=== PATIENT | male | born 1980 | race Two or more races ===

== ENCOUNTER 2020-12-06 00:29 | Inpatient (IN) | payer MEDICAID ==
[2020-12-06] VITALS (13 sets, daily range): BP systolic 69–113; BP diastolic 33–73
[~2020-12-06] VITALS: Ht 172.7 cm; Wt 72.6 kg
--- NOTE | 2020-12-06 00:31 | NUR ---
ED Nurse Note: PT came via ambulance after pt called 911. Pt is A/O x3 and verbally responsive. Pt states he was waling back from the bathroom and fell over a chair which landed on him. He laid on the floor for 5-10 minutes and then hopped to his cell phone and called 911. Pain noted at 04/18. MD at bedside speaking to pt. Pain medication ordered. No SOB or acute distress noted. Vitals stable. Pt is juandice after informing the nurse that he has cirrhosis of the liver and edema on both bilateral extremities +2.
--- NOTE | 2020-12-06 00:44 | Emergency Room Report ---
History of Present Illness General Chief Complaint: Lower Extremity Injury Source: Patient Present Illness [facility] This is a 40-year-old male with a history of alcoholic cirrhosis. He presents with chief complaint of right ankle pain. Onset was acute. Occurred about an hour and a half prior to arrival. He said he tripped over a chair ago was dark and he did not turn on the light. He fell and twisted his his right ankle. Pain is 9 out of 10. Unable to bear weight. He has deformity and swelling. He has bilateral pedal edema at baseline because of his cirrhosis. But is worse after the fall. No head injury. No fever chills but no other complaint. No radiation of his pain. Allergies: Coded Allergies: No Known Allergies (Unverified , 12/06/20) COVID-19 Screening Contact w/high risk pt: No Experienced COVID-19 symptoms?: No COVID-19 Testing performed SOFTWARE DESIGN MANAGER: No COVID-19 Screening: Negative COVID-19 Patient History Past Medical History: see triage record, old chart reviewed Past Surgical History: none Pertinent Family History: none Social History: Denies: smoking Immunizations: other Reviewed Nursing Documentation: PMH: Agreed; PSxH: Agreed Review of Systems Eye: Denies: eye pain, blurred vision ENT: Denies: ear pain, nose congestion, throat swelling Respiratory: Denies: cough, shortness of breath Cardiovascular: Denies: chest pain, palpitations Gastrointestinal: Denies: abdominal pain, diarrhea, nausea, vomiting Musculoskeletal: Reports: joint pain, joint swelling; Denies: back pain Skin: Denies: rash Neurological: Denies: headache, numbness Endocrine: Denies: increased thirst, increased urine Hematologic/Lymphatic: Denies: easy bruising All Other Systems: negative except mentioned in HPI Physical Exam Vital Signs Date Time Temp Pulse Resp B/P (MAP) Pulse Ox O2 Delivery O2 Flow Rate FiO2 12/06/20 00:30 98.1 90 20 148/85 (106) 99 Room Air Vitals unremarkable Sp02 EP Interpretation: reviewed, normal General Appearance: well appearing, no apparent distress, alert Head: normocephalic, atraumatic Eyes: bilateral eye PERRL, bilateral eye EOMI, bilateral eye scleral icterus ENT: hearing grossly normal, normal pharynx Neck: full range of motion, supple, no meningismus Respiratory: chest non-tender, lungs clear, normal breath sounds Cardiovascular #1: regular rate, rhythm, no murmur Gastrointestinal: normal bowel sounds, non tender, no mass, no organomegaly, no bruit, non-distended, other - ascites Musculoskeletal: back normal, other - Right ankle: He has 4+ pitting edema. He has deformity and tenderness to the ankle and foot. Sensation normal. Pulse decreased. Psychiatric: mood/affect normal Procedures Splinting Splinting : Consent: Verbal Location: Right lower extremity Hand-Made Type: plaster Splint: poserior short Pre-Proc Neuro Vasc Exam: normal Post-Proc Neuro Vasc Exam: normal Patient Tolerated: Well Complications: None Progress Patient had a short leg posterior splint along with a sugar tong placed. Patient tolerated procedure without any problem. Medical Decision Making Diagnostic Impression: Primary Impression: Tibia/fibula fracture, shaft Qualified Codes: S82.201A - Unspecified fracture of shaft of right tibia, initial encounter for closed fracture; S82.401A - Unspecified fracture of shaft of right fibula, initial encounter for closed fracture Additional Impressions: Hypokalemia Alcohol abuse Alcoholic cirrhosis of liver with ascites Anemia Qualified Codes: D64.9 - Anemia, unspecified Hepatorenal syndrome ER Course Patient presents with a fall and sustained an unstable tib-fib shaft fracture. He denies using alcohol but his alcohol level is still 55. He has ascites and severe jaundice already. Kidney function is poor. He is however alert and not and hepatic encephalopathy. Patient will be admitted for orthopedic consult. I contacted Dr. Braga for admission. Other X-Ray Diagnostic Results Other X-Ray Diagnostic Results #1: X-Ray ordered: Right knee x-rays # of Views/Limited Vs Complete: Complete Indication: Pain EP Interpretation: Yes Interpretation: no dislocation, no soft tissue swelling, no fractures Impression: No acute disease Electronically Signed by: Rik Lamar MD Other X-Ray Diagnostic Results #2: X-Ray ordered: Right ankle x-rays # of Views/Limited Vs Complete: Complete Indication: Pain EP Interpretation: Yes Interpretation: no dislocation, other - Patient with displaced comminuted fracture of the distal tibia and fibula Impression: Other - Tib-fib fracture Electronically Signed by: Rik Lamar MD Other X-Ray Diagnostic Results #3: X-Ray ordered: Right ankle x-rays # of Views/Limited Vs Complete: 4 View Indication: Pain EP Interpretation: Yes Interpretation: no dislocation, other - Distal tib-fib fracture Impression: Other - tib-fib fracture Electronically Signed by: Rik Lamar MD Last Vital Signs Date Time Temp Pulse Resp B/P (MAP) Pulse Ox O2 Delivery O2 Flow Rate FiO2 12/06/20 00:30 98.1 90 20 148/85 (106) 99 Room Air Status: improved Disposition: ADMITTED INPATIENT Condition: Serious Rik Lamar MD Dec 06, 2020 00:44
[2020-12-06] MEDS ORDERED: HYDROcodone/Acetamin 5/325 tab ORAL ONE (00:45)
[2020-12-06 01:56] LABS: HEMOGLOBIN 10.5 G/DL (14.2-18.0); MEAN CORPUSCULAR VOLUME 88 FL (80-99); PLATELET COUNT 68 K/UL (150-450); RED BLOOD COUNT 3.52 M/UL (4.70-6.10); RED CELL DISTRIBUTION WIDTH 16.5 % (11.6-14.8); WHITE BLOOD COUNT 14.5 K/UL (4.8-10.8)
[2020-12-06 02:23] LABS: ALANINE AMINOTRANSFERASE 43 U/L (12-78); ALBUMIN 1.4 G/DL (3.4-5.0); ALBUMIN/GLOBULIN RATIO 0.4 (1.0-2.7); ALKALINE PHOSPHATASE 338 U/L (46-116); ASPARTATE AMINO TRANSFERASE 139 U/L (15-37); BILIRUBIN,TOTAL 26.9 MG/DL (0.2-1.0); BLOOD UREA NITROGEN 30 mg/dL (7-18); CALCIUM 7.4 MG/DL (8.5-10.1); CARBON DIOXIDE 16 MMOL/L (21-32); CHLORIDE 91 MMOL/L (98-107); CREATININE 4.7 MG/DL (0.55-1.30); SODIUM 126 MMOL/L (136-145)
[2020-12-06 02:35] LABS: BILIRUBIN,DIRECT 22.8 MG/DL (0.0-0.3); POTASSIUM 2.3 MMOL/L (3.5-5.1)
[2020-12-06 02:36] LABS: INR 2.9 (0.9-1.1)
[2020-12-06] MEDS ORDERED: Morphine Sulfate 4mg/ml Inj (IV USE ONLY) IVP ONE (03:15)
[2020-12-06] MEDS ORDERED: Morphine Sulfate 4mg/ml Inj (IV USE ONLY) IVP PRN (03:15)
--- NOTE | 2020-12-06 03:21 | NUR ---
ED Nurse Note: Report given to Gosia Charge Nurse
--- NOTE | 2020-12-06 03:40 | NUR ---
NURSE NOTES: Received patient from [facility] via [facility]. Patient is AOx4, denies any pain at this time. NAD noted. IV potassium infusing on the R AC patent and intact. Will admit pt to floor. Bed in lowest position and locked. Side rails up x 2. Call light within reach. Will continue to monitor.
--- NOTE | 2020-12-06 06:56 | NUR ---
NURSE NOTES: Called and texted Dr. Nevarez for admission orders. Awaiting for reply. Will endorse to next nurse to follow up.
--- NOTE | 2020-12-06 07:01 | NUR ---
ED Nurse Note: Pt transferred to 401-2 in stable condition.
--- NOTE | 2020-12-06 07:26 | NUR ---
NURSE HAND-OFF: Important Events on Shift: None Patient Status: Stable Diet: NPO Pending Orders: CBC, CMP Pending Results/Labs: YES Pending MD notification: Jenny Upton and Dr. Montez Latest Vital Signs: Temperature 98.8 , Pulse 71 , B/P 92 /58 , Respiratory Rate 18 , O2 SAT 99 , Room Air, O2 Flow Rate . Vital Sign Comment: Stable Latest Green Fall Score: 40 Fall Risk: Medium Risk Safety Measures: Call light Within Reach, Bed Alarm Zone 2, Side Rails Side Rails x2, Bed position Low and Locked. Fall Precautions: Yellow Socks Report given to ALEENA Rosenbaum
--- NOTE | 2020-12-06 07:30 | NUR ---
NURSE NOTES: Patient lying in bed sleep. No signs and symptoms of pain or distress at this time. IV dressing intact and dry. Right leg splint due to fracture. Bed lowest position and side rails up. Call light within reach. Will continue to monitor.
--- NOTE | 2020-12-06 09:22 | NUR ---
NURSE NOTES: Spoke to regarding patient and new consent order received. Order read back and carried out.
--- NOTE | 2020-12-06 09:24 | NUR ---
CASE MANAGEMENT:REVIEW 40 YR OLD MALE BIBA FROM HOME CC: RT ANKLE PAIN SI: TIB/FIB FRACTURE. HYPOKALEMIA CIRRHOSIS. HEPATORENAL SYNDROME 98.0 90 20 148/85 99% ON RA WBC+14.5 INR+2.9 K-2.3 BUN+30 CR+4.7 ALCOHOL+55 IS: IVF@100/HR IV MORPHINE X1 K-DUR PO X1 NORCO PO XRAY ANKLE AND FOOT : ADMITTED TO MED/SURG
[2020-12-06] MEDS ORDERED: Phytonadione 10 mg/mL 1ml amp SUBQ SCH (10:00)
--- NOTE | 2020-12-06 10:00 | NUR ---
NURSE NOTES: Spoke to regarding patient and new Vit K, 8 units FFP, Tylenol and Benadryl order received. Order read back and carried out.
--- NOTE | 2020-12-06 10:20 | NUR ---
NURSE NOTES: Spoke to regarding patient and new order received. Order read back and carried out.
--- NOTE | 2020-12-06 10:21 | Diagnostic Imaging Report ---
EXAM: X-RAY XRAY Knee Compl 4v+ R CLINICAL HISTORY: Trauma with knee pain. COMPARISON: None FINDINGS: Total of 4 views of the right knee were obtained. Alignment is anatomic. There is no fracture, bony lesions or erosions. Joint spaces are unremarkable. Surrounding soft tissue is normal. IMPRESSION: NO FRACTURE.
--- NOTE | 2020-12-06 10:22 | Anethesia Preoperative Eval ---
Anesthesia Pre-op PMH/ROS General Date of Evaluation: Dec 06, 2020 Anesthesiologist: Jaswant ASA Score: ASA 3 - Emergency Mallampati Score Class I : Soft palate, uvula, fauces, pillars visible Class II: Soft palate, uvula, fauces visible Class III: Soft palate, base of uvula visible Class IV: Only hard plate visible Mallampati Classification: Class II Surgeon: Tc Diagnosis: R Tibial Fx Surgical Procedure: ORIF R Tibia Anesthesia History: none Family History: no anesthesia problems Allergies: Coded Allergies: No Known Allergies (Unverified , 12/06/20) Medications: see eMAR Patient NPO?: Yes Past Medical History Gastrointestinal/Genitourinary: Reports: other - Cirrohsis Musculoskeletal/Integumentary: Reports: other - Covid + Anesthesia Pre-op Phys. Exam Physician Exam Last Vital Signs Date Time Temp Pulse Resp B/P (MAP) Pulse Ox O2 Delivery O2 Flow Rate FiO2 12/06/20 04:00 Room Air 12/06/20 04:00 98.8 71 18 92/58 (69) 99 Constitutional: NAD Neurologic: CN 2-12 intact Cardiovascular: RRR Respiratory: CTA Gastrointestinal: S/NT/ND Airway Exam Mallampati Score: Class II MO: full ROM: full Teeth: missing, intact Anesthesia Pre-op A/P Labs Hematology Test 12/06/20 01:40 White Blood Count 14.5 K/UL (4.8-10.8) H Red Blood Count 3.52 M/UL (4.70-6.10) L Hemoglobin 10.5 G/DL (14.2-18.0) L Hematocrit 31.0 % (42.0-52.0) L Mean Corpuscular Volume 88 FL (80-99) Mean Corpuscular Hemoglobin 29.9 PG (27.0-31.0) Mean Corpuscular Hemoglobin Concent 34.0 G/DL (32.0-36.0) Red Cell Distribution Width 16.5 % (11.6-14.8) H Platelet Count 68 K/UL (150-450) L Mean Platelet Volume 9.4 FL (6.5-10.1) Neutrophils (%) (Auto) % (45.0-75.0) Lymphocytes (%) (Auto) % (20.0-45.0) Monocytes (%) (Auto) % (1.0-10.0) Eosinophils (%) (Auto) % (0.0-3.0) Basophils (%) (Auto) % (0.0-2.0) Differential Total Cells Counted 100 Neutrophils % (Manual) 87 % (45-75) H Lymphocytes % (Manual) 8 % (20-45) L Monocytes % (Manual) 5 % (1-10) Eosinophils % (Manual) 0 % (0-3) Basophils % (Manual) 0 % (0-2) Band Neutrophils 0 % (0-8) Platelet Estimate Decreased L Platelet Morphology Normal Anisocytosis 1+ Coagulation Test 12/06/20 01:40 Prothrombin Time 29.8 SEC (9.30-11.50) H Prothromb Time International Ratio 2.9 (0.9-1.1) H Activated Partial Thromboplast Time 85 SEC (23-33) H Chemistry Test 12/06/20 01:40 Sodium Level 126 MMOL/L (136-145) L Potassium Level 2.3 MMOL/L (3.5-5.1) *L Chloride Level 91 MMOL/L (98-107) L Carbon Dioxide Level 16 MMOL/L (21-32) L Blood Urea Nitrogen 30 mg/dL (7-18) H Creatinine 4.7 MG/DL (0.55-1.30) H Estimat Glomerular Filtration Rate 13.8 mL/min (>60) Glucose Level 50 MG/DL (74-106) L Calcium Level 7.4 MG/DL (8.5-10.1) L Total Bilirubin 26.9 MG/DL (0.2-1.0) H Direct Bilirubin 22.8 MG/DL (0.0-0.3) H Aspartate Amino Transf (AST/SGOT) 139 U/L (15-37) H Alanine Aminotransferase (ALT/SGPT) 43 U/L (12-78) Alkaline Phosphatase 338 U/L (46-116) H Total Protein 4.9 G/DL (6.4-8.2) L Albumin 1.4 G/DL (3.4-5.0) L Globulin 3.5 g/dL Albumin/Globulin Ratio 0.4 (1.0-2.7) L Risk Assessment & Plan Assessment: ASA 3E Plan: GA, Spinal Status Change Before Surgery: No Pre-Antibiotics Dru Gram Ancef IV Given Within 1 Hr of Incision: Yes Demario Michaud MD Dec 06, 2020 10:22
--- NOTE | 2020-12-06 10:22 | Immediate Post-Op Evaluation ---
Immediate Post-Op Evalulation Immediate Post-Op Evalulation Procedure: ORIF R Tibia Date of Evaluation: Dec 06, 2020 Blood Products: 0 Pain Score (1-10): 2 Nausea: No Vomiting: No Complications 0 Patient Status: awake, reacts, patent, none Hydration Status: adequate Dru Gram Ancef IV Given Within 1 Hr of Incision: Yes Demario Michaud MD Dec 06, 2020 10:22
--- NOTE | 2020-12-06 10:25 | Diagnostic Imaging Report ---
EXAM: X-RAY XRAY Foot Complete R CLINICAL HISTORY: Trauma with foot pain. COMPARISON: None FINDINGS: Total of 4 views of the right foot were obtained. Comminuted fracture of the distal tibia and fibula noted. Bony structures of the foot itself appear anatomic and intact. Joint spaces are unremarkable. There is soft tissue swelling. IMPRESSION: FRACTURES IN THE DISTAL TIBIA AND FIBULA. NO DISCRETE FRACTURE IN THE FOOT.
--- NOTE | 2020-12-06 10:26 | Diagnostic Imaging Report ---
EXAM: X-RAY XRAY Ankle Compl Min 3v R CLINICAL HISTORY: Trauma with ankle pain. COMPARISON: None FINDINGS: Total of 4 views of the right ankle were obtained. There is severely comminuted fracture of the distal tibial and fibular shafts with large butterfly fragments. Ankle mortise and subtalar joints appear anatomic. There is soft tissue swelling. IMPRESSION: COMMINUTED FRACTURES OF THE DISTAL TIBIA AND FIBULAR SHAFTS.
[2020-12-06] MEDS ORDERED: LR 1000ml 1,000 ML IVLG SCH (10:30)
[2020-12-06] MEDS ORDERED: Metoclopramide 10mg/2ml Inj IVP PRN (10:30)
[2020-12-06] MEDS ORDERED: Atropine Sulfate 0.4mg/ml inj IVP PRN (10:30)
[2020-12-06] MEDS ORDERED: HYDROcodone/Acetamin 5/325 tab ORAL PRN (10:30)
[2020-12-06] MEDS ORDERED: Midazolam 2mg/2ml Inj IVP PRN (10:30)
[2020-12-06] MEDS ORDERED: LORazepam Inj 2mg/ml 1ml IV PRN (10:30)
[2020-12-06] MEDS ORDERED: HYDROcodone/Acetamin 7.5/325 tab ORAL PRN (10:30)
[2020-12-06] MEDS ORDERED: oxyCODONE HCL/Acetaminophen 5/325mg ORAL PRN (10:30)
[2020-12-06] MEDS ORDERED: Meperidine 25mg/1ml Inj (FOR RIGORS ONLY) IV PRN (10:30)
[2020-12-06] MEDS ORDERED: Labetalol 5mg/ml 20ml vial IV PRN (10:30)
[2020-12-06] MEDS ORDERED: DiphenhydrAMINE 50mg/ml Inj IVP PRN (10:30)
[2020-12-06] MEDS ORDERED: fentaNYL 100 mcg/2 mL IV PRN (10:30)
[2020-12-06] MEDS ORDERED: Ketorolac 30mg Inj IV PRN ×2 (10:30)
[2020-12-06] MEDS ORDERED: Hydromorphone 0.5mg/0.5ml inj IVP PRN (10:30)
--- NOTE | 2020-12-06 10:36 | NUR ---
NURSE NOTES: Spoke to regarding Potassium level and new order received. Order read back and carried out.
--- NOTE | 2020-12-06 10:45 | Cardiac Electrophysiology PN ---
Subjective Subjective [id number] Objective Last 24 Hour Vital Signs Date Time Temp Pulse Resp B/P (MAP) Pulse Ox O2 Delivery O2 Flow Rate FiO2 12/06/20 04:00 Room Air 12/06/20 04:00 98.8 71 18 92/58 (69) 99 12/06/20 00:30 98.1 90 20 148/85 (106) 99 Room Air Intake and Output 12/05/20 12/06/20 19:00 07:00 Intake Total 0 ml Output Total 0 ml Balance 0 ml Intake Oral 0 ml Output Urine Total 0 ml Laboratory Tests Test 12/06/20 01:40 White Blood Count 14.5 K/UL (4.8-10.8) H Red Blood Count 3.52 M/UL (4.70-6.10) L Hemoglobin 10.5 G/DL (14.2-18.0) L Hematocrit 31.0 % (42.0-52.0) L Mean Corpuscular Volume 88 FL (80-99) Mean Corpuscular Hemoglobin 29.9 PG (27.0-31.0) Mean Corpuscular Hemoglobin Concent 34.0 G/DL (32.0-36.0) Red Cell Distribution Width 16.5 % (11.6-14.8) H Platelet Count 68 K/UL (150-450) L Mean Platelet Volume 9.4 FL (6.5-10.1) Neutrophils (%) (Auto) % (45.0-75.0) Lymphocytes (%) (Auto) % (20.0-45.0) Monocytes (%) (Auto) % (1.0-10.0) Eosinophils (%) (Auto) % (0.0-3.0) Basophils (%) (Auto) % (0.0-2.0) Differential Total Cells Counted 100 Neutrophils % (Manual) 87 % (45-75) H Lymphocytes % (Manual) 8 % (20-45) L Monocytes % (Manual) 5 % (1-10) Eosinophils % (Manual) 0 % (0-3) Basophils % (Manual) 0 % (0-2) Band Neutrophils 0 % (0-8) Platelet Estimate Decreased L Platelet Morphology Normal Anisocytosis 1+ Prothrombin Time 29.8 SEC (9.30-11.50) H Prothromb Time International Ratio 2.9 (0.9-1.1) H Activated Partial Thromboplast Time 85 SEC (23-33) H Sodium Level 126 MMOL/L (136-145) L Potassium Level 2.3 MMOL/L (3.5-5.1) *L Chloride Level 91 MMOL/L (98-107) L Carbon Dioxide Level 16 MMOL/L (21-32) L Blood Urea Nitrogen 30 mg/dL (7-18) H Creatinine 4.7 MG/DL (0.55-1.30) H Estimat Glomerular Filtration Rate 13.8 mL/min (>60) Glucose Level 50 MG/DL (74-106) L Calcium Level 7.4 MG/DL (8.5-10.1) L Total Bilirubin 26.9 MG/DL (0.2-1.0) H Direct Bilirubin 22.8 MG/DL (0.0-0.3) H Aspartate Amino Transf (AST/SGOT) 139 U/L (15-37) H Alanine Aminotransferase (ALT/SGPT) 43 U/L (12-78) Alkaline Phosphatase 338 U/L (46-116) H Total Protein 4.9 G/DL (6.4-8.2) L Albumin 1.4 G/DL (3.4-5.0) L Globulin 3.5 g/dL Albumin/Globulin Ratio 0.4 (1.0-2.7) L Serum Alcohol 55 mg/dL Slevin Fonseca MD Dec 06, 2020 10:45
--- NOTE | 2020-12-06 10:49 | NUR ---
RD ASSESSMENT & RECOMMENDATIONS SEE CARE ACTIVITY FOR COMPLETE ASSESSMENT DAILY ESTIMATED NEEDS: Needs based on Liver Dz 68.7kg 25-35 kcals/kg [id number] total kcals 1-1.5 g protein/kg 69-103 g total protein Fluid per MD NUTRITION DIAGNOSIS: Altered nutrition related lab values r/t clinical status, alcoholic liver cirrhosis as evidenced by T bili 26.9, elevated LFT's, elevated creat 4.7, low K 2.3, low Na 126. CURRENT DIET: NPO PO DIET RECOMMENDATIONS: Cardiac diet ADDITIONAL RECOMMENDATIONS: 1) Ensure Enlive w/ meals (currently NPO) 2) replete lytes (Low K 2.3, Low Na 126). 3) Obtain a calibrated bed scale wt 4) Hypoglycemic episode this morning (BG 50), consider Clear Liquid diet Or D5 if part of POC 5) CHEMICAL MILLING PROCESSOR eval if appropriate
--- NOTE | 2020-12-06 11:33 | Consultation ---
Consult Note Consult Note Neurology Consultation Date Of Consultation: 12/06/2020 Harpal Neil; Reason For Referral; Encephalopathy Pre op clearance HPI: This is a 40-year-old Hipanic male with a history of alcoholic cirrhosis. He presents with chief complaint of right ankle pain, he was evaluated in ED and He said he tripped over a chair ago was dark and he did not turn on the light. He fell and twisted his his right ankle. No head injury reported. No fever chills but no other complaint. No radiation of his pain. He lives with his mother, his alcohol level serum was 55. We do not know when is last drink was. He is currently laying in bed, he is alert and oriented to x4 but is repeating a phrase " [facility]" in every sentence. We do no know his baseline. also noted that his glucose was 50. We were consulted for encephalopathy and pre operative clearance prior to ankle surgery. he denies headache, dizziness, seizures. Past Medical History: Ascites, cirrhosis, alcohol abuse Past Surgical history: Denies Family History: Non contributory Social History: drinks alcohol, unknown smoker, and drug use ALLERGIES: NKDA ROS 14 point done. PE Vitals Reviewed General: Patient is lying down getting Echo at bedside no distress Neuro: Alert to self oriented to time and situation has insight to situation. Comprehension intact. Language parameters intact. Crainial nervies II-XI were tested. PEERLA No nystagmus. Tongue is midline. Facial is symmetric. hearing intact Motor: No invountary movements, bilateral Upper extremities 3/5 Lower extremities 2-3/5. Sensation: intact Gait not tested due to ankle fracture. Lab Data: Reviewed Alcohol serum 55, Glucose 50, LFT's elevated Meds: Reviewed Assessment and Rec's 1. Hepatic Encephalopathy --> we do not know pateint's baseline will call his mother for further information --> at this time alcohol level serum 55 on admission unknown when his last drink was, will check Ammonia level --> he is Alert and oriented x4 however is repeating a phrase within every sentence. --> will order MRI Brain for intracranial pathology 2. Liver Cirrhosis --> Ammonia level --> para as needed 3. Alcohol Abuse --> rec cessation 4. Hypoglycemia --> monitor glucose --> D50 prn Thank you for allowing us to particpate in pateints care, plan of care was reviewed with supervising physician Dr. Dalton Rae who agrees. Marisol Lynn NP Dec 06, 2020 11:33
--- NOTE | 2020-12-06 12:15 | NUR ---
NURSE NOTES: Checked BS - 35 and patient lethargic and unable to take PO. Call and regarding BS and wait for call back.
--- NOTE | 2020-12-06 12:23 | Consultation ---
Consult Note Consult Note I am asked to evaluate the patient at the request of Dr. Braga for renal failure and electrolyte imbalances Patient seen in room 410 Discussed with ALEENA Espinoza reviewed This is a 40-year-old male with a history of alcoholic cirrhosis. He presents with chief complaint of right ankle pain. Onset was acute. Occurred about an hour and a half prior to arrival. He said he tripped over a chair ago was dark and he did not turn on the light. He fell and twisted his his right ankle. Pain is 9 out of 10. Unable to bear weight. He has deformity and swelling. He has bilateral pedal edema at baseline because of his cirrhosis. But is worse after the fall. No head injury. No fever chills but no other complaint. No radiation of his pain. Allergies: No Known Allergies (Unverified , 12/06/20) COVID-19 Screening Contact w/high risk pt: No Experienced COVID-19 symptoms?: No COVID-19 Testing performed ADVERTISING VICE PRESIDENT: No COVID-19 Screening: Negative COVID-19 PHYSICAL EXAMINATION: VITAL SIGNS: Temperature is 98. No fever in the hospital. Pulse 100, blood pressure is 61/34. GENERAL APPEARANCE: Seems to have normal weight. HEAD AND NECK: Has icteric sclerae. Has right IJ central line. HEART: Tachycardic. LUNGS: Few rhonchi bilaterally. ABDOMEN: Distended with ascites. EXTREMITIES: Has bilateral pedal edema. NEUROLOGIC: Unresponsive. LABORATORY AND DIAGNOSTIC DATA: WBC 15,000, hemoglobin 9.1, hematocrit 45.5, platelets 54. Sodium 130, potassium 3, chloride 96, bicarb 17, BUN 31, creatinine 5, glucose 63. Earlier, glucose yesterday was 33. Total bilirubin is 29.4, direct bilirubin is 22.1, AST is 74, ALT is 48, alkaline phosphatase is 278. Ammonia is 199. Albumin is 2.1. Chest x-ray showed possible multifocal pneumonia versus artifact. renal US bilateral echogenic kidneys. Ankle x-ray showed comminuted fracture of distal tibia and fibular shaft. . Assessment/Plan Renal failure, likely acute on chronic. Most likely hepatorenal syndrome End-stage liver disease Severe abnormal electrolytes: Hyponatremia, hypokalemia Anemia Tibia/fibula fracture shaft Alcoholic cirrhosis of the liver with ascites Jaundice Suggestions: Not clear for surgery until electrolyte abnormality corrects Kidney ultrasound today 2D echocardiogram Stat lab work Ramachandran catheter Urine for tox screen Per orders Driss Sneed MD Dec 06, 2020 12:23
[2020-12-06] MEDS ORDERED: D5 1/2NS 1,000 ML IV SCH (12:30)
--- NOTE | 2020-12-06 12:30 | NUR ---
NURSE NOTES: Spoke to regarding BS and Dextrose and IV fluid order received. Given Dextrose as ordered. Will continue to monitor.
[2020-12-06] MEDS: D5NS 1,000 ML IV SCH (12:34)
--- NOTE | 2020-12-06 12:45 | NUR ---
NURSE NOTES: Rechecked BS - 93 and patient more awake. Will continue to monitor.
[2020-12-06] MEDS: Midodrine 10mg tab ORAL SCH ×2 (13:00→18:00)
--- NOTE | 2020-12-06 13:25 | NUR ---
NURSE NOTES: Patient BP drop to 69/42, HR-68, BS-79, RR-14, O2 100% RA, Temp - unable to obtain. CRAYON SAWYER called. Given IV bolus as CRAYON SAWYER protocol.
--- NOTE | 2020-12-06 13:45 | NUR ---
NURSE NOTES: HR-77/42, HR-71, RR-14, O2 100% RA, Temp - unable to obtain. Called Dr. Nevarez and regarding BLENDING TANK TENDER HELPER and BP. Spoke to regarding patient and transfer to Tele. Order noted and carried out. Notified alum plant supervisor regarding transfer.
[2020-12-06 13:47] LABS: ALBUMIN 1.3 G/DL (3.4-5.0); ALBUMIN/GLOBULIN RATIO 0.4 (1.0-2.7); BILIRUBIN,TOTAL 24.6 MG/DL (0.2-1.0); CALCIUM 7.1 MG/DL (8.5-10.1); CREATININE 4.9 MG/DL (0.55-1.30); POTASSIUM 2.9 MMOL/L (3.5-5.1)
[2020-12-06 13:49] LABS: HEMATOCRIT 28.9 % (42.0-52.0); HEMOGLOBIN 9.9 G/DL (14.2-18.0); MEAN CORPUSCULAR VOLUME 89 FL (80-99); PLATELET COUNT 50 K/UL (150-450); RED BLOOD COUNT 3.24 M/UL (4.70-6.10); RED CELL DISTRIBUTION WIDTH 17.1 % (11.6-14.8)
[2020-12-06 13:50] LABS: BILIRUBIN,DIRECT 21.1 MG/DL (0.0-0.3)
--- NOTE | 2020-12-06 13:50 | NUR ---
NURSE NOTES: Spoke to regarding patient and new consult received. Called and notified new consult.
[2020-12-06 13:52] LABS: BASOPHILS % (AUTO) 0.1 % (0.0-2.0); MONOCYTES % (AUTO) 3.6 % (1.0-10.0); NEUTROPHILS % (AUTO) 91.2 % (45.0-75.0)
[2020-12-06 14:22] LABS: FERRITIN 1530 NG/ML (8-388); GAMMA GLUTAMYL TRANSPEPTIDASE 163 U/L (5-85); HDL CHOLESTEROL 10 MG/DL (40-60); PHOSPHORUS 3.7 MG/DL (2.5-4.9); TRIGLYCERIDES 104 MG/DL (30-150)
[2020-12-06 14:23] LABS: CHOLESTEROL < 50 MG/DL (< 200)
--- NOTE | 2020-12-06 14:45 | NUR ---
NURSE NOTES: Transferred patient to Tele. BP remain low and spoke to Dr. Nevarez and transfer patient to ICU. Order noted and carried out. Buyer Broker notified.
[2020-12-06 14:59] LABS: IRON 67 ug/dL (50-175)
[2020-12-06 15:00] LABS: % IRON SATURATION 100 % (15-50); TOTAL IRON BINDING CAPACITY 67 ug/dL (250-450)
--- NOTE | 2020-12-06 16:00 | NUR ---
NURSE NOTES: Transferred patient to ICU and given report to Iesha FLOOD. Belonging checked.
--- NOTE | 2020-12-06 16:28 | NUR ---
NURSE NOTES: Patient's blood pressure=80/49, need consent signed for Fresh Frozen Plasma, eight units, was able to contact patient's mother for consent. Received orders from Dr. Divya Nevarez to transfer patient to ICU.
--- NOTE | 2020-12-06 16:30 | NUR ---
NURSE NOTESL: Received patient from [facility] for hypotension. Awake, wih minimal verbal response. Belongings reviewed. Will continue to monitor.
--- NOTE | 2020-12-06 16:38 | Diagnostic Imaging Report ---
EXAM: ULTRASOUND US Renal Comp CLINICAL HISTORY: Abdominal pain and distention. COMPARISON: None TECHNIQUE: Ultrasound examination of the kidneys includes grayscale images, and color and spectral doppler analysis. FINDINGS: The right kidney measures 13.9 x 5.5 x 6.7 cm and the left kidney measures 13.1 x 6.1 x 6.5 cm. Both kidneys appear echogenic reflecting medical renal disease. There is no hydronephrosis or stone seen bilaterally. Small amount of ascites noted. Incidental finding of some collaterals in the left upper quadrant adjacent to the spleen. Bladder is only partially visualized and mostly empty. IMPRESSION: ECHOGENIC KIDNEYS REFLECTING MEDICAL RENAL DISEASE. NO OBSTRUCTIVE UROPATHY.
--- NOTE | 2020-12-06 16:40 | Diagnostic Imaging Report ---
Procedure: XRAY Chest 1v Reason for study: Reason For Exam: COUGH Comparison films: None. FINDINGS: A single one view chest is obtained. Vascularity is normal. Mild densities in the right lung base, atelectasis versus early infiltrate. Cardiac and mediastinal silhouette are within normal limits. CP angles are sharp. The bony thorax appear unremarkable. IMPRESSION: Right basilar hazy atelectasis versus early infiltrate.
--- NOTE | 2020-12-06 18:13 | General Progress Note ---
Subjective Allergies: Coded Allergies: No Known Allergies (Unverified , 12/06/20) Objective Last 24 Hour Vital Signs Date Time Temp Pulse Resp B/P (MAP) Pulse Ox O2 Delivery O2 Flow Rate FiO2 12/06/20 12:00 66 16 78/39 (52) 100 12/06/20 09:30 67 100/73 (82) 12/06/20 09:00 Room Air 12/06/20 08:00 67 20 74/33 (47) 96 12/06/20 04:00 Room Air 12/06/20 04:00 98.8 71 18 92/58 (69) 99 12/06/20 00:30 98.1 90 20 148/85 (106) 99 Room Air Intake and Output 12/05/20 12/06/20 19:00 07:00 Intake Total 0 ml Output Total 0 ml Balance 0 ml Intake Oral 0 ml Output Urine Total 0 ml Laboratory Tests 12/06/20 01:40: White Blood Count 14.5H, Red Blood Count 3.52L, Hemoglobin 10.5L, Hematocrit 31.0L, Mean Corpuscular Volume 88, Mean Corpuscular Hemoglobin 29.9, Mean Corpuscular Hemoglobin Concent 34.0, Red Cell Distribution Width 16.5H, Platelet Count 68L, Mean Platelet Volume 9.4, Neutrophils (%) (Auto) , Lymphocytes (%) (Auto) , Monocytes (%) (Auto) , Eosinophils (%) (Auto) , Basophils (%) (Auto) , Differential Total Cells Counted 100, Neutrophils % (Manual) 87H, Lymphocytes % (Manual) 8L, Monocytes % (Manual) 5, Eosinophils % (Manual) 0, Basophils % (Manual) 0, Band Neutrophils 0, Platelet Estimate DecreasedL, Platelet Morphology Normal, Anisocytosis 1+, Prothrombin Time 29.8H, Prothromb Time International Ratio 2.9H, Activated Partial Thromboplast Time 85H, Sodium Level 126L, Potassium Level 2.3*L, Chloride Level 91L, Carbon Dioxide Level 16L, Blood Urea Nitrogen 30H, Creatinine 4.7H, Estimat Glomerular Filtration Rate 13.8, Glucose Level 50L, Calcium Level 7.4L, Total Bilirubin 26.9H, Direct Bilirubin 22.8H, Aspartate Amino Transf (AST/SGOT) 139H, Alanine Aminotransferase (ALT/SGPT) 43, Alkaline Phosphatase 338H, Total Protein 4.9L, Albumin 1.4L, Globulin 3.5, Albumin/Globulin Ratio 0.4L, Serum Alcohol 55 12/06/20 12:05: Sodium Level 128L, Potassium Level 2.9L, Chloride Level 94L, Carbon Dioxide Level 16L, Blood Urea Nitrogen 30H, Creatinine 4.9H, Estimat Glomerular Filtration Rate 13.2, Glucose Level 33*L, Calcium Level 7.1L, Total Bilirubin 24.6H, Direct Bilirubin 21.1H, Aspartate Amino Transf (AST/SGOT) 148H, Alanine Aminotransferase (ALT/SGPT) 44, Alkaline Phosphatase 316H, Total Protein 4.4L, Albumin 1.3L, Globulin 3.1, Albumin/Globulin Ratio 0.4L, Anion Gap 18H, Ammonia 277H 12/06/20 13:45: White Blood Count 16.0H, Red Blood Count 3.24L, Hemoglobin 9.9L, Hematocrit 28.9L, Mean Corpuscular Volume 89, Mean Corpuscular Hemoglobin 30.6, Mean Corpuscular Hemoglobin Concent 34.3, Red Cell Distribution Width 17.1H, Platelet Count 50L, Mean Platelet Volume 9.0, Neutrophils (%) (Auto) 91.2H, Lymphocytes (%) (Auto) 5.0L, Monocytes (%) (Auto) 3.6, Eosinophils (%) (Auto) 0.0, Basophils (%) (Auto) 0.1, Uric Acid 10.4H, Phosphorus Level 3.7, Magnesium Level 2.2, Iron Level 67, Total Iron Binding Capacity 67L, Percent Iron Saturation 100H, Unsaturated Iron Binding 0L, Ferritin 1530H, Gamma Glutamyl Transpeptidase 163H, Troponin I 0.000, C-Reactive Protein, Quantitative 11.6H, Pro-B-Type Natriuretic Peptide 1054H, Triglycerides Level 104, Cholesterol Level < 50, LDL Cholesterol 18, HDL Cholesterol 10L, Cholesterol/HDL Ratio 5.0H, Vitamin B12 Level > 2000H, Folate 3.1L, Thyroid Stimulating Hormone (TSH) 0.534 12/06/20 13:56: POC Whole Blood Glucose 79 Height (Feet): 5 Height (Inches): 8.00 Weight (Pounds): 160 Assessment/Plan Assessment/Plan: GI CONSULT Assessment - Alcoholic hepatitis - Decompensated liver disease - Alcoholic hepatitis? - Hepatorenal? - Sepsis? SBP? - Renal failure - poor prognostic indicator - Elevated ammonia - (+) EtOH level - at risk for EtOH withdrawal syndrome - Fractured Tib/Fib - prognosis poor, high mortality rate given presentation Recommendations - Midodrine/Octreotide trial for HRS - albumin challenge for HRS vs ATN - PPI - Lactulose - MVI/Thiamine - D/C all tylenol containing meds - Trental trial (cannot give steroids given possible sepsis) - broad spectrum abx - paracentesis - r/o SBP - abdominal u/s - r/o biliary obstruction Thank you MD Alexsandra Gomez Payman MD Dec 06, 2020 18:13
--- NOTE | 2020-12-06 19:05 | NUR ---
NURSE HAND-OFF REPORT: Latest Vital Signs: Temperature 98.0 , Pulse 77 , B/P 92 /47 , Respiratory Rate 18 , O2 SAT 100 , Room Air, O2 Flow Rate . Vital Sign Comment: EKG Rhythm: Sinus Rhythm Rhythm change?: Latest Green Fall Score: 60 Fall Risk: High Risk Safety Measures: Call light Within Reach, Bed Alarm Zone 1, Side Rails Side Rails x2, Bed position Low and Locked. Fall Precautions: Yellow Socks Door Sign Patient Fall Education Report given to Owen Jean RN.
[2020-12-06] MEDS: Lactulose 20gm/30ml UDC ORAL SCH (20:00)
[2020-12-06] MEDS: Thiamine 100mg tab ORAL SCH (20:00)
[2020-12-06] MEDS: SandoSTATIN 100mcg Inj SUBQ SCH (20:00)
[2020-12-06] MEDS: Piperacillin/Tazobactam 3.375 GM in NS 110 ML IVPB SCH (20:08)
--- NOTE | 2020-12-06 20:49 | NUR ---
2 calls to MD berkowitz. Waiting for phone call to be returned. BP in the 70s. Albumin currently infusing.
[2020-12-06] MEDS: Pantoprazole Inj IVP SCH (21:00)
[2020-12-06] MEDS: Norepinephrine 4mg/NS Premix 250 ML IV SCH (22:39)
--- NOTE | 2020-12-06 23:41 | Emergency Room Report ---
History of Present Illness General Chief Complaint: Lower Extremity Injury Source: Patient Present Illness Allergies: Coded Allergies: No Known Allergies (Unverified , 12/06/20) COVID-19 Screening Contact w/high risk pt: Yes Experienced COVID-19 symptoms?: No COVID-19 Testing performed RN TELEPHONIC: No COVID-19 Screening: Negative COVID-19 Nursing Documentation-PMH Past Medical History: No History, Except For Hx Cardiac Problems: No Hx Cancer: No Hx Gastrointestinal Problems: Yes Hx Neurological Problems: No Physical Exam Vital Signs Date Time Temp Pulse Resp B/P (MAP) Pulse Ox O2 Delivery O2 Flow Rate FiO2 12/06/20 00:30 98.1 90 20 148/85 (106) 99 Room Air Procedures Central Line Central Line : Consent: Emergent Central Line Lumen: triple Maximal Sterile Barrier Tech: yes cap, yes mask, yes sterile gown, yes sterile gloves, yes large sterile sheet, yes hand hygiene, yes chlorhexidine prep No Max Barrier Tech Because: emergency insertion Central Line Postion: internal jugular (R) US Guided Line?: Yes Vessel visualized with U/S: Right Internal Jugular Ultrasound Findings: Collapsible Vessel, Vessel Patent, Color flow present, Visualize vessel puncture Complications: none Central Line Post Position: sutured, good blood return, position confirmed w/ CXR Attempts: One Patient Tolerated: Well Complications: None Medical Decision Making Diagnostic Impression: Primary Impression: Tibia/fibula fracture, shaft Qualified Codes: S82.201A - Unspecified fracture of shaft of right tibia, initial encounter for closed fracture; S82.401A - Unspecified fracture of shaft of right fibula, initial encounter for closed fracture Additional Impressions: Alcoholic cirrhosis of liver with ascites Alcohol abuse Anemia Qualified Codes: D64.9 - Anemia, unspecified Hepatorenal syndrome Hypokalemia ER Course I was called to the bedside as the patient had low blood pressure requiring vasopressors. Central line was emergently inserted in patient's right internal jugular vein. No complications. Chest x-ray currently pending. Last Vital Signs Date Time Temp Pulse Resp B/P (MAP) Pulse Ox O2 Delivery O2 Flow Rate FiO2 12/06/20 22:39 86/31 12/06/20 21:51 98.0 18 100 12/06/20 21:00 88 12/06/20 19:50 Room Air Disposition: ADMITTED INPATIENT Condition: Serious Referrals: NOT CHOSEN IPA/MD,REFERRING (PCP) Miky Ewing M.D. Dec 06, 2020 23:41
[2020-12-07] VITALS (24 sets, daily range): BP systolic 67–115; BP diastolic 28–94
--- NOTE | 2020-12-07 00:54 | Diagnostic Imaging Report ---
EXAM: XR Chest, 1 View CLINICAL HISTORY: LINE TECHNIQUE: Frontal view of the chest. COMPARISON: None. FINDINGS: Lungs: Several vague opacity within the bilateral lung bases and left midlung field does not exclude subtle multifocal pneumonitis. Remainder of the lung becker otherwise clear. Pleural space: Unremarkable. No pneumothorax. Heart: Unremarkable. No cardiomegaly. Mediastinum: Unremarkable. Bones/joints: Unremarkable. IMPRESSION: Possible subtle multifocal pneumonitis versus superimposition artifact. Clinical correlation recommended.
[2020-12-07 04:53] LABS: PHOSPHORUS 2.9 MG/DL (2.5-4.9)
[2020-12-07 05:03] LABS: HEMATOCRIT 25.5 % (42.0-52.0); HEMOGLOBIN 9.1 G/DL (14.2-18.0); INR 4.1 (0.9-1.1); MEAN CORPUSCULAR VOLUME 90 FL (80-99); PLATELET COUNT 54 K/UL (150-450); RED BLOOD COUNT 2.83 M/UL (4.70-6.10); RED CELL DISTRIBUTION WIDTH 17.7 % (11.6-14.8)
[2020-12-07 05:15] LABS: ALBUMIN 2.1 G/DL (3.4-5.0); ALBUMIN/GLOBULIN RATIO 0.8 (1.0-2.7); BILIRUBIN,TOTAL 29.4 MG/DL (0.2-1.0)
[2020-12-07 05:19] LABS: BILIRUBIN,DIRECT 22.1 MG/DL (0.0-0.3)
[2020-12-07] MEDS: SandoSTATIN 100mcg Inj SUBQ SCH ×3 (06:04→23:31)
[2020-12-07] MEDS: Norepinephrine 4mg/NS Premix 250 ML IV SCH ×3 (06:07→14:20)
--- NOTE | 2020-12-07 07:30 | Consultation ---
History of Present Illness General Chief Complaint: Lower Extremity Injury Present Illness Allergies: Coded Allergies: No Known Allergies (Unverified , 12/06/20) Patient History Healthcare decision maker Resuscitation status Advanced Directive on File Physical Exam Last 24 Hour Vital Signs Date Time Temp Pulse Resp B/P (MAP) Pulse Ox O2 Delivery O2 Flow Rate FiO2 12/07/20 06:07 83/36 12/07/20 06:00 95 20 92/45 (61) 99 12/07/20 05:00 90 20 90/38 (55) 99 12/07/20 04:00 86 18 98/54 (69) 99 12/07/20 04:00 Room Air 12/07/20 03:00 92 20 96/45 (62) 23 12/07/20 02:00 89 20 108/46 (66) 100 12/07/20 01:00 94 20 96/60 (72) 100 12/07/20 00:00 Room Air 12/07/20 00:00 82 16 97/49 (65) 99 12/06/20 23:00 91 16 85/35 (52) 99 12/06/20 22:39 86/31 12/06/20 21:51 98.0 18 92/47 (62) 100 12/06/20 21:00 88 16 74/42 (53) 100 12/06/20 21:00 79/32 12/06/20 19:50 Room Air 12/06/20 19:47 98.0 77 18 92/47 (62) 100 12/06/20 19:00 77 18 92/47 (62) 100 12/06/20 19:00 97.6 77 18 113/55 (74) 100 12/06/20 18:00 83 18 94/43 (60) 100 12/06/20 17:00 82 17 90/38 (55) 100 12/06/20 16:30 98.0 73 17 83/33 (50) 99 12/06/20 13:25 68 14 100 12/06/20 12:00 66 16 78/39 (52) 100 12/06/20 09:30 67 100/73 (82) 12/06/20 09:00 Room Air 12/06/20 08:00 67 20 74/33 (47) 96 Intake and Output 12/06/20 12/07/20 19:00 07:00 Intake Total 300 ml 715.00 ml Output Total 30 ml Balance 300 ml 685.00 ml Intake Oral 0 ml IV Total 300 ml 715.00 ml Output Urine Total 30 ml Laboratory Tests Test 12/06/20 12:05 12/06/20 13:45 12/06/20 13:56 12/07/20 03:37 Sodium Level 128 MMOL/L (136-145) L 130 MMOL/L (136-145) L Potassium Level 2.9 MMOL/L (3.5-5.1) L 3.0 MMOL/L (3.5-5.1) L Chloride Level 94 MMOL/L (98-107) L 96 MMOL/L (98-107) L Carbon Dioxide Level 16 MMOL/L (21-32) L 17 MMOL/L (21-32) L Anion Gap 18 mmol/L (5-15) H 17 mmol/L (5-15) H Blood Urea Nitrogen 30 mg/dL (7-18) H 31 mg/dL (7-18) H Creatinine 4.9 MG/DL (0.55-1.30) H 5.0 MG/DL (0.55-1.30) H Estimat Glomerular Filtration Rate 13.2 mL/min (>60) 12.9 mL/min (>60) Glucose Level 33 MG/DL (74-106) *L 63 MG/DL (74-106) L Calcium Level 7.1 MG/DL (8.5-10.1) L 7.0 MG/DL (8.5-10.1) L Total Bilirubin 24.6 MG/DL (0.2-1.0) H 29.4 MG/DL (0.2-1.0) H Direct Bilirubin 21.1 MG/DL (0.0-0.3) H 22.1 MG/DL (0.0-0.3) H Aspartate Amino Transf (AST/SGOT) 148 U/L (15-37) H 174 U/L (15-37) H Alanine Aminotransferase (ALT/SGPT) 44 U/L (12-78) 48 U/L (12-78) Alkaline Phosphatase 316 U/L (46-116) H 278 U/L (46-116) H Ammonia 277 umol/L (11-32) H 199 umol/L (11-32) H Total Protein 4.4 G/DL (6.4-8.2) L 4.8 G/DL (6.4-8.2) L Albumin 1.3 G/DL (3.4-5.0) L 2.1 G/DL (3.4-5.0) L Globulin 3.1 g/dL 2.7 g/dL Albumin/Globulin Ratio 0.4 (1.0-2.7) L 0.8 (1.0-2.7) L White Blood Count 16.0 K/UL (4.8-10.8) H 15.0 K/UL (4.8-10.8) H Red Blood Count 3.24 M/UL (4.70-6.10) L 2.83 M/UL (4.70-6.10) L Hemoglobin 9.9 G/DL (14.2-18.0) L 9.1 G/DL (14.2-18.0) L Hematocrit 28.9 % (42.0-52.0) L 25.5 % (42.0-52.0) L Mean Corpuscular Volume 89 FL (80-99) 90 FL (80-99) Mean Corpuscular Hemoglobin 30.6 PG (27.0-31.0) 32.3 PG (27.0-31.0) H Mean Corpuscular Hemoglobin Concent 34.3 G/DL (32.0-36.0) 35.8 G/DL (32.0-36.0) Red Cell Distribution Width 17.1 % (11.6-14.8) H 17.7 % (11.6-14.8) H Platelet Count 50 K/UL (150-450) L 54 K/UL (150-450) L Mean Platelet Volume 9.0 FL (6.5-10.1) 10.8 FL (6.5-10.1) H Neutrophils (%) (Auto) 91.2 % (45.0-75.0) H % (45.0-75.0) Lymphocytes (%) (Auto) 5.0 % (20.0-45.0) L % (20.0-45.0) Monocytes (%) (Auto) 3.6 % (1.0-10.0) % (1.0-10.0) Eosinophils (%) (Auto) 0.0 % (0.0-3.0) % (0.0-3.0) Basophils (%) (Auto) 0.1 % (0.0-2.0) % (0.0-2.0) Uric Acid 10.4 MG/DL (2.6-7.2) H 10.2 MG/DL (2.6-7.2) H Phosphorus Level 3.7 MG/DL (2.5-4.9) 2.9 MG/DL (2.5-4.9) Magnesium Level 2.2 MG/DL (1.8-2.4) 2.0 MG/DL (1.8-2.4) Iron Level 67 ug/dL (50-175) Total Iron Binding Capacity 67 ug/dL (250-450) L Percent Iron Saturation 100 % (15-50) H Unsaturated Iron Binding 0 ug/dL (112-346) L Ferritin 1530 NG/ML (8-388) H Gamma Glutamyl Transpeptidase 163 U/L (5-85) H Troponin I 0.000 ng/mL (0.000-0.056) C-Reactive Protein, Quantitative 11.6 mg/dL (0.00-0.90) H Pro-B-Type Natriuretic Peptide 1054 pg/mL (0-125) H Triglycerides Level 104 MG/DL (30-150) Cholesterol Level < 50 MG/DL (< 200) LDL Cholesterol 18 mg/dL (<100) HDL Cholesterol 10 MG/DL (40-60) L Cholesterol/HDL Ratio 5.0 (3.3-4.4) H Vitamin B12 Level > 2000 PG/ML (193-986) H Folate 3.1 NG/ML (8.6-58.9) L Thyroid Stimulating Hormone (TSH) 0.534 uiU/mL (0.358-3.740) POC Whole Blood Glucose 79 MG/DL (74-106) Neutrophils % (Manual) Pending Lymphocytes % (Manual) Pending Platelet Estimate Pending Platelet Morphology Pending Prothrombin Time 40.4 SEC (9.30-11.50) H Prothromb Time International Ratio 4.1 (0.9-1.1) H Hepatitis A IgM Antibody Pending Hepatitis B Surface Antigen Pending Hepatitis B Core IgM Antibody Pending Hepatitis C Antibody Pending Height (Feet): 5 Height (Inches): 8.00 Weight (Pounds): 160 Medications Current Medications Medications (Trade) Dose Ordered Sig/Armin Route PRN Reason Start Time Stop Time Status Last Admin Dose Admin Albumin Human 100 ml @ 100 mls/hr Q6H IV 12/06/20 20:00 03/06/21 19:59 12/07/20 01:43 Dextrose/Sodium Chloride 1,000 ml @ 50 mls/hr Q20H IV 12/06/20 12:30 01/05/21 12:29 12/06/20 12:34 Folic Acid (Folate) 1 mg DAILY ORAL 12/06/20 20:00 01/05/21 19:59 Lactulose (Cephulac) 30 gm THREE TIMES A DAY ORAL 12/06/20 20:00 01/05/21 19:59 Midodrine (Pro-Amatine) 10 mg THREE TIMES A DAY ORAL 12/06/20 13:00 03/06/21 12:59 Multivitamins (Multivitamins) 1 tab DAILY ORAL 12/06/20 20:00 01/05/21 19:59 12/06/20 20:09 Norepinephrine Bitartrate 250 ml @ 0 mls/hr Q24H IV 12/06/20 22:30 12/09/20 22:22 12/07/20 06:07 Octreotide Acetate (SandoSTATIN) 100 mcg Q8HR SUBQ 12/06/20 20:00 01/05/21 19:59 12/07/20 06:04 Pantoprazole (Protonix) 40 mg EVERY 12 HOURS IVP 12/06/20 21:00 01/05/21 20:59 12/06/20 21:00 Pentoxifylline (TRENtal) 400 mg Q12HR ORAL 12/06/20 21:00 03/06/21 20:59 Piperacillin Sod/ Tazobactam Sod 3.375 gm/Sodium Chloride 110 ml @ 27.5 mls/hr Q12HR IVPB 12/06/20 20:00 12/13/20 19:59 12/06/20 20:08 Thiamine HCl (Vitamin B1) 100 mg DAILY ORAL 12/06/20 20:00 01/05/21 19:59 Assessment/Plan Assessment/Plan: Hematology Consultation REQ : Divya Hurtado RFC: Thrombocytopenia, Coagulopathy DOS: 12/07/20 ID This is a 40-year-old male with a history of alcoholic cirrhosis. He presents with chief complaint of right ankle pain. Onset was acute. Occurred about an hour and a half prior to arrival. He said he tripped over a chair ago was dark and he did not turn on the light. He fell and twisted his his right ankle. Pain is 9 out of 10. Unable to bear weight. He has deformity and swelling. He has bilateral pedal edema at baseline because of his cirrhosis. But is worse after the fall. No head injury. No fever chills but no other complaint. No radiation of his pain. Labs have been reviewed, does have a dropping plt count, heme consulted. Seen by renal, neuro, pulm. Allergies: No Known Allergies (Unverified , 12/06/20) COVID-19 Screening Contact w/high risk pt: No Experienced COVID-19 symptoms?: No COVID-19 Testing performed PITCH WORKER: No COVID-19 Screening: Negative COVID-19 Patient History Past Medical History: see triage record, old chart reviewed Past Surgical History: none Pertinent Family History: none Social History: Denies: smoking Immunizations: other Reviewed Nursing Documentation: PMH: Agreed; PSxH: Agreed Review of Systems Eye: Denies: eye pain, blurred vision ENT: Denies: ear pain, nose congestion, throat swelling Respiratory: Denies: cough, shortness of breath Cardiovascular: Denies: chest pain, palpitations Gastrointestinal: Denies: abdominal pain, diarrhea, nausea, vomiting Musculoskeletal: Denies: back pain Skin: Denies: rash Neurological: Denies: headache, numbness Endocrine: Denies: increased thirst, increased urine Hematologic/Lymphatic: Denies: easy bruising All Other Systems: negative except mentioned in HPI PE Sp02 EP Interpretation: reviewed, normal General Appearance: well appearing, no apparent distress, alert Head: normocephalic, atraumatic Eyes: bilateral eye PERRL, bilateral eye EOMI, bilateral eye scleral icterus++ ENT: hearing grossly normal, normal pharynx Neck: full range of motion, supple, no meningismus Respiratory: chest non-tender, lungs clear, normal breath sounds Cardiovascular: regular rate, rhythm, no murmur Gastrointestinal: normal bowel sounds, non tender, no mass, no organomegaly, no bruit, non-distended, other - ascites Musculoskeletal: back normal, other - Right ankle: He has 4+ pitting edema. He has deformity and tenderness to the ankle and foot. Sensation normal. Labs: noted Imaging: reviewed Assessment and Recs # Anemia of kidney disease, appears to be chronic, first time has been here --> have started on epogen --> anemia panel reviewed and cw Acd --> hgb 10-->9.1 --> no hemolysis --> transfuse as needed # Thrombocytopenia due to liver disease --> smear has been noted --> meds reviewed --> plt 68-->54 --> transfuse as needed pre-procedure --> hep and hiv panel # Coagulopathy persistently elevated, due to liver disease --> vit k and ffp as needed --> inr 2.9-->4.2 # Fracture right tibial shaft --> s/p Splinting --> as per ortho # Hypokalemia --> replete with k per renal # Alcohol abuse # Alcoholic cirrhosis of liver with ascites # Hepatorenal syndrome # Severe abnormal electrolytes: Hyponatremia, hypokalemia # Jaundice Appreciate consultation and dw Jose Álvarez MD Dec 07, 2020 07:30
--- NOTE | 2020-12-07 07:30 | NUR ---
NURSE NOTES: Patient received from off-going nurse, BP, RN. Patient's VS unstable, he is observed to be shaking and with an AMS. Patient unable to answer orientation questions or focus his attention on this RN. Care team aware of the patient's status, he was made NPO overnight due to AMS. Ramachandran catheter remains in place and patent, urine output continues to be low (0-5 ml/hr). Sclera of the eyes remain yellow, his skin is yellow, intact but appears fragile. RAYMOND pulses palpable and strong (radial and tibial), the dorsalis pedis is palpable to the left foot. Right leg cast/dressing is CDI, painful with movement. Breath sounds clear and diminished RAYMOND. Patient has denies pain when asked/attentive to questioning. Labs abnormal, no new orders at this time. Will con't to monitor.
--- NOTE | 2020-12-07 08:30 | NUR ---
NURSE NOTES: Levophed titrated twice since start of shift, BP unstable. Patient able to tolerate rate increase from 18 mcg/kg/min to 21 mcg/kg/min. Denies pain, orientation remains varied/altered. Will con't to monitor.
--- NOTE | 2020-12-07 09:25 | NUR ---
NURSE NOTES: Digna from US contacted this RN and paracentesis on hold for today d/t the patient's instability and elevated PT/INR values. Care team is aware, will con't to monitor.
[2020-12-07] MEDS: D5NS 1,000 ML IV SCH (09:30)
[2020-12-07] MEDS: Pantoprazole Inj IVP SCH ×2 (09:30→22:39)
[2020-12-07] MEDS: Piperacillin/Tazobactam 3.375 GM in NS 110 ML IVPB SCH ×2 (09:58→22:39)
[2020-12-07] MEDS: Lactulose 20gm/30ml UDC ORAL SCH ×4 (10:00→21:45)
--- NOTE | 2020-12-07 10:30 | NUR ---
NURSE NOTES: MRI of the brain without contrast held again today d/t patient's instability and AMS. Care team is aware. Will con't with plan of care.
--- NOTE | 2020-12-07 10:51 | Diagnostic Imaging Report ---
Indication: Abnormal liver function tests. Abnormal renal function tests Technique: Partida-scale and duplex images of the upper abdomen were obtained Comparison: Renal sonogram of earlier the same day. Findings: Unremarkable inferior vena cava. Gallbladder is distended, without stones, wall thickening, nor pericholecystic fluid. Sonographic Lozano's sign is negative. Common bile duct measures for mm in diameter. No intrahepatic biliary ductal dilatation. Liver demonstrates increased echogenicity. It demonstrates surface nodularity. No definite focal abnormality There is some free intraperitoneal fluid. Portal vein and hepatic veins are patent. Pancreas is obscured by bowel gas. Spleen is enlarged, measuring 15.6 cm long axis dimension. There are splenic hilar varices. Left kidney measures 13.4 cm in length. Right kidney measures 14.1 cm length. Both kidneys demonstrate mildly increased echogenicity. There is no hydronephrosis. No focal abnormality . Abdominal aorta is partially obscured by bowel gas, visualized portions are non-aneurysmal . Impression: Evidence of hepatic cirrhosis, with increased parenchymal echogenicity and surface nodularity Distended gallbladder but no stones. Normal common bile duct Evidence of portal hypertension, with ascites, splenomegaly, splenic hilar varices Note nonvisualization of the pancreas and portions of the abdominal aorta
--- NOTE | 2020-12-07 11:50 | NUR ---
FIREARMS INSPECTOR NOTE SW attempted to meet w/ pt for psychosocial assessment. Pt was able to make eye contact w/ this SW. However, pt was not able to communicate with this SW d/t his current medical condition. Pt appears to be very weak. Pt's cellphone was at his bedside, ringing. SW offered if pt wanted to answer his phone. Pt was unable to express, does not appear that he could speak over the phone. There is no emergency contact listed on the facesheet. SW will attempt to meet w/ pt when his condition improves.
--- NOTE | 2020-12-07 12:00 | Nephrology Progress Note ---
Assessment/Plan Problem List: (1) Renal failure (ARF), acute on chronic (2) Hepatorenal syndrome Assessment: Jaundice (3) Anemia (4) Fracture of right tibia and fibula (5) Alcoholic cirrhosis of liver with ascites (6) Electrolyte imbalance Assessment: Hyponatremia, hypokalemia Assessment Renal failure, likely acute on chronic. Most likely hepatorenal syndrome End-stage liver disease Severe abnormal electrolytes: Hyponatremia, hypokalemia Anemia Tibia/fibula fracture shaft Alcoholic cirrhosis of the liver with ascites Jaundice Plan December 07: Patient seen in ICU. Discussed with RN. Labs reviewed. Serum sodium improved. Low potassium addressed. Patient hypotensive. Urine studies still pending. On pressors. Continue to monitor electrolytes and renal parameters. Previously: Not clear for surgery until electrolyte abnormality corrects Kidney ultrasound today 2D echocardiogram Stat lab work Ramachandran catheter Urine for tox screen Per orders Ultrasound: Left kidney measures 13.4 cm in length. Right kidney measures 14.1 cm length. Both kidneys demonstrate mildly increased echogenicity. There is no hydronephrosis. Evidence of hepatic cirrhosis, with increased parenchymal echogenicity and surface nodularity Distended gallbladder but no stones. Normal common bile duct Evidence of portal hypertension, with ascites, splenomegaly, splenic hilar varices Chest x-ray: Possible subtle multifocal pneumonitis versus superimposition artifact. Subjective ROS Limited/Unobtainable: Yes Objective Objective Last 24 Hour Vital Signs Date Time Temp Pulse Resp B/P (MAP) Pulse Ox O2 Delivery O2 Flow Rate FiO2 12/07/20 09:45 61/34 12/07/20 07:00 100 20 93/40 (57) 99 12/07/20 06:07 83/36 12/07/20 06:00 95 20 92/45 (61) 99 12/07/20 05:00 90 20 90/38 (55) 99 12/07/20 04:00 86 18 98/54 (69) 99 12/07/20 04:00 Room Air 12/07/20 03:00 92 20 96/45 (62) 23 12/07/20 02:00 89 20 108/46 (66) 100 12/07/20 01:00 94 20 96/60 (72) 100 12/07/20 00:00 Room Air 12/07/20 00:00 82 16 97/49 (65) 99 12/06/20 23:00 91 16 85/35 (52) 99 12/06/20 22:39 86/31 12/06/20 21:51 98.0 18 92/47 (62) 100 12/06/20 21:00 88 16 74/42 (53) 100 12/06/20 21:00 79/32 12/06/20 19:50 Room Air 12/06/20 19:47 98.0 77 18 92/47 (62) 100 12/06/20 19:00 77 18 92/47 (62) 100 12/06/20 19:00 97.6 77 18 113/55 (74) 100 12/06/20 18:00 83 18 94/43 (60) 100 12/06/20 17:00 82 17 90/38 (55) 100 12/06/20 16:30 98.0 73 17 83/33 (50) 99 12/06/20 13:25 68 14 100 12/06/20 12:00 66 16 78/39 (52) 100 l Intake and Output 12/06/20 12/07/20 19:00 07:00 Intake Total 300 ml 715.00 ml Output Total 90 ml Balance 300 ml 625.00 ml Intake Oral 0 ml IV Total 300 ml 715.00 ml Output Urine Total 90 ml Current Medications Medications (Trade) Dose Ordered Sig/Armin Route PRN Reason Start Time Stop Time Status Last Admin Dose Admin Albumin Human 100 ml @ 100 mls/hr Q6H IV 12/06/20 20:00 03/06/21 19:59 12/07/20 09:55 Chlorhexidine Gluconate (Mariama-Hex 2%) 1 applic DAILY@2000 TOPIC 12/07/20 20:00 03/07/21 19:59 Dextrose/Sodium Chloride 1,000 ml @ 50 mls/hr Q20H IV 12/06/20 12:30 01/05/21 12:29 12/06/20 12:34 Epoetin Sd (Epoetin Sd-EPBX(NON ESRD)) 4,000 unit THU-THU-THU SUBQ 12/07/20 21:00 03/07/21 20:59 Folic Acid (Folate) 1 mg DAILY ORAL 12/06/20 20:00 01/05/21 19:59 Lactulose (Cephulac) 30 gm THREE TIMES A DAY ORAL 12/06/20 20:00 01/05/21 19:59 Midodrine (Pro-Amatine) 10 mg THREE TIMES A DAY ORAL 12/06/20 13:00 03/06/21 12:59 Multivitamins (Multivitamins) 1 tab DAILY ORAL 12/06/20 20:00 01/05/21 19:59 12/06/20 20:09 Norepinephrine Bitartrate 250 ml @ 0 mls/hr Q24H IV 12/06/20 22:30 12/09/20 22:22 12/07/20 09:45 Octreotide Acetate (SandoSTATIN) 100 mcg Q8HR SUBQ 12/06/20 20:00 01/05/21 19:59 12/07/20 06:04 Pantoprazole (Protonix) 40 mg EVERY 12 HOURS IVP 12/06/20 21:00 01/05/21 20:59 12/06/20 21:00 Pentoxifylline (TRENtal) 400 mg Q12HR ORAL 12/06/20 21:00 03/06/21 20:59 Piperacillin Sod/ Tazobactam Sod 3.375 gm/Sodium Chloride 110 ml @ 27.5 mls/hr Q12HR IVPB 12/06/20 20:00 12/13/20 19:59 12/07/20 09:58 Thiamine HCl (Vitamin B1) 100 mg DAILY ORAL 12/06/20 20:00 01/05/21 19:59 Laboratory Tests 12/06/20 12:05: Sodium Level 128L, Potassium Level 2.9L, Chloride Level 94L, Carbon Dioxide Leve l 16L, Anion Gap 18H, Blood Urea Nitrogen 30H, Creatinine 4.9H, Estimat Glomerular Filtration Rate 13.2, Glucose Level 33*L, Calcium Level 7.1L, Total Bilirubin 24.6H, Direct Bilirubin 21.1H, Aspartate Amino Transf (AST/SGOT) 148H, Alanine Aminotransferase (ALT/SGPT) 44, Alkaline Phosphatase 316H, Ammonia 277H, Total Protein 4.4L, Albumin 1.3L, Globulin 3.1, Albumin/Globulin Ratio 0.4L 12/06/20 13:45: White Blood Count 16.0H, Red Blood Count 3.24L, Hemoglobin 9.9L, Hematocrit 28.9L, Mean Corpuscular Volume 89, Mean Corpuscular Hemoglobin 30.6, Mean Corpuscular Hemoglobin Concent 34.3, Red Cell Distribution Width 17.1H, Platelet Count 50L, Mean Platelet Volume 9.0, Neutrophils (%) (Auto) 91.2H, Lymphocytes (%) (Auto) 5.0L, Monocytes (%) (Auto) 3.6, Eosinophils (%) (Auto) 0.0, Basophils (%) (Auto) 0.1, Uric Acid 10.4H, Phosphorus Level 3.7, Magnesium Level 2.2, Iron Level 67, Total Iron Binding Capacity 67L, Percent Iron Saturation 100H, Unsaturated Iron Binding 0L, Ferritin 1530H, Gamma Glutamyl Transpeptidase 163H, Troponin I 0.000, C-Reactive Protein, Quantitative 11.6H, Pro-B-Type Natriuretic Peptide 1054H, Triglycerides Level 104, Cholesterol Level < 50, LDL Cholesterol 18, HDL Cholesterol 10L, Cholesterol/HDL Ratio 5.0H, Vitamin B12 Level > 2000H, Folate 3.1L, Thyroid Stimulating Hormone (TSH) 0.534 12/06/20 13:56: POC Whole Blood Glucose 79 12/07/20 03:37: Sodium Level 130L, Potassium Level 3.0L, Chloride Level 96L, Carbon Dioxide Level 17L, Anion Gap 17H, Blood Urea Nitrogen 31H, Creatinine 5.0H, Estimat Glomerular Filtration Rate 12.9, Glucose Level 63L, Calcium Level 7.0L, Total Bilirubin 29.4H, Direct Bilirubin 22.1H, Aspartate Amino Transf (AST/SGOT) 174H, Alanine Aminotransferase (ALT/SGPT) 48, Alkaline Phosphatase 278H, Ammonia 199H, Total Protein 4.8L, Albumin 2.1L, Globulin 2.7, Albumin/Globulin Ratio 0.8L, White Blood Count 15.0H, Red Blood Count 2.83L, Hemoglobin 9.1L, Hematocrit 25.5L, Mean Corpuscular Volume 90, Mean Corpuscular Hemoglobin 32.3H, Mean Corpuscular Hemoglobin Concent 35.8, Red Cell Distribution Width 17.7H, Platelet Count 54L, Mean Platelet Volume 10.8H, Neutrophils (%) (Auto) , Lymphocytes (%) (Auto) , Monocytes (%) (Auto) , Eosinophils (%) (Auto) , Basophils (%) (Auto) , Uric Acid 10.2H, Phosphorus Level 2.9, Magnesium Level 2.0, Differential Total Cells Counted 100, Neutrophils % (Manual) 93H, Lymphocytes % (Manual) 4L, Monocytes % (Manual) 1, Eosinophils % (Manual) 1, Basophils % (Manual) 0, Band Neutrophils 1, Platelet Estimate DecreasedL, Platelet Morphology Normal, Hypochromasia 1+, Anisocytosis 1+, Prothrombin Time 40.4H, Prothromb Time I nternational Ratio 4.1H, Cortisol AM Sample [Pending], Hepatitis A IgM Antibody [Pending], Hepatitis B Surface Antigen [Pending], Hepatitis B Core IgM Antibody [Pending], Hepatitis C Antibody [Pending], HIV (1&2) Antibody Rapid [Pending] Height (Feet): 5 Height (Inches): 8.00 Weight (Pounds): 160 General Appearance: no apparent distress, lethargic, other - In ICU Cardiovascular: tachycardia Respiratory/Chest: decreased breath sounds Abdomen: distended, other - Cellulitis Driss Sneed MD Dec 07, 2020 12:00
[2020-12-07] MEDS: Thiamine 100mg tab ORAL SCH (12:09)
[2020-12-07] MEDS: Midodrine 10mg tab ORAL SCH ×3 (12:09→17:11)
--- NOTE | 2020-12-07 12:30 | NUR ---
NURSE NOTES: Patient's mentation showing slight improvement with administration of lactulose. This RN was able to provide the patient with some nourishment to take PO meds. No evidence of aspiration observed, will con't to monitor.
--- NOTE | 2020-12-07 12:31 | Cardiac Electrophysiology PN ---
Assessment/Plan Assessment/Plan 1. Septic shock on Levophed 25 mcg and Abx. Echo Nl EF 65%. No pericardial effusion reported. 2. Cirrhosis with encephalopathy and Bilirubin of 29 3. Acute renal failure Cr 4.9 4. Hyponatremia Na 126 5. Leg Fx. Awaiting stabilization before surgery DW RN and Dr Sneed Subjective Subjective Transferred to ICU on Levophed 25 mcg on NS 50 cc hr got albumin and FFP. On RA sat 100%! Objective Last 24 Hour Vital Signs Date Time Temp Pulse Resp B/P (MAP) Pulse Ox O2 Delivery O2 Flow Rate FiO2 12/07/20 09:45 61/34 12/07/20 09:30 92/41 12/07/20 07:00 100 20 93/40 (57) 99 12/07/20 06:07 83/36 12/07/20 06:00 95 20 92/45 (61) 99 12/07/20 05:00 90 20 90/38 (55) 99 12/07/20 04:00 86 18 98/54 (69) 99 12/07/20 04:00 Room Air 12/07/20 03:00 92 20 96/45 (62) 23 12/07/20 02:00 89 20 108/46 (66) 100 12/07/20 01:00 94 20 96/60 (72) 100 12/07/20 00:00 Room Air 12/07/20 00:00 82 16 97/49 (65) 99 12/06/20 23:00 91 16 85/35 (52) 99 12/06/20 22:39 86/31 12/06/20 21:51 98.0 18 92/47 (62) 100 12/06/20 21:00 88 16 74/42 (53) 100 12/06/20 21:00 79/32 12/06/20 19:50 Room Air 12/06/20 19:47 98.0 77 18 92/47 (62) 100 12/06/20 19:00 77 18 92/47 (62) 100 12/06/20 19:00 97.6 77 18 113/55 (74) 100 12/06/20 18:00 83 18 94/43 (60) 100 12/06/20 17:00 82 17 90/38 (55) 100 12/06/20 16:30 98.0 73 17 83/33 (50) 99 12/06/20 13:25 68 14 100 Intake and Output 12/06/20 12/07/20 19:00 07:00 Intake Total 300 ml 715.00 ml Output Total 90 ml Balance 300 ml 625.00 ml Intake Oral 0 ml IV Total 300 ml 715.00 ml Output Urine Total 90 ml Laboratory Tests Test 12/06/20 13:45 12/06/20 13:56 12/07/20 03:37 White Blood Count 16.0 K/UL (4.8-10.8) H 15.0 K/UL (4.8-10.8) H Red Blood Count 3.24 M/UL (4.70-6.10) L 2.83 M/UL (4.70-6.10) L Hemoglobin 9.9 G/DL (14.2-18.0) L 9.1 G/DL (14.2-18.0) L Hematocrit 28.9 % (42.0-52.0) L 25.5 % (42.0-52.0) L Mean Corpuscular Volume 89 FL (80-99) 90 FL (80-99) Mean Corpuscular Hemoglobin 30.6 PG (27.0-31.0) 32.3 PG (27.0-31.0) H Mean Corpuscular Hemoglobin Concent 34.3 G/DL (32.0-36.0) 35.8 G/DL (32.0-36.0) Red Cell Distribution Width 17.1 % (11.6-14.8) H 17.7 % (11.6-14.8) H Platelet Count 50 K/UL (150-450) L 54 K/UL (150-450) L Mean Platelet Volume 9.0 FL (6.5-10.1) 10.8 FL (6.5-10.1) H Neutrophils (%) (Auto) 91.2 % (45.0-75.0) H % (45.0-75.0) Lymphocytes (%) (Auto) 5.0 % (20.0-45.0) L % (20.0-45.0) Monocytes (%) (Auto) 3.6 % (1.0-10.0) % (1.0-10.0) Eosinophils (%) (Auto) 0.0 % (0.0-3.0) % (0.0-3.0) Basophils (%) (Auto) 0.1 % (0.0-2.0) % (0.0-2.0) Uric Acid 10.4 MG/DL (2.6-7.2) H 10.2 MG/DL (2.6-7.2) H Phosphorus Level 3.7 MG/DL (2.5-4.9) 2.9 MG/DL (2.5-4.9) Magnesium Level 2.2 MG/DL (1.8-2.4) 2.0 MG/DL (1.8-2.4) Iron Level 67 ug/dL (50-175) Total Iron Binding Capacity 67 ug/dL (250-450) L Percent Iron Saturation 100 % (15-50) H Unsaturated Iron Binding 0 ug/dL (112-346) L Ferritin 1530 NG/ML (8-388) H Gamma Glutamyl Transpeptidase 163 U/L (5-85) H Troponin I 0.000 ng/mL (0.000-0.056) C-Reactive Protein, Quantitative 11.6 mg/dL (0.00-0.90) H Pro-B-Type Natriuretic Peptide 1054 pg/mL (0-125) H Triglycerides Level 104 MG/DL (30-150) Cholesterol Level < 50 MG/DL (< 200) LDL Cholesterol 18 mg/dL (<100) HDL Cholesterol 10 MG/DL (40-60) L Cholesterol/HDL Ratio 5.0 (3.3-4.4) H Vitamin B12 Level > 2000 PG/ML (193-986) H Folate 3.1 NG/ML (8.6-58.9) L Thyroid Stimulating Hormone (TSH) 0.534 uiU/mL (0.358-3.740) POC Whole Blood Glucose 79 MG/DL (74-106) Differential Total Cells Counted 100 Neutrophils % (Manual) 93 % (45-75) H Lymphocytes % (Manual) 4 % (20-45) L Monocytes % (Manual) 1 % (1-10) Eosinophils % (Manual) 1 % (0-3) Basophils % (Manual) 0 % (0-2) Band Neutrophils 1 % (0-8) Platelet Estimate Decreased L Platelet Morphology Normal Hypochromasia 1+ Anisocytosis 1+ Prothrombin Time 40.4 SEC (9.30-11.50) H Prothromb Time International Ratio 4.1 (0.9-1.1) H Sodium Level 130 MMOL/L (136-145) L Potassium Level 3.0 MMOL/L (3.5-5.1) L Chloride Level 96 MMOL/L (98-107) L Carbon Dioxide Level 17 MMOL/L (21-32) L Anion Gap 17 mmol/L (5-15) H Blood Urea Nitrogen 31 mg/dL (7-18) H Creatinine 5.0 MG/DL (0.55-1.30) H Estimat Glomerular Filtration Rate 12.9 mL/min (>60) Glucose Level 63 MG/DL (74-106) L Calcium Level 7.0 MG/DL (8.5-10.1) L Total Bilirubin 29.4 MG/DL (0.2-1.0) H Direct Bilirubin 22.1 MG/DL (0.0-0.3) H Aspartate Amino Transf (AST/SGOT) 174 U/L (15-37) H Alanine Aminotransferase (ALT/SGPT) 48 U/L (12-78) Alkaline Phosphatase 278 U/L (46-116) H Ammonia 199 umol/L (11-32) H Total Protein 4.8 G/DL (6.4-8.2) L Albumin 2.1 G/DL (3.4-5.0) L Globulin 2.7 g/dL Albumin/Globulin Ratio 0.8 (1.0-2.7) L Cortisol AM Sample Pending Hepatitis A IgM Antibody Pending Hepatitis B Surface Antigen Pending Hepatitis B Core IgM Antibody Pending Hepatitis C Antibody Pending HIV (1&2) Antibody Rapid Pending Objective General Appearance: Weak HEENT: Jaundiced sclera. No JVD Respiratory: chest non-tender, lungs clear, normal breath sounds Cardiovascular: regular rate, rhythm, no murmur Gastrointestinal: Soft ascites Musculoskeletal: He has 4+ pitting edema. He has deformity and tenderness to the ankle and foot. . Selvin Fonseca MD Dec 07, 2020 12:31
--- NOTE | 2020-12-07 14:30 | NUR ---
NURSE NOTES: BP continues to require pressor support, will titrate per order and follow plan of care.
--- NOTE | 2020-12-07 14:50 | Neurology Progress Note ---
Interim History Interim History ROS Limited/Unobtainable: Yes Interim History transferred to icu for hypotension, mri pending Objective Physical Exam Last Vital Signs Date Time Temp Pulse Resp B/P (MAP) Pulse Ox O2 Delivery O2 Flow Rate FiO2 12/07/20 14:20 88/38 12/07/20 13:00 115 24 100 12/07/20 08:00 Room Air 12/06/20 21:51 98.0 Laboratory Tests Test 12/07/20 03:37 White Blood Count 15.0 K/UL (4.8-10.8) H Red Blood Count 2.83 M/UL (4.70-6.10) L Hemoglobin 9.1 G/DL (14.2-18.0) L Hematocrit 25.5 % (42.0-52.0) L Mean Corpuscular Volume 90 FL (80-99) Mean Corpuscular Hemoglobin 32.3 PG (27.0-31.0) H Mean Corpuscular Hemoglobin Concent 35.8 G/DL (32.0-36.0) Red Cell Distribution Width 17.7 % (11.6-14.8) H Platelet Count 54 K/UL (150-450) L Mean Platelet Volume 10.8 FL (6.5-10.1) H Neutrophils (%) (Auto) % (45.0-75.0) Lymphocytes (%) (Auto) % (20.0-45.0) Monocytes (%) (Auto) % (1.0-10.0) Eosinophils (%) (Auto) % (0.0-3.0) Basophils (%) (Auto) % (0.0-2.0) Differential Total Cells Counted 100 Neutrophils % (Manual) 93 % (45-75) H Lymphocytes % (Manual) 4 % (20-45) L Monocytes % (Manual) 1 % (1-10) Eosinophils % (Manual) 1 % (0-3) Basophils % (Manual) 0 % (0-2) Band Neutrophils 1 % (0-8) Platelet Estimate Decreased L Platelet Morphology Normal Hypochromasia 1+ Anisocytosis 1+ Prothrombin Time 40.4 SEC (9.30-11.50) H Prothromb Time International Ratio 4.1 (0.9-1.1) H Sodium Level 130 MMOL/L (136-145) L Potassium Level 3.0 MMOL/L (3.5-5.1) L Chloride Level 96 MMOL/L (98-107) L Carbon Dioxide Level 17 MMOL/L (21-32) L Anion Gap 17 mmol/L (5-15) H Blood Urea Nitrogen 31 mg/dL (7-18) H Creatinine 5.0 MG/DL (0.55-1.30) H Estimat Glomerular Filtration Rate 12.9 mL/min (>60) Glucose Level 63 MG/DL (74-106) L Uric Acid 10.2 MG/DL (2.6-7.2) H Calcium Level 7.0 MG/DL (8.5-10.1) L Phosphorus Level 2.9 MG/DL (2.5-4.9) Magnesium Level 2.0 MG/DL (1.8-2.4) Total Bilirubin 29.4 MG/DL (0.2-1.0) H Direct Bilirubin 22.1 MG/DL (0.0-0.3) H Aspartate Amino Transf (AST/SGOT) 174 U/L (15-37) H Alanine Aminotransferase (ALT/SGPT) 48 U/L (12-78) Alkaline Phosphatase 278 U/L (46-116) H Ammonia 199 umol/L (11-32) H Total Protein 4.8 G/DL (6.4-8.2) L Albumin 2.1 G/DL (3.4-5.0) L Globulin 2.7 g/dL Albumin/Globulin Ratio 0.8 (1.0-2.7) L Cortisol AM Sample Pending Hepatitis A IgM Antibody Pending Hepatitis B Surface Antigen Pending Hepatitis B Core IgM Antibody Pending Hepatitis C Antibody Pending HIV (1&2) Antibody Rapid Pending Neurologic Exam Objective PE Vitals Reviewed General: Patient is lying down getting Echo at bedside no distress Neuro: Alert to self oriented to time and situation has insight to situation. Comprehension intact. Language parameters intact. Crainial nervies II-XI were tested. PEERLA No nystagmus. Tongue is midline. Facial is symmetric. hearing intact Motor: No invountary movements, bilateral Upper extremities 3/5 Lower extremities 2-3/5. Sensation: intact Gait not tested due to ankle fracture. Impression/Recommendations Diagnostic Impression Lab Data: Reviewed Alcohol serum 55, Glucose 50, LFT's elevated Meds: Reviewed Assessment and Rec's 1. Hepatic Encephalopathy --> we do not know pateint's baseline will call his mother for further information-left voicemail --> at this time alcohol level serum 55 on admission unknown when his last drink was, Ammonia level 155 elevated --> he is Alert and oriented x4 however is repeating a phrase within every sentence. --> will order MRI Brain for intracranial pathology-pending 2. Liver Cirrhosis --> Ammonia level --> para as needed 3. Alcohol Abuse --> rec cessation 4. Hypoglycemia --> monitor glucose --> D50 prn 5. S/p Ankle surgery Thank you for allowing us to particpate in pateints care, plan of care was reviewed with supervising physician Dr. Dalton Rae who agrees. Marisol Lynn [employer] O[employer]ATOR Dec 07, 2020 14:49
--- NOTE | 2020-12-07 15:44 | NUR ---
CASE MANAGEMENT:REVIEW 12/07/20 SI: HEPATIC ENCEPHALOPATHY. LIVER CIRRHOSIS POD #1...S/P ORIF RT TIBIA 98.0 115 24 67/28 100% ON RA WBC+15.0 H/H-9.1/25.5 PLT-54 NA-130 CR+3.0 BUN+31 CR+5.0 TBILI+29.4 DBILI+22.1 AMMONIA+199 IS;LEVOPHED GTT IV PROTONIX Q12 IV ALBUMIN Q6HRS LACTULOSE PO TID OCTREOTIDE SQ Q8HRS IV ZOSYN Q12 IVF@50/HR : ICU STATUS DCP: FROM HOME
--- NOTE | 2020-12-07 16:30 | NUR ---
NURSE NOTES: No albumin available to administer per order, call placed to pharmacy. Awaiting pyxis restock. Patient stablized, tolerating Levophed rate of 15 mcg/kg/min. Will con't to monitor.
[2020-12-07] MEDS ORDERED: Protamine Sulfate Inj IV ONE (17:30)
[2020-12-07] MEDS ORDERED: Phytonadione 10 mg/mL 1ml amp SUBQ SCH (17:45)
--- NOTE | 2020-12-07 18:30 | NUR ---
NURSE NOTES: Albumin administered and tolerated. Patient to receive Vit K infusion per Dr. Upton this evening and tomorrow (see order in [facility]); awaiting pharmacy delivery. Patient received bed bath and partial linen change. No BM produced. Will con't to monitor.
[2020-12-07] MEDS: Norepinephrine Bitartrate 8 MG in Sodium Chloride 492 ML IV SCH (19:48)
[2020-12-07] MEDS: Dyna-Hex 2% Top Sol 2oz TOPIC SCH (19:49)
--- NOTE | 2020-12-07 21:30 | General Progress Note ---
Subjective ROS Limited/Unobtainable: Yes Allergies: Coded Allergies: No Known Allergies (Unverified , 12/06/20) Objective Last 24 Hour Vital Signs Date Time Temp Pulse Resp B/P (MAP) Pulse Ox O2 Delivery O2 Flow Rate FiO2 12/07/20 20:00 112 30 96/42 (60) 99 12/07/20 20:00 Room Air 12/07/20 20:00 96/42 12/07/20 19:48 96/46 12/07/20 19:00 110 25 90/44 (59) 99 12/07/20 18:00 117 27 97/54 (68) 98 12/07/20 17:00 103 22 85/37 (53) 100 12/07/20 16:00 Room Air 12/07/20 16:00 123 30 106/81 (89) 99 12/07/20 15:00 118 31 98/72 (81) 100 12/07/20 14:20 88/38 12/07/20 14:00 122 24 91/40 (57) 98 12/07/20 13:00 115 24 93/46 (62) 100 12/07/20 12:00 Room Air 12/07/20 12:00 101 26 102/80 (87) 100 12/07/20 11:00 100 22 115/94 (101) 100 12/07/20 10:00 102 16 67/28 (41) 98 12/07/20 09:45 61/34 12/07/20 09:30 92/41 12/07/20 09:00 105 18 92/41 (58) 100 12/07/20 08:00 Room Air 12/07/20 08:00 97 24 81/58 (66) 100 12/07/20 07:00 100 20 93/40 (57) 99 12/07/20 06:07 83/36 12/07/20 06:00 95 20 92/45 (61) 99 12/07/20 05:00 90 20 90/38 (55) 99 12/07/20 04:00 86 18 98/54 (69) 99 12/07/20 04:00 Room Air 12/07/20 03:00 92 20 96/45 (62) 23 12/07/20 02:00 89 20 108/46 (66) 100 12/07/20 01:00 94 20 96/60 (72) 100 12/07/20 00:00 Room Air 12/07/20 00:00 82 16 97/49 (65) 99 12/06/20 23:00 91 16 85/35 (52) 99 12/06/20 22:39 86/31 12/06/20 21:51 98.0 18 92/47 (62) 100 Intake and Output 12/06/20 12/07/20 19:00 07:00 Intake Total 300 ml 765.00 ml Output Total 90 ml Balance 300 ml 675.00 ml Intake Oral 0 ml IV Total 300 ml 765.00 ml Output Urine Total 90 ml Laboratory Tests 12/07/20 03:37: White Blood Count 15.0H, Red Blood Count 2.83L, Hemoglobin 9.1L, Hematocrit 25.5L, Mean Corpuscular Volume 90, Mean Corpuscular Hemoglobin 32.3H, Mean Corpuscular Hemoglobin Concent 35.8, Red Cell Distribution Width 17.7H, Platelet Count 54L, Mean Platelet Volume 10.8H, Neutrophils (%) (Auto) , Lymphocytes (%) (Auto) , Monocytes (%) (Auto) , Eosinophils (%) (Auto) , Basophils (%) (Auto) , Differential Total Cells Counted 100, Neutrophils % (Manual) 93H, Lymphocytes % (Manual) 4L, Monocytes % (Manual) 1, Eosinophils % (Manual) 1, Basophils % (Manual) 0, Band Neutrophils 1, Platelet Estimate DecreasedL, Platelet Morph ology Normal, Hypochromasia 1+, Anisocytosis 1+, Prothrombin Time 40.4H, Prothromb Time International Ratio 4.1H, Sodium Level 130L, Potassium Level 3.0L , Chloride Level 96L, Carbon Dioxide Level 17L, Anion Gap 17H, Blood Urea Nitrogen 31H, Creatinine 5.0H, Estimat Glomerular Filtration Rate 12.9, Glucose Level 63L, Uric Acid 10.2H, Calcium Level 7.0L, Phosphorus Level 2.9, Magnesium Level 2.0, Total Bilirubin 29.4H, Direct Bilirubin 22.1H, Aspartate Amino Transf (AST/SGOT) 174H, Alanine Aminotransferase (ALT/SGPT) 48, Alkaline Phosphatase 278H, Ammonia 199H, Total Protein 4.8L, Albumin 2.1L, Globulin 2.7, Albumin/Globulin Ratio 0.8L, Cortisol AM Sample [Pending], Hepatitis A IgM Antibody [Pending], Hepatitis B Surface Antigen [Pending], Hepatitis B Core IgM Antibody [Pending], Hepatitis C Antibody [Pending], HIV (1&2) Antibody Rapid [Pending] Height (Feet): 5 Height (Inches): 8.00 Weight (Pounds): 160 General Appearance: lethargic Assessment/Plan Problem List: (1) Urine retention ICD Codes: R33.9 - Retention of urine, unspecified SNOMED: 247572981 (2) Hypokalemia ICD Codes: E87.6 - Hypokalemia; S82.409A - Unspecified fracture of shaft of unspecified fibula, initial encounter for closed fracture SNOMED: 12948391, 874780308 (3) Alcohol abuse ICD Codes: F10.10 - Alcohol abuse, uncomplicated SNOMED: 29396765, 298811077 (4) Anemia ICD Codes: D64.9 - Anemia, unspecified SNOMED: 314889968, 679673413 Qualifiers: Qualified Codes: D64.9 - Anemia, unspecified (5) Tibia/fibula fracture, shaft ICD Codes: S82.209A - Unspecified fracture of shaft of unspecified tibia, initial encounter for closed fracture; S82.409A - Unspecified fracture of shaft of unspecified fibula, initial encounter for closed fracture SNOMED: 921452192, 581501196 Qualifiers: Qualified Codes: S82.201A - Unspecified fracture of shaft of right tibia, initial encounter for closed fracture; S82.401A - Unspecified fracture of shaft of right fibula, initial encounter for closed fracture (6) Alcoholic cirrhosis of liver with ascites ICD Codes: K70.31 - Alcoholic cirrhosis of liver with ascites SNOMED: 457986871, 396743943 (7) Fracture of right tibia and fibula ICD Codes: S82.201A - Unspecified fracture of shaft of right tibia, initial encounter for closed fracture; S82.401A - Unspecified fracture of shaft of right fibula, initial encounter for closed fracture SNOMED: 139899609, [id number] (8) Electrolyte imbalance ICD Codes: E87.8 - Other disorders of electrolyte and fluid balance, not elsewhere classified SNOMED: 222703360 (9) Renal failure (ARF), acute on chronic ICD Codes: N17.9 - Acute kidney failure, unspecified; N18.9 - Chronic kidney disease, unspecified SNOMED: 656512296 Status: deteriorating Assessment/Plan: etoh cirrhosis coagulapathy hypotensive on pressor r/o hepatorenal synrome lyte abnormality confused tib /fib fracture and not stable for repair afebrile confused Divya Nevarez MD Dec 07, 2020 21:30
--- NOTE | 2020-12-07 21:50 | General Progress Note ---
Subjective Allergies: Coded Allergies: No Known Allergies (Unverified , 12/06/20) Subjective Seen in ICU d/w RN slightly more awake able to take po meds and liquid w/o cough Paracentesis not done today Objective Last 24 Hour Vital Signs Date Time Temp Pulse Resp B/P (MAP) Pulse Ox O2 Delivery O2 Flow Rate FiO2 12/07/20 20:00 112 30 96/42 (60) 99 12/07/20 20:00 Room Air 12/07/20 20:00 96/42 12/07/20 19:48 96/46 12/07/20 19:00 110 25 90/44 (59) 99 12/07/20 18:00 117 27 97/54 (68) 98 12/07/20 17:00 103 22 85/37 (53) 100 12/07/20 16:00 Room Air 12/07/20 16:00 123 30 106/81 (89) 99 12/07/20 15:00 118 31 98/72 (81) 100 12/07/20 14:20 88/38 12/07/20 14:00 122 24 91/40 (57) 98 12/07/20 13:00 115 24 93/46 (62) 100 12/07/20 12:00 Room Air 12/07/20 12:00 101 26 102/80 (87) 100 12/07/20 11:00 100 22 115/94 (101) 100 12/07/20 10:00 102 16 67/28 (41) 98 12/07/20 09:45 61/34 12/07/20 09:30 92/41 12/07/20 09:00 105 18 92/41 (58) 100 12/07/20 08:00 Room Air 12/07/20 08:00 97 24 81/58 (66) 100 12/07/20 07:00 100 20 93/40 (57) 99 12/07/20 06:07 83/36 12/07/20 06:00 95 20 92/45 (61) 99 12/07/20 05:00 90 20 90/38 (55) 99 12/07/20 04:00 86 18 98/54 (69) 99 12/07/20 04:00 Room Air 12/07/20 03:00 92 20 96/45 (62) 23 12/07/20 02:00 89 20 108/46 (66) 100 12/07/20 01:00 94 20 96/60 (72) 100 12/07/20 00:00 Room Air 12/07/20 00:00 82 16 97/49 (65) 99 12/06/20 23:00 91 16 85/35 (52) 99 12/06/20 22:39 86/31 12/06/20 21:51 98.0 18 92/47 (62) 100 Intake and Output 12/06/20 12/07/20 19:00 07:00 Intake Total 300 ml 765.00 ml Output Total 90 ml Balance 300 ml 675.00 ml Intake Oral 0 ml IV Total 300 ml 765.00 ml Output Urine Total 90 ml Laboratory Tests 12/07/20 03:37: White Blood Count 15.0H, Red Blood Count 2.83L, Hemoglobin 9.1L, Hematocrit 25.5L, Mean Corpuscular Volume 90, Mean Corpuscular Hemoglobin 32.3H, Mean Corpuscular Hemoglobin Concent 35.8, Red Cell Distribution Width 17.7H, Platelet Count 54L, Mean Platelet Volume 10.8H, Neutrophils (%) (Auto) , Lymphocytes (%) (Auto) , Monocytes (%) (Auto) , Eosinophils (%) (Auto) , Basophils (%) (Auto) , Differential Total Cells Counted 100, Neutrophils % (Manual) 93H, Lymphocytes % (Manual) 4L, Monocytes % (Manual) 1, Eosinophils % (Manual) 1, Basophils % (Manual) 0, Band Neutrophils 1, Platelet Estimate DecreasedL, Platelet Morphology Normal, Hypochromasia 1+, Anisocytosis 1+, Prothrombin Time 40.4H, Prothromb Time International Ratio 4.1H, Sodium Level 130L, Potassium Level 3.0L , Chloride Level 96L, Carbon Dioxide Level 17L, Anion Gap 17H, Blood Urea Nitrogen 31H, Creatinine 5.0H, Estimat Glomerular Filtration Rate 12.9, Glucose Level 63L, Uric Acid 10.2H, Calcium Level 7.0L, Phosphorus Level 2.9, Magnesium Level 2.0, Total Bilirubin 29.4H, Direct Bilirubin 22.1H, Aspartate Amino Transf (AST/SGOT) 174H, Alanine Aminotransferase (ALT/SGPT) 48, Alkaline Phosphatase 278H, Ammonia 199H, Total Protein 4.8L, Albumin 2.1L, Globulin 2.7, Albumin/Globulin Ratio 0.8L, Cortisol AM Sample [Pending], Hepatitis A IgM Antibody [Pending], Hepatitis B Surface Antigen [Pending], Hepatitis B Core IgM Antibody [Pending], Hepatitis C Antibody [Pending], HIV (1&2) Antibody Rapid [Pending] Height (Feet): 5 Height (Inches): 8.00 Weight (Pounds): 160 Objective WDWN man NCAT (+) icteric supple CTA RRR Abd soft, slightly distended, ext (+) RLE fracture Assessment/Plan Status: deteriorating Assessment/Plan: Assessment - Alcoholic hepatitis - Decompensated liver disease - Alcoholic hepatitis? - Hepatorenal? - Sepsis? SBP? - Renal failure - poor prognostic indicator - Elevated ammonia - needs more lactulose - (+) EtOH level - at risk for EtOH withdrawal syndrome - Fractured Tib/Fib - prognosis poor, high mortality rate given presentation Recommendations - Midodrine/Octreotide trial for HRS - albumin challenge for HRS vs ATN - PPI - Lactulose - MVI/Thiamine - Trental trial (cannot give steroids given possible sepsis) - broad spectrum abx - paracentesis - r/o SBP - abdominal u/s - r/o biliary obstruction - Vitamin K Murray Upton MD Dec 07, 2020 21:50
[2020-12-07] MEDS: Epoetin Alfa-EPBX (NON ESRD)4000 units/ml vial SUBQ SCH (22:40)
[2020-12-08] VITALS (24 sets, daily range): BP systolic 77–119; BP diastolic 34–57
--- NOTE | 2020-12-08 04:11 | NUR ---
Md berkowitz called twice. Left voicemail. Pt is hypotensive and maxed on levophed. BM loose/watery and black. Lab [facility] labs, awaiting for updated H/H. WIll continue to monitor.
[2020-12-08 04:49] LABS: HEMOGLOBIN 7.8 G/DL (14.2-18.0); MEAN CORPUSCULAR VOLUME 90 FL (80-99); PLATELET COUNT 35 K/UL (150-450); RED BLOOD COUNT 2.45 M/UL (4.70-6.10); RED CELL DISTRIBUTION WIDTH 16.2 % (11.6-14.8); WHITE BLOOD COUNT 10.1 K/UL (4.8-10.8)
[2020-12-08 05:29] LABS: PHOSPHORUS 2.9 MG/DL (2.5-4.9)
[2020-12-08 05:31] LABS: ALBUMIN 2.4 G/DL (3.4-5.0); ALBUMIN/GLOBULIN RATIO 1.1 (1.0-2.7); BILIRUBIN,TOTAL 29.3 MG/DL (0.2-1.0); CALCIUM 7.1 MG/DL (8.5-10.1); CREATININE 5.8 MG/DL (0.55-1.30); POTASSIUM 3.4 MMOL/L (3.5-5.1)
[2020-12-08 05:40] LABS: BILIRUBIN,DIRECT 19.7 MG/DL (0.0-0.3)
[2020-12-08] MEDS: SandoSTATIN 100mcg Inj SUBQ SCH ×3 (05:48→22:19)
[2020-12-08] MEDS: D5NS 1,000 ML IV SCH (05:48)
[2020-12-08 05:56] LABS: APPEARANCE,URINE TURBID; BILIRUBIN, URINE 3+ (NEGATIVE); COLOR,URINE BROWN; GLUCOSE, URINE (UA) NEGATIVE (NEGATIVE); KETONES,URINE 1+ (NEGATIVE); LEUKOCYTE ESTERASE ,URINE 2+ (NEGATIVE); NITRITE,URINE POSITIVE (NEGATIVE); PH,URINE 6.5 (4.5-8.0); PROTEIN,URINE 3+ (NEGATIVE); UROBILINOGEN,URINE 4 MG/DL (0.0-1.0)
[2020-12-08] MEDS: Vasopressin 100 UNITS in NS 95 ML IV SCH (06:22)
--- NOTE | 2020-12-08 07:15 | NUR ---
NURSE NOTES: Patient received this morning from Jovanni Jean RN; he is awake and disoriented, patient continues to grunt periodically. Bleeding observed in various areas of the body (lips, mouth, tip of the penis, and with stools). Received in report that patient's discharge from [facility] insertion increasing bloody, overnight RN attempted to contact provider unsuccessfully regarding this. Bleeding stabilized/slowed. Skin remains intact otherwise. Patient remains SR-ST in the low 100s on tele, he was started on vasopressin overnight for further BP support. Bed is in the lowest position, he is unable to use the call light. Will monitor condition for changes.
[2020-12-08] MEDS: Norepinephrine Bitartrate 8 MG in Sodium Chloride 492 ML IV SCH ×2 (08:36→18:30)
[2020-12-08] MEDS: Lactulose 20gm/30ml UDC ORAL SCH ×3 (08:50→17:29)
[2020-12-08] MEDS: Midodrine 10mg tab ORAL SCH ×3 (08:50→17:28)
[2020-12-08] MEDS: Thiamine 100mg tab ORAL SCH (08:50)
[2020-12-08] MEDS: Piperacillin/Tazobactam 3.375 GM in NS 110 ML IVPB SCH ×2 (08:51→20:35)
[2020-12-08] MEDS: Pantoprazole Inj IVP SCH ×2 (08:52→20:35)
--- NOTE | 2020-12-08 09:25 | Infectious Diseases Prog Note ---
Assessment/Plan Assessment/Plan A; Sepsis/ Septic shock Acute renal failure Cirrhosis of Liver R Tibia/ fibula fracture Hepatic encephalopathy Alcohol withdrawal P: Continue Zosyn Will f/u cultures Subjective ROS Limited/Unobtainable: Yes Constitutional: Denies: fever Cardiovascular: Reports: other - on low dose Levophed Allergies: Coded Allergies: No Known Allergies (Unverified , 12/06/20) Objective Last 24 Hour Vital Signs Date Time Temp Pulse Resp B/P (MAP) Pulse Ox O2 Delivery O2 Flow Rate FiO2 12/08/20 08:51 128/64 12/08/20 08:36 82/33 12/08/20 06:00 110 20 97/42 (60) 98 12/08/20 05:00 91 26 77/34 (48) 96 12/08/20 04:00 Room Air 12/08/20 04:00 95 24 85/57 (66) 98 12/08/20 03:00 95 24 83/41 (55) 98 12/08/20 02:00 99 24 92/47 (62) 97 12/08/20 01:00 99.4 111 26 97/49 (65) 99 12/08/20 00:00 93/51 12/08/20 00:00 Room Air 12/08/20 00:00 99.4 107 26 92/51 (65) 99 12/07/20 23:00 110 24 105/39 (61) 99 12/07/20 22:00 110 22 92/51 (65) 99 12/07/20 22:00 91/51 12/07/20 21:00 88/55 12/07/20 21:00 94/41 12/07/20 21:00 114 22 88/55 (66) 99 12/07/20 20:00 112 30 96/42 (60) 99 12/07/20 20:00 Room Air 12/07/20 20:00 96/42 12/07/20 19:48 96/46 12/07/20 19:00 110 25 90/44 (59) 99 12/07/20 19:00 99.2 12/07/20 18:00 117 27 97/54 (68) 98 12/07/20 17:00 103 22 85/37 (53) 100 12/07/20 16:00 Room Air 12/07/20 16:00 123 30 106/81 (89) 99 12/07/20 15:00 118 31 98/72 (81) 100 12/07/20 14:20 88/38 12/07/20 14:00 122 24 91/40 (57) 98 12/07/20 13:00 115 24 93/46 (62) 100 12/07/20 12:00 Room Air 12/07/20 12:00 101 26 102/80 (87) 100 12/07/20 11:00 100 22 115/94 (101) 100 12/07/20 10:00 102 16 67/28 (41) 98 12/07/20 09:45 61/34 12/07/20 09:30 92/41 Height (Feet): 5 Height (Inches): 8.00 Weight (Pounds): 160 General Appearance: no acute distress HEENT: mucous membranes moist Respiratory/Chest: no respiratory distress, other - on room air oxygen Cardiovascular: tachycardia, other - RIJ central line Abdomen: soft, non tender Extremities: other - legs edema Neurologic/Psychiatric: other - drowsy Laboratory Tests Test 12/08/20 03:50 12/08/20 04:00 White Blood Count 10.1 K/UL (4.8-10.8) Red Blood Count 2.45 M/UL (4.70-6.10) L Hemoglobin 7.8 G/DL (14.2-18.0) L Hematocrit 22.0 % (42.0-52.0) L Mean Corpuscular Volume 90 FL (80-99) Mean Corpuscular Hemoglobin 31.7 PG (27.0-31.0) H Mean Corpuscular Hemoglobin Concent 35.4 G/DL (32.0-36.0) Red Cell Distribution Width 16.2 % (11.6-14.8) H Platelet Count 35 K/UL (150-450) L Mean Platelet Volume 8.4 FL (6.5-10.1) Neutrophils (%) (Auto) % (45.0-75.0) Lymphocytes (%) (Auto) % (20.0-45.0) Monocytes (%) (Auto) % (1.0-10.0) Eosinophils (%) (Auto) % (0.0-3.0) Basophils (%) (Auto) % (0.0-2.0) Differential Total Cells Counted 100 Neutrophils % (Manual) 80 % (45-75) H Lymphocytes % (Manual) 13 % (20-45) L Monocytes % (Manual) 6 % (1-10) Eosinophils % (Manual) 1 % (0-3) Basophils % (Manual) 0 % (0-2) Band Neutrophils 0 % (0-8) Platelet Estimate Decreased L Platelet Morphology Normal Hypochromasia 1+ Anisocytosis 1+ Sodium Level 135 MMOL/L (136-145) L Potassium Level 3.4 MMOL/L (3.5-5.1) L Chloride Level 102 MMOL/L (98-107) Carbon Dioxide Level 15 MMOL/L (21-32) L Anion Gap 18 mmol/L (5-15) H Blood Urea Nitrogen 38 mg/dL (7-18) H Creatinine 5.8 MG/DL (0.55-1.30) H Estimat Glomerular Filtration Rate 10.8 mL/min (>60) Glucose Level 66 MG/DL (74-106) L Uric Acid 11.0 MG/DL (2.6-7.2) H Calcium Level 7.1 MG/DL (8.5-10.1) L Phosphorus Level 2.9 MG/DL (2.5-4.9) Magnesium Level 1.7 MG/DL (1.8-2.4) L Total Bilirubin 29.3 MG/DL (0.2-1.0) H Direct Bilirubin 19.7 MG/DL (0.0-0.3) H Gamma Glutamyl Transpeptidase 123 U/L (5-85) H Aspartate Amino Transf (AST/SGOT) 204 U/L (15-37) H Alanine Aminotransferase (ALT/SGPT) 52 U/L (12-78) Alkaline Phosphatase 221 U/L (46-116) H Ammonia 142 umol/L (11-32) H C-Reactive Protein, Quantitative 12.6 mg/dL (0.00-0.90) H Pro-B-Type Natriuretic Peptide 9402 pg/mL (0-125) H Total Protein 4.6 G/DL (6.4-8.2) L Albumin 2.4 G/DL (3.4-5.0) L Globulin 2.2 g/dL Albumin/Globulin Ratio 1.1 (1.0-2.7) Urine Color Brown Urine Appearance Turbid Urine pH 6.5 (4.5-8.0) Urine Specific [place] 1.015 (1.005-1.035) Urine Protein 3+ (NEGATIVE) H Urine Glucose (UA) Negative (NEGATIVE) Urine Ketones 1+ (NEGATIVE) H Urine Blood 5+ (NEGATIVE) H Urine Nitrite Positive (NEGATIVE) H Urine Bilirubin 3+ (NEGATIVE) H Urine Ictotest Positive (NEGATIVE) Urine Urobilinogen 4 MG/DL (0.0-1.0) H Urine Leukocyte Esterase 2+ (NEGATIVE) H Urine RBC 0-2 /HPF (0 - 0) H Urine WBC 0-2 /HPF (0 - 0) Urine Squamous Epithelial Cells Occasional /LPF Urine Bacteria Many /HPF (NONE) H Urine Yeast Moderate /HPF (NONE) H Urine Random Sodium 20 mmol/L (20-110) Stool Occult Blood Positive (NEGATIVE) Current Medications Medications (Trade) Dose Ordered Sig/Armin Route PRN Reason Start Time Stop Time Status Last Admin Dose Admin Albumin Human 100 ml @ 100 mls/hr Q6H IV 12/06/20 20:00 03/06/21 19:59 12/08/20 08:49 Chlorhexidine Gluconate (Mariama-Hex 2%) 1 applic DAILY@2000 TOPIC 12/07/20 20:00 03/07/21 19:59 12/07/20 19:49 Dextrose/Sodium Chloride 1,000 ml @ 50 mls/hr Q20H IV 12/06/20 12:30 01/05/21 12:29 12/08/20 05:48 Epoetin Sd (Epoetin Sd-EPBX(NON ESRD)) 4,000 unit THU-THU-THU SUBQ 12/07/20 21:00 03/07/21 20:59 12/07/20 22:40 Folic Acid (Folate) 1 mg DAILY ORAL 12/06/20 20:00 01/05/21 19:59 12/08/20 08:50 Lactulose (Cephulac) 45 gm THREE TIMES A DAY ORAL 12/07/20 21:45 01/05/21 19:59 12/08/20 08:50 Midodrine (Pro-Amatine) 10 mg THREE TIMES A DAY ORAL 12/06/20 13:00 03/06/21 12:59 12/08/20 08:50 Multivitamins (Multivitamins) 1 tab DAILY ORAL 12/06/20 20:00 01/05/21 19:59 12/08/20 08:50 Norepinephrine Bitartrate 8 mg/ Sodium Chloride 500 ml @ 0 mls/hr Q24H IV 12/07/20 18:30 12/10/20 18:29 12/08/20 08:36 Octreotide Acetate (SandoSTATIN) 100 mcg Q8HR SUBQ 12/06/20 20:00 01/05/21 19:59 12/08/20 05:48 Pantoprazole (Protonix) 40 mg EVERY 12 HOURS IVP 12/06/20 21:00 01/05/21 20:59 12/08/20 08:52 Pentoxifylline (TRENtal) 400 mg Q12HR ORAL 12/06/20 21:00 03/06/21 20:59 12/08/20 08:51 Phytonadione (Vitamin K) 10 mg ONCE SUBQ 12/08/20 18:00 12/08/20 19:00 Piperacillin Sod/ Tazobactam Sod 3.375 gm/Sodium Chloride 110 ml @ 27.5 mls/hr Q12HR IVPB 12/06/20 20:00 12/13/20 19:59 12/08/20 08:51 Thiamine HCl (Vitamin B1) 100 mg DAILY ORAL 12/06/20 20:00 01/05/21 19:59 12/08/20 08:50 Vasopressin 100 units/Sodium Chloride 100 ml @ 0 mls/hr Q24H IV 12/08/20 05:45 12/11/20 05:31 12/08/20 06:22 Deepak Villarreal MD Dec 08, 2020 09:25
--- NOTE | 2020-12-08 10:00 | NUR ---
NURSE NOTES: Patient barely able to take in PO meds, he continues to have light bleeding from lips. Patient turned Q2H and repositioned with care. Bleeding at tip of penis clotting, but has not worsened. Will con't to monitor.
--- NOTE | 2020-12-08 11:41 | Hematology/Onc Progress Note ---
Assessment/Plan Assessment/Plan Assessment and Recs # Anemia of kidney disease, appears to be chronic, first time has been here --> have started on epogen --> anemia panel reviewed and cw Acd --> hgb 10-->9.1 --> no hemolysis --> transfuse as needed # Thrombocytopenia due to liver disease --> smear has been noted --> meds reviewed --> plt 68-->54 --> transfuse as needed pre-procedure --> hep and hiv panel # Coagulopathy persistently elevated, due to liver disease --> vit k and ffp as needed --> inr 2.9-->4.2 # Fracture right tibial shaft --> s/p Splinting --> as per ortho # Hypokalemia --> replete with k per renal # Alcohol abuse # Alcoholic cirrhosis of liver with ascites # Hepatorenal syndrome # Severe abnormal electrolytes: Hyponatremia, hypokalemia # Jaundice Appreciate consultation and dw RN Subjective Allergies: Coded Allergies: No Known Allergies (Unverified , 12/06/20) Subjective 12/08: pt remains in ICU, hgb 7.8 Objective Objective Current Medications Medications (Trade) Dose Ordered Sig/Armin Route PRN Reason Start Time Stop Time Status Last Admin Dose Admin Albumin Human 100 ml @ 100 mls/hr Q6H IV 12/06/20 20:00 03/06/21 19:59 12/08/20 08:49 Chlorhexidine Gluconate (Mariama-Hex 2%) 1 applic DAILY@2000 TOPIC 12/07/20 20:00 03/07/21 19:59 12/07/20 19:49 Dextrose/Sodium Chloride 1,000 ml @ 50 mls/hr Q20H IV 12/06/20 12:30 01/05/21 12:29 12/08/20 05:48 Epoetin Sd (Epoetin Sd-EPBX(NON ESRD)) 4,000 unit MON-WED-THU SUBQ 12/07/20 21:00 03/07/21 20:59 12/07/20 22:40 Folic Acid (Folate) 1 mg DAILY ORAL 12/06/20 20:00 01/05/21 19:59 12/08/20 08:50 Lactulose (Cephulac) 45 gm THREE TIMES A DAY ORAL 12/07/20 21:45 01/05/21 19:59 12/08/20 08:50 Midodrine (Pro-Amatine) 10 mg THREE TIMES A DAY ORAL 12/06/20 13:00 03/06/21 12:59 12/08/20 08:50 Multivitamins (Multivitamins) 1 tab DAILY ORAL 12/06/20 20:00 01/05/21 19:59 12/08/20 08:50 Norepinephrine Bitartrate 8 mg/ Sodium Chloride 500 ml @ 0 mls/hr Q24H IV 12/07/20 18:30 12/10/20 18:29 12/08/20 08:36 Octreotide Acetate (SandoSTATIN) 100 mcg Q8HR SUBQ 12/06/20 20:00 01/05/21 19:59 12/08/20 05:48 Pantoprazole (Protonix) 40 mg EVERY 12 HOURS IVP 12/06/20 21:00 01/05/21 20:59 12/08/20 08:52 Pentoxifylline (TRENtal) 400 mg Q12HR ORAL 12/06/20 21:00 03/06/21 20:59 12/08/20 08:51 Phytonadione (Vitamin K) 10 mg ONCE SUBQ 12/08/20 18:00 12/08/20 19:00 Piperacillin Sod/ Tazobactam Sod 3.375 gm/Sodium Chloride 110 ml @ 27.5 mls/hr Q12HR IVPB 12/06/20 20:00 12/13/20 19:59 12/08/20 08:51 Thiamine HCl (Vitamin B1) 100 mg DAILY ORAL 12/06/20 20:00 01/05/21 19:59 12/08/20 08:50 Vasopressin 100 units/Sodium Chloride 100 ml @ 0 mls/hr Q24H IV 12/08/20 05:45 12/11/20 05:31 12/08/20 06:22 Last 24 Hour Vital Signs Date Time Temp Pulse Resp B/P (MAP) Pulse Ox O2 Delivery O2 Flow Rate FiO2 12/08/20 08:51 128/64 12/08/20 08:36 82/33 12/08/20 06:00 110 20 97/42 (60) 98 12/08/20 05:00 91 26 77/34 (48) 96 12/08/20 04:00 Room Air 12/08/20 04:00 95 24 85/57 (66) 98 12/08/20 03:00 95 24 83/41 (55) 98 12/08/20 02:00 99 24 92/47 (62) 97 12/08/20 01:00 99.4 111 26 97/49 (65) 99 12/08/20 00:00 93/51 12/08/20 00:00 Room Air 12/08/20 00:00 99.4 107 26 92/51 (65) 99 12/07/20 23:00 110 24 105/39 (61) 99 12/07/20 22:00 110 22 92/51 (65) 99 12/07/20 22:00 91/51 12/07/20 21:00 88/55 12/07/20 21:00 94/41 12/07/20 21:00 114 22 88/55 (66) 99 12/07/20 20:00 112 30 96/42 (60) 99 12/07/20 20:00 Room Air 12/07/20 20:00 96/42 12/07/20 19:48 96/46 12/07/20 19:00 110 25 90/44 (59) 99 12/07/20 19:00 99.2 12/07/20 18:00 117 27 97/54 (68) 98 12/07/20 17:00 103 22 85/37 (53) 100 12/07/20 16:00 Room Air 12/07/20 16:00 123 30 106/81 (89) 99 12/07/20 15:00 118 31 98/72 (81) 100 12/07/20 14:20 88/38 12/07/20 14:00 122 24 91/40 (57) 98 12/07/20 13:00 115 24 93/46 (62) 100 12/07/20 12:00 Room Air 12/07/20 12:00 101 26 102/80 (87) 100 12/07/20 11:00 100 22 115/94 (101) 100 12/07/20 10:00 102 16 67/28 (41) 98 12/07/20 09:45 61/34 12/07/20 09:30 92/41 12/07/20 09:00 105 18 92/41 (58) 100 12/07/20 08:00 Room Air 12/07/20 08:00 97 24 81/58 (66) 100 12/07/20 07:00 100 20 93/40 (57) 99 12/07/20 06:07 83/36 12/07/20 06:00 95 20 92/45 (61) 99 12/07/20 05:00 90 20 90/38 (55) 99 12/07/20 04:00 86 18 98/54 (69) 99 12/07/20 04:00 Room Air 12/07/20 03:00 92 20 96/45 (62) 23 12/07/20 02:00 89 20 108/46 (66) 100 12/07/20 01:00 94 20 96/60 (72) 100 12/07/20 00:00 Room Air 12/07/20 00:00 82 16 97/49 (65) 99 12/06/20 23:00 91 16 85/35 (52) 99 12/06/20 22:39 86/31 12/06/20 21:51 98.0 18 92/47 (62) 100 12/06/20 21:00 88 16 74/42 (53) 100 12/06/20 21:00 79/32 12/06/20 19:50 Room Air 12/06/20 19:47 98.0 77 18 92/47 (62) 100 12/06/20 19:00 77 18 92/47 (62) 100 12/06/20 19:00 97.6 77 18 113/55 (74) 100 12/06/20 18:00 83 18 94/43 (60) 100 12/06/20 17:00 82 17 90/38 (55) 100 12/06/20 16:30 98.0 73 17 83/33 (50) 99 12/06/20 13:25 68 14 100 12/06/20 12:00 66 16 78/39 (52) 100 Intake and Output 12/07/20 12/08/20 19:00 07:00 Intake Total 1782.247 ml 1190.00 ml Output Total 75 ml 70 ml Balance 1707.247 ml 1120.00 ml Intake Oral 716 ml IV Total 1066.247 ml 1190.00 ml Output Urine Total 75 ml 70 ml # Bowel Movements 3 Labs Test 12/06/20 01:40 1/28/21 12:05 12/06/20 13:45 12/06/20 13:56 White Blood Count 14.5 K/UL (4.8-10.8) 16.0 K/UL (4.8-10.8) Red Blood Count 3.52 M/UL (4.70-6.10) 3.24 M/UL (4.70-6.10) Hemoglobin 10.5 G/DL (14.2-18.0) 9.9 G/DL (14.2-18.0) Hematocrit 31.0 % (42.0-52.0) 28.9 % (42.0-52.0) Mean Corpuscular Volume 88 FL (80-99) 89 FL (80-99) Mean Corpuscular Hemoglobin 29.9 PG (27.0-31.0) 30.6 PG (27.0-31.0) Mean Corpuscular Hemoglobin Concent 34.0 G/DL (32.0-36.0) 34.3 G/DL (32.0-36.0) Red Cell Distribution Width 16.5 % (11.6-14.8) 17.1 % (11.6-14.8) Platelet Count 68 K/UL (150-450) 50 K/UL (150-450) Mean Platelet Volume 9.4 FL (6.5-10.1) 9.0 FL (6.5-10.1) Neutrophils (%) (Auto) % (45.0-75.0) 91.2 % (45.0-75.0) Lymphocytes (%) (Auto) % (20.0-45.0) 5.0 % (20.0-45.0) Monocytes (%) (Auto) % (1.0-10.0) 3.6 % (1.0-10.0) Eosinophils (%) (Auto) % (0.0-3.0) 0.0 % (0.0-3.0) Basophils (%) (Auto) % (0.0-2.0) 0.1 % (0.0-2.0) Differential Total Cells Counted 100 Neutrophils % (Manual) 87 % (45-75) Lymphocytes % (Manual) 8 % (20-45) Monocytes % (Manual) 5 % (1-10) Eosinophils % (Manual) 0 % (0-3) Basophils % (Manual) 0 % (0-2) Band Neutrophils 0 % (0-8) Platelet Estimate Decreased Platelet Morphology Normal Anisocytosis 1+ Prothrombin Time 29.8 SEC (9.30-11.50) Prothromb Time International Ratio 2.9 (0.9-1.1) Activated Partial Thromboplast Time 85 SEC (23-33) Sodium Level 126 MMOL/L (136-145) 128 MMOL/L (136-145) Potassium Level 2.3 MMOL/L (3.5-5.1) 2.9 MMOL/L (3.5-5.1) Chloride Level 91 MMOL/L (98-107) 94 MMOL/L (98-107) Carbon Dioxide Level 16 MMOL/L (21-32) 16 MMOL/L (21-32) Blood Urea Nitrogen 30 mg/dL (7-18) 30 mg/dL (7-18) Creatinine 4.7 MG/DL (0.55-1.30) 4.9 MG/DL (0.55-1.30) Estimat Glomerular Filtration Rate 13.8 mL/min (>60) 13.2 mL/min (>60) Glucose Level 50 MG/DL (74-106) 33 MG/DL (74-106) Calcium Level 7.4 MG/DL (8.5-10.1) 7.1 MG/DL (8.5-10.1) Total Bilirubin 26.9 MG/DL (0.2-1.0) 24.6 MG/DL (0.2-1.0) Direct Bilirubin 22.8 MG/DL (0.0-0.3) 21.1 MG/DL (0.0-0.3) Aspartate Amino Transf (AST/SGOT) 139 U/L (15-37) 148 U/L (15-37) Alanine Aminotransferase (ALT/SGPT) 43 U/L (12-78) 44 U/L (12-78) Alkaline Phosphatase 338 U/L (46-116) 316 U/L (46-116) Total Protein 4.9 G/DL (6.4-8.2) 4.4 G/DL (6.4-8.2) Albumin 1.4 G/DL (3.4-5.0) 1.3 G/DL (3.4-5.0) Globulin 3.5 g/dL 3.1 g/dL Albumin/Globulin Ratio 0.4 (1.0-2.7) 0.4 (1.0-2.7) Serum Alcohol 55 mg/dL Anion Gap 18 mmol/L (5-15) Ammonia 277 umol/L (11-32) Uric Acid 10.4 MG/DL (2.6-7.2) Phosphorus Level 3.7 MG/DL (2.5-4.9) Magnesium Level 2.2 MG/DL (1.8-2.4) Iron Level 67 ug/dL (50-175) Total Iron Binding Capacity 67 ug/dL (250-450) Percent Iron Saturation 100 % (15-50) Unsaturated Iron Binding 0 ug/dL (112-346) Ferritin 1530 NG/ML (8-388) Gamma Glutamyl Transpeptidase 163 U/L (5-85) Troponin I 0.000 ng/mL (0.000-0.056) C-Reactive Protein, Quantitative 11.6 mg/dL (0.00-0.90) Pro-B-Type Natriuretic Peptide 1054 pg/mL (0-125) Triglycerides Level 104 MG/DL (30-150) Cholesterol Level < 50 MG/DL (< 200) LDL Cholesterol 18 mg/dL (<100) HDL Cholesterol 10 MG/DL (40-60) Cholesterol/HDL Ratio 5.0 (3.3-4.4) Vitamin B12 Level > 2000 PG/ML (193-986) Folate 3.1 NG/ML (8.6-58.9) Thyroid Stimulating Hormone (TSH) 0.534 uiU/mL (0.358-3.740) POC Whole Blood Glucose 79 MG/DL (74-106) Test 12/07/20 03:37 12/08/20 03:50 12/08/20 04:00 White Blood Count 15.0 K/UL (4.8-10.8) 10.1 K/UL (4.8-10.8) Red Blood Count 2.83 M/UL (4.70-6.10) 2.45 M/UL (4.70-6.10) Hemoglobin 9.1 G/DL (14.2-18.0) 7.8 G/DL (14.2-18.0) Hematocrit 25.5 % (42.0-52.0) 22.0 % (42.0-52.0) Mean Corpuscular Volume 90 FL (80-99) 90 FL (80-99) Mean Corpuscular Hemoglobin 32.3 PG (27.0-31.0) 31.7 PG (27.0-31.0) Mean Corpuscular Hemoglobin Concent 35.8 G/DL (32.0-36.0) 35.4 G/DL (32.0-36.0) Red Cell Distribution Width 17.7 % (11.6-14.8) 16.2 % (11.6-14.8) Platelet Count 54 K/UL (150-450) 35 K/UL (150-450) Mean Platelet Volume 10.8 FL (6.5-10.1) 8.4 FL (6.5-10.1) Neutrophils (%) (Auto) % (45.0-75.0) % (45.0-75.0) Lymphocytes (%) (Auto) % (20.0-45.0) % (20.0-45.0) Monocytes (%) (Auto) % (1.0-10.0) % (1.0-10.0) Eosinophils (%) (Auto) % (0.0-3.0) % (0.0-3.0) Basophils (%) (Auto) % (0.0-2.0) % (0.0-2.0) Differential Total Cells Counted 100 100 Neutrophils % (Manual) 93 % (45-75) 80 % (45-75) Lymphocytes % (Manual) 4 % (20-45) 13 % (20-45) Monocytes % (Manual) 1 % (1-10) 6 % (1-10) Eosinophils % (Manual) 1 % (0-3) 1 % (0-3) Basophils % (Manual) 0 % (0-2) 0 % (0-2) Band Neutrophils 1 % (0-8) 0 % (0-8) Platelet Estimate Decreased Decreased Platelet Morphology Normal Normal Hypochromasia 1+ 1+ Anisocytosis 1+ 1+ Prothrombin Time 40.4 SEC (9.30-11.50) Prothromb Time International Ratio 4.1 (0.9-1.1) Sodium Level 130 MMOL/L (136-145) 135 MMOL/L (136-145) Potassium Level 3.0 MMOL/L (3.5-5.1) 3.4 MMOL/L (3.5-5.1) Chloride Level 96 MMOL/L (98-107) 102 MMOL/L (98-107) Carbon Dioxide Level 17 MMOL/L (21-32) 15 MMOL/L (21-32) Anion Gap 17 mmol/L (5-15) 18 mmol/L (5-15) Blood Urea Nitrogen 31 mg/dL (7-18) 38 mg/dL (7-18) Creatinine 5.0 MG/DL (0.55-1.30) 5.8 MG/DL (0.55-1.30) Estimat Glomerular Filtration Rate 12.9 mL/min (>60) 10.8 mL/min (>60) Glucose Level 63 MG/DL (74-106) 66 MG/DL (74-106) Uric Acid 10.2 MG/DL (2.6-7.2) 11.0 MG/DL (2.6-7.2) Calcium Level 7.0 MG/DL (8.5-10.1) 7.1 MG/DL (8.5-10.1) Phosphorus Level 2.9 MG/DL (2.5-4.9) 2.9 MG/DL (2.5-4.9) Magnesium Level 2.0 MG/DL (1.8-2.4) 1.7 MG/DL (1.8-2.4) Total Bilirubin 29.4 MG/DL (0.2-1.0) 29.3 MG/DL (0.2-1.0) Direct Bilirubin 22.1 MG/DL (0.0-0.3) 19.7 MG/DL (0.0-0.3) Aspartate Amino Transf (AST/SGOT) 174 U/L (15-37) 204 U/L (15-37) Alanine Aminotransferase (ALT/SGPT) 48 U/L (12-78) 52 U/L (12-78) Alkaline Phosphatase 278 U/L (46-116) 221 U/L (46-116) Ammonia 199 umol/L (11-32) 142 umol/L (11-32) Total Protein 4.8 G/DL (6.4-8.2) 4.6 G/DL (6.4-8.2) Albumin 2.1 G/DL (3.4-5.0) 2.4 G/DL (3.4-5.0) Globulin 2.7 g/dL 2.2 g/dL Albumin/Globulin Ratio 0.8 (1.0-2.7) 1.1 (1.0-2.7) Gamma Glutamyl Transpeptidase 123 U/L (5-85) C-Reactive Protein, Quantitative 12.6 mg/dL (0.00-0.90) Pro-B-Type Natriuretic Peptide 9402 pg/mL (0-125) Urine Color Brown Urine Appearance Turbid Urine pH 6.5 (4.5-8.0) Urine Specific [place] 1.015 (1.005-1.035) Urine Protein 3+ (NEGATIVE) Urine Glucose (UA) Negative (NEGATIVE) Urine Ketones 1+ (NEGATIVE) Urine Blood 5+ (NEGATIVE) Urine Nitrite Positive (NEGATIVE) Urine Bilirubin 3+ (NEGATIVE) Urine Ictotest Positive (NEGATIVE) Urine Urobilinogen 4 MG/DL (0.0-1.0) Urine Leukocyte Esterase 2+ (NEGATIVE) Urine RBC 0-2 /HPF (0 - 0) Urine WBC 0-2 /HPF (0 - 0) Urine Squamous Epithelial Cells Occasional /LPF Urine Bacteria Many /HPF (NONE) Urine Yeast Moderate /HPF (NONE) Urine Random Sodium 20 mmol/L (20-110) Stool Occult Blood Positive (NEGATIVE) Height (Feet): 5 Height (Inches): 8.00 Weight (Pounds): 160 Objective Sp02 EP Interpretation: reviewed General Appearance: well appearing, no apparent distress, alert Head: normocephalic, atraumatic Eyes: bilateral eye PERRL, bilateral eye EOMI, bilateral eye scleral icterus++ ENT: hearing grossly normal, normal pharynx Neck: full range of motion, supple, no meningismus Respiratory: chest non-tender, lungs clear, normal breath sounds Cardiovascular: regular rate, rhythm, no murmur Gastrointestinal: normal bowel sounds, non tender, no mass, no organomegaly, no bruit, non-distended, other - ascites Musculoskeletal: back normal, other - Right ankle: He has 4+ pitting edema. He has deformity and tenderness to the ankle and foot. Sensation normal. Marisol Lynn NP Dec 08, 2020 11:41
--- NOTE | 2020-12-08 12:00 | NUR ---
NURSE NOTES: Patient suctioned at 1142, thick hamilton, blood-tinged secretions aspirated; mouth swabbed. Informed Dr. Garcia at 1155, instructed to inform GI when they round and recommended the patient have an NGT placed, if GI is OK with it (see blood work in Results in [facility]).
--- NOTE | 2020-12-08 12:27 | Pulmonology Progress Note ---
Subjective ROS Limited/Unobtainable: Yes Interval Events: More awake Constitutional: Reports: no symptoms HEENT: Repors: no symptoms Respiratory: Reports: no symptoms Cardiovascular: Reports: no symptoms Gastrointestinal/Abdominal: Reports: no symptoms Allergies: Coded Allergies: No Known Allergies (Unverified , 12/06/20) Objective Last 24 Hour Vital Signs Date Time Temp Pulse Resp B/P (MAP) Pulse Ox O2 Delivery O2 Flow Rate FiO2 12/08/20 12:00 98.9 110 21 101/50 (67) 98 12/08/20 11:00 110 25 103/48 (66) 99 12/08/20 10:00 112 25 98/49 (65) 99 12/08/20 09:00 109 24 119/49 (72) 100 12/08/20 08:51 128/64 12/08/20 08:36 82/33 12/08/20 08:00 97.9 99 20 110/47 (68) 100 12/08/20 07:00 97 20 99/46 (63) 98 12/08/20 06:00 110 20 97/42 (60) 98 12/08/20 05:00 91 26 77/34 (48) 96 12/08/20 04:00 Room Air 12/08/20 04:00 95 24 85/57 (66) 98 12/08/20 03:00 95 24 83/41 (55) 98 12/08/20 02:00 99 24 92/47 (62) 97 12/08/20 01:00 99.4 111 26 97/49 (65) 99 12/08/20 00:00 93/51 12/08/20 00:00 Room Air 12/08/20 00:00 99.4 107 26 92/51 (65) 99 12/07/20 23:00 110 24 105/39 (61) 99 12/07/20 22:00 110 22 92/51 (65) 99 12/07/20 22:00 91/51 12/07/20 21:00 88/55 12/07/20 21:00 94/41 12/07/20 21:00 114 22 88/55 (66) 99 12/07/20 20:00 112 30 96/42 (60) 99 12/07/20 20:00 Room Air 12/07/20 20:00 96/42 12/07/20 19:48 96/46 12/07/20 19:00 110 25 90/44 (59) 99 12/07/20 19:00 99.2 12/07/20 18:00 117 27 97/54 (68) 98 12/07/20 17:00 103 22 85/37 (53) 100 12/07/20 16:00 Room Air 12/07/20 16:00 123 30 106/81 (89) 99 12/07/20 15:00 118 31 98/72 (81) 100 12/07/20 14:20 88/38 12/07/20 14:00 122 24 91/40 (57) 98 12/07/20 13:00 115 24 93/46 (62) 100 Intake and Output 12/07/20 12/08/20 19:00 07:00 Intake Total 1782.247 ml 1190.00 ml Output Total 75 ml 70 ml Balance 1707.247 ml 1120.00 ml Intake Oral 716 ml IV Total 1066.247 ml 1190.00 ml Output Urine Total 75 ml 70 ml # Bowel Movements 4 General Appearance: no acute distress HEENT: normocephalic Respiratory: chest wall non-tender, lungs clear Cardiovascular: normal peripheral pulses, normal rate Abdomen: normal bowel sounds Laboratory Tests 12/08/20 03:50: White Blood Count 10.1, Red Blood Count 2.45L, Hemoglobin 7.8L, Hematocrit 22.0L , Mean Corpuscular Volume 90, Mean Corpuscular Hemoglobin 31.7H, Mean Corpuscular Hemoglobin Concent 35.4, Red Cell Distribution Width 16.2H, Platelet Count 35L, Mean Platelet Volume 8.4, Neutrophils (%) (Auto) , Lymphocytes (%) (Auto) , Monocytes (%) (Auto) , Eosinophils (%) (Auto) , Basophils (%) (Auto) , Differential Total Cells Counted 100, Neutrophils % (Manual) 80H, Lymphocytes % (Manual) 13L, Monocytes % (Manual) 6, Eosinophils % (Manual) 1, Basophils % (Manual) 0, Band Neutrophils 0, Platelet Estimate DecreasedL, Platelet Morphology Normal, Hypochromasia 1+, Anisocytosis 1+, Sodium Level 135L, Potassium Level 3.4L, Chloride Level 102, Carbon Dioxide Level 15L, Anion Gap 18H, Blood Urea Nitrogen 38H, Creatinine 5.8H, Estimat Glomerular Filtration Rate 10.8, Glucose Level 66L, Uric Acid 11.0H, Calcium Level 7.1L, Phosphorus Level 2.9, Magnesium Level 1.7L, Total Bilirubin 29.3H, Direct Bilirubin 19.7H, Gamma Glutamyl Transpeptidase 123H, Aspartate Amino Transf (AST/SGOT) 204H, Alanine Aminotransferase (ALT/SGPT) 52, Alkaline Phosphatase 221H, Ammonia 142H, C-Reactive Protein, Quantitative 12.6H, Pro-B-Type Natriuretic Peptide 9402H, Total Protein 4.6L, Albumin 2.4L, Globulin 2.2, Albumin/Globulin Ratio 1.1 12/08/20 04:00: Urine Color Brown, Urine Appearance Turbid, Urine pH 6.5, Urine Specific [place] 1.015, Urine Protein 3+H, Urine Glucose (UA) Negative, Urine Ketones 1+H, Urine Blood 5+H, Urine Nitrite PositiveH, Urine Bilirubin 3+H, Urine Ictotest Positive, Urine Urobilinogen 4H, Urine Leukocyte Esterase 2+H, Urine RBC 0-2H, Urine WBC 0-2, Urine Squamous Epithelial Cells Occasional, Urine Bacteria ManyH, Urine Yeast ModerateH, Urine Random Sodium 20, Stool Occult Blood Positive Current Medications Medications (Trade) Dose Ordered Sig/Armin Route PRN Reason Start Time Stop Time Status Last Admin Dose Admin Albumin Human 100 ml @ 100 mls/hr Q6H IV 12/06/20 20:00 03/06/21 19:59 12/08/20 08:49 Chlorhexidine Gluconate (Mariama-Hex 2%) 1 applic DAILY@2000 TOPIC 12/07/20 20:00 03/07/21 19:59 12/07/20 19:49 Dextrose/Sodium Chloride 1,000 ml @ 50 mls/hr Q20H IV 12/06/20 12:30 01/05/21 12:29 12/08/20 05:48 Epoetin Sd (Epoetin Sd-EPBX(NON ESRD)) 4,000 unit THU-THU-THU SUBQ 12/07/20 21:00 03/07/21 20:59 12/07/20 22:40 Folic Acid (Folate) 1 mg DAILY ORAL 12/06/20 20:00 01/05/21 19:59 12/08/20 08:50 Lactulose (Cephulac) 45 gm THREE TIMES A DAY ORAL 12/07/20 21:45 01/05/21 19:59 12/08/20 08:50 Midodrine (Pro-Amatine) 10 mg THREE TIMES A DAY ORAL 12/06/20 13:00 03/06/21 12:59 12/08/20 08:50 Multivitamins (Multivitamins) 1 tab DAILY ORAL 12/06/20 20:00 01/05/21 19:59 12/08/20 08:50 Norepinephrine Bitartrate 8 mg/ Sodium Chloride 500 ml @ 0 mls/hr Q24H IV 12/07/20 18:30 12/10/20 18:29 12/08/20 08:36 Octreotide Acetate (SandoSTATIN) 100 mcg Q8HR SUBQ 12/06/20 20:00 01/05/21 19:59 12/08/20 05:48 Pantoprazole (Protonix) 40 mg EVERY 12 HOURS IVP 12/06/20 21:00 01/05/21 20:59 12/08/20 08:52 Pentoxifylline (TRENtal) 400 mg Q12HR ORAL 12/06/20 21:00 03/06/21 20:59 12/08/20 08:51 Phytonadione (Vitamin K) 10 mg ONCE SUBQ 12/08/20 18:00 12/08/20 19:00 Piperacillin Sod/ Tazobactam Sod 3.375 gm/Sodium Chloride 110 ml @ 27.5 mls/hr Q12HR IVPB 12/06/20 20:00 12/13/20 19:59 12/08/20 08:51 Thiamine HCl (Vitamin B1) 100 mg DAILY ORAL 12/06/20 20:00 01/05/21 19:59 12/08/20 08:50 Vasopressin 100 units/Sodium Chloride 100 ml @ 0 mls/hr Q24H IV 12/08/20 05:45 12/11/20 05:31 12/08/20 06:22 Assessment/Plan Assessment/Plan Assessment and Plan Anemia o --> hgb 10-->9.1 # Thrombocytopenia due to liver disease --> plt 68-->54 # Coagulopathy persistently elevated, due to liver disease --> vit k and ffp as needed --> inr 2.9-->4.2 # Fracture right tibial shaft --> s/p Splinting --> as per ortho # Hypokalemia --> replete with k per renal # Alcohol abuse # Alcoholic cirrhosis # Hepatorenal syndrome -continue lactulose -GI following # Severe abnormal electrolytes: Hyponatremia, hypokalemia Evelio Dos Santos MD Dec 08, 2020 12:27
--- NOTE | 2020-12-08 12:52 | General Progress Note ---
Subjective ROS Limited/Unobtainable: Yes Allergies: Coded Allergies: No Known Allergies (Unverified , 12/06/20) Subjective events noted interval notes reviewed in ICU glucose on lower side Current Medications Medications (Trade) Dose Ordered Sig/Armin Route PRN Reason Start Time Stop Time Status Last Admin Dose Admin Albumin Human 100 ml @ 100 mls/hr Q6H IV 12/06/20 20:00 03/06/21 19:59 12/08/20 08:49 Chlorhexidine Gluconate (Mariama-Hex 2%) 1 applic DAILY@2000 TOPIC 12/07/20 20:00 03/07/21 19:59 12/07/20 19:49 Dextrose/Sodium Chloride 1,000 ml @ 50 mls/hr Q20H IV 12/06/20 12:30 01/05/21 12:29 12/08/20 05:48 Epoetin Sd (Epoetin Sd-EPBX(NON ESRD)) 4,000 unit THU-THU-THU SUBQ 12/07/20 21:00 03/07/21 20:59 12/07/20 22:40 Folic Acid (Folate) 1 mg DAILY ORAL 12/06/20 20:00 01/05/21 19:59 12/08/20 08:50 Lactulose (Cephulac) 45 gm THREE TIMES A DAY ORAL 12/07/20 21:45 01/05/21 19:59 12/08/20 08:50 Midodrine (Pro-Amatine) 10 mg THREE TIMES A DAY ORAL 12/06/20 13:00 03/06/21 12:59 12/08/20 08:50 Multivitamins (Multivitamins) 1 tab DAILY ORAL 12/06/20 20:00 01/05/21 19:59 12/08/20 08:50 Norepinephrine Bitartrate 8 mg/ Sodium Chloride 500 ml @ 0 mls/hr Q24H IV 12/07/20 18:30 12/10/20 18:29 12/08/20 08:36 Octreotide Acetate (SandoSTATIN) 100 mcg Q8HR SUBQ 12/06/20 20:00 01/05/21 19:59 12/08/20 05:48 Pantoprazole (Protonix) 40 mg EVERY 12 HOURS IVP 12/06/20 21:00 01/05/21 20:59 12/08/20 08:52 Pentoxifylline (TRENtal) 400 mg Q12HR ORAL 12/06/20 21:00 03/06/21 20:59 12/08/20 08:51 Phytonadione (Vitamin K) 10 mg ONCE SUBQ 12/08/20 18:00 12/08/20 19:00 Piperacillin Sod/ Tazobactam Sod 3.375 gm/Sodium Chloride 110 ml @ 27.5 mls/hr Q12HR IVPB 12/06/20 20:00 12/13/20 19:59 12/08/20 08:51 Thiamine HCl (Vitamin B1) 100 mg DAILY ORAL 12/06/20 20:00 01/05/21 19:59 12/08/20 08:50 Vasopressin 100 units/Sodium Chloride 100 ml @ 0 mls/hr Q24H IV 12/08/20 05:45 12/11/20 05:31 12/08/20 06:22 Objective Last 24 Hour Vital Signs Date Time Temp Pulse Resp B/P (MAP) Pulse Ox O2 Delivery O2 Flow Rate FiO2 12/08/20 12:00 Room Air 12/08/20 12:00 98.9 110 21 101/50 (67) 98 12/08/20 11:00 110 25 103/48 (66) 99 12/08/20 10:00 112 25 98/49 (65) 99 12/08/20 09:00 109 24 119/49 (72) 100 12/08/20 08:51 128/64 12/08/20 08:36 82/33 12/08/20 08:00 97.9 99 20 110/47 (68) 100 12/08/20 08:00 Room Air 12/08/20 07:00 97 20 99/46 (63) 98 12/08/20 06:00 110 20 97/42 (60) 98 12/08/20 05:00 91 26 77/34 (48) 96 12/08/20 04:00 Room Air 12/08/20 04:00 95 24 85/57 (66) 98 12/08/20 03:00 95 24 83/41 (55) 98 12/08/20 02:00 99 24 92/47 (62) 97 12/08/20 01:00 99.4 111 26 97/49 (65) 99 12/08/20 00:00 93/51 12/08/20 00:00 Room Air 12/08/20 00:00 99.4 107 26 92/51 (65) 99 12/07/20 23:00 110 24 105/39 (61) 99 12/07/20 22:00 110 22 92/51 (65) 99 12/07/20 22:00 91/51 12/07/20 21:00 88/55 12/07/20 21:00 94/41 12/07/20 21:00 114 22 88/55 (66) 99 12/07/20 20:00 112 30 96/42 (60) 99 12/07/20 20:00 Room Air 12/07/20 20:00 96/42 12/07/20 19:48 96/46 12/07/20 19:00 110 25 90/44 (59) 99 12/07/20 19:00 99.2 12/07/20 18:00 117 27 97/54 (68) 98 12/07/20 17:00 103 22 85/37 (53) 100 12/07/20 16:00 Room Air 12/07/20 16:00 123 30 106/81 (89) 99 12/07/20 15:00 118 31 98/72 (81) 100 12/07/20 14:20 88/38 12/07/20 14:00 122 24 91/40 (57) 98 12/07/20 13:00 115 24 93/46 (62) 100 Intake and Output 12/07/20 12/08/20 19:00 07:00 Intake Total 1782.247 ml 1262.67 ml Output Total 75 ml 70 ml Balance 1707.247 ml 1192.67 ml Intake Oral 716 ml IV Total 1066.247 ml 1262.67 ml Output Urine Total 75 ml 70 ml # Bowel Movements 4 Laboratory Tests 12/08/20 03:50: White Blood Count 10.1, Red Blood Count 2.45L, Hemoglobin 7.8L, Hematocrit 22.0L , Mean Corpuscular Volume 90, Mean Corpuscular Hemoglobin 31.7H, Mean Corpuscular Hemoglobin Concent 35.4, Red Cell Distribution Width 16.2H, Platelet Count 35L, Mean Platelet Volume 8.4, Neutrophils (%) (Auto) , Lymphocytes (%) (Auto) , Monocytes (%) (Auto) , Eosinophils (%) (Auto) , Basophils (%) (Auto) , Differential Total Cells Counted 100, Neutrophils % (Manual) 80H, Lymphocytes % (Manual) 13L, Monocytes % (Manual) 6, Eosinophils % (Manual) 1, Basophils % (Manual) 0, Band Neutrophils 0, Platelet Estimate DecreasedL, Platelet Morphology Normal, Hypochromasia 1+, Anisocytosis 1+, Sodium Level 135L, Po tassium Level 3.4L, Chloride Level 102, Carbon Dioxide Level 15L, Anion Gap 18H, Blood Urea Nitrogen 38H, Creatinine 5.8H, Estimat Glomerular Filtration Rate 10.8, Glucose Level 66L, Uric Acid 11.0H, Calcium Level 7.1L, Phosphorus Level 2.9, Magnesium Level 1.7L, Total Bilirubin 29.3H, Direct Bilirubin 19.7H, Gamma Glutamyl Transpeptidase 123H, Aspartate Amino Transf (AST/SGOT) 204H, Alanine Aminotransferase (ALT/SGPT) 52, Alkaline Phosphatase 221H, Ammonia 142H, C- Reactive Protein, Quantitative 12.6H, Pro-B-Type Natriuretic Peptide 9402H, Total Protein 4.6L, Albumin 2.4L, Globulin 2.2, Albumin/Globulin Ratio 1.1 12/08/20 04:00: Urine Color Brown, Urine Appearance Turbid, Urine pH 6.5, Urine Specific [place] 1.015, Urine Protein 3+H, Urine Glucose (UA) Negative, Urine Ketones 1+H, Urine Blood 5+H, Urine Nitrite PositiveH, Urine Bilirubin 3+H, Urine Ictotest Positive, Urine Urobilinogen 4H, Urine Leukocyte Esterase 2+H, Urine RBC 0-2H, Urine WBC 0-2, Urine Squamous Epithelial Cells Occasional, Urine Bacteria ManyH, Urine Yeast ModerateH, Urine Random Sodium 20, Stool Occult Blood Positive Height (Feet): 5 Height (Inches): 8.00 Weight (Pounds): 160 General Appearance: no apparent distress Neck: normal alignment Cardiovascular: normal rate Objective Current Medications Medications (Trade) Dose Ordered Sig/Armin Route PRN Reason Start Time Stop Time Status Last Admin Dose Admin Albumin Human 100 ml @ 100 mls/hr Q6H IV 12/06/20 20:00 03/06/21 19:59 12/08/20 08:49 Chlorhexidine Gluconate (Mariama-Hex 2%) 1 applic DAILY@2000 TOPIC 12/07/20 20:00 03/07/21 19:59 12/07/20 19:49 Dextrose/Sodium Chloride 1,000 ml @ 50 mls/hr Q20H IV 12/06/20 12:30 01/05/21 12:29 12/08/20 05:48 Epoetin Sd (Epoetin Sd-EPBX(NON ESRD)) 4,000 unit THU- SUBQ 12/07/20 21:00 03/07/21 20:59 12/07/20 22:40 Folic Acid (Folate) 1 mg DAILY ORAL 12/06/20 20:00 01/05/21 19:59 12/08/20 08:50 Lactulose (Cephulac) 45 gm THREE TIMES A DAY ORAL 12/07/20 21:45 01/05/21 19:59 12/08/20 08:50 Midodrine (Pro-Amatine) 10 mg THREE TIMES A DAY ORAL 12/06/20 13:00 03/06/21 12:59 12/08/20 08:50 Multivitamins (Multivitamins) 1 tab DAILY ORAL 12/06/20 20:00 01/05/21 19:59 12/08/20 08:50 Norepinephrine Bitartrate 8 mg/ Sodium Chloride 500 ml @ 0 mls/hr Q24H IV 12/07/20 18:30 12/10/20 18:29 12/08/20 08:36 Octreotide Acetate (SandoSTATIN) 100 mcg Q8HR SUBQ 12/06/20 20:00 01/05/21 19:59 12/08/20 05:48 Pantoprazole (Protonix) 40 mg EVERY 12 HOURS IVP 12/06/20 21:00 01/05/21 20:59 12/08/20 08:52 Pentoxifylline (TRENtal) 400 mg Q12HR ORAL 12/06/20 21:00 03/06/21 20:59 12/08/20 08:51 Phytonadione (Vitamin K) 10 mg ONCE SUBQ 12/08/20 18:00 12/08/20 19:00 Piperacillin Sod/ Tazobactam Sod 3.375 gm/Sodium Chloride 110 ml @ 27.5 mls/hr Q12HR IVPB 12/06/20 20:00 12/13/20 19:59 12/08/20 08:51 Thiamine HCl (Vitamin B1) 100 mg DAILY ORAL 12/06/20 20:00 01/05/21 19:59 12/08/20 08:50 Vasopressin 100 units/Sodium Chloride 100 ml @ 0 mls/hr Q24H IV 12/08/20 05:45 12/11/20 05:31 12/08/20 06:22 Assessment/Plan Problem List: (1) Alcoholic cirrhosis of liver with ascites ICD Codes: K70.31 - Alcoholic cirrhosis of liver with ascites SNOMED: 783807666, 331294855 (2) Tibia/fibula fracture, shaft ICD Codes: S82.209A - Unspecified fracture of shaft of unspecified tibia, initial encounter for closed fracture; S82.409A - Unspecified fracture of shaft of unspecified fibula, initial encounter for closed fracture SNOMED: 686564735, 205382871 Qualifiers: Qualified Codes: S82.201A - Unspecified fracture of shaft of right tibia, initial encounter for closed fracture; S82.401A - Unspecified fracture of shaft of right fibula, initial encounter for closed fracture (3) Hypokalemia ICD Codes: E87.6 - Hypokalemia; S82.409A - Unspecified fracture of shaft of unspecified fibula, initial encounter for closed fracture SNOMED: 82678212, 670051906 (4) Hepatorenal syndrome ICD Codes: K76.7 - Hepatorenal syndrome; S82.409A - Unspecified fracture of shaft of unspecified fibula, initial encounter for closed fracture SNOMED: 66631094, 705348499 Status: deteriorating Assessment/Plan: continue octreotide continue dextrose glucose monitoring without insulin coverage hypoglycemia protocol Richard Brar MD Dec 08, 2020 12:52
--- NOTE | 2020-12-08 13:50 | Nephrology Progress Note ---
Assessment/Plan Problem List: (1) Renal failure (ARF), acute on chronic (2) Hepatorenal syndrome Assessment: Jaundice (3) Anemia (4) Fracture of right tibia and fibula (5) Alcoholic cirrhosis of liver with ascites (6) Electrolyte imbalance Assessment: Hyponatremia, hypokalemia Assessment Renal failure, likely acute on chronic. Most likely hepatorenal syndrome End-stage liver disease Severe abnormal electrolytes: Hyponatremia, hypokalemia Anemia Tibia/fibula fracture shaft Alcoholic cirrhosis of the liver with ascites Jaundice Plan December 08: Seen in ICU. Discussed with RN. Labs reviewed. Hemodynamically more stable. On pressors. Proceed with insertion of a nontunneled catheter and dialysis. Continue to monitor renal parameters. Continue per consultants. December 07: Patient seen in ICU. Discussed with RN. Labs reviewed. Serum sodium improved. Low potassium addressed. Patient hypotensive. Urine studies still pending. On pressors. Continue to monitor electrolytes and renal parameters. Previously: Not clear for surgery until electrolyte abnormality corrects Kidney ultrasound today 2D echocardiogram Stat lab work Ramachandran catheter Urine for tox screen Per orders Ultrasound: Left kidney measures 13.4 cm in length. Right kidney measures 14.1 cm length. Both kidneys demonstrate mildly increased echogenicity. There is no hydronephrosis. Evidence of hepatic cirrhosis, with increased parenchymal echogenicity and surface nodularity Distended gallbladder but no stones. Normal common bile duct Evidence of portal hypertension, with ascites, splenomegaly, splenic hilar varices Chest x-ray: Possible subtle multifocal pneumonitis versus superimposition artifact. Subjective ROS Limited/Unobtainable: Yes Objective Objective Last 24 Hour Vital Signs Date Time Temp Pulse Resp B/P (MAP) Pulse Ox O2 Delivery O2 Flow Rate FiO2 12/08/20 12:00 Room Air 12/08/20 12:00 98.9 110 21 101/50 (67) 98 12/08/20 11:00 110 25 103/48 (66) 99 12/08/20 10:00 112 25 98/49 (65) 99 12/08/20 09:00 109 24 119/49 (72) 100 12/08/20 08:51 128/64 12/08/20 08:36 82/33 12/08/20 08:00 97.9 99 20 110/47 (68) 100 12/08/20 08:00 Room Air 12/08/20 07:00 97 20 99/46 (63) 98 12/08/20 06:00 110 20 97/42 (60) 98 12/08/20 05:00 91 26 77/34 (48) 96 12/08/20 04:00 Room Air 12/08/20 04:00 95 24 85/57 (66) 98 12/08/20 03:00 95 24 83/41 (55) 98 12/08/20 02:00 99 24 92/47 (62) 97 12/08/20 01:00 99.4 111 26 97/49 (65) 99 12/08/20 00:00 93/51 12/08/20 00:00 Room Air 12/08/20 00:00 99.4 107 26 92/51 (65) 99 12/07/20 23:00 110 24 105/39 (61) 99 12/07/20 22:00 110 22 92/51 (65) 99 12/07/20 22:00 91/51 12/07/20 21:00 88/55 12/07/20 21:00 94/41 12/07/20 21:00 114 22 88/55 (66) 99 12/07/20 20:00 112 30 96/42 (60) 99 12/07/20 20:00 Room Air 12/07/20 20:00 96/42 12/07/20 19:48 96/46 12/07/20 19:00 110 25 90/44 (59) 99 12/07/20 19:00 99.2 12/07/20 18:00 117 27 97/54 (68) 98 12/07/20 17:00 103 22 85/37 (53) 100 12/07/20 16:00 Room Air 12/07/20 16:00 123 30 106/81 (89) 99 12/07/20 15:00 118 31 98/72 (81) 100 12/07/20 14:20 88/38 12/07/20 14:00 122 24 91/40 (57) 98 Intake and Output 12/07/20 12/08/20 19:00 07:00 Intake Total 1782.247 ml 1262.67 ml Output Total 75 ml 70 ml Balance 1707.247 ml 1192.67 ml Intake Oral 716 ml IV Total 1066.247 ml 1262.67 ml Output Urine Total 75 ml 70 ml # Bowel Movements 4 Current Medications Medications (Trade) Dose Ordered Sig/Armin Route PRN Reason Start Time Stop Time Status Last Admin Dose Admin Albumin Human 100 ml @ 100 mls/hr Q6H IV 12/06/20 20:00 03/06/21 19:59 12/08/20 13:22 Chlorhexidine Gluconate (Mariama-Hex 2%) 1 applic DAILY@2000 TOPIC 12/07/20 20:00 03/07/21 19:59 12/07/20 19:49 Dextrose/Sodium Chloride 1,000 ml @ 50 mls/hr Q20H IV 12/06/20 12:30 01/05/21 12:29 12/08/20 05:48 Epoetin Sd (Epoetin Sd-EPBX(NON ESRD)) 4,000 unit THU-THU-THU SUBQ 12/07/20 21:00 03/07/21 20:59 12/07/20 22:40 Folic Acid (Folate) 1 mg DAILY ORAL 12/06/20 20:00 01/05/21 19:59 12/08/20 08:50 Lactulose (Cephulac) 45 gm THREE TIMES A DAY ORAL 12/07/20 21:45 01/05/21 19:59 12/08/20 08:50 Magnesium Sulfate 100 ml @ 100 mls/hr ONCE ONCE IVPB 12/08/20 13:00 12/08/20 13:59 12/08/20 13:21 Midodrine (Pro-Amatine) 10 mg THREE TIMES A DAY ORAL 12/06/20 13:00 03/06/21 12:59 12/08/20 08:50 Multivitamins (Multivitamins) 1 tab DAILY ORAL 12/06/20 20:00 01/05/21 19:59 12/08/20 08:50 Norepinephrine Bitartrate 8 mg/ Sodium Chloride 500 ml @ 0 mls/hr Q24H IV 12/07/20 18:30 12/10/20 18:29 12/08/20 08:36 Octreotide Acetate (SandoSTATIN) 100 mcg Q8HR SUBQ 12/06/20 20:00 01/05/21 19:59 12/08/20 13:22 Pantoprazole (Protonix) 40 mg EVERY 12 HOURS IVP 12/06/20 21:00 01/05/21 20:59 12/08/20 08:52 Pentoxifylline (TRENtal) 400 mg Q12HR ORAL 12/06/20 21:00 03/06/21 20:59 12/08/20 08:51 Phytonadione (Vitamin K) 10 mg ONCE SUBQ 12/08/20 18:00 12/08/20 19:00 Piperacillin Sod/ Tazobactam Sod 3.375 gm/Sodium Chloride 110 ml @ 27.5 mls/hr Q12HR IVPB 12/06/20 20:00 12/13/20 19:59 12/08/20 08:51 Potassium Chloride 100 ml @ 50 mls/hr ONCE ONCE IVPB 12/08/20 13:00 12/08/20 14:59 12/08/20 13:22 Thiamine HCl (Vitamin B1) 100 mg DAILY ORAL 12/06/20 20:00 01/05/21 19:59 12/08/20 08:50 Vasopressin 100 units/Sodium Chloride 100 ml @ 0 mls/hr Q24H IV 12/08/20 05:45 12/11/20 05:31 12/08/20 06:22 Laboratory Tests 12/08/20 03:50: White Blood Count 10.1, Red Blood Count 2.45L, Hemoglobin 7.8L, Hematocrit 22.0L , Mean Corpuscular Volume 90, Mean Corpuscular Hemoglobin 31.7H, Mean Corpuscular Hemoglobin Concent 35.4, Red Cell Distribution Width 16.2H, Platelet Count 35L, Mean Platelet Volume 8.4, Neutrophils (%) (Auto) , Lymphocytes (%) (Auto) , Monocytes (%) (Auto) , Eosinophils (%) (Auto) , Basophils (%) (Auto) , Differential Total Cells Counted 100, Neutrophils % (Manual) 80H, Lymphocytes % (Manual) 13L, Monocytes % (Manual) 6, Eosinophils % (Manual) 1, Basophils % (Manual) 0, Band Neutrophils 0, Platelet Estimate DecreasedL, Platelet Morphology Normal, Hypochromasia 1+, Anisocytosis 1+, Sodium Level 135L, Potassium Level 3.4L, Chloride Level 102, Carbon Dioxide Level 15L, Anion Gap 18H, Blood Urea Nitrogen 38H, Creatinine 5.8H, Estimat Glomerular Filtration Rate 10.8, Glucose Level 66L, Uric Acid 11.0H, Calcium Level 7.1L, Phosphorus Level 2.9, Magnesium Level 1.7L, Total Bilirubin 29.3H, Direct Bilirubin 19.7H, Gamma Glutamyl Transpeptidase 123H, Aspartate Amino Transf (AST/SGOT) 204H, Alanine Aminotransferase (ALT/SGPT) 52, Alkaline Phosphatase 221H, Ammonia 142H, C-Reactive Protein, Quantitative 12.6H, Pro-B-Type Natriuretic Peptide 9402H, Total Protein 4.6L, Albumin 2.4L, Globulin 2.2, Albumin/Globulin Ratio 1.1 12/08/20 04:00: Urine Color Brown, Urine Appearance Turbid, Urine pH 6.5, Urine Specific [place] 1.015, Urine Protein 3+H, Urine Glucose (UA) Negative, Urine Ketones 1+H, Urine Blood 5+H, Urine Nitrite PositiveH, Urine Bilirubin 3+H, Urine Ictotest Positive, Urine Urobilinogen 4H, Urine Leukocyte Esterase 2+H, Urine RBC 0-2H, Urine WBC 0-2, Urine Squamous Epithelial Cells Occasional, Urine Bacteria ManyH, Urine Yeast ModerateH, Urine Random Sodium 20, Stool Occult Blood Positive Height (Feet): 5 Height (Inches): 8.00 Weight (Pounds): 160 General Appearance: no apparent distress, lethargic Cardiovascular: tachycardia Respiratory/Chest: decreased breath sounds Abdomen: distended Driss Sneed MD Dec 08, 2020 13:50
--- NOTE | 2020-12-08 15:08 | Cardiac Electrophysiology PN ---
Assessment/Plan Assessment/Plan 1. Septic shock on Levophed 23 mcg and Vasopressin and Abx. Echo Nl EF 65%. No pericardial effusion reported. 2. Cirrhosis with encephalopathy and Bilirubin of 29 3. Acute renal failure Cr 4.9 4. Hyponatremia Na 126 5. Leg Fx. Awaiting stabilization before surgery DW RN and Dr Sneed Subjective Subjective In ICU on Levophed 30 mcg and Vasipressin and D5w 1/2 NS 50 cc hr Got albumin and FFP. On RA In sinus tach 100s off restraints Objective Last 24 Hour Vital Signs Date Time Temp Pulse Resp B/P (MAP) Pulse Ox O2 Delivery O2 Flow Rate FiO2 12/08/20 12:00 Room Air 12/08/20 12:00 98.9 110 21 101/50 (67) 98 12/08/20 11:00 110 25 103/48 (66) 99 12/08/20 10:00 112 25 98/49 (65) 99 12/08/20 09:00 109 24 119/49 (72) 100 12/08/20 08:51 128/64 12/08/20 08:36 82/33 12/08/20 08:00 97.9 99 20 110/47 (68) 100 12/08/20 08:00 Room Air 12/08/20 07:00 97 20 99/46 (63) 98 12/08/20 06:00 110 20 97/42 (60) 98 12/08/20 05:00 91 26 77/34 (48) 96 12/08/20 04:00 Room Air 12/08/20 04:00 95 24 85/57 (66) 98 12/08/20 03:00 95 24 83/41 (55) 98 12/08/20 02:00 99 24 92/47 (62) 97 12/08/20 01:00 99.4 111 26 97/49 (65) 99 12/08/20 00:00 93/51 12/08/20 00:00 Room Air 12/08/20 00:00 99.4 107 26 92/51 (65) 99 12/07/20 23:00 110 24 105/39 (61) 99 12/07/20 22:00 110 22 92/51 (65) 99 12/07/20 22:00 91/51 12/07/20 21:00 88/55 12/07/20 21:00 94/41 12/07/20 21:00 114 22 88/55 (66) 99 12/07/20 20:00 112 30 96/42 (60) 99 12/07/20 20:00 Room Air 12/07/20 20:00 96/42 12/07/20 19:48 96/46 12/07/20 19:00 110 25 90/44 (59) 99 12/07/20 19:00 99.2 12/07/20 18:00 117 27 97/54 (68) 98 12/07/20 17:00 103 22 85/37 (53) 100 12/07/20 16:00 Room Air 12/07/20 16:00 123 30 106/81 (89) 99 Intake and Output 12/07/20 12/08/20 19:00 07:00 Intake Total 1782.247 ml 1262.67 ml Output Total 75 ml 70 ml Balance 1707.247 ml 1192.67 ml Intake Oral 716 ml IV Total 1066.247 ml 1262.67 ml Output Urine Total 75 ml 70 ml # Bowel Movements 4 Laboratory Tests Test 12/08/20 03:50 12/08/20 04:00 White Blood Count 10.1 K/UL (4.8-10.8) Red Blood Count 2.45 M/UL (4.70-6.10) L Hemoglobin 7.8 G/DL (14.2-18.0) L Hematocrit 22.0 % (42.0-52.0) L Mean Corpuscular Volume 90 FL (80-99) Mean Corpuscular Hemoglobin 31.7 PG (27.0-31.0) H Mean Corpuscular Hemoglobin Concent 35.4 G/DL (32.0-36.0) Red Cell Distribution Width 16.2 % (11.6-14.8) H Platelet Count 35 K/UL (150-450) L Mean Platelet Volume 8.4 FL (6.5-10.1) Neutrophils (%) (Auto) % (45.0-75.0) Lymphocytes (%) (Auto) % (20.0-45.0) Monocytes (%) (Auto) % (1.0-10.0) Eosinophils (%) (Auto) % (0.0-3.0) Basophils (%) (Auto) % (0.0-2.0) Differential Total Cells Counted 100 Neutrophils % (Manual) 80 % (45-75) H Lymphocytes % (Manual) 13 % (20-45) L Monocytes % (Manual) 6 % (1-10) Eosinophils % (Manual) 1 % (0-3) Basophils % (Manual) 0 % (0-2) Band Neutrophils 0 % (0-8) Platelet Estimate Decreased L Platelet Morphology Normal Hypochromasia 1+ Anisocytosis 1+ Sodium Level 135 MMOL/L (136-145) L Potassium Level 3.4 MMOL/L (3.5-5.1) L Chloride Level 102 MMOL/L (98-107) Carbon Dioxide Level 15 MMOL/L (21-32) L Anion Gap 18 mmol/L (5-15) H Blood Urea Nitrogen 38 mg/dL (7-18) H Creatinine 5.8 MG/DL (0.55-1.30) H Estimat Glomerular Filtration Rate 10.8 mL/min (>60) Glucose Level 66 MG/DL (74-106) L Uric Acid 11.0 MG/DL (2.6-7.2) H Calcium Level 7.1 MG/DL (8.5-10.1) L Phosphorus Level 2.9 MG/DL (2.5-4.9) Magnesium Level 1.7 MG/DL (1.8-2.4) L Total Bilirubin 29.3 MG/DL (0.2-1.0) H Direct Bilirubin 19.7 MG/DL (0.0-0.3) H Gamma Glutamyl Transpeptidase 123 U/L (5-85) H Aspartate Amino Transf (AST/SGOT) 204 U/L (15-37) H Alanine Aminotransferase (ALT/SGPT) 52 U/L (12-78) Alkaline Phosphatase 221 U/L (46-116) H Ammonia 142 umol/L (11-32) H C-Reactive Protein, Quantitative 12.6 mg/dL (0.00-0.90) H Pro-B-Type Natriuretic Peptide 9402 pg/mL (0-125) H Total Protein 4.6 G/DL (6.4-8.2) L Albumin 2.4 G/DL (3.4-5.0) L Globulin 2.2 g/dL Albumin/Globulin Ratio 1.1 (1.0-2.7) Urine Color Brown Urine Appearance Turbid Urine pH 6.5 (4.5-8.0) Urine Specific [place] 1.015 (1.005-1.035) Urine Protein 3+ (NEGATIVE) H Urine Glucose (UA) Negative (NEGATIVE) Urine Ketones 1+ (NEGATIVE) H Urine Blood 5+ (NEGATIVE) H Urine Nitrite Positive (NEGATIVE) H Urine Bilirubin 3+ (NEGATIVE) H Urine Ictotest Positive (NEGATIVE) Urine Urobilinogen 4 MG/DL (0.0-1.0) H Urine Leukocyte Esterase 2+ (NEGATIVE) H Urine RBC 0-2 /HPF (0 - 0) H Urine WBC 0-2 /HPF (0 - 0) Urine Squamous Epithelial Cells Occasional /LPF Urine Bacteria Many /HPF (NONE) H Urine Yeast Moderate /HPF (NONE) H Urine Random Sodium 20 mmol/L (20-110) Stool Occult Blood Positive (NEGATIVE) Objective General Appearance: Weak HEENT: Jaundiced sclera. No JVD Respiratory: chest non-tender, lungs clear, normal breath sounds Cardiovascular: regular rate, rhythm, no murmur Gastrointestinal: Soft ascites Musculoskeletal: He has 4+ pitting edema. He has deformity and tenderness to the ankle and foot. . Selvin Fonseca MD Dec 08, 2020 15:08
--- NOTE | 2020-12-08 16:00 | NUR ---
NURSE NOTES: Civil Engineering Assistant rounded and asked this RN to try and contact family to gain consent for tunneled HD catheter, patient needs HD. Patient has no family listed and none have called today, his phone is at bedside. General surgery to perform HD cath insertion once consent obtained.
[2020-12-08] MEDS ORDERED: Phytonadione 10 mg/mL 1ml amp SUBQ SCH (18:00)
--- NOTE | 2020-12-08 18:00 | NUR ---
NURSE NOTES: Family has not called as of yet, patient remains disoriented. This RN did not administer PO meds, patient unable to swallow and is not following commands. He continues on Vasopressin and Levophed for BP support. Patient received CHG bath 2x this shift d/t freq BMs. Complete bed bath and linen change provided. Mouth care provided. Patient turned and positioned. Will continue with the POC.
--- NOTE | 2020-12-08 19:25 | NUR ---
NURSE HAND-OFF REPORT: Latest Vital Signs: Temperature 99.3 , Pulse 102 , B/P 111 /51 , Respiratory Rate 23 , O2 SAT 97 , Room Air, O2 Flow Rate . Vital Sign Comment: unchanged, see trend in [employer] EKG Rhythm: Sinus Tachycardia Rhythm change?: NO MD Notified?: - MD Response: Latest Green Fall Score: 70 Fall Risk: High Risk Safety Measures: Call light Within Reach, Bed Alarm Zone 1, Side Rails Side Rails x2, Bed position Low and Locked. Fall Precautions: in place Yellow Socks Door Sign Patient Fall Education Report given to Jovanni Jean RN.
--- NOTE | 2020-12-08 19:39 | NUR ---
report received from Orlando Haro rn. Pt stable, pt is bleeding from multiple sites. MD aware, no new orders received. Family called during the day and upon shift change, unable to get in contact. aware. Pt remains on pressors. Bed in lowest position, call light in reach, side rails x2, will continue to monitor.
--- NOTE | 2020-12-08 20:29 | General Progress Note ---
Subjective ROS Limited/Unobtainable: Yes Allergies: Coded Allergies: No Known Allergies (Unverified , 12/06/20) Objective Last 24 Hour Vital Signs Date Time Temp Pulse Resp B/P (MAP) Pulse Ox O2 Delivery O2 Flow Rate FiO2 12/08/20 18:30 111/51 12/08/20 18:00 100 20 93/40 (57) 97 12/08/20 17:00 102 23 105/50 (68) 97 12/08/20 16:00 Room Air 12/08/20 16:00 99.3 117 25 98/41 (60) 98 12/08/20 15:00 112 26 107/48 (67) 99 12/08/20 14:00 114 25 101/46 (64) 98 12/08/20 13:00 112 24 100/45 (63) 98 12/08/20 12:00 Room Air 12/08/20 12:00 98.9 110 21 101/50 (67) 98 12/08/20 11:00 110 25 103/48 (66) 99 12/08/20 10:00 112 25 98/49 (65) 99 12/08/20 09:00 109 24 119/49 (72) 100 12/08/20 08:51 128/64 12/08/20 08:36 82/33 12/08/20 08:00 97.9 99 20 110/47 (68) 100 12/08/20 08:00 Room Air 12/08/20 07:00 97 20 99/46 (63) 98 12/08/20 06:00 110 20 97/42 (60) 98 12/08/20 05:00 91 26 77/34 (48) 96 12/08/20 04:00 Room Air 12/08/20 04:00 95 24 85/57 (66) 98 12/08/20 03:00 95 24 83/41 (55) 98 12/08/20 02:00 99 24 92/47 (62) 97 12/08/20 01:00 99.4 111 26 97/49 (65) 99 12/08/20 00:00 93/51 12/08/20 00:00 Room Air 12/08/20 00:00 99.4 107 26 92/51 (65) 99 12/07/20 23:00 110 24 105/39 (61) 99 12/07/20 22:00 110 22 92/51 (65) 99 12/07/20 22:00 91/51 12/07/20 21:00 88/55 12/07/20 21:00 94/41 12/07/20 21:00 114 22 88/55 (66) 99 Intake and Output 12/07/20 12/08/20 19:00 07:00 Intake Total 1782.247 ml 1262.67 ml Output Total 75 ml 70 ml Balance 1707.247 ml 1192.67 ml Intake Oral 716 ml IV Total 1066.247 ml 1262.67 ml Output Urine Total 75 ml 70 ml # Bowel Movements 4 Laboratory Tests 12/08/20 03:50: White Blood Count 10.1, Red Blood Count 2.45L, Hemoglobin 7.8L, Hematocrit 22.0L , Mean Corpuscular Volume 90, Mean Corpuscular Hemoglobin 31.7H, Mean Corpuscular Hemoglobin Concent 35.4, Red Cell Distribution Width 16.2H, Platelet Count 35L, Mean Platelet Volume 8.4, Neutrophils (%) (Auto) , Lymphocytes (%) (Auto) , Monocytes (%) (Auto) , Eosinophils (%) (Auto) , Basophils (%) (Auto) , Differential Total Cells Counted 100, Neutrophils % (Manual) 80H, Lymphocytes % (Manual) 13L, Monocytes % (Manual) 6, Eosinophils % (Manual) 1, Basophils % (Manual) 0, Band Neutrophils 0, Platelet Estimate DecreasedL, Platelet Morphology Normal, Hypochromasia 1+, Anisocytosis 1+, Sodium Level 135L, Potassium Level 3.4L, Chloride Level 102, Carbon Dioxide Level 15L, Anion Gap 18H, Blood Urea Nitrogen 38H, Creatinine 5.8H, Estimat Glomerular Filtration Rate 10.8, Glucose Level 66L, Uric Acid 11.0H, Calcium Level 7.1L, Phosphorus Level 2.9, Magnesium Level 1.7L, Total Bilirubin 29.3H, Direct Bilirubin 19.7H, Gamma Glutamyl Transpeptidase 123H, Aspartate Amino Transf (AST/SGOT) 204H, Alanine Aminotransferase (ALT/SGPT) 52, Alkaline Phosphatase 221H, Ammonia 142H, C-Reactive Protein, Quantitative 12.6H, Pro-B-Type Natriuretic Peptide 9402H, Total Protein 4.6L, Albumin 2.4L, Globulin 2.2, Albumin/Globulin Ratio 1.1 12/08/20 04:00: Urine Color Brown, Urine Appearance Turbid, Urine pH 6.5, Urine Specific [place] 1.015, Urine Protein 3+H, Urine Glucose (UA) Negative, Urine Ketones 1+H, Urine Blood 5+H, Urine Nitrite PositiveH, Urine Bilirubin 3+H, Urine Ictotest Positive, Urine Urobilinogen 4H, Urine Leukocyte Esterase 2+H, Urine RBC 0-2H, Urine WBC 0-2, Urine Squamous Epithelial Cells Occasional, Urine Bacteria ManyH, Urine Yeast ModerateH, Urine Random Sodium 20, Stool Occult Blood Positive Height (Feet): 5 Height (Inches): 8.00 Weight (Pounds): 160 Assessment/Plan Problem List: (1) Urine retention ICD Codes: R33.9 - Retention of urine, unspecified SNOMED: 980904092 (2) Hypokalemia ICD Codes: E87.6 - Hypokalemia; S82.409A - Unspecified fracture of shaft of unspecified fibula, initial encounter for closed fracture SNOMED: 70342273, 997089835 (3) Alcohol abuse ICD Codes: F10.10 - Alcohol abuse, uncomplicated SNOMED: 12967116, 583722794 (4) Anemia ICD Codes: D64.9 - Anemia, unspecified SNOMED: 725731026, 041597438 Qualifiers: Qualified Codes: D64.9 - Anemia, unspecified (5) Tibia/fibula fracture, shaft ICD Codes: S82.209A - Unspecified fracture of shaft of unspecified tibia, initial encounter for closed fracture; S82.409A - Unspecified fracture of shaft of unspecified fibula, initial encounter for closed fracture SNOMED: 989455805, 110850786 Qualifiers: Qualified Codes: S82.201A - Unspecified fracture of shaft of right tibia, initial encounter for closed fracture; S82.401A - Unspecified fracture of shaft of right fibula, initial encounter for closed fracture (6) Alcoholic cirrhosis of liver with ascites ICD Codes: K70.31 - Alcoholic cirrhosis of liver with ascites SNOMED: 582647449, 034116762 (7) Fracture of right tibia and fibula ICD Codes: S82.201A - Unspecified fracture of shaft of right tibia, initial encounter for closed fracture; S82.401A - Unspecified fracture of shaft of right fibula, initial encounter for closed fracture SNOMED: 671678493, [id number] (8) Electrolyte imbalance ICD Codes: E87.8 - Other disorders of electrolyte and fluid balance, not else where classified SNOMED: 853588571 (9) Renal failure (ARF), acute on chronic ICD Codes: N17.9 - Acute kidney failure, unspecified; N18.9 - Chronic kidney disease, unspecified SNOMED: 724452904 Status: deteriorating Assessment/Plan: etoh cirrhosis coagulapathy low k still elevated cr ohara per dr harris poor prognosis monitor for bleeding r/o hepatorenal synrome lyte abnormality confused tib /fib fracture and not stable for repair a Divya Nevarez MD Dec 08, 2020 20:29
[2020-12-08] MEDS: Dyna-Hex 2% Top Sol 2oz TOPIC SCH (20:35)
--- NOTE | 2020-12-08 20:57 | General Progress Note ---
Subjective Allergies: Coded Allergies: No Known Allergies (Unverified , 12/06/20) Subjective Seen in ICU d/w RN more confused unable to get po meds Objective Last 24 Hour Vital Signs Date Time Temp Pulse Resp B/P (MAP) Pulse Ox O2 Delivery O2 Flow Rate FiO2 12/08/20 18:30 111/51 12/08/20 18:00 100 20 93/40 (57) 97 12/08/20 17:00 102 23 105/50 (68) 97 12/08/20 16:00 Room Air 12/08/20 16:00 99.3 117 25 98/41 (60) 98 12/08/20 15:00 112 26 107/48 (67) 99 12/08/20 14:00 114 25 101/46 (64) 98 12/08/20 13:00 112 24 100/45 (63) 98 12/08/20 12:00 Room Air 12/08/20 12:00 98.9 110 21 101/50 (67) 98 12/08/20 11:00 110 25 103/48 (66) 99 12/08/20 10:00 112 25 98/49 (65) 99 12/08/20 09:00 109 24 119/49 (72) 100 12/08/20 08:51 128/64 12/08/20 08:36 82/33 12/08/20 08:00 97.9 99 20 110/47 (68) 100 12/08/20 08:00 Room Air 12/08/20 07:00 97 20 99/46 (63) 98 12/08/20 06:00 110 20 97/42 (60) 98 12/08/20 05:00 91 26 77/34 (48) 96 12/08/20 04:00 Room Air 12/08/20 04:00 95 24 85/57 (66) 98 12/08/20 03:00 95 24 83/41 (55) 98 12/08/20 02:00 99 24 92/47 (62) 97 12/08/20 01:00 99.4 111 26 97/49 (65) 99 12/08/20 00:00 93/51 12/08/20 00:00 Room Air 12/08/20 00:00 99.4 107 26 92/51 (65) 99 12/07/20 23:00 110 24 105/39 (61) 99 12/07/20 22:00 110 22 92/51 (65) 99 12/07/20 22:00 91/51 12/07/20 21:00 88/55 12/07/20 21:00 94/41 12/07/20 21:00 114 22 88/55 (66) 99 Intake and Output 12/07/20 12/08/20 19:00 07:00 Intake Total 1782.247 ml 1262.67 ml Output Total 75 ml 70 ml Balance 1707.247 ml 1192.67 ml Intake Oral 716 ml IV Total 1066.247 ml 1262.67 ml Output Urine Total 75 ml 70 ml # Bowel Movements 4 Laboratory Tests 12/08/20 03:50: White Blood Count 10.1, Red Blood Count 2.45L, Hemoglobin 7.8L, Hematocrit 22.0L , Mean Corpuscular Volume 90, Mean Corpuscular Hemoglobin 31.7H, Mean Corpuscular Hemoglobin Concent 35.4, Red Cell Distribution Width 16.2H, Platelet Count 35L, Mean Platelet Volume 8.4, Neutrophils (%) (Auto) , Lymphocytes (%) (Auto) , Monocytes (%) (Auto) , Eosinophils (%) (Auto) , Basophils (%) (Auto) , Differential Total Cells Counted 100, Neutrophils % (Manual) 80H, Lymphocytes % (Manual) 13L, Monocytes % (Manual) 6, Eosinophils % (Manual) 1, Basophils % (Manual) 0, Band Neutrophils 0, Platelet Estimate DecreasedL, Platelet Morphology Normal, Hypochromasia 1+, Anisocytosis 1+, Sodium Level 135L, Potassium Level 3.4L, Chloride Level 102, Carbon Dioxide Level 15L, Anion Gap 18H, Blood Urea Nitrogen 38H, Creatinine 5.8H, Estimat Glomerular Filtration Rate 10.8, Glucose Level 66L, Uric Acid 11.0H, Calcium Level 7.1L, Phosphorus Level 2.9, Magnesium Level 1.7L, Total Bilirubin 29.3H, Direct Bilirubin 19.7H, Gamma Glutamyl Transpeptidase 123H, Aspartate Amino Transf (AST/SGOT) 204H, Alanine Aminotransferase (ALT/SGPT) 52, Alkaline Phosphatase 221H, Ammonia 142H, C-Reactive Protein, Quantitative 12.6H, Pro-B-Type Natriuretic Peptide 9402H, Total Protein 4.6L, Albumin 2.4L, Globulin 2.2, Albumin/Globulin Ratio 1.1 12/08/20 04:00: Urine Color Brown, Urine Appearance Turbid, Urine pH 6.5, Urine Specific [place] 1.015, Urine Protein 3+H, Urine Glucose (UA) Negative, Urine Ketones 1+H, Urine Blood 5+H, Urine Nitrite PositiveH, Urine Bilirubin 3+H, Urine Ictotest Positive, Urine Urobilinogen 4H, Urine Leukocyte Esterase 2+H, Urine RBC 0-2H, Urine WBC 0-2, Urine Squamous Epithelial Cells Occasional, Urine Bacteria ManyH, Urine Yeast ModerateH, Urine Random Sodium 20, Stool Occult Blood Positive Height (Feet): 5 Height (Inches): 8.00 Weight (Pounds): 160 Objective Patient seen in ICU exam limited due to COVID isolation Assessment/Plan Status: deteriorating Assessment/Plan: Assessment - Alcoholic hepatitis - Decompensated liver disease - Alcoholic hepatitis? - Hepatorenal? - Sepsis? SBP? - Renal failure - poor prognostic indicator - Elevated ammonia - needs lactulose - rectal if unable to take po - Hepatic encephalopathy - may need to place NGT (carefully, given coagulopathy) - Coagulopathy - (+) EtOH level - at risk for EtOH withdrawal syndrome - Fractured Tib/Fib - prognosis poor, high mortality rate given presentation Recommendations - Midodrine/Octreotide trial for HRS - albumin challenge for HRS vs ATN - PPI - Lactulose - PO or NH - MVI/Thiamine - Trental trial (cannot give steroids given possible sepsis) - broad spectrum abx - paracentesis - r/o SBP - abdominal u/s - r/o biliary obstruction - Vitamin K Murray Upton MD Dec 08, 2020 20:57
[2020-12-09] VITALS (37 sets, daily range): BP systolic 92–153; BP diastolic 33–86
[2020-12-09] MEDS: D5NS 1,000 ML IV SCH ×2 (01:01→19:34)
--- NOTE | 2020-12-09 05:38 | NUR ---
pt is bleeding from multiple sites. MD aware. No new orders given. Am labs pending. Will continue to monitor.
[2020-12-09] MEDS: Vasopressin 100 UNITS in NS 95 ML IV SCH (05:40)
[2020-12-09] MEDS: SandoSTATIN 100mcg Inj SUBQ SCH (06:22)
[2020-12-09 06:29] LABS: HEMATOCRIT 19.3 % (42.0-52.0); MEAN CORPUSCULAR VOLUME 91 FL (80-99); PLATELET COUNT 32 K/UL (150-450); RED BLOOD COUNT 2.13 M/UL (4.70-6.10); RED CELL DISTRIBUTION WIDTH 16.3 % (11.6-14.8); WHITE BLOOD COUNT 11.5 K/UL (4.8-10.8)
[2020-12-09 06:47] LABS: INR 3.5 (0.9-1.1)
[2020-12-09 06:53] LABS: HEMOGLOBIN 6.6 G/DL (14.2-18.0)
--- NOTE | 2020-12-09 06:54 | Hematology/Onc Progress Note ---
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 --> smear has been noted --> meds reviewed --> plt 68-->54-->35 --> transfuse as needed pre-procedure --> hep and hiv panel neg # Coagulopathy persistently elevated, due to liver disease --> vit k and ffp as needed --> inr 2.9-->4.2 # Fracture right tibial shaft --> s/p Splinting --> as per ortho # Hypokalemia --> replete with k per renal # Alcohol abuse # Alcoholic cirrhosis of liver with ascites # Hepatorenal syndrome # Severe abnormal electrolytes: Hyponatremia, hypokalemia # Jaundice # Dvt ppx scds Appreciate consultation and lorena RN Subjective HEENT: Denies: no symptoms, eye pain, blurred vision, tearing, double vision, ear pain, ear discharge, nose pain, nose congestion, throat pain, throat swelling, mouth pain, mouth swelling, other Cardiovascular: Denies: no symptoms, chest pain, edema, irregular heart rate, lightheadedness, palpitations, syncope, other Respiratory: Denies: no symptoms, cough, shortness of breath, SOB with excertion, SOB at rest, sputum, wheezing, other Gastrointestinal/Abdominal: Denies: no symptoms, abdomen distended, abdominal pain, black stools, tarry stools, blood in stool, constipated, diarrhea, difficulty swallowing, nausea, poor appetite, poor fluid intake, rectal bleeding, vomiting, other Genitourinary: Denies: no symptoms, burning, discharge, frequency, flank pain, hematuria, incontinence, pain, urgency, other Neurologic/Psychiatric: Denies: no symptoms, anxiety, depressed, emotional pr oblems, headache, numbness, paresthesia, pre-existing deficit, seizure, tingling, tremors, weakness, other Endocrine: Denies: no symptoms, excessive sweating, flushing, intolerance to cold, intolerance to heat, increased hunger, increased thirst, increased urine, unexplained weight gain, unexplained weight loss, other Allergies: Coded Allergies: No Known Allergies (Unverified , 12/06/20) All Systems: reviewed and negative except above Subjective 12/08: pt remains in ICU, hgb 7.8 12/09 remains in icu, minimally responsive dw Rn Owen, to get prbc today Objective Objective Current Medications Medications (Trade) Dose Ordered Sig/Armin Route PRN Reason Start Time Stop Time Status Last Admin Dose Admin Albumin Human 100 ml @ 100 mls/hr Q6H IV 12/08/20 20:00 03/06/21 19:59 12/09/20 01:00 Albumin Human 100 ml @ 100 mls/hr QHS IV 12/08/20 21:00 12/11/20 21:59 12/08/20 22:19 Chlorhexidine Gluconate (Mariama-Hex 2%) 1 applic DAILY@2000 TOPIC 12/07/20 20:00 03/07/21 19:59 12/08/20 20:35 Dextrose/Sodium Chloride 1,000 ml @ 50 mls/hr Q20H IV 12/06/20 12:30 01/05/21 12:29 12/09/20 01:01 Epoetin Sd (Epoetin Sd-EPBX(NON ESRD)) 4,000 unit THU-THU-THU SUBQ 12/07/20 21:00 03/07/21 20:59 12/07/20 22:40 Folic Acid (Folate) 2 mg DAILY ORAL 12/08/20 13:45 01/05/21 19:59 Lactulose (Cephulac) 45 gm THREE TIMES A DAY ORAL 12/07/20 21:45 01/05/21 19:59 12/08/20 08:50 Midodrine (Pro-Amatine) 10 mg THREE TIMES A DAY ORAL 12/06/20 13:00 03/06/21 12:59 12/08/20 08:50 Multivitamins (Multivitamins) 1 tab DAILY ORAL 12/06/20 20:00 01/05/21 19:59 12/08/20 08:50 Norepinephrine Bitartrate 8 mg/ Sodium Chloride 500 ml @ 0 mls/hr Q24H IV 12/07/20 18:30 12/10/20 18:29 12/08/20 18:30 Octreotide Acetate (SandoSTATIN) 100 mcg Q8HR SUBQ 12/06/20 20:00 01/05/21 19:59 12/09/20 06:22 Pantoprazole (Protonix) 40 mg EVERY 12 HOURS IVP 12/06/20 21:00 01/05/21 20:59 12/08/20 20:35 Pentoxifylline (TRENtal) 400 mg Q12HR ORAL 12/06/20 21:00 03/06/21 20:59 12/08/20 08:51 Piperacillin Sod/ Tazobactam Sod 3.375 gm/Sodium Chloride 110 ml @ 27.5 mls/hr Q12HR IVPB 12/06/20 20:00 12/13/20 19:59 12/08/20 20:35 Thiamine HCl (Vitamin B1) 100 mg DAILY ORAL 12/06/20 20:00 01/05/21 19:59 12/08/20 08:50 Vasopressin 100 units/Sodium Chloride 100 ml @ 0 mls/hr Q24H IV 12/08/20 05:45 12/11/20 05:31 12/09/20 05:40 Last 24 Hour Vital Signs Date Time Temp Pulse Resp B/P (MAP) Pulse Ox O2 Delivery O2 Flow Rate FiO2 12/09/20 06:00 116 20 119/50 (73) 100 12/09/20 05:00 115 24 101/42 (61) 100 12/09/20 04:00 113 20 102/46 (64) 100 12/09/20 04:00 98.0 12/09/20 04:00 Room Air 12/09/20 03:00 116 18 95/49 (64) 100 12/09/20 02:00 117 18 116/48 (70) 100 12/09/20 01:00 116 16 110/47 (68) 100 12/09/20 00:00 115 20 100/49 (66) 100 12/09/20 00:00 Room Air 12/08/20 23:00 119 20 106/46 (66) 100 12/08/20 22:00 119 18 109/47 (67) 100 12/08/20 21:00 118 18 108/47 (67) 100 12/08/20 20:35 106/48 12/08/20 20:00 Room Air 12/08/20 20:00 98.1 12/08/20 20:00 100 22 106/48 (67) 100 12/08/20 19:00 108 18 101/49 (66) 98 12/08/20 18:30 111/51 12/08/20 18:00 100 20 93/40 (57) 97 12/08/20 17:00 102 23 105/50 (68) 97 12/08/20 16:00 Room Air 12/08/20 16:00 99.3 117 25 98/41 (60) 98 12/08/20 15:00 112 26 107/48 (67) 99 12/08/20 14:00 114 25 101/46 (64) 98 12/08/20 13:00 112 24 100/45 (63) 98 12/08/20 12:00 Room Air 12/08/20 12:00 98.9 110 21 101/50 (67) 98 12/08/20 11:00 110 25 103/48 (66) 99 12/08/20 10:00 112 25 98/49 (65) 99 12/08/20 09:00 109 24 119/49 (72) 100 12/08/20 08:51 128/64 12/08/20 08:36 82/33 12/08/20 08:00 97.9 99 20 110/47 (68) 100 12/08/20 08:00 Room Air 12/08/20 07:00 97 20 99/46 (63) 98 12/08/20 06:00 110 20 97/42 (60) 98 12/08/20 05:00 91 26 77/34 (48) 96 12/08/20 04:00 Room Air 12/08/20 04:00 95 24 85/57 (66) 98 12/08/20 03:00 95 24 83/41 (55) 98 12/08/20 02:00 99 24 92/47 (62) 97 12/08/20 01:00 99.4 111 26 97/49 (65) 99 12/08/20 00:00 93/51 12/08/20 00:00 Room Air 12/08/20 00:00 99.4 107 26 92/51 (65) 99 12/07/20 23:00 110 24 105/39 (61) 99 12/07/20 22:00 110 22 92/51 (65) 99 12/07/20 22:00 91/51 12/07/20 21:00 88/55 12/07/20 21:00 94/41 12/07/20 21:00 114 22 88/55 (66) 99 12/07/20 20:00 112 30 96/42 (60) 99 12/07/20 20:00 Room Air 12/07/20 20:00 96/42 12/07/20 19:48 96/46 12/07/20 19:00 110 25 90/44 (59) 99 12/07/20 19:00 99.2 12/07/20 18:00 117 27 97/54 (68) 98 12/07/20 17:00 103 22 85/37 (53) 100 12/07/20 16:00 Room Air 12/07/20 16:00 123 30 106/81 (89) 99 12/07/20 15:00 118 31 98/72 (81) 100 12/07/20 14:20 88/38 12/07/20 14:00 122 24 91/40 (57) 98 12/07/20 13:00 115 24 93/46 (62) 100 12/07/20 12:00 Room Air 12/07/20 12:00 101 26 102/80 (87) 100 12/07/20 11:00 100 22 115/94 (101) 100 12/07/20 10:00 102 16 67/28 (41) 98 12/07/20 09:45 61/34 12/07/20 09:30 92/41 12/07/20 09:00 105 18 92/41 (58) 100 12/07/20 08:00 Room Air 12/07/20 08:00 97 24 81/58 (66) 100 12/07/20 07:00 100 20 93/40 (57) 99 Intake and Output 12/08/20 12/09/20 19:00 07:00 Intake Total 968.52 ml 700 ml Output Total 625 ml 105 ml Balance 343.52 ml 595 ml IV Total 968.52 ml 700 ml Output Urine Total 625 ml 105 ml # Bowel Movements 4 Labs Test 12/06/20 12:05 12/06/20 13:45 12/06/20 13:56 12/07/20 00:19 Sodium Level 128 MMOL/L (136-145) Potassium Level 2.9 MMOL/L (3.5-5.1) Chloride Level 94 MMOL/L (98-107) Carbon Dioxide Level 16 MMOL/L (21-32) Anion Gap 18 mmol/L (5-15) Blood Urea Nitrogen 30 mg/dL (7-18) Creatinine 4.9 MG/DL (0.55-1.30) Estimat Glomerular Filtration Rate 13.2 mL/min (>60) Glucose Level 33 MG/DL (74-106) Calcium Level 7.1 MG/DL (8.5-10.1) Total Bilirubin 24.6 MG/DL (0.2-1.0) Direct Bilirubin 21.1 MG/DL (0.0-0.3) Aspartate Amino Transf (AST/SGOT) 148 U/L (15-37) Alanine Aminotransferase (ALT/SGPT) 44 U/L (12-78) Alkaline Phosphatase 316 U/L (46-116) Ammonia 277 umol/L (11-32) Total Protein 4.4 G/DL (6.4-8.2) Albumin 1.3 G/DL (3.4-5.0) Globulin 3.1 g/dL Albumin/Globulin Ratio 0.4 (1.0-2.7) White Blood Count 16.0 K/UL (4.8-10.8) Red Blood Count 3.24 M/UL (4.70-6.10) Hemoglobin 9.9 G/DL (14.2-18.0) Hematocrit 28.9 % (42.0-52.0) Mean Corpuscular Volume 89 FL (80-99) Mean Corpuscular Hemoglobin 30.6 PG (27.0-31.0) Mean Corpuscular Hemoglobin Concent 34.3 G/DL (32.0-36.0) Red Cell Distribution Width 17.1 % (11.6-14.8) Platelet Count 50 K/UL (150-450) Mean Platelet Volume 9.0 FL (6.5-10.1) Neutrophils (%) (Auto) 91.2 % (45.0-75.0) Lymphocytes (%) (Auto) 5.0 % (20.0-45.0) Monocytes (%) (Auto) 3.6 % (1.0-10.0) Eosinophils (%) (Auto) 0.0 % (0.0-3.0) Basophils (%) (Auto) 0.1 % (0.0-2.0) Uric Acid 10.4 MG/DL (2.6-7.2) Phosphorus Level 3.7 MG/DL (2.5-4.9) Magnesium Level 2.2 MG/DL (1.8-2.4) Iron Level 67 ug/dL (50-175) Total Iron Binding Capacity 67 ug/dL (250-450) Percent Iron Saturation 100 % (15-50) Unsaturated Iron Binding 0 ug/dL (112-346) Ferritin 1530 NG/ML (8-388) Gamma Glutamyl Transpeptidase 163 U/L (5-85) Troponin I 0.000 ng/mL (0.000-0.056) C-Reactive Protein, Quantitative 11.6 mg/dL (0.00-0.90) Pro-B-Type Natriuretic Peptide 1054 pg/mL (0-125) Triglycerides Level 104 MG/DL (30-150) Cholesterol Level < 50 MG/DL (< 200) LDL Cholesterol 18 mg/dL (<100) HDL Cholesterol 10 MG/DL (40-60) Cholesterol/HDL Ratio 5.0 (3.3-4.4) Vitamin B12 Level > 2000 PG/ML (193-986) Folate 3.1 NG/ML (8.6-58.9) Thyroid Stimulating Hormone (TSH) 0.534 uiU/mL (0.358-3.740) POC Whole Blood Glucose 79 MG/DL (74-106) Test 12/07/20 03:37 12/08/20 03:50 12/08/20 04:00 12/09/20 06:08 White Blood Count 15.0 K/UL (4.8-10.8) 10.1 K/UL (4.8-10.8) Red Blood Count 2.83 M/UL (4.70-6.10) 2.45 M/UL (4.70-6.10) Hemoglobin 9.1 G/DL (14.2-18.0) 7.8 G/DL (14.2-18.0) Hematocrit 25.5 % (42.0-52.0) 22.0 % (42.0-52.0) Mean Corpuscular Volume 90 FL (80-99) 90 FL (80-99) Mean Corpuscular Hemoglobin 32.3 PG (27.0-31.0) 31.7 PG (27.0-31.0) Mean Corpuscular Hemoglobin Concent 35.8 G/DL (32.0-36.0) 35.4 G/DL (32.0-36.0) Red Cell Distribution Width 17.7 % (11.6-14.8) 16.2 % (11.6-14.8) Platelet Count 54 K/UL (150-450) 35 K/UL (150-450) Mean Platelet Volume 10.8 FL (6.5-10.1) 8.4 FL (6.5-10.1) Neutrophils (%) (Auto) % (45.0-75.0) % (45.0-75.0) Lymphocytes (%) (Auto) % (20.0-45.0) % (20.0-45.0) Monocytes (%) (Auto) % (1.0-10.0) % (1.0-10.0) Eosinophils (%) (Auto) % (0.0-3.0) % (0.0-3.0) Basophils (%) (Auto) % (0.0-2.0) % (0.0-2.0) Differential Total Cells Counted 100 100 Neutrophils % (Manual) 93 % (45-75) 80 % (45-75) Lymphocytes % (Manual) 4 % (20-45) 13 % (20-45) Monocytes % (Manual) 1 % (1-10) 6 % (1-10) Eosinophils % (Manual) 1 % (0-3) 1 % (0-3) Basophils % (Manual) 0 % (0-2) 0 % (0-2) Band Neutrophils 1 % (0-8) 0 % (0-8) Platelet Estimate Decreased Decreased Platelet Morphology Normal Normal Hypochromasia 1+ 1+ Anisocytosis 1+ 1+ Prothrombin Time 40.4 SEC (9.30-11.50) 35.4 SEC (9.30-11.50) Prothromb Time International Ratio 4.1 (0.9-1.1) 3.5 (0.9-1.1) Sodium Level 130 MMOL/L (136-145) 135 MMOL/L (136-145) Potassium Level 3.0 MMOL/L (3.5-5.1) 3.4 MMOL/L (3.5-5.1) Chloride Level 96 MMOL/L (98-107) 102 MMOL/L (98-107) Carbon Dioxide Level 17 MMOL/L (21-32) 15 MMOL/L (21-32) Anion Gap 17 mmol/L (5-15) 18 mmol/L (5-15) Blood Urea Nitrogen 31 mg/dL (7-18) 38 mg/dL (7-18) Creatinine 5.0 MG/DL (0.55-1.30) 5.8 MG/DL (0.55-1.30) Estimat Glomerular Filtration Rate 12.9 mL/min (>60) 10.8 mL/min (>60) Glucose Level 63 MG/DL (74-106) 66 MG/DL (74-106) Uric Acid 10.2 MG/DL (2.6-7.2) 11.0 MG/DL (2.6-7.2) Calcium Level 7.0 MG/DL (8.5-10.1) 7.1 MG/DL (8.5-10.1) Phosphorus Level 2.9 MG/DL (2.5-4.9) 2.9 MG/DL (2.5-4.9) Magnesium Level 2.0 MG/DL (1.8-2.4) 1.7 MG/DL (1.8-2.4) Total Bilirubin 29.4 MG/DL (0.2-1.0) 29.3 MG/DL (0.2-1.0) Direct Bilirubin 22.1 MG/DL (0.0-0.3) 19.7 MG/DL (0.0-0.3) Aspartate Amino Transf (AST/SGOT) 174 U/L (15-37) 204 U/L (15-37) Alanine Aminotransferase (ALT/SGPT) 48 U/L (12-78) 52 U/L (12-78) Alkaline Phosphatase 278 U/L (46-116) 221 U/L (46-116) Ammonia 199 umol/L (11-32) 142 umol/L (11-32) Total Protein 4.8 G/DL (6.4-8.2) 4.6 G/DL (6.4-8.2) Albumin 2.1 G/DL (3.4-5.0) 2.4 G/DL (3.4-5.0) Globulin 2.7 g/dL 2.2 g/dL Albumin/Globulin Ratio 0.8 (1.0-2.7) 1.1 (1.0-2.7) Gamma Glutamyl Transpeptidase 123 U/L (5-85) C-Reactive Protein, Quantitative 12.6 mg/dL (0.00-0.90) Pro-B-Type Natriuretic Peptide 9402 pg/mL (0-125) Urine Color Brown Urine Appearance Turbid Urine pH 6.5 (4.5-8.0) Urine Specific [place] 1.015 (1.005-1.035) Urine Protein 3+ (NEGATIVE) Urine Glucose (UA) Negative (NEGATIVE) Urine Ketones 1+ (NEGATIVE) Urine Blood 5+ (NEGATIVE) Urine Nitrite Positive (NEGATIVE) Urine Bilirubin 3+ (NEGATIVE) Urine Ictotest Positive (NEGATIVE) Urine Urobilinogen 4 MG/DL (0.0-1.0) Urine Leukocyte Esterase 2+ (NEGATIVE) Urine RBC 0-2 /HPF (0 - 0) Urine WBC 0-2 /HPF (0 - 0) Urine Squamous Epithelial Cells Occasional /LPF Urine Bacteria Many /HPF (NONE) Urine Yeast Moderate /HPF (NONE) Urine Random Sodium 20 mmol/L (20-110) Stool Occult Blood Positive (NEGATIVE) Activated Partial Thromboplast Time 100 SEC (23-33) Height (Feet): 5 Height (Inches): 8.00 Weight (Pounds): 160 Objective Sp02 EP Interpretation: reviewed, normal General Appearance: well appearing, no apparent distress, alert Head: normocephalic, atraumatic Eyes: bilateral eye PERRL, bilateral eye EOMI, bilateral eye scleral icterus++ ENT: hearing grossly normal, normal pharynx Neck: full range of motion, supple, no meningismus Respiratory: chest non-tender, lungs clear, normal breath sounds Cardiovascular: regular rate, rhythm, no murmur Gastrointestinal: normal bowel sounds, non tender, no mass, no organomegaly, no bruit, non-distended, other - ascites Musculoskeletal: back normal, other - Right ankle: He has 4+ pitting edema. He has deformity and tenderness to the ankle and foot. Sensation normal. Jose Douglass MD Dec 09, 2020 06:54
--- NOTE | 2020-12-09 07:15 | NUR ---
NURSE NOTES: Received patient from Jovanni Grijalva RN. Patient continues on Levophed and Vasopressin for BP support, he is still ST on tele; patient con't on RA, requiring no O2 at this time. His VSS at this time, Q2H turns as tolerated. Patient continues to bleed from his mouth, penis and in his stool. Professor Of Rhetoric at bedside this AM, offgoing RN updated him on patient's status. See orders in [facility]. Will continue to monitor his status and carry out the plan of care.
[2020-12-09 07:18] LABS: PHOSPHORUS 3.4 MG/DL (2.5-4.9)
[2020-12-09 07:23] LABS: ALBUMIN 3.5 G/DL (3.4-5.0); ALBUMIN/GLOBULIN RATIO 1.9 (1.0-2.7); BILIRUBIN,TOTAL 30.9 MG/DL (0.2-1.0); CALCIUM 7.8 MG/DL (8.5-10.1); CREATININE 4.4 MG/DL (0.55-1.30); POTASSIUM 2.8 MMOL/L (3.5-5.1)
[2020-12-09 07:25] LABS: BILIRUBIN,DIRECT 18.7 MG/DL (0.0-0.3)
[2020-12-09] MEDS: Octreotide Acetate 500 MCG in Sodium Chloride 499 ML IV SCH ×2 (08:40→19:33)
[2020-12-09] MEDS: Pantoprazole Inj IVP SCH ×2 (08:41→22:03)
[2020-12-09] MEDS: Lactulose 20gm/30ml UDC ORAL SCH ×3 (08:41→17:56)
[2020-12-09] MEDS: Piperacillin/Tazobactam 3.375 GM in NS 110 ML IVPB SCH ×2 (08:42→22:03)
[2020-12-09] MEDS: Thiamine 100mg tab ORAL SCH (08:43)
[2020-12-09] MEDS: Midodrine 10mg tab ORAL SCH ×3 (08:43→17:56)
--- NOTE | 2020-12-09 09:48 | Pulmonology Progress Note ---
Subjective ROS Limited/Unobtainable: Yes Interval Events: More awake Constitutional: Reports: no symptoms, fever, other - low grade, Tmax=99.3 HEENT: Repors: no symptoms Respiratory: Reports: no symptoms Cardiovascular: Reports: no symptoms Gastrointestinal/Abdominal: Reports: no symptoms Allergies: Coded Allergies: No Known Allergies (Unverified , 12/06/20) All Systems: reviewed and negative except above Objective Last 24 Hour Vital Signs Date Time Temp Pulse Resp B/P (MAP) Pulse Ox O2 Delivery O2 Flow Rate FiO2 12/09/20 06:00 116 20 119/50 (73) 100 12/09/20 05:00 115 24 101/42 (61) 100 12/09/20 04:00 113 20 102/46 (64) 100 12/09/20 04:00 98.0 12/09/20 04:00 Room Air 12/09/20 03:00 116 18 95/49 (64) 100 12/09/20 02:00 117 18 116/48 (70) 100 12/09/20 01:00 116 16 110/47 (68) 100 12/09/20 00:00 115 20 100/49 (66) 100 12/09/20 00:00 Room Air 12/08/20 23:00 119 20 106/46 (66) 100 12/08/20 22:00 119 18 109/47 (67) 100 12/08/20 21:00 118 18 108/47 (67) 100 12/08/20 20:35 106/48 12/08/20 20:00 Room Air 12/08/20 20:00 98.1 12/08/20 20:00 100 22 106/48 (67) 100 12/08/20 19:00 108 18 101/49 (66) 98 12/08/20 18:30 111/51 12/08/20 18:00 100 20 93/40 (57) 97 12/08/20 17:00 102 23 105/50 (68) 97 12/08/20 16:00 Room Air 12/08/20 16:00 99.3 117 25 98/41 (60) 98 12/08/20 15:00 112 26 107/48 (67) 99 12/08/20 14:00 114 25 101/46 (64) 98 12/08/20 13:00 112 24 100/45 (63) 98 12/08/20 12:00 Room Air 12/08/20 12:00 98.9 110 21 101/50 (67) 98 12/08/20 11:00 110 25 103/48 (66) 99 12/08/20 10:00 112 25 98/49 (65) 99 Intake and Output 12/08/20 12/09/20 19:00 07:00 Intake Total 968.52 ml 700 ml Output Total 625 ml 105 ml Balance 343.52 ml 595 ml IV Total 968.52 ml 700 ml Output Urine Total 625 ml 105 ml # Bowel Movements 4 General Appearance: no acute distress HEENT: normocephalic Respiratory: chest wall non-tender, lungs clear Cardiovascular: normal peripheral pulses, normal rate Abdomen: normal bowel sounds Microbiology Date/Time Source Procedure Growth Status 12/08/20 04:00 Urine,Clean Catch Urine Culture - Preliminary NO GROWTH AFTER 24 HOURS Resulted 12/07/20 03:00 Nasopharynx Coronavirus COVID-19 PCR (JOHN) - Final Complete Laboratory Tests 12/09/20 06:08: White Blood Count 11.5H, Red Blood Count 2.13L, Hemoglobin 6.6*L, Hematocrit 19.3L, Mean Corpuscular Volume 91, Mean Corpuscular Hemoglobin 30.8, Mean Corpuscular Hemoglobin Concent 34.0, Red Cell Distribution Width 16.3H, Platelet Count 32L, Mean Platelet Volume 7.4, Neutrophils (%) (Auto) , Lymphocytes (%) (Auto) , Monocytes (%) (Auto) , Eosinophils (%) (Auto) , Basophils (%) (Auto) , Differential Total Cells Counted 100, Neutrophils % (Manual) 85H, Lymphocytes % (Manual) 9L, Monocytes % (Manual) 5, Eosinophils % (Manual) 1, Basophils % (Manual) 0, Band Neutrophils 0, Platelet Estimate DecreasedL, Platelet Morphology Normal, Hypochromasia 2+, Anisocytosis 1+, Prothrombin Time 35.4H, Prothromb Time International Ratio 3.5H, Activated Partial Thromboplast Time 100H, Sodium Level 141, Potassium Level 2.8L, Chloride Level 106, Carbon Dioxide Level 15L, Anion Gap 19H, Blood Urea Nitrogen 40H, Creatinine 4.4H, Estimat Glomerular Filtration Rate 14.9, Glucose Level 80, Uric Acid 11.0H, Calcium Level 7.8L, Phosphorus Level 3.4, Magnesium Level 2.1, Total Bilirubin 30.9H, Direct Bilirubin 18.7H, Aspartate Amino Transf (AST/SGOT) 213H, Alanine Aminotransferase (ALT/SGPT) 52, Alkaline Phosphatase 168H, Ammonia 186H, C- Reactive Protein, Quantitative 11.9H, Pro-B-Type Natriuretic Peptide 96410Y, Total Protein 5.3L, Albumin 3.5, Globulin 1.8, Albumin/Globulin Ratio 1.9 Current Medications Medications (Trade) Dose Ordered Sig/Armin Route PRN Reason Start Time Stop Time Status Last Admin Dose Admin Albumin Human 100 ml @ 100 mls/hr Q6H IV 12/08/20 20:00 03/06/21 19:59 12/09/20 08:41 Albumin Human 100 ml @ 100 mls/hr QHS IV 12/08/20 21:00 12/11/20 21:59 12/08/20 22:19 Chlorhexidine Gluconate (Mariama-Hex 2%) 1 applic DAILY@2000 TOPIC 12/07/20 20:00 03/07/21 19:59 12/08/20 20:35 Dextrose/Sodium Chloride 1,000 ml @ 50 mls/hr Q20H IV 12/06/20 12:30 01/05/21 12:29 12/09/20 01:01 Epoetin Sd (Epoetin Sd-EPBX(NON ESRD)) 4,000 unit THU-THU-THU SUBQ 12/07/20 21:00 03/07/21 20:59 12/07/20 22:40 Folic Acid (Folate) 2 mg DAILY ORAL 12/08/20 13:45 01/05/21 19:59 Lactulose (Cephulac) 45 gm THREE TIMES A DAY ORAL 12/07/20 21:45 01/05/21 19:59 12/09/20 08:41 Midodrine (Pro-Amatine) 10 mg THREE TIMES A DAY ORAL 12/06/20 13:00 03/06/21 12:59 12/08/20 08:50 Multivitamins (Multivitamins) 1 tab DAILY ORAL 12/06/20 20:00 01/05/21 19:59 12/08/20 08:50 Norepinephrine Bitartrate 8 mg/ Sodium Chloride 500 ml @ 0 mls/hr Q24H IV 12/07/20 18:30 12/10/20 18:29 12/08/20 18:30 Octreotide Acetate 500 mcg/ Sodium Chloride 500 ml @ 50 mls/hr Q10H IV 12/09/20 08:30 01/08/21 08:29 12/09/20 08:40 Pantoprazole (Protonix) 40 mg EVERY 12 HOURS IVP 12/06/20 21:00 01/05/21 20:59 12/09/20 08:41 Pentoxifylline (TRENtal) 400 mg Q12HR ORAL 12/06/20 21:00 03/06/21 20:59 12/08/20 08:51 Piperacillin Sod/ Tazobactam Sod 3.375 gm/Sodium Chloride 110 ml @ 27.5 mls/hr Q12HR IVPB 12/06/20 20:00 12/13/20 19:59 12/09/20 08:42 Thiamine HCl (Vitamin B1) 100 mg DAILY ORAL 12/06/20 20:00 01/05/21 19:59 12/08/20 08:50 Vasopressin 100 units/Sodium Chloride 100 ml @ 0 mls/hr Q24H IV 12/08/20 05:45 12/11/20 05:31 12/09/20 05:40 Assessment/Plan Assessment/Plan Anemia o - due for transfusion today # Thrombocytopenia due to liver disease # Coagulopathy persistently elevated, due to liver disease --> vit k and ffp as needed # Fracture right tibial shaft --> s/p Splinting --> as per ortho # Hypokalemia --> replete with k per renal # Alcohol abuse # Alcoholic cirrhosis # Hepatorenal syndrome -continue lactulose -GI following # Severe abnormal electrolytes: Hyponatremia, hypokalemia #Normoxemia - Saturations have been stable in general on room air - Monitor for hypoxia and provide supplemental oxygen as needed #Pneumonitis on CXR The care for this patient was discussed with my supervising physician Time spent for this case was approximately 31 minutes Dinesh Munoz Dec 09, 2020 09:48
--- NOTE | 2020-12-09 10:23 | NUR ---
RD ASSESSMENT & RECOMMENDATIONS SEE CARE ACTIVITY FOR COMPLETE ASSESSMENT DAILY ESTIMATED NEEDS: Needs based on Liver Dz 68.7kg 25-35 kcals/kg 8171-5565 total kcals 1-1.5 g protein/kg 69-103 g total protein Fluid per MD NUTRITION DIAGNOSIS: Altered nutrition related lab values r/t clinical status, alcoholic liver cirrhosis as evidenced by T bili 26.9, elevated LFT's, elevated ammonia(186), elevated creat 4.4, low K 2.3, low Na 126. CURRENT DIET: MS ground renal diet PO DIET RECOMMENDATIONS: Cardiac diet ENTERAL NUTRITION RECOMMENDATIONS: As appropriate Nepro @40ml/hr x24 hrs to provide 960ml, 1728 kcal, 78g pro, 698ml free H2O - With GI access, rec non oral feeds as medically appropriate. - rec Nepro, start @10ml/hr, increase by 10ml/hr q4-6 hrs to goal. - Flush per MD/ HOB over 30 degrees ADDITIONAL RECOMMENDATIONS: 1) NGT feeds if medically appropriate; recs above 2) replete lytes (Low K 2.8). 3) Obtain a calibrated bed scale wt 4) Hypoglycemic episode this morning (BG 50), consider Clear Liquid diet On D5, rec bed side BG checks 5) SHIP WORKER eval if appropriate-> not alert, rec NGT feeds
--- NOTE | 2020-12-09 10:30 | NUR ---
NURSE NOTES: Patient's mother, Dottie Santa, called this morning at 1021 for an update on her son. She was able to verify his and full name, this RN gave an update per scope of practice and referred her to the physician. Patient's status explained as critical and requiring ICU level care, consent was obtained over the phone - she is agreeable to the patient receiving BLOOD/BLOOD PRODUCTS, HD CATHETER FOR HD TREATMENT, and FOR EVERYTHING TO BE DONE for this patient. The charge nurse ALEENA Julian was witness to verbal/telephone consent. The surgery center administrator was updated and saw patient at bedside, he will put HD treatment on hold at this time as this is a lower priority at the moment. Will inform the gen surgery regarding consent. Dr. Nevarez updated by battery charger conveyor line and asked to contact the mother and give a full update on this patient. Patient continues to bleed at the mouth, penis, and in the stool. His eyes and skin remain jaundiced. Mouth rinsed with NS and suctioned. Will con't to monitor.
--- NOTE | 2020-12-09 11:15 | General Progress Note ---
Subjective ROS Limited/Unobtainable: Yes Allergies: Coded Allergies: No Known Allergies (Unverified , 12/06/20) Subjective events noted interval notes reviewed in ICU Item Value Date Time Glucose Level 80 MG/DL 12/09/20 0608 Glucose Level 66 MG/DL L 12/08/20 0350 Objective Last 24 Hour Vital Signs Date Time Temp Pulse Resp B/P (MAP) Pulse Ox O2 Delivery O2 Flow Rate FiO2 12/09/20 06:00 116 20 119/50 (73) 100 12/09/20 05:00 115 24 101/42 (61) 100 12/09/20 04:00 113 20 102/46 (64) 100 12/09/20 04:00 98.0 12/09/20 04:00 Room Air 12/09/20 03:00 116 18 95/49 (64) 100 12/09/20 02:00 117 18 116/48 (70) 100 12/09/20 01:00 116 16 110/47 (68) 100 12/09/20 00:00 115 20 100/49 (66) 100 12/09/20 00:00 Room Air 12/08/20 23:00 119 20 106/46 (66) 100 12/08/20 22:00 119 18 109/47 (67) 100 12/08/20 21:00 118 18 108/47 (67) 100 12/08/20 20:35 106/48 12/08/20 20:00 Room Air 12/08/20 20:00 98.1 12/08/20 20:00 100 22 106/48 (67) 100 12/08/20 19:00 108 18 101/49 (66) 98 12/08/20 18:30 111/51 12/08/20 18:00 100 20 93/40 (57) 97 12/08/20 17:00 102 23 105/50 (68) 97 12/08/20 16:00 Room Air 12/08/20 16:00 99.3 117 25 98/41 (60) 98 12/08/20 15:00 112 26 107/48 (67) 99 12/08/20 14:00 114 25 101/46 (64) 98 12/08/20 13:00 112 24 100/45 (63) 98 12/08/20 12:00 Room Air 12/08/20 12:00 98.9 110 21 101/50 (67) 98 Intake and Output 12/08/20 12/09/20 19:00 07:00 Intake Total 968.52 ml 700 ml Output Total 625 ml 105 ml Balance 343.52 ml 595 ml IV Total 968.52 ml 700 ml Output Urine Total 625 ml 105 ml # Bowel Movements 4 Laboratory Tests 12/09/20 06:08: White Blood Count 11.5H, Red Blood Count 2.13L, Hemoglobin 6.6*L, Hematocrit 19.3L, Mean Corpuscular Volume 91, Mean Corpuscular Hemoglobin 30.8, Mean Corpuscular Hemoglobin Concent 34.0, Red Cell Distribution Width 16.3H, Platelet Count 32L, Mean Platelet Volume 7.4, Neutrophils (%) (Auto) , Lymphocytes (%) (Auto) , Monocytes (%) (Auto) , Eosinophils (%) (Auto) , Basophils (%) (Auto) , Differential Total Cells Counted 100, Neutrophils % (Manual) 85H, Lymphocytes % (Manual) 9L, Monocytes % (Manual) 5, Eosinophils % (Manual) 1, Basophils % (Manual) 0, Band Neutrophils 0, Platelet Estimate DecreasedL, Platelet Morphology Normal, Hypochromasia 2+, Anisocytosis 1+, Prothrombin Time 35.4H, Prothromb Time International Ratio 3.5H, Activated Partial Thromboplast Time 100H, Sodium Level 141, Potassium Level 2.8L, Chloride Level 106, Carbon Dioxide Level 15L, Anion Gap 19H, Blood Urea Nitrogen 40H, Creatinine 4.4H, Estimat Glomerular Filtration Rate 14.9, Glucose Level 80, Uric Acid 11.0H, Calcium Level 7.8L, Phosphorus Level 3.4, Magnesium Level 2.1, Total Bilirubin 30.9H, Direct Bilirubin 18.7H, Aspartate Amino Transf (AST/SGOT) 213H, Alanine Aminotransferase (ALT/SGPT) 52, Alkaline Phosphatase 168H, Ammonia 186H, C- Reactive Protein, Quantitative 11.9H, Pro-B-Type Natriuretic Peptide 34174A, Total Protein 5.3L, Albumin 3.5, Globulin 1.8, Albumin/Globulin Ratio 1.9 Height (Feet): 5 Height (Inches): 8.00 Weight (Pounds): 160 General Appearance: lethargic Neck: normal alignment Cardiovascular: normal rate Respiratory/Chest: decreased breath sounds Abdomen: normal bowel sounds Objective Current Medications Medications (Trade) Dose Ordered Sig/Armin Route PRN Reason Start Time Stop Time Status Last Admin Dose Admin Albumin Human 100 ml @ 100 mls/hr Q6H IV 12/08/20 20:00 03/06/21 19:59 12/09/20 08:41 Albumin Human 100 ml @ 100 mls/hr QHS IV 12/08/20 21:00 12/11/20 21:59 12/08/20 22:19 Chlorhexidine Gluconate (Mariama-Hex 2%) 1 applic DAILY@2000 TOPIC 12/07/20 20:00 03/07/21 19:59 12/08/20 20:35 Dextrose/Sodium Chloride 1,000 ml @ 50 mls/hr Q20H IV 12/06/20 12:30 01/05/21 12:29 12/09/20 01:01 Epoetin Sd (Epoetin Sd-EPBX(NON ESRD)) 4,000 unit THU-THU-THU SUBQ 12/07/20 21:00 03/07/21 20:59 12/07/20 22:40 Folic Acid (Folate) 2 mg DAILY ORAL 12/08/20 13:45 01/05/21 19:59 Lactulose (Cephulac) 45 gm THREE TIMES A DAY ORAL 12/07/20 21:45 01/05/21 19:59 12/09/20 08:41 Midodrine (Pro-Amatine) 10 mg THREE TIMES A DAY ORAL 12/06/20 13:00 03/06/21 12:59 12/08/20 08:50 Multivitamins (Multivitamins) 1 tab DAILY ORAL 12/06/20 20:00 01/05/21 19:59 12/08/20 08:50 Norepinephrine Bitartrate 8 mg/ Sodium Chloride 500 ml @ 0 mls/hr Q24H IV 12/07/20 18:30 12/10/20 18:29 12/08/20 18:30 Octreotide Acetate 500 mcg/ Sodium Chloride 500 ml @ 50 mls/hr Q10H IV 12/09/20 08:30 01/08/21 08:29 12/09/20 08:40 Pantoprazole (Protonix) 40 mg EVERY 12 HOURS IVP 12/06/20 21:00 01/05/21 20:59 12/09/20 08:41 Pentoxifylline (TRENtal) 400 mg Q12HR ORAL 12/06/20 21:00 03/06/21 20:59 12/08/20 08:51 Piperacillin Sod/ Tazobactam Sod 3.375 gm/Sodium Chloride 110 ml @ 27.5 mls/hr Q12HR IVPB 12/06/20 20:00 12/13/20 19:59 12/09/20 08:42 Potassium Chloride 100 ml @ 100 mls/hr Q1HR IVPB 12/09/20 11:30 12/09/20 14:59 Thiamine HCl (Vitamin B1) 100 mg DAILY ORAL 12/06/20 20:00 01/05/21 19:59 12/08/20 08:50 Vasopressin 100 units/Sodium Chloride 100 ml @ 0 mls/hr Q24H IV 12/08/20 05:45 12/11/20 05:31 12/09/20 05:40 Assessment/Plan Problem List: (1) Alcoholic cirrhosis of liver with ascites ICD Codes: K70.31 - Alcoholic cirrhosis of liver with ascites SNOMED: 444828559, 237386616 (2) Tibia/fibula fracture, shaft ICD Codes: S82.209A - Unspecified fracture of shaft of unspecified tibia, initial encounter for closed fracture; S82.409A - Unspecified fracture of shaft of unspecified fibula, initial encounter for closed fracture SNOMED: 029496075, 992807464 Qualifiers: Qualified Codes: S82.201A - Unspecified fracture of shaft of right tibia, initial encounter for closed fracture; S82.401A - Unspecified fracture of shaft of right fibula, initial encounter for closed fracture (3) Hypokalemia ICD Codes: E87.6 - Hypokalemia; S82.409A - Unspecified fracture of shaft of unspecified fibula, initial encounter for closed fracture SNOMED: 80829561, 858377218 (4) Hepatorenal syndrome ICD Codes: K76.7 - Hepatorenal syndrome; S82.409A - Unspecified fracture of shaft of unspecified fibula, initial encounter for closed fracture SNOMED: 94570294, 527594984 Status: deteriorating Assessment/Plan: glucose monitoring without insulin coverage hypoglycemia protocol Richard Brar MD Dec 09, 2020 11:15
--- NOTE | 2020-12-09 12:17 | Nephrology Progress Note ---
Assessment/Plan Problem List: (1) Renal failure (ARF), acute on chronic (2) Hepatorenal syndrome Assessment: Jaundice (3) Anemia (4) Fracture of right tibia and fibula (5) Alcoholic cirrhosis of liver with ascites (6) Electrolyte imbalance Assessment: Hyponatremia, hypokalemia Assessment Renal failure, likely acute on chronic. Most likely hepatorenal syndrome End-stage liver disease Severe abnormal electrolytes: Hyponatremia, hypokalemia Anemia Tibia/fibula fracture shaft Alcoholic cirrhosis of the liver with ascites Jaundice Plan December 09: Remains in ICU. Has a GI bleed. Questionable aspiration. He moglobin lower. Renal parameters and urine output improved? Discussed with RN. Will hold on insertion of dialysis catheter for now. Continue to stabilize coagulopathy. Reevaluate when more stable for possible need for dialysis. Discussed with general surgery. Low potassium addressed. Vitamin K 10 mg IV given. Continue per senior principal architect. Continue per GI. December 08: Seen in ICU. Discussed with RN. Labs reviewed. Hemodynamically more stable. On pressors. Proceed with insertion of a nontunneled catheter and dialysis. Continue to monitor renal parameters. Continue per consultants. December 07: Patient seen in ICU. Discussed with RN. Labs reviewed. Serum sodium improved. Low potassium addressed. Patient hypotensive. Urine studies still pending. On pressors. Continue to monitor electrolytes and renal parameters. Previously: Not clear for surgery until electrolyte abnormality corrects Kidney ultrasound today 2D echocardiogram Stat lab work Ramachandran catheter Urine for tox screen Per orders Ultrasound: Left kidney measures 13.4 cm in length. Right kidney measures 14.1 cm length. Both kidneys demonstrate mildly increased echogenicity. There is no hydronephrosis. Evidence of hepatic cirrhosis, with increased parenchymal echogenicity and surface nodularity Distended gallbladder but no stones. Normal common bile duct Evidence of portal hypertension, with ascites, splenomegaly, splenic hilar varices Chest x-ray: Possible subtle multifocal pneumonitis versus superimposition artifact. Subjective ROS Limited/Unobtainable: Yes Objective Objective Last 24 Hour Vital Signs Date Time Temp Pulse Resp B/P (MAP) Pulse Ox O2 Delivery O2 Flow Rate FiO2 12/09/20 06:00 116 20 119/50 (73) 100 12/09/20 05:00 115 24 101/42 (61) 100 12/09/20 04:00 113 20 102/46 (64) 100 12/09/20 04:00 98.0 12/09/20 04:00 Room Air 12/09/20 03:00 116 18 95/49 (64) 100 12/09/20 02:00 117 18 116/48 (70) 100 12/09/20 01:00 116 16 110/47 (68) 100 12/09/20 00:00 115 20 100/49 (66) 100 12/09/20 00:00 Room Air 12/08/20 23:00 119 20 106/46 (66) 100 12/08/20 22:00 119 18 109/47 (67) 100 12/08/20 21:00 118 18 108/47 (67) 100 12/08/20 20:35 106/48 12/08/20 20:00 Room Air 12/08/20 20:00 98.1 12/08/20 20:00 100 22 106/48 (67) 100 12/08/20 19:00 108 18 101/49 (66) 98 12/08/20 18:30 111/51 12/08/20 18:00 100 20 93/40 (57) 97 12/08/20 17:00 102 23 105/50 (68) 97 12/08/20 16:00 Room Air 12/08/20 16:00 99.3 117 25 98/41 (60) 98 12/08/20 15:00 112 26 107/48 (67) 99 12/08/20 14:00 114 25 101/46 (64) 98 12/08/20 13:00 112 24 100/45 (63) 98 Intake and Output 12/08/20 12/09/20 19:00 07:00 Intake Total 968.52 ml 700 ml Output Total 625 ml 105 ml Balance 343.52 ml 595 ml IV Total 968.52 ml 700 ml Output Urine Total 625 ml 105 ml # Bowel Movements 4 Current Medications Medications (Trade) Dose Ordered Sig/Armin Route PRN Reason Start Time Stop Time Status Last Admin Dose Admin Albumin Human 100 ml @ 100 mls/hr Q6H IV 12/08/20 20:00 03/06/21 19:59 12/09/20 08:41 Albumin Human 100 ml @ 100 mls/hr QHS IV 12/08/20 21:00 12/11/20 21:59 12/08/20 22:19 Chlorhexidine Gluconate (Mariama-Hex 2%) 1 applic DAILY@2000 TOPIC 12/07/20 20:00 03/07/21 19:59 12/08/20 20:35 Dextrose (Dextrose 50%) 25 ml Q30M PRN IV Hypoglycemia 12/09/20 11:15 03/09/21 11:14 Dextrose (Dextrose 50%) 50 ml Q30M PRN IV Hypoglycemia 12/09/20 11:15 03/09/21 11:14 Dextrose/Sodium Chloride 1,000 ml @ 50 mls/hr Q20H IV 12/06/20 12:30 01/05/21 12:29 12/09/20 01:01 Epoetin Sd (Epoetin Sd-EPBX(NON ESRD)) 4,000 unit SUBQ 12/07/20 21:00 03/07/21 20:59 12/07/20 22:40 Folic Acid (Folate) 2 mg DAILY ORAL 12/08/20 13:45 01/05/21 19:59 Lactulose (Cephulac) 45 gm THREE TIMES A DAY ORAL 12/07/20 21:45 01/05/21 19:59 12/09/20 08:41 Midodrine (Pro-Amatine) 10 mg THREE TIMES A DAY ORAL 12/06/20 13:00 03/06/21 12:59 12/08/20 08:50 Multivitamins (Multivitamins) 1 tab DAILY ORAL 12/06/20 20:00 01/05/21 19:59 12/08/20 08:50 Norepinephrine Bitartrate 8 mg/ Sodium Chloride 500 ml @ 0 mls/hr Q24H IV 12/07/20 18:30 12/10/20 18:29 12/08/20 18:30 Octreotide Acetate 500 mcg/ Sodium Chloride 500 ml @ 50 mls/hr Q10H IV 12/09/20 08:30 01/08/21 08:29 12/09/20 08:40 Pantoprazole (Protonix) 40 mg EVERY 12 HOURS IVP 12/06/20 21:00 01/05/21 20:59 12/09/20 08:41 Pentoxifylline (TRENtal) 400 mg Q12HR ORAL 12/06/20 21:00 03/06/21 20:59 12/08/20 08:51 Piperacillin Sod/ Tazobactam Sod 3.375 gm/Sodium Chloride 110 ml @ 27.5 mls/hr Q12HR IVPB 12/06/20 20:00 12/13/20 19:59 12/09/20 08:42 Potassium Chloride 100 ml @ 50 mls/hr Q2H IVPB 12/09/20 12:00 12/09/20 15:59 Thiamine HCl (Vitamin B1) 100 mg DAILY ORAL 12/06/20 20:00 01/05/21 19:59 12/08/20 08:50 Vasopressin 100 units/Sodium Chloride 100 ml @ 0 mls/hr Q24H IV 12/08/20 05:45 12/11/20 05:31 12/09/20 05:40 Laboratory Tests 12/09/20 06:08: White Blood Count 11.5H, Red Blood Count 2.13L, Hemoglobin 6.6*L, Hematocrit 19.3L, Mean Corpuscular Volume 91, Mean Corpuscular Hemoglobin 30.8, Mean Corpuscular Hemoglobin Concent 34.0, Red Cell Distribution Width 16.3H, Platelet Count 32L, Mean Platelet Volume 7.4, Neutrophils (%) (Auto) , Lymphocytes (%) (Auto) , Monocytes (%) (Auto) , Eosinophils (%) (Auto) , Basophils (%) (Auto) , Differential Total Cells Counted 100, Neutrophils % (Manual) 85H, Lymphocytes % (Manual) 9L, Monocytes % (Manual) 5, Eosinophils % (Manual) 1, Basophils % (Manual) 0, Band Neutrophils 0, Platelet Estimate DecreasedL, Platelet Morphology Normal, Hypochromasia 2+, Anisocytosis 1+, Prothrombin Time 35.4H, Prothromb Time International Ratio 3.5H, Activated Partial Thromboplast Time 100H, Sodium Level 141, Potassium Level 2.8L, Chloride Level 106, Carbon Dioxide Level 15L, Anion Gap 19H, Blood Urea Nitrogen 40H, Creatinine 4.4H, Estimat Glomerular Filtration Rate 14.9, Glucose Level 80, Uric Acid 11.0H, Calcium Level 7.8L, Phosphorus Level 3.4, Magnesium Level 2.1, Total Bilirubin 30.9H, Direct Bilirubin 18.7H, Aspartate Amino Transf (AST/SGOT) 213H, Alanine Aminotransferase (ALT/SGPT) 52, Alkaline Phosphatase 168H, Ammonia 186H, C- Reactive Protein, Quantitative 11.9H, Pro-B-Type Natriuretic Peptide 82906S, Total Protein 5.3L, Albumin 3.5, Globulin 1.8, Albumin/Globulin Ratio 1.9 Height (Feet): 5 Height (Inches): 8.00 Weight (Pounds): 160 General Appearance: mild distress Cardiovascular: tachycardia Respiratory/Chest: decreased breath sounds Abdomen: distended Driss Sneed MD Dec 09, 2020 12:17
--- NOTE | 2020-12-09 12:30 | NUR ---
NURSE NOTES: Patient to receive FFP, PRBCs, and plateletpheresis today. This RN is preparing patient for transfusions. Vitamin K to be infused, status has been NPO since he no longer follows commands. This RN called YULIA Patel to the bedside this afternoon for an OPA to maintain airway and ease of suctioning. Red OPA placed, gently and patient is being gently suctioned with the yankeur and a 14 Fr whistle tip. Blood from the mouth is thick and frothy, bleeding noticed around the gums, origin unclear. 1-2 clots aspirated during suction. Patient has been constantly cleaned from start of shift to now, he has received lactulose enemas per order. BMs have slowed, rectal tube inserted 30m after initial lactulose enema, it is patent and no leakage observed.
--- NOTE | 2020-12-09 12:34 | Consultation ---
History of Present Illness General Date patient seen: Dec 09, 2020 Reason for Hospitalization: Lower Extremity Injury Present Illness HPI 40-year-old male with known history of cirrhosis presenting with ankle pain identified to have fracture admitted further care and management has since declined currently intensive care unit and recent acute GI bleed. Patient renal insufficiency consideration hemodialysis. Surgery called to evaluate and assist with care. Patient seen, patient evaluated, chart reviewed. Patient currently intensive care unit with bloody secretions from the oropharynx nasopharynx. He is ill-appearing and transfusions are underway. Allergies: Coded Allergies: No Known Allergies (Unverified , 12/06/20) COVID-19 Screening Contact w/high risk pt: Yes Experienced COVID-19 symptoms?: No Patient History Limited by: medical condition History Provided By: Medical Record, PMD Healthcare decision maker Resuscitation status Advanced Directive on File Past Medical/Surgical History Past Medical/Surgical History: (1) Hepatorenal syndrome (2) Hypokalemia (3) Alcohol abuse (4) Anemia (5) Tibia/fibula fracture, shaft (6) Alcoholic cirrhosis of liver with ascites (7) Fracture of right tibia and fibula (8) Electrolyte imbalance (9) Renal failure (ARF), acute on chronic (10) Urine retention Review of Systems Review of Symptoms General ROS: no weight loss or fever Psychological ROS: no depression or mood changes, no memory loss Ophthalmic ROS: no visual changes or eye irritation ENT ROS: no nasal congestion, hearing loss, dizziness Allergy and Immunology ROS: no allergic symptoms or urticaria Hematological and Lymphatic ROS: no swollen glands, unusual bleeding or bruising Endocrine ROS: no polyuria, polydipsia, weight changes, temperature intolerance Respiratory ROS: no cough, shortness of breath, or wheezing Cardiovascular ROS: no chest pain or dyspnea on exertion Gastrointestinal ROS: denies abdominal pain, bright red blood in stool. Musculoskeletal ROS: no myalgias or arthralgias Neurological ROS: no TIA or stroke symptoms Dermatological ROS: no new or changing skin lesions, rashes or pruritis Limited given medical condition Physical Exam Physical Exam General appearance: Mild distress distress, appears stated age Head: Normocephalic, without obvious abnormality, atraumatic Eyes: conjunctivae/corneas clear. PERRL, EOM's intact. Fundi benign Throat: Lips, mucosa, and tongue normal. Teeth and gums normal blood noted Neck: supple, symmetrical, trachea midline, no adenopathy, thyroid: not enlarged, symmetric, no tenderness/mass/nodules, no carotid bruit and no JVD Lungs: Decreased to auscultation bilaterally Heart: regular rate and rhythm, S1, S2 normal, no murmur, click, rub or gallop Abdomen: soft, non-tender. Bowel sounds normal. No masses, no organomegaly Extremities: extremities in cast Pulses: 2+ and symmetric Skin: Skin color, texture, turgor normal. No rashes or lesions Neurologic: Grossly normal Last 24 Hour Vital Signs Date Time Temp Pulse Resp B/P (MAP) Pulse Ox O2 Delivery O2 Flow Rate FiO2 12/09/20 06:00 116 20 119/50 (73) 100 12/09/20 05:00 115 24 101/42 (61) 100 12/09/20 04:00 113 20 102/46 (64) 100 12/09/20 04:00 98.0 12/09/20 04:00 Room Air 12/09/20 03:00 116 18 95/49 (64) 100 12/09/20 02:00 117 18 116/48 (70) 100 12/09/20 01:00 116 16 110/47 (68) 100 12/09/20 00:00 115 20 100/49 (66) 100 12/09/20 00:00 Room Air 12/08/20 23:00 119 20 106/46 (66) 100 12/08/20 22:00 119 18 109/47 (67) 100 12/08/20 21:00 118 18 108/47 (67) 100 12/08/20 20:35 106/48 12/08/20 20:00 Room Air 12/08/20 20:00 98.1 12/08/20 20:00 100 22 106/48 (67) 100 12/08/20 19:00 108 18 101/49 (66) 98 12/08/20 18:30 111/51 12/08/20 18:00 100 20 93/40 (57) 97 12/08/20 17:00 102 23 105/50 (68) 97 12/08/20 16:00 Room Air 12/08/20 16:00 99.3 117 25 98/41 (60) 98 12/08/20 15:00 112 26 107/48 (67) 99 12/08/20 14:00 114 25 101/46 (64) 98 12/08/20 13:00 112 24 100/45 (63) 98 Intake and Output 12/08/20 12/09/20 19:00 07:00 Intake Total 968.52 ml 700 ml Output Total 625 ml 105 ml Balance 343.52 ml 595 ml IV Total 968.52 ml 700 ml Output Urine Total 625 ml 105 ml # Bowel Movements 4 Laboratory Tests Test 12/09/20 06:08 White Blood Count 11.5 K/UL (4.8-10.8) H Red Blood Count 2.13 M/UL (4.70-6.10) L Hemoglobin 6.6 G/DL (14.2-18.0) *L Hematocrit 19.3 % (42.0-52.0) L Mean Corpuscular Volume 91 FL (80-99) Mean Corpuscular Hemoglobin 30.8 PG (27.0-31.0) Mean Corpuscular Hemoglobin Concent 34.0 G/DL (32.0-36.0) Red Cell Distribution Width 16.3 % (11.6-14.8) H Platelet Count 32 K/UL (150-450) L Mean Platelet Volume 7.4 FL (6.5-10.1) Neutrophils (%) (Auto) % (45.0-75.0) Lymphocytes (%) (Auto) % (20.0-45.0) Monocytes (%) (Auto) % (1.0-10.0) Eosinophils (%) (Auto) % (0.0-3.0) Basophils (%) (Auto) % (0.0-2.0) Differential Total Cells Counted 100 Neutrophils % (Manual) 85 % (45-75) H Lymphocytes % (Manual) 9 % (20-45) L Monocytes % (Manual) 5 % (1-10) Eosinophils % (Manual) 1 % (0-3) Basophils % (Manual) 0 % (0-2) Band Neutrophils 0 % (0-8) Platelet Estimate Decreased L Platelet Morphology Normal Hypochromasia 2+ Anisocytosis 1+ Prothrombin Time 35.4 SEC (9.30-11.50) H Prothromb Time International Ratio 3.5 (0.9-1.1) H Activated Partial Thromboplast Time 100 SEC (23-33) H Sodium Level 141 MMOL/L (136-145) Potassium Level 2.8 MMOL/L (3.5-5.1) L Chloride Level 106 MMOL/L (98-107) Carbon Dioxide Level 15 MMOL/L (21-32) L Anion Gap 19 mmol/L (5-15) H Blood Urea Nitrogen 40 mg/dL (7-18) H Creatinine 4.4 MG/DL (0.55-1.30) H Estimat Glomerular Filtration Rate 14.9 mL/min (>60) Glucose Level 80 MG/DL (74-106) Uric Acid 11.0 MG/DL (2.6-7.2) H Calcium Level 7.8 MG/DL (8.5-10.1) L Phosphorus Level 3.4 MG/DL (2.5-4.9) Magnesium Level 2.1 MG/DL (1.8-2.4) Total Bilirubin 30.9 MG/DL (0.2-1.0) H Direct Bilirubin 18.7 MG/DL (0.0-0.3) H Aspartate Amino Transf (AST/SGOT) 213 U/L (15-37) H Alanine Aminotransferase (ALT/SGPT) 52 U/L (12-78) Alkaline Phosphatase 168 U/L (46-116) H Ammonia 186 umol/L (11-32) H C-Reactive Protein, Quantitative 11.9 mg/dL (0.00-0.90) H Pro-B-Type Natriuretic Peptide 19342 pg/mL (0-125) H Total Protein 5.3 G/DL (6.4-8.2) L Albumin 3.5 G/DL (3.4-5.0) Globulin 1.8 g/dL Albumin/Globulin Ratio 1.9 (1.0-2.7) Height (Feet): 5 Height (Inches): 8.00 Weight (Pounds): 160 Medications Current Medications Medications (Trade) Dose Ordered Sig/Armin Route PRN Reason Start Time Stop Time Status Last Admin Dose Admin Albumin Human 100 ml @ 100 mls/hr Q6H IV 12/08/20 20:00 03/06/21 19:59 12/09/20 08:41 Albumin Human 100 ml @ 100 mls/hr QHS IV 12/08/20 21:00 12/11/20 21:59 12/08/20 22:19 Chlorhexidine Gluconate (Mariama-Hex 2%) 1 applic DAILY@2000 TOPIC 12/07/20 20:00 03/07/21 19:59 12/08/20 20:35 Dextrose (Dextrose 50%) 25 ml Q30M PRN IV Hypoglycemia 12/09/20 11:15 03/09/21 11:14 Dextrose (Dextrose 50%) 50 ml Q30M PRN IV Hypoglycemia 12/09/20 11:15 03/09/21 11:14 Dextrose/Sodium Chloride 1,000 ml @ 50 mls/hr Q20H IV 12/06/20 12:30 01/05/21 12:29 12/09/20 01:01 Epoetin Sd (Epoetin Sd-EPBX(NON ESRD)) 4,000 unit THU-THU-THU SUBQ 12/07/20 21:00 03/07/21 20:59 12/07/20 22:40 Folic Acid (Folate) 2 mg DAILY ORAL 12/08/20 13:45 01/05/21 19:59 Lactulose (Cephulac) 45 gm THREE TIMES A DAY ORAL 12/07/20 21:45 01/05/21 19:59 12/09/20 08:41 Midodrine (Pro-Amatine) 10 mg THREE TIMES A DAY ORAL 12/06/20 13:00 03/06/21 12:59 12/08/20 08:50 Multivitamins (Multivitamins) 1 tab DAILY ORAL 12/06/20 20:00 01/05/21 19:59 12/08/20 08:50 Norepinephrine Bitartrate 8 mg/ Sodium Chloride 500 ml @ 0 mls/hr Q24H IV 12/07/20 18:30 12/10/20 18:29 12/08/20 18:30 Octreotide Acetate 500 mcg/ Sodium Chloride 500 ml @ 50 mls/hr Q10H IV 12/09/20 08:30 01/08/21 08:29 12/09/20 08:40 Pantoprazole (Protonix) 40 mg EVERY 12 HOURS IVP 12/06/20 21:00 01/05/21 20:59 12/09/20 08:41 Pentoxifylline (TRENtal) 400 mg Q12HR ORAL 12/06/20 21:00 03/06/21 20:59 12/08/20 08:51 Phytonadione 10 mg/Dextrose 56 ml @ 112 mls/hr ONCE IVPB 12/09/20 14:00 12/09/20 16:00 Piperacillin Sod/ Tazobactam Sod 3.375 gm/Sodium Chloride 110 ml @ 27.5 mls/hr Q12HR IVPB 12/06/20 20:00 12/13/20 19:59 12/09/20 08:42 Potassium Chloride 100 ml @ 50 mls/hr Q2H IVPB 12/09/20 12:00 12/09/20 15:59 Thiamine HCl (Vitamin B1) 100 mg DAILY ORAL 12/06/20 20:00 01/05/21 19:59 12/08/20 08:50 Vasopressin 100 units/Sodium Chloride 100 ml @ 0 mls/hr Q24H IV 12/08/20 05:45 12/11/20 05:31 12/09/20 05:40 Assessment/Plan Problem List: (1) Hepatorenal syndrome Assessment & Plan: 40-year-old male with hepatorenal syndrome declining. Curr ently active bleeding history of cirrhosis. Renal insufficiency worsening. There is considerations for temporary hemodialysis catheter as patient is on dialysis recently and does not have access. Unfortunately given his current condition active bleeding and significant coagulopathy is a should be resuscitated first prior to considerations of hemodialysis he may not tolerate it. I spoke with the clocksmith personally and we have decided to hold off on temporary hemodialysis catheter insertion at this time until patient improves. If he improves will place catheter for patient to receive dialysis if stabilized. Thank you for my participation's care will follow with recommendations Unremarkable inferior vena cava. Gallbladder is distended, without stones, wall thickening, nor pericholecystic fluid. Sonographic Lozano's sign is negative. Common bile duct measures for mm in diameter. No intrahepatic biliary ductal dilatation. Liver demonstrates increased echogenicity. It demonstrates surface nodularity. No definite focal abnormality There is some free intraperitoneal fluid. Portal vein and hepatic veins are patent. Pancreas is obscured by bowel gas. Spleen is enlarged, measuring 15.6 cm long axis dimension. There are splenic hilar varices. Left kidney measures 13.4 cm in length. Right kidney measures 14.1 cm length. Both kidneys demonstrate mildly increased echogenicity. There is no hydronephrosis. No focal abnormality . Abdominal aorta is partially obscured by bowel gas, visualized portions are non-aneurysmal . Impression: Evidence of hepatic cirrhosis, with increased parenchymal echogenicity and surface nodularity Distended gallbladder but no stones. Normal common bile duct Evidence of portal hypertension, with ascites, splenomegaly, splenic hilar varices Note nonvisualization of the pancreas and portions of the abdominal aorta ICD Codes: K76.7 - Hepatorenal syndrome; S82.409A - Unspecified fracture of shaft of unspecified fibula, initial encounter for closed fracture SNOMED: 56345877, 155136178 (2) Hypokalemia ICD Codes: E87.6 - Hypokalemia; S82.409A - Unspecified fracture of shaft of unspecified fibula, initial encounter for closed fracture SNOMED: 55245042, 743877433 (3) Alcohol abuse ICD Codes: F10.10 - Alcohol abuse, uncomplicated SNOMED: 70696878, 009190450 (4) Anemia ICD Codes: D64.9 - Anemia, unspecified SNOMED: 016278487, 361303024 Qualifiers: Qualified Codes: D64.9 - Anemia, unspecified (5) Tibia/fibula fracture, shaft ICD Codes: S82.209A - Unspecified fracture of shaft of unspecified tibia, initial encounter for closed fracture; S82.409A - Unspecified fracture of shaft of unspecified fibula, initial encounter for closed fracture SNOMED: 051706460, 282674360 Qualifiers: Qualified Codes: S82.201A - Unspecified fracture of shaft of right tibia, initial encounter for closed fracture; S82.401A - Unspecified fracture of shaft of right fibula, initial encounter for closed fracture (6) Alcoholic cirrhosis of liver with ascites ICD Codes: K70.31 - Alcoholic cirrhosis of liver with ascites SNOMED: 096579186, 773715633 (7) Fracture of right tibia and fibula ICD Codes: S82.201A - Unspecified fracture of shaft of right tibia, initial encounter for closed fracture; S82.401A - Unspecified fracture of shaft of right fibula, initial encounter for closed fracture SNOMED: 870369617, 33255493043365263 (8) Electrolyte imbalance ICD Codes: E87.8 - Other disorders of electrolyte and fluid balance, not elsewhere classified SNOMED: 154409155 (9) Renal failure (ARF), acute on chronic ICD Codes: N17.9 - Acute kidney failure, unspecified; N18.9 - Chronic kidney disease, unspecified SNOMED: 419144130 (10) Urine retention ICD Codes: R33.9 - Retention of urine, unspecified SNOMED: 209966846 Julio Cesar Rodrigues Dec 09, 2020 12:33
[2020-12-09] MEDS ORDERED: Phytonadione 10 MG in D5W 55 ML IVPB SCH (14:00)
--- NOTE | 2020-12-09 15:00 | NUR ---
NURSE NOTES: First FFP administered from 1421 to 1506, no complications observed. He tolerated infusion well. 18G PIV added to the LFA. Patient received Vit K infusion and K+ is running at this time. Bleeding status unchanged. Blood glucose checked and treated per provider's orders. Patient started on supplemental O2 per provider's order to keep O2 at or above 96%, he has a NC at bedside, NRB mask on currently for full oxygen support. Patient is afebrile, VSS. No signs of pain observed.
--- NOTE | 2020-12-09 18:25 | NUR ---
NURSE NOTES: Patient started on second bag of FFP at 1821, it continues to run at this time. No signs of distress observed. Patient continues on NRB mask and continues to bleed as described. NO new BMs seen in rectal tube. Mentation is unchanged. Cardiac rhythm unchanged. patient monitor now transferring data to [employer]. VSS for transfusion documented in [employer]. Will con't to monitor.
--- NOTE | 2020-12-09 18:42 | General Progress Note ---
Subjective Allergies: Coded Allergies: No Known Allergies (Unverified , 12/06/20) Subjective Seen in ICU d/w RN minimally interactive this am --> better after lactulose enemas RN notes bleeding from ohara site and from mouth / gums H&H lower given orders for FFP, Platelets, and PRBC Message left on patient home number for next of kin to call me to discuss Objective Last 24 Hour Vital Signs Date Time Temp Pulse Resp B/P (MAP) Pulse Ox O2 Delivery O2 Flow Rate FiO2 12/09/20 17:00 117 20 138/67 (90) 99 12/09/20 16:00 97.5 101 24 131/72 (91) 100 12/09/20 16:00 Room Air 12/09/20 15:22 118/62 12/09/20 15:00 97.9 109 23 118/62 (80) 100 12/09/20 14:00 111 25 124/61 (82) 95 12/09/20 13:00 111 24 127/64 (85) 97 12/09/20 12:00 Room Air 12/09/20 12:00 110 25 113/55 (74) 95 12/09/20 11:00 111 23 118/59 (78) 95 12/09/20 10:00 103 24 101/47 (65) 95 12/09/20 09:00 113 25 115/54 (74) 98 12/09/20 08:00 Room Air 12/09/20 08:00 100.0 113 25 111/52 (71) 98 12/09/20 07:00 100.6 114 26 117/50 (72) 98 12/09/20 06:00 116 20 119/50 (73) 100 12/09/20 05:00 115 24 101/42 (61) 100 12/09/20 04:00 113 20 102/46 (64) 100 12/09/20 04:00 98.0 12/09/20 04:00 Room Air 12/09/20 03:00 116 18 95/49 (64) 100 12/09/20 02:00 117 18 116/48 (70) 100 12/09/20 01:00 116 16 110/47 (68) 100 12/09/20 00:00 115 20 100/49 (66) 100 12/09/20 00:00 Room Air 12/08/20 23:00 119 20 106/46 (66) 100 12/08/20 22:00 119 18 109/47 (67) 100 12/08/20 21:00 118 18 108/47 (67) 100 12/08/20 20:35 106/48 12/08/20 20:00 Room Air 12/08/20 20:00 98.1 12/08/20 20:00 100 22 106/48 (67) 100 12/08/20 19:00 108 18 101/49 (66) 98 12/08/20 18:30 111/51 Intake and Output 12/08/20 12/09/20 19:00 07:00 Intake Total 968.52 ml 700 ml Output Total 625 ml 388 ml Balance 343.52 ml 312 ml IV Total 968.52 ml 700 ml Output Urine Total 625 ml 388 ml # Bowel Movements 4 Laboratory Tests 12/09/20 06:08: White Blood Count 11.5H, Red Blood Count 2.13L, Hemoglobin 6.6*L, Hematocrit 19.3L, Mean Corpuscular Volume 91, Mean Corpuscular Hemoglobin 30.8, Mean Corpuscular Hemoglobin Concent 34.0, Red Cell Distribution Width 16.3H, Platelet Count 32L, Mean Platelet Volume 7.4, Neutrophils (%) (Auto) , Lymphocytes (%) (Auto) , Monocytes (%) (Auto) , Eosinophils (%) (Auto) , Basophils (%) (Auto) , Differential Total Cells Counted 100, Neutrophils % (Manual) 85H, Lymphocytes % (Manual) 9L, Monocytes % (Manual) 5, Eosinophils % (Manual) 1, Basophils % (Manual) 0, Band Neutrophils 0, Platelet Estimate DecreasedL, Platelet Morphology Normal, Hypochromasia 2+, Anisocytosis 1+, Prothrombin Time 35.4H, Prothromb Time International Ratio 3.5H, Activated Partial Thromboplast Time 100H, Sodium Level 141, Potassium Level 2.8L, Chloride Level 106, Carbon Dioxide Level 15L, Anion Gap 19H, Blood Urea Nitrogen 40H, Creatinine 4.4H, Estimat Glomerular Filtration Rate 14.9, Glucose Level 80, Uric Acid 11.0H, Calcium Level 7.8L, Phosphorus Level 3.4, Magnesium Level 2.1, Total Bilirubin 30.9H, Direct Bilirubin 18.7H, Aspartate Amino Transf (AST/SGOT) 213H, Alanine Aminotransferase (ALT/SGPT) 52, Alkaline Phosphatase 168H, Ammonia 186H, C- Reactive Protein, Quantitative 11.9H, Pro-B-Type Natriuretic Peptide 35614R, Total Protein 5.3L, Albumin 3.5, Globulin 1.8, Albumin/Globulin Ratio 1.9 12/09/20 13:45: POC Whole Blood Glucose 64L Height (Feet): 5 Height (Inches): 8.00 Weight (Pounds): 160 Objective Patient seen in ICU obtunded, minimally communicative taking shallow breaths NCAT supple Coarse BS RR abd mildly distended, (+) fluid wave (+) b/l LE edema, (R) leg splint Assessment/Plan Status: deteriorating Assessment/Plan: Assessment - Severe alcoholic hepatitis, jaundice - cirrhosis with ascites,varicies, portal HTN - per ultrasound - Decompensated liver disease - Alcoholic hepatitis - underlying cirrhosis - Hepatorenal - Sepsis? SBP? - Renal failure - poor prognostic indicator - Hepatic encephalopathy, high NH3 - needs lactulose - orders for rectal Rx given - Coagulopathy - severe - (+) EtOH level - at risk for EtOH withdrawal syndrome - Fractured Tib/Fib - Drop in H&H - multifactorial : - loss in fractured LE - mouth / loss - possible component of GI bleed - blood draws - sepsis/poor health - Patient moribund. Would discuss terminal care with family Recommendations - Midodrine/Octreotide trial for HRS - s/p albumin challenge for HRS vs ATN - PPI IV - Lactulose ---> convert to IN - orders given - MVI/Thiamine - Trental trial (cannot give steroids given possible sepsis) - broad spectrum abx - paracentesis - r/o SBP - abdominal u/s - r/o biliary obstruction - Vitamin K - given - unable to take oral meds since NPO - too high risk for bleeding/aspiration/respiratory arrest with NGT or OGT placement Murray Upton MD Dec 09, 2020 18:42
--- NOTE | 2020-12-09 19:15 | NUR ---
NURSE HAND-OFF REPORT: Latest Vital Signs: Temperature 97.2 , Pulse 124 , B/P 153 /86 , Respiratory Rate 27 , O2 SAT 100 , Room Air, O2 Flow Rate . Vital Sign Comment: documented in [employer] EKG Rhythm: Sinus Tachycardia Rhythm change?: NO MD Notified?: - MD Response: Latest Green Fall Score: 70 Fall Risk: High Risk Safety Measures: Call light Within Reach, Bed Alarm Zone 1, Side Rails Side Rails x2, Bed position Low and Locked. Fall Precautions: in place Yellow Socks Door Sign Patient Fall Education Report given to Jovanni Grijalva RN; patient continues on FFP infusion, oncoming RN to take over transfusion. Patient stable at this time and clean.
[2020-12-09] MEDS: Dyna-Hex 2% Top Sol 2oz TOPIC SCH (19:33)
--- NOTE | 2020-12-09 19:35 | NUR ---
NURSE NOTES: Dr. Upton called for update on patient's status; update provided and verbal order given for CBC and PT/INR once patient receives alll transfusions and blood products. This RN informed the overnight RN.
--- NOTE | 2020-12-09 20:24 | General Progress Note ---
Subjective ROS Limited/Unobtainable: Yes Allergies: Coded Allergies: No Known Allergies (Unverified , 12/06/20) Objective Last 24 Hour Vital Signs Date Time Temp Pulse Resp B/P (MAP) Pulse Ox O2 Delivery O2 Flow Rate FiO2 12/09/20 18:43 97.2 124 27 153/86 (108) 100 12/09/20 18:21 123 24 137/73 (94) 100 12/09/20 18:00 97.5 112 23 120/57 (78) 100 12/09/20 17:00 117 20 138/67 (90) 99 12/09/20 16:00 97.5 101 24 131/72 (91) 100 12/09/20 16:00 Room Air 12/09/20 15:22 118/62 12/09/20 15:00 97.9 109 23 118/62 (80) 100 12/09/20 14:00 111 25 124/61 (82) 95 12/09/20 13:00 111 24 127/64 (85) 97 12/09/20 12:00 Room Air 12/09/20 12:00 110 25 113/55 (74) 95 12/09/20 11:00 111 23 118/59 (78) 95 12/09/20 10:00 103 24 101/47 (65) 95 12/09/20 09:00 113 25 115/54 (74) 98 12/09/20 08:00 Room Air 12/09/20 08:00 100.0 113 25 111/52 (71) 98 12/09/20 07:00 100.6 114 26 117/50 (72) 98 12/09/20 06:00 116 20 119/50 (73) 100 12/09/20 05:00 115 24 101/42 (61) 100 12/09/20 04:00 113 20 102/46 (64) 100 12/09/20 04:00 98.0 12/09/20 04:00 Room Air 12/09/20 03:00 116 18 95/49 (64) 100 12/09/20 02:00 117 18 116/48 (70) 100 12/09/20 01:00 116 16 110/47 (68) 100 12/09/20 00:00 115 20 100/49 (66) 100 12/09/20 00:00 Room Air 12/08/20 23:00 119 20 106/46 (66) 100 12/08/20 22:00 119 18 109/47 (67) 100 12/08/20 21:00 118 18 108/47 (67) 100 12/08/20 20:35 106/48 Intake and Output 12/08/20 12/09/20 19:00 07:00 Intake Total 968.52 ml 700 ml Output Total 625 ml 388 ml Balance 343.52 ml 312 ml IV Total 968.52 ml 700 ml Output Urine Total 625 ml 388 ml # Bowel Movements 4 Laboratory Tests 12/09/20 06:08: White Blood Count 11.5H, Red Blood Count 2.13L, Hemoglobin 6.6*L, Hematocrit 19.3L, Mean Corpuscular Volume 91, Mean Corpuscular Hemoglobin 30.8, Mean Corpuscular Hemoglobin Concent 34.0, Red Cell Distribution Width 16.3H, Platelet Count 32L, Mean Platelet Volume 7.4, Neutrophils (%) (Auto) , Lymphocytes (%) (Auto) , Monocytes (%) (Auto) , Eosinophils (%) (Auto) , Basophils (%) (Auto) , Differential Total Cells Counted 100, Neutrophils % (Manual) 85H, Lymphocytes % (Manual) 9L, Monocytes % (Manual) 5, Eosinophils % (Manual) 1, Basophils % (Manual) 0, Band Neutrophils 0, Platelet Estimate DecreasedL, Platelet Morphology Normal, Hypochromasia 2+, Anisocytosis 1+, Prothrombin Time 35.4H, Prothromb Time International Ratio 3.5H, Activated Partial Thromboplast Time 100H, Sodium Level 141, Potassium Level 2.8L, Chloride Level 106, Carbon Dioxide Level 15L, Anion Gap 19H, Blood Urea Nitrogen 40H, Creatinine 4.4H, Estimat Glomerular Filtration Rate 14.9, Glucose Level 80, Uric Acid 11.0H, Calcium Leve l 7.8L, Phosphorus Level 3.4, Magnesium Level 2.1, Total Bilirubin 30.9H, Direct Bilirubin 18.7H, Aspartate Amino Transf (AST/SGOT) 213H, Alanine Aminotransferase (ALT/SGPT) 52, Alkaline Phosphatase 168H, Ammonia 186H, C- Reactive Protein, Quantitative 11.9H, Pro-B-Type Natriuretic Peptide 31080A, Total Protein 5.3L, Albumin 3.5, Globulin 1.8, Albumin/Globulin Ratio 1.9 12/09/20 13:45: POC Whole Blood Glucose 64L Height (Feet): 5 Height (Inches): 8.00 Weight (Pounds): 160 Assessment/Plan Problem List: (1) Urine retention ICD Codes: R33.9 - Retention of urine, unspecified SNOMED: 949210834 (2) Hypokalemia ICD Codes: E87.6 - Hypokalemia; S82.409A - Unspecified fracture of shaft of unspecified fibula, initial encounter for closed fracture SNOMED: 60132548, 280577617 (3) Alcohol abuse ICD Codes: F10.10 - Alcohol abuse, uncomplicated SNOMED: 04419549, 700695374 (4) Anemia ICD Codes: D64.9 - Anemia, unspecified SNOMED: 084842766, 864169192 Qualifiers: Qualified Codes: D64.9 - Anemia, unspecified (5) Tibia/fibula fracture, shaft ICD Codes: S82.209A - Unspecified fracture of shaft of unspecified tibia, initial encounter for closed fracture; S82.409A - Unspecified fracture of shaft of unspecified fibula, initial encounter for closed fracture SNOMED: 909653056, 510611572 Qualifiers: Qualified Codes: S82.201A - Unspecified fracture of shaft of right tibia, initial encounter for closed fracture; S82.401A - Unspecified fracture of shaft of right fibula, initial encounter for closed fracture (6) Alcoholic cirrhosis of liver with ascites ICD Codes: K70.31 - Alcoholic cirrhosis of liver with ascites SNOMED: 771366937, 891962544 (7) Fracture of right tibia and fibula ICD Codes: S82.201A - Unspecified fracture of shaft of right tibia, initial encounter for closed fracture; S82.401A - Unspecified fracture of shaft of right fibula, initial encounter for closed fracture SNOMED: 094674683, 15994201400728967 (8) Electrolyte imbalance ICD Codes: E87.8 - Other disorders of electrolyte and fluid balance, not elsewhere classified SNOMED: 934588016 (9) Renal failure (ARF), acute on chronic ICD Codes: N17.9 - Acute kidney failure, unspecified; N18.9 - Chronic kidney disease, unspecified SNOMED: 486595722 Status: deteriorating Assessment/Plan: etoh cirrhosis coagulapathy on somatastatin drip for bleeding on pressors very poor prognosis liver end stage/failure very critical and poor prognosis dpoa wants to do everything still elevated cr ohara per dr harris poor prognosis monitor for bleeding r/o hepatorenal synrome lyte abnormality confused tib /fib fracture and not stable for repair Divya Diaz MD Dec 09, 2020 20:24
[2020-12-09] MEDS: Norepinephrine Bitartrate 16 MG in D5W 500ml 500 ML IV SCH (21:00)
--- NOTE | 2020-12-09 21:44 | Consultation ---
DATE OF CONSULTATION: 12/07/2020 PULMONARY CONSULTATION/ICU CONSULTATION REFERRING PHYSICIAN: Divya Nevarez MD REASON FOR CONSULT: 1. Coagulopathy. 2. Hepatic failure/encephalopathy. HISTORY OF PRESENT ILLNESS: This is a 40-year-old male with a history of alcoholic liver cirrhosis. He presented to the hospital with right ankle pain. He apparently tripped over a chair. He reports significant pain. He was admitted to the hospital for subsequent management and care. The patient has been seen by Gastroenterology as well as by Hematology. He has been up found to be anemic with a hemoglobin of 9. He is also markedly thrombocytopenic and noted to have coagulopathy. He has been found to have a fracture of the right tibial shaft and also hypokalemic. The patient is clinically jaundiced as well and also encephalopathic, unable to answer further questions. PAST MEDICAL HISTORY: 1. Chronic hepatic failure. 2. Liver cirrhosis. 3. Alcohol abuse. HOME MEDICATIONS: Unable to recall. ALLERGIES: None. SURGERIES: None reported. PHYSICAL EXAMINATION: GENERAL: Reveals a 40-year-old male. VITAL SIGNS: Notable for jaundice. CHEST: Clear breath sounds bilaterally. ABDOMEN: Soft, distended. Ascites is present. EXTREMITIES: There is 1+ bilateral edema. Right lower extremity has a dressing in place. VITAL SIGNS: Blood pressure of 93/40 and dropping down to 60/30, heart rate 100, O2 saturation 99% on room air, heart rate 100%. LABORATORY DATA: Lab testing shows hemoglobin of 9.1, white count 10516, platelet count 54,000. Potassium of 3, creatinine of 5, total bilirubin 29, ammonia 199. Coags show INR 4.1. Toxicology is positive for alcohol. Serology is pending. IMPRESSION: 1. Hepatic encephalopathy. 2. Hepatorenal syndrome. 3. Alcoholic liver cirrhosis. 4. Tibial fracture. 5. Anemia. 6. Thrombocytopenia. 7. Electrolyte disorder. DISCUSSION: Admit to the hospital. Prognosis is grave. He will benefit from lactulose and Xifaxan. Nephrology following. Recommend correction of electrolytes. He may need blood pressure support in terms of the dopamine or Levophed. Broad-spectrum antibiotics as appropriate. and paracentesis deferred to GI. We will follow carefully. Evelio Dos Santos M.D. DR: ELSY JOB#: [id number] CC:
--- NOTE | 2020-12-09 22:44 | Consultation ---
DATE OF CONSULTATION: 12/06/2020 CARDIOLOGY CONSULTATION REFERRING PHYSICIAN: Divya Nevarez M.D. REASON FOR CONSULTATION: Preoperative clearance for right leg surgery. HISTORY OF PRESENT ILLNESS: The patient is a 40-year-old gentleman with a history of alcoholic cirrhosis, who presented with right ankle pain after he tripped over a chair. He fell and twisted his ankle. The patient has bilateral leg edema at baseline because of his cirrhosis. The patient was noted to have fracture of the right tibia and underwent short leg posterior splint placement in the emergency room. The patient is evaluated and awaiting orthopedic consultation for possible surgery. REVIEW OF SYSTEMS: Negative other than what is mentioned in history of present illness. PAST MEDICAL HISTORY: As mentioned above. FAMILY HISTORY: Noncontributory. SOCIAL HISTORY: He lives at home, has a history of heavy drinking. PHYSICAL EXAMINATION: VITAL SIGNS: Blood pressure of 92/58, pulse is 71, respirations 18, temperature 98. HEAD AND NECK: No JVD. Sclerae are icteric. LUNGS: Clear. CARDIOVASCULAR: Regular S1 and S2. ABDOMEN: Soft, nondistended. EXTREMITIES: 2+ edema as well as the right leg is in splint. LABORATORY AND DIAGNOSTIC STUDIES: Lab shows white count of 14.5, hematocrit 10.5, hematocrit 31, and platelet count is 68. Sodium is 126, potassium is 2.3, BUN of 30, creatinine 4.7, and glucose of 50. His INR is 2.9. ASSESSMENT AND PLAN: 1. Hypotension. I will start midodrine 5 mg p.o. 3 times daily. Hopefully, that will improve his blood pressure. We will also get an echocardiogram and EKG in view of renal failure and cirrhosis to make sure he does not have any pericardial effusion. 2. Alcoholic cirrhosis and jaundice. 3. Renal failure with creatinine of 4.7. 4. Severe hypokalemia, potassium of 2.3. 5. Severe hyponatremia with sodium of 126, likely due to volume overload due to cirrhosis. Echocardiogram also will be ordered to rule out cardiomyopathy in view of the patient's alcohol use. Thank you very much for allowing me to participate in the care of this patient. Please do not hesitate to contact me for any questions regarding my evaluation. Selvin Fonseca M.D. DR: GAYATHRI JOB#: [id number] CC:
--- NOTE | 2020-12-09 22:51 | NUR ---
NURSE NOTES: Patient noted to have irregular breathing pattern, NRM already on patient 15L 100% O2. ABG done performed. Called and endorsed on ABG result to Dr. Dos Santos and updated him on patients condition, no new orders received from MD at this time. Will continue to monitor patient.
--- NOTE | 2020-12-09 23:29 | Consultation ---
DATE OF CONSULTATION: 12/07/2020 HISTORY OF PRESENT ILLNESS: The patient is a 40-year-old gentleman with alcoholic cirrhosis, who presents with complaints of left leg pain. The patient had a slip and fall diagnosed with a tibia fracture, was placed in a splint and then admitted in the hospital. Orthopedic consultation obtained for further care recommendation. PAST MEDICAL HISTORY: Reviewed per intake chart. PAST SURGICAL HISTORY: Reviewed per intake chart. MEDICATIONS: Reviewed per intake chart. PHYSICAL EXAMINATION: The patient is currently in ICU, hypotensive, unstable. IMAGING STUDY: Show a segmental tibia fracture. ASSESSMENT: 1. Left segmental tibia fracture. 2. Alcoholic cirrhosis. 3. Hypotension. 4. Metabolic syndrome. DISCUSSION: At this point, the patient is critically ill and is not cleared for any surgical intervention. He is going to be optimized potentially in better position. Tomorrow, we may consider proceeding with external fixation of the tibia as a temporizing procedure. Ultimately, he is going to be happily transferred to our tertiary care facility for higher level care given the segmental injury and his medical comorbidities. If we are unable to proceed with the external fixator due to his critical condition, then we will continue to manage him with the splint with elevation to decrease swelling. I will continue to consult with the other multiple consultants. Aubrey Montez M.D. DR: Kaleb JOB#: [id number] CC:
[2020-12-10] VITALS (34 sets, daily range): BP systolic 92–123; BP diastolic 44–102
--- NOTE | 2020-12-10 00:14 | Consultation ---
DATE OF CONSULTATION: 12/06/2020 GASTROENTEROLOGY CONSULTATION REPORT CONSULTING PHYSICIAN: Murray Upton M.D. CHIEF COMPLAINT: I was asked to see this patient for evaluation of cirrhosis. HISTORY OF PRESENT ILLNESS: The patient is a 40-year-old man who was admitted to the hospital overnight because he suffered from the tibia and fibula fracture of the right leg after falling over the chair. He was to have an operation, but significant laboratory abnormalities and he appears to have history of chronic alcoholism. The patient states that he has been a chronic alcoholic for many years, although he says he stopped the alcohol 3 years ago. Nonetheless, laboratory evaluation on admission showed detectable alcohol level in the blood. He states he was diagnosed with cirrhosis about 3 years ago at [facility]. He had paracenteses at that time. However, he does not have any doctor and does not take any medications and has had no gastrointestinal followup for his liver disease. He is unaware if he has hepatitis B and C as well. PAST MEDICAL HISTORY: Otherwise negative. FAMILY HISTORY: Noncontributory. SOCIAL HISTORY: The patient is single. He has no children. He does not smoke. He does not use drugs. He has a previous alcohol use as described above. REVIEW OF SYSTEMS: Otherwise negative. PHYSICAL EXAMINATION: GENERAL: The jaundice man with a distended abdomen. HEENT: Normocephalic and atraumatic. Sclerae icteric. Oropharynx clear. NECK: Supple. CHEST: Clear to auscultation. CARDIOVASCULAR: Revealed regular rate. ABDOMEN: Mildly distended and nontender with a fluid wave. EXTREMITIES: Revealed splint on the right side and edema on the left. NEUROLOGIC: Notable for the patient being alert and oriented, although he was a poor historian and kept moaning about his pain in his right leg and would not give concised answers to some questions. He was able to move all 4 extremities. LABORATORY DATA: Noted. ASSESSMENT: This patient presents with a decompensated liver disease with elevated creatinine with the presentation is that typically has a high mortality. The differential diagnosis would include acute alcoholic hepatitis given the ratio of AST to ALT and elevated bilirubin. Alternatively, hepatorenal syndrome can explain the laboratory findings, especially with the elevated creatinine. The patient is a poor prognostic marker. In addition, the patient has an elevated white count, which can be indicative of sepsis. This also can be contributing to his overall decline and decompensation. He does have a difficulty focusing on the answers in elevated ammonia level and therefore some degree of hepatic encephalopathy would also be naturally expected. He denied alcohol consumption for 3 years, but has alcohol level measured on admission. He is likely at risk for alcohol withdrawal syndrome. With respect to the source of sepsis, spontaneous bacterial peritonitis would be higher in the differential, though he does not have any abdominal tenderness. Nonetheless, abdominal ultrasound and paracentesis should be done to evaluate this possibility and in the meantime, he should be placed on broad-spectrum antibiotics. The multivitamin and thiamine should be given and an albumin challenge should be given for his possible acute tubular necrosis. If there is no response to the albumin challenge, then renal syndrome would be more likely. Likewise, octreotide and midodrine trial should be given for the hepatorenal syndrome while the investigation is underway. With respect to his alcoholic hepatitis, his discriminant factor is 113, which above the value of 32 used for treatment. However, there is a concern for sepsis given his elevated white count and declining vital signs and transferred to ICU. I would therefore give him Trental for now, which will have some effect on alcoholic hepatitis without compromising his immune system. The patient's overall prognosis is poor and the presenting clinical picture typically has high motality rate. RECOMMENDATIONS: Per above discussion and per orders written in the chart. Thank you for asking me to participate in the care of this patient. I will follow him with you. Murray Upton M.D. DR: John JOB#: [id number] CC: FARA
[2020-12-10 00:41] LABS: HEMATOCRIT 18.5 % (42.0-52.0); MEAN CORPUSCULAR VOLUME 94 FL (80-99); PLATELET COUNT 31 K/UL (150-450); RED BLOOD COUNT 1.98 M/UL (4.70-6.10); WHITE BLOOD COUNT 18.3 K/UL (4.8-10.8)
--- NOTE | 2020-12-10 00:44 | History and Physical Report ---
DATE OF ADMISSION: 12/06/2020 HISTORY OF PRESENT ILLNESS: This is a 40-year-old male. Originally came in, has history of alcoholic cirrhosis. Patient presented with ankle pain that occurred couple hours before the admission, hit over a chair and patient twisted his ankle. Pain was 9/10. Patient denies shortness of breath. Denies nausea, vomiting, or diarrhea. Denies any recent bleeding. Denies fever or chills. Denies headache. Denies nausea. Patient was found to have a tibia-fibula fracture. Patient also has been admitted for tibia-fibular fracture. Dr. Aubrey Montez was consulted by the emergency room physician. Patient has alcoholic cirrhosis. Again, was admitted for tibia-fibular fracture. Patient felt weak. Did have pain in the ankle area. Denies headache. Denies rectal bleeding. Denies nausea, vomiting, or diarrhea. Patient is also admitted for electrolyte imbalance as well as for acute renal failure and coagulopathy as well. PAST MEDICAL HISTORY: Alcoholic cirrhosis. Patient also has history of hyperlipidemia, GERD. PAST SURGICAL HISTORY: Denies. ALLERGIES: No known allergies. MEDICATIONS: None. FAMILY HISTORY: Noncontributory. SOCIAL HISTORY: Denies history of smoking. Does have history of alcohol abuse. No history of drug abuse. REVIEW OF SYSTEMS: HEENT: Denies headaches. RESPIRATORY: Denies shortness of breath. Denies cough. CARDIOVASCULAR: Denies chest pain. GASTROINTESTINAL: Denies nausea, vomiting, or diarrhea. Does have abdominal pain. EXTREMITIES: Does have pain in the ankle where the fracture is. CENTRAL NERVOUS SYSTEM: Reports generalized weakness. PHYSICAL EXAMINATION: VITAL SIGNS: Temperature is 98.1, pulse is 90, blood pressure 148/85. HEENT: PERRLA. CHEST: Clear to auscultation. CARDIOVASCULAR: Regular rate and rhythm. No murmurs or extra sounds. GASTROINTESTINAL: Soft, distended. ABDOMEN: Distended, however is soft. No organomegaly. Positive bowel sounds. EXTREMITIES: Patient is on a soft cast in the lower extremity. He is able to move his extremities. Reflexes in both sides. NEUROLOGIC: Oriented x2. LABORATORY DATA: WBC of 14.5, hemoglobin of 10.5, platelets of 68. Sodium 128, potassium of 2.9, BUN of 30, creatinine of 4.9, glucose of 33. AST of 148, ALT of 44, alkaline phosphatase of 316. Ammonia of 277. ASSESSMENT AND PLAN: Cirrhosis of the liver, acute renal failure, electrolyte imbalance, hyponatremia, severe hypokalemia, coagulopathy, BPH, obstructive uropathy, hypoglycemia, tibia-fibular fracture. I have consulted the following doctors. Dr. Danielito Seals, Dr. Deepak Villarreal, Dr. Jose Douglass, Dr. Montez, Dr. Fonseca, Dr. Upton, Dr. Rae, Dr. Brar, Dr. Sneed for this very complex patient. Patient is transferred to the monitored bed because patient developed hypotension in the hospital and blood products were ordered due to the coagulopathy. Patient is very critical, so we transferred the patient to the monitored bed in the second floor immediately and all the consultants are already notified. Divya Nevarez M.D. DR: JED JOB#: [id number] CC:
[2020-12-10 01:16] LABS: HEMOGLOBIN 6.2 G/DL (14.2-18.0)
[2020-12-10 01:22] LABS: INR 2.3 (0.9-1.1)
--- NOTE | 2020-12-10 01:26 | NUR ---
NURSE NOTES: Called Dr. Upton and endorsed CBC values post blood products that were given today. It was endorsed that Hg was 6.2 and platelets were 31. Telephone orders received for 1 additional unit of PRBC stat and have an ammonia level added to morning labs. Will go ahead and follow through MD's orders.
--- NOTE | 2020-12-10 01:59 | Consultation ---
DATE OF CONSULTATION: 12/07/2020 ENDOCRINOLOGY CONSULTATION CONSULTING PHYSICIAN: Richard Brar M.D. REFERRING PHYSICIAN: Divya Nevarez M.D. REASON FOR CONSULTATION: Hypoglycemia. HISTORY OF PRESENT ILLNESS: The patient is a 40-year-old male with past medical history of alcoholic cirrhosis, presented to the hospital with encephalopathy and transferred to the ICU due to the worsening of the condition and severely hypoglycemic. Therefore, Endocrinology was consulted. There is no report of history of diabetes or being on any diabetic medication. The patient was started on pressors. Condition is guarded. PAST MEDICAL HISTORY: Alcoholism. PAST SURGICAL HISTORY: None. FAMILY HISTORY: Noncontributory. MEDICATIONS: As an outpatient, reviewed and reconciled. REVIEW OF SYSTEMS: Unobtainable, the patient is altered. PHYSICAL EXAMINATION: VITAL SIGNS: Blood pressure is 98/54, heart rate 86, temperature of 97, and respiratory rate of 18. HEENT: The patient is jaundiced and lethargic. HEART: Tachy. LUNGS: Decreased breath sounds. ABDOMEN: Positive bowel sounds. EXTREMITIES: Positive for edema. LABORATORY DATA: Sodium 130, potassium 3.0, chloride 96, bicarbonate 17, BUN 31, and creatinine 5.0. DIAGNOSES: 1. Hypoglycemia due to cirrhosis causing depletion of glycogen store. No history of diabetes. 2. Tibia-fibula fracture shaft. 3. Alcoholic cirrhosis with ascites. 4. Shock. PLAN: 1. Continue pressors. 2. Draw serum cortisol. Once that is drawn, the patient should be treated with stress dose hydrocortisone. 3. Continue dextrose. 4. Glucose monitoring with hypoglycemia protocol. 5. I will follow the patient closely during hospital stay. Thank you, Dr. Nevarez, for the courtesy of this consultation. Richard Brar M.D. DR: MELVIN JOB#: [id number] CC: FARA
[2020-12-10] MEDS: Vasopressin 100 UNITS in NS 95 ML IV SCH ×2 (05:45→11:07)
[2020-12-10] MEDS: Octreotide Acetate 500 MCG in Sodium Chloride 499 ML IV SCH ×2 (05:47→14:41)
--- NOTE | 2020-12-10 06:09 | NUR ---
NURSE NOTES: Dr. Ngo called to get update on patient. Dr. ngo gave telephone orders for 2 FFP right now stat. will go ahead and follow through MD orders.
--- NOTE | 2020-12-10 06:37 | General Progress Note ---
Subjective ROS Limited/Unobtainable: Yes Allergies: Coded Allergies: No Known Allergies (Unverified , 12/06/20) Subjective events noted interval notes reviewed doing poorly in ICU glucose remain low despite being on dextrose serum cortisol results is pending Item Value Date Time Bedside Blood Glucose 68 mg/dl L 12/09/20 2322 Bedside Blood Glucose 64 mg/dl L 12/09/20 1515 Objective Last 24 Hour Vital Signs Date Time Temp Pulse Resp B/P (MAP) Pulse Ox O2 Delivery O2 Flow Rate FiO2 12/10/20 06:15 99 19 99 12/10/20 06:00 105 22 110/55 (73) 97 12/10/20 04:45 114 23 95 12/10/20 04:30 112 21 118/64 (82) 95 12/10/20 04:15 112 23 95 12/10/20 04:00 98.7 112 22 122/66 (84) 94 12/10/20 04:00 Room Air 12/10/20 03:45 114 22 95 12/10/20 03:30 110 20 120/60 (80) 92 12/10/20 03:15 112 22 91 12/10/20 03:00 110 21 112/60 (77) 90 12/10/20 03:00 110 21 112/60 (77) 90 12/10/20 02:50 103 20 103/53 (70) 91 12/10/20 02:45 108 21 93 12/10/20 02:35 112 23 115/65 (82) 95 12/10/20 02:30 112 22 120/102 (108) 96 12/10/20 02:22 114 22 105/59 (74) 96 12/10/20 02:15 112 23 97 12/10/20 02:12 114 23 92/51 (65) 97 12/10/20 02:00 117 23 117/50 (72) 97 12/10/20 01:45 117 23 98 12/10/20 01:30 116 19 116/49 (71) 98 12/10/20 01:15 117 23 98 12/10/20 01:00 117 21 123/46 (71) 98 12/10/20 00:30 119 20 105/59 (74) 98 12/10/20 00:15 120 20 96 12/10/20 00:00 99.4 121 22 110/50 (70) 94 12/10/20 00:00 Room Air 12/09/20 23:55 121 20 110/50 (70) 95 12/09/20 23:30 114/58 (76) 12/09/20 23:19 115 22 98/50 (66) 98 12/09/20 23:15 115 23 99 12/09/20 23:00 115 23 99/49 (66) 98 12/09/20 22:45 117 22 99 12/09/20 22:30 116 23 97/43 (61) 98 12/09/20 22:23 118 22 101/45 (63) 97 12/09/20 22:15 117 23 97 12/09/20 22:09 116 23 95/42 (59) 98 12/09/20 22:00 118 22 92/33 (52) 98 12/09/20 21:45 120 30 99 12/09/20 21:41 120 33 100/52 (68) 99 12/09/20 21:30 120 26 104/51 (68) 99 12/09/20 21:25 121 26 108/47 (67) 99 12/09/20 21:15 122 31 99 12/09/20 21:00 123 27 113/50 (71) 100 12/09/20 21:00 92/33 12/09/20 21:00 92/33 12/09/20 20:45 122 33 100 12/09/20 20:30 121 29 119/76 (90) 100 12/09/20 20:15 121 31 68 12/09/20 20:00 Room Air 12/09/20 20:00 98.8 123 27 130/56 (80) 94 12/09/20 19:45 123 31 99 12/09/20 19:30 125 27 113/49 (70) 100 12/09/20 19:15 129 26 95 12/09/20 19:00 125 27 142/78 (99) 100 12/09/20 19:00 98.6 12/09/20 18:43 97.2 124 27 153/86 (108) 100 12/09/20 18:21 123 24 137/73 (94) 100 12/09/20 18:00 97.5 112 23 120/57 (78) 100 12/09/20 17:00 117 20 138/67 (90) 99 12/09/20 16:00 97.5 101 24 131/72 (91) 100 12/09/20 16:00 Room Air 12/09/20 15:22 118/62 12/09/20 15:00 97.9 109 23 118/62 (80) 100 12/09/20 14:00 111 25 124/61 (82) 95 12/09/20 13:00 111 24 127/64 (85) 97 12/09/20 12:00 Room Air 12/09/20 12:00 110 25 113/55 (74) 95 12/09/20 11:00 111 23 118/59 (78) 95 12/09/20 10:00 103 24 101/47 (65) 95 12/09/20 09:00 113 25 115/54 (74) 98 12/09/20 08:00 Room Air 12/09/20 08:00 100.0 113 25 111/52 (71) 98 12/09/20 07:00 100.6 114 26 117/50 (72) 98 Intake and Output 12/09/20 12/10/20 19:00 07:00 Intake Total 101.8 ml 2358.98 ml Output Total 857 ml 145 ml Balance -755.2 ml 2213.98 ml IV Total 101.8 ml 1330.98 ml Blood Product 1028 ml Output Urine Total 857 ml 145 ml # Bowel Movements 2 3 Laboratory Tests 12/09/20 13:45: POC Whole Blood Glucose 64L 12/09/20 22:29: Arterial Blood pH 7.334L, Arterial Blood Partial Pressure CO2 29.1L, Arterial Blood Partial Pressure O2 89.8, Arterial Blood HCO3 15.1*L, Arterial Blood Oxygen Saturation 95.8, Arterial Blood Base Excess -9.8*L, Vikash Test Positive 12/10/20 00:09: POC Whole Blood Glucose 110H 12/10/20 00:34: White Blood Count 18.3#H, Red Blood Count 1.98L, Hemoglobin 6.2*L, Hematocrit 18.5L, Mean Corpuscular Volume 94, Mean Corpuscular Hemoglobin 31.4H, Mean Cor puscular Hemoglobin Concent 33.4, Red Cell Distribution Width 16.0H, Platelet Count 31L, Mean Platelet Volume 6.4L, Neutrophils (%) (Auto) , Lymphocytes (%) (Auto) , Monocytes (%) (Auto) , Eosinophils (%) (Auto) , Basophils (%) (Auto) , Differential Total Cells Counted 100, Neutrophils % (Manual) 87H, Lymphocytes % (Manual) 6L, Monocytes % (Manual) 5, Eosinophils % (Manual) 0, Basophils % (Manual) 0, Band Neutrophils 2, Platelet Estimate DecreasedL, Platelet Morphology Normal, Prothrombin Time 23.4H, Prothromb Time International Ratio 2.3H Height (Feet): 5 Height (Inches): 8.00 Weight (Pounds): 160 General Appearance: lethargic Neck: normal alignment Cardiovascular: tachycardia Respiratory/Chest: decreased breath sounds Abdomen: normal bowel sounds Objective Current Medications Medications (Trade) Dose Ordered Sig/Armin Route PRN Reason Start Time Stop Time Status Last Admin Dose Admin Albumin Human 100 ml @ 100 mls/hr Q6H IV 12/08/20 20:00 03/06/21 19:59 12/10/20 02:14 Albumin Human 100 ml @ 100 mls/hr QHS IV 12/08/20 21:00 12/11/20 21:59 12/09/20 22:14 Chlorhexidine Gluconate (Mariama-Hex 2%) 1 applic DAILY@2000 TOPIC 12/07/20 20:00 03/07/21 19:59 12/09/20 19:33 Dextrose (Dextrose 50%) 25 ml Q30M PRN IV Hypoglycemia 12/09/20 11:15 03/09/21 11:14 Dextrose (Dextrose 50%) 50 ml Q30M PRN IV Hypoglycemia 12/09/20 11:15 03/09/21 11:14 12/09/20 23:22 Dextrose/Sodium Chloride 1,000 ml @ 50 mls/hr Q20H IV 12/06/20 12:30 01/05/21 12:29 12/09/20 19:34 Epoetin Sd (Epoetin Sd-EPBX(NON ESRD)) 4,000 unit THU-THU-THU SUBQ 12/07/20 21:00 03/07/21 20:59 12/07/20 22:40 Folic Acid (Folate) 2 mg DAILY ORAL 12/08/20 13:45 01/05/21 19:59 Lactulose (Cephulac) 45 gm THREE TIMES A DAY ORAL 12/07/20 21:45 01/05/21 19:59 12/09/20 17:56 Midodrine (Pro-Amatine) 10 mg THREE TIMES A DAY ORAL 12/06/20 13:00 03/06/21 12:59 12/08/20 08:50 Multivitamins (Multivitamins) 1 tab DAILY ORAL 12/06/20 20:00 01/05/21 19:59 12/08/20 08:50 Norepinephrine Bitartrate 16 mg/ Dextrose 516 ml @ 7.74 mls/hr Q24H IV 12/09/20 21:00 12/12/20 15:14 12/09/20 21:00 Octreotide Acetate 500 mcg/ Sodium Chloride 500 ml @ 50 mls/hr Q10H IV 12/09/20 08:30 01/08/21 08:29 12/10/20 05:47 Pantoprazole (Protonix) 40 mg EVERY 12 HOURS IVP 12/06/20 21:00 01/05/21 20:59 12/09/20 22:03 Pentoxifylline (TRENtal) 400 mg Q12HR ORAL 12/06/20 21:00 03/06/21 20:59 12/08/20 08:51 Piperacillin Sod/ Tazobactam Sod 3.375 gm/Sodium Chloride 110 ml @ 27.5 mls/hr Q12HR IVPB 12/06/20 20:00 12/13/20 19:59 12/09/20 22:03 Thiamine HCl (Vitamin B1) 100 mg DAILY ORAL 12/06/20 20:00 01/05/21 19:59 12/08/20 08:50 Vasopressin 100 units/Sodium Chloride 100 ml @ 0 mls/hr Q24H IV 12/08/20 05:45 12/11/20 05:31 12/09/20 05:40 Assessment/Plan Problem List: (1) Alcoholic cirrhosis of liver with ascites ICD Codes: K70.31 - Alcoholic cirrhosis of liver with ascites SNOMED: 127600752, 246258175 (2) Tibia/fibula fracture, shaft ICD Codes: S82.209A - Unspecified fracture of shaft of unspecified tibia, initial encounter for closed fracture; S82.409A - Unspecified fracture of shaft of unspecified fibula, initial encounter for closed fracture SNOMED: 765772625, 601946102 Qualifiers: Qualified Codes: S82.201A - Unspecified fracture of shaft of right tibia, initial encounter for closed fracture; S82.401A - Unspecified fracture of shaft of right fibula, initial encounter for closed fracture (3) Hypokalemia ICD Codes: E87.6 - Hypokalemia; S82.409A - Unspecified fracture of shaft of unspecified fibula, initial encounter for closed fracture SNOMED: 03575821, 470469964 (4) Hepatorenal syndrome ICD Codes: K76.7 - Hepatorenal syndrome; S82.409A - Unspecified fracture of shaft of unspecified fibula, initial encounter for closed fracture SNOMED: 40902338, 311298352 Status: deteriorating Assessment/Plan: start stress dose IVHC glucose monitoring without insulin coverage hypoglycemia protocol Richard Brar MD Dec 10, 2020 06:37
[2020-12-10 06:53] LABS: HEMATOCRIT 21.8 % (42.0-52.0); HEMOGLOBIN 7.2 G/DL (14.2-18.0); MEAN CORPUSCULAR VOLUME 95 FL (80-99); PLATELET COUNT 28 K/UL (150-450); WHITE BLOOD COUNT 14.3 K/UL (4.8-10.8)
[2020-12-10 07:20] LABS: INR 2.3 (0.9-1.1)
--- NOTE | 2020-12-10 07:25 | NUR ---
NURSE NOTES: Received bedside report from ALEENA Weaver. Pt's VS stable at this time. Pt obtunded, does not follow commands. ST on the cardiac cath tech, aware, HR between 100-115. Pt's respirations even, currently on a non-rebreather at 15L, O2 sat between 95-100%. Pt NPO, has moderate amount of yellow frothy sputum / secretions coming out of pt's mouth, MD aware. Pt has ohara catheter, draining well, dark brittany urine noted. Skin intact, pressure points protected with optifoam. Pt has Right IJ TLC, dressing clean dry and intact, no signs of infection or complication noted, with the following drips infusing: Levophed at 15mcg, Vasopressin 0.02, D5NS at 50mL/hr, and Octreotide 50mL/hr. HOB at 30 degrees. Bed rails up, bed locked and in lowest position. Safety precautions maintained. Will continue to monitor.
--- NOTE | 2020-12-10 07:29 | Consultation ---
DATE OF CONSULTATION: 12/07/2020 INFECTIOUS DISEASE CONSULTATION CONSULTING PHYSICIAN: Deepak Villarreal MD PRIMARY ATTENDING: Divya Nevarez MD REASON FOR CONSULTATION: Sepsis, pneumonia. HISTORY OF PRESENT ILLNESS: This is a 40-year-old male, admitted yesterday complaining of right ankle pain, swelling deformity, happened 1-1/2 hours before coming to the ER. He fell and twisted his ankle. He was found to have tibia-fibular shaft fracture. While admitted to the floor, the patient developed hypotension, hypoglycemia, altered mental status, and was transferred to ICU. Currently getting Levophed and is not the source of history. PAST MEDICAL HISTORY: Alcoholic cirrhosis with ascites. ALLERGIES: No known drug allergies. MEDICATIONS: Getting Epogen, potassium chloride, norepinephrine, pentoxifylline, Protonix, folic acid, multivitamins & Zosyn. SOCIAL HISTORY: Single. Lives with mother. No other history obtainable by the patient. PHYSICAL EXAMINATION: VITAL SIGNS: Temperature is 98. No fever in the hospital. Pulse 100, blood pressure is 61/34. GENERAL APPEARANCE: Seems to have normal weight. HEAD AND NECK: Has icteric sclerae. Has right IJ central line. HEART: Tachycardic. LUNGS: Few rhonchi bilaterally. ABDOMEN: Distended with ascites. EXTREMITIES: Has bilateral pedal edema. NEUROLOGIC: Unresponsive. LABORATORY AND DIAGNOSTIC DATA: WBC 15,000, hemoglobin 9.1, hematocrit 45.5, platelets 54. Sodium 130, potassium 3, chloride 96, bicarb 17, BUN 31, creatinine 5, glucose 63. Earlier, glucose yesterday was 33. Total bilirubin is 29.4, direct bilirubin is 22.1, AST is 74, ALT is 48, alkaline phosphatase is 278. Ammonia is 199. Albumin is 2.1. Chest x-ray showed possible multifocal pneumonia versus artifact. renal US bilateral echogenic kidneys. Ankle x-ray showed comminuted fracture of distal tibia and fibular shaft. IMPRESSION: Hypotension, shock. Has pneumonia,Cirrhosis hepatitic encephalopathy. Likely has acute renal failure, likely secondary to hepatorenal syndrome. Has hyponatremia, hypokalemia, anemia, thrombocytopenia, tibia and fibular shaft fracture, hypoglycemia. RECOMMENDATION: We will continue with Zosyn. We will follow up the cultures. We will follow up PCR for COVID-19. At the end of my exam, I thank Dr. Nevarez for involving me in the care of this patient. Deepak Villarreal M.D. DR: CAROLA JOB#: [id number] CC: FARA
[2020-12-10 07:40] LABS: ALBUMIN 3.7 G/DL (3.4-5.0); ALBUMIN/GLOBULIN RATIO 2.1 (1.0-2.7); BILIRUBIN,DIRECT 18.1 MG/DL (0.0-0.3); BILIRUBIN,TOTAL 29.5 MG/DL (0.2-1.0); CALCIUM 8.2 MG/DL (8.5-10.1); CREATININE 3.7 MG/DL (0.55-1.30); PHOSPHORUS 4.9 MG/DL (2.5-4.9)
[2020-12-10] MEDS: Hydrocortisone 100mg Inj IV SCH ×3 (07:44→22:00)
--- NOTE | 2020-12-10 07:45 | Hematology/Onc Progress Note ---
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 --> smear has been noted --> meds reviewed --> plt 68-->54-->35-->28 --> transfuse as needed pre-procedure --> hep and hiv panel neg # Coagulopathy persistently elevated, due to liver disease --> vit k and ffp as needed --> inr 2.9-->4.2-->2.3 # Fracture right tibial shaft --> s/p Splinting --> as per ortho # Hypokalemia --> replete with k per renal # Alcohol abuse # Alcoholic cirrhosis of liver with ascites # Hepatorenal syndrome # Severe abnormal electrolytes: Hyponatremia, hypokalemia # Jaundice # Dvt ppx scds Appreciate consultation and lorena FLOOD Subjective Constitutional: Denies: no symptoms, chills, fever, malaise, weakness, other HEENT: Denies: no symptoms, eye pain, blurred vision, tearing, double vision, ear pain, ear discharge, nose pain, nose congestion, throat pain, throat swelling, mouth pain, mouth swelling, other Respiratory: Denies: no symptoms, cough, shortness of breath, SOB with excertion, SOB at rest, sputum, wheezing, other Gastrointestinal/Abdominal: Denies: no symptoms, abdomen distended, abdominal pain, black stools, tarry stools, blood in stool, constipated, diarrhea, difficulty swallowing, nausea, poor appetite, poor fluid intake, rectal bleeding, vomiting, other Genitourinary: Denies: no symptoms, burning, discharge, frequency, flank pain, hematuria, incontinence, pain, urgency, other Endocrine: Denies: no symptoms, excessive sweating, flushing, intolerance to cold, intolerance to heat, increased hunger, increased thirst, increased urine, unexplained weight gain, unexplained weight loss, other Allergies: Coded Allergies: No Known Allergies (Unverified , 12/06/20) Subjective 12/08: pt remains in ICU, hgb 7.8 12/09 remains in icu, minimally responsive dw Boaz Weaver, to get prbc today 12/10 labs are noted, in the icu, to get ffp today, inr remains elevated above 2 Objective Objective Current Medications Medications (Trade) Dose Ordered Sig/Armin Route PRN Reason Start Time Stop Time Status Last Admin Dose Admin Albumin Human 100 ml @ 100 mls/hr Q6H IV 12/08/20 20:00 03/06/21 19:59 12/10/20 02:14 Albumin Human 100 ml @ 100 mls/hr QHS IV 12/08/20 21:00 12/11/20 21:59 12/09/20 22:14 Chlorhexidine Gluconate (Mariama-Hex 2%) 1 applic DAILY@2000 TOPIC 12/07/20 20:00 03/07/21 19:59 12/09/20 19:33 Dextrose (Dextrose 50%) 25 ml Q30M PRN IV Hypoglycemia 12/09/20 11:15 03/09/21 11:14 Dextrose (Dextrose 50%) 50 ml Q30M PRN IV Hypoglycemia 12/09/20 11:15 03/09/21 11:14 12/09/20 23:22 Dextrose/Sodium Chloride 1,000 ml @ 50 mls/hr Q20H IV 12/06/20 12:30 01/05/21 12:29 12/09/20 19:34 Epoetin Sd (Epoetin Sd-EPBX(NON ESRD)) 4,000 unit THU-THU-THU SUBQ 12/07/20 21:00 03/07/21 20:59 12/07/20 22:40 Folic Acid (Folate) 2 mg DAILY ORAL 12/08/20 13:45 01/05/21 19:59 Hydrocortisone (Solu-CORTEF) 100 mg EVERY 8 HOURS IV 12/10/20 06:45 03/10/21 06:44 Lactulose (Cephulac) 45 gm THREE TIMES A DAY ORAL 12/07/20 21:45 01/05/21 19:59 12/09/20 17:56 Midodrine (Pro-Amatine) 10 mg THREE TIMES A DAY ORAL 12/06/20 13:00 03/06/21 12:59 12/08/20 08:50 Multivitamins (Multivitamins) 1 tab DAILY ORAL 12/06/20 20:00 01/05/21 19:59 12/08/20 08:50 Norepinephrine Bitartrate 16 mg/ Dextrose 516 ml @ 7.74 mls/hr Q24H IV 12/09/20 21:00 12/12/20 15:14 12/09/20 21:00 Octreotide Acetate 500 mcg/ Sodium Chloride 500 ml @ 50 mls/hr Q10H IV 12/09/20 08:30 01/08/21 08:29 12/10/20 05:47 Pantoprazole (Protonix) 40 mg EVERY 12 HOURS IVP 12/06/20 21:00 01/05/21 20:59 12/09/20 22:03 Pentoxifylline (TRENtal) 400 mg Q12HR ORAL 12/06/20 21:00 03/06/21 20:59 12/08/20 08:51 Piperacillin Sod/ Tazobactam Sod 3.375 gm/Sodium Chloride 110 ml @ 27.5 mls/hr Q12HR IVPB 12/06/20 20:00 12/13/20 19:59 12/09/20 22:03 Thiamine HCl (Vitamin B1) 100 mg DAILY ORAL 12/06/20 20:00 01/05/21 19:59 12/08/20 08:50 Vasopressin 100 units/Sodium Chloride 100 ml @ 0 mls/hr Q24H IV 12/08/20 05:45 12/11/20 05:31 12/09/20 05:40 Last 24 Hour Vital Signs Date Time Temp Pulse Resp B/P (MAP) Pulse Ox O2 Delivery O2 Flow Rate FiO2 12/10/20 06:15 99 19 99 12/10/20 06:00 105 22 110/55 (73) 97 12/10/20 04:45 114 23 95 12/10/20 04:30 112 21 118/64 (82) 95 12/10/20 04:15 112 23 95 12/10/20 04:00 98.7 112 22 122/66 (84) 94 12/10/20 04:00 Room Air 12/10/20 03:45 114 22 95 12/10/20 03:30 110 20 120/60 (80) 92 12/10/20 03:15 112 22 91 12/10/20 03:00 110 21 112/60 (77) 90 12/10/20 03:00 110 21 112/60 (77) 90 12/10/20 02:50 103 20 103/53 (70) 91 12/10/20 02:45 108 21 93 12/10/20 02:35 112 23 115/65 (82) 95 12/10/20 02:30 112 22 120/102 (108) 96 12/10/20 02:22 114 22 105/59 (74) 96 12/10/20 02:15 112 23 97 12/10/20 02:12 114 23 92/51 (65) 97 12/10/20 02:00 117 23 117/50 (72) 97 12/10/20 01:45 117 23 98 12/10/20 01:30 116 19 116/49 (71) 98 12/10/20 01:15 117 23 98 12/10/20 01:00 117 21 123/46 (71) 98 12/10/20 00:30 119 20 105/59 (74) 98 12/10/20 00:15 120 20 96 12/10/20 00:00 99.4 121 22 110/50 (70) 94 12/10/20 00:00 Room Air 12/09/20 23:55 121 20 110/50 (70) 95 12/09/20 23:30 114/58 (76) 12/09/20 23:19 115 22 98/50 (66) 98 12/09/20 23:15 115 23 99 12/09/20 23:00 115 23 99/49 (66) 98 12/09/20 22:45 117 22 99 12/09/20 22:30 116 23 97/43 (61) 98 12/09/20 22:23 118 22 101/45 (63) 97 12/09/20 22:15 117 23 97 12/09/20 22:09 116 23 95/42 (59) 98 12/09/20 22:00 118 22 92/33 (52) 98 12/09/20 21:45 120 30 99 12/09/20 21:41 120 33 100/52 (68) 99 12/09/20 21:30 120 26 104/51 (68) 99 12/09/20 21:25 121 26 108/47 (67) 99 12/09/20 21:15 122 31 99 12/09/20 21:00 123 27 113/50 (71) 100 12/09/20 21:00 92/33 12/09/20 21:00 92/33 12/09/20 20:45 122 33 100 12/09/20 20:30 121 29 119/76 (90) 100 12/09/20 20:15 121 31 68 12/09/20 20:00 Room Air 12/09/20 20:00 98.8 123 27 130/56 (80) 94 12/09/20 19:45 123 31 99 12/09/20 19:30 125 27 113/49 (70) 100 12/09/20 19:15 129 26 95 12/09/20 19:00 125 27 142/78 (99) 100 12/09/20 19:00 98.6 12/09/20 18:43 97.2 124 27 153/86 (108) 100 12/09/20 18:21 123 24 137/73 (94) 100 12/09/20 18:00 97.5 112 23 120/57 (78) 100 12/09/20 17:00 117 20 138/67 (90) 99 12/09/20 16:00 97.5 101 24 131/72 (91) 100 12/09/20 16:00 Room Air 12/09/20 15:22 118/62 12/09/20 15:00 97.9 109 23 118/62 (80) 100 12/09/20 14:00 111 25 124/61 (82) 95 12/09/20 13:00 111 24 127/64 (85) 97 12/09/20 12:00 Room Air 12/09/20 12:00 110 25 113/55 (74) 95 12/09/20 11:00 111 23 118/59 (78) 95 12/09/20 10:00 103 24 101/47 (65) 95 12/09/20 09:00 113 25 115/54 (74) 98 12/09/20 08:00 Room Air 12/09/20 08:00 100.0 113 25 111/52 (71) 98 12/09/20 07:00 100.6 114 26 117/50 (72) 98 12/09/20 06:00 116 20 119/50 (73) 100 12/09/20 05:00 115 24 101/42 (61) 100 12/09/20 04:00 113 20 102/46 (64) 100 12/09/20 04:00 98.0 12/09/20 04:00 Room Air 12/09/20 03:00 116 18 95/49 (64) 100 12/09/20 02:00 117 18 116/48 (70) 100 12/09/20 01:00 116 16 110/47 (68) 100 12/09/20 00:00 115 20 100/49 (66) 100 12/09/20 00:00 Room Air 12/08/20 23:00 119 20 106/46 (66) 100 12/08/20 22:00 119 18 109/47 (67) 100 12/08/20 21:00 118 18 108/47 (67) 100 12/08/20 20:35 106/48 12/08/20 20:00 Room Air 12/08/20 20:00 98.1 12/08/20 20:00 100 22 106/48 (67) 100 12/08/20 19:00 108 18 101/49 (66) 98 12/08/20 18:30 111/51 12/08/20 18:00 100 20 93/40 (57) 97 12/08/20 17:00 102 23 105/50 (68) 97 12/08/20 16:00 Room Air 12/08/20 16:00 99.3 117 25 98/41 (60) 98 12/08/20 15:00 112 26 107/48 (67) 99 12/08/20 14:00 114 25 101/46 (64) 98 12/08/20 13:00 112 24 100/45 (63) 98 12/08/20 12:00 Room Air 12/08/20 12:00 98.9 110 21 101/50 (67) 98 12/08/20 11:00 110 25 103/48 (66) 99 12/08/20 10:00 112 25 98/49 (65) 99 12/08/20 09:00 109 24 119/49 (72) 100 12/08/20 08:51 128/64 12/08/20 08:36 82/33 12/08/20 08:00 97.9 99 20 110/47 (68) 100 12/08/20 08:00 Room Air Intake and Output 12/09/20 12/10/20 19:00 07:00 Intake Total 101.8 ml 2358.98 ml Output Total 857 ml 145 ml Balance -755.2 ml 2213.98 ml IV Total 101.8 ml 1330.98 ml Blood Product 1028 ml Output Urine Total 857 ml 145 ml # Bowel Movements 2 3 Labs Test 12/08/20 03:50 12/08/20 04:00 12/09/20 06:08 12/09/20 13:45 White Blood Count 10.1 K/UL (4.8-10.8) 11.5 K/UL (4.8-10.8) Red Blood Count 2.45 M/UL (4.70-6.10) 2.13 M/UL (4.70-6.10) Hemoglobin 7.8 G/DL (14.2-18.0) 6.6 G/DL (14.2-18.0) Hematocrit 22.0 % (42.0-52.0) 19.3 % (42.0-52.0) Mean Corpuscular Volume 90 FL (80-99) 91 FL (80-99) Mean Corpuscular Hemoglobin 31.7 PG (27.0-31.0) 30.8 PG (27.0-31.0) Mean Corpuscular Hemoglobin Concent 35.4 G/DL (32.0-36.0) 34.0 G/DL (32.0-36.0) Red Cell Distribution Width 16.2 % (11.6-14.8) 16.3 % (11.6-14.8) Platelet Count 35 K/UL (150-450) 32 K/UL (150-450) Mean Platelet Volume 8.4 FL (6.5-10.1) 7.4 FL (6.5-10.1) Neutrophils (%) (Auto) % (45.0-75.0) % (45.0-75.0) Lymphocytes (%) (Auto) % (20.0-45.0) % (20.0-45.0) Monocytes (%) (Auto) % (1.0-10.0) % (1.0-10.0) Eosinophils (%) (Auto) % (0.0-3.0) % (0.0-3.0) Basophils (%) (Auto) % (0.0-2.0) % (0.0-2.0) Differential Total Cells Counted 100 100 Neutrophils % (Manual) 80 % (45-75) 85 % (45-75) Lymphocytes % (Manual) 13 % (20-45) 9 % (20-45) Monocytes % (Manual) 6 % (1-10) 5 % (1-10) Eosinophils % (Manual) 1 % (0-3) 1 % (0-3) Basophils % (Manual) 0 % (0-2) 0 % (0-2) Band Neutrophils 0 % (0-8) 0 % (0-8) Platelet Estimate Decreased Decreased Platelet Morphology Normal Normal Hypochromasia 1+ 2+ Anisocytosis 1+ 1+ Sodium Level 135 MMOL/L (136-145) 141 MMOL/L (136-145) Potassium Level 3.4 MMOL/L (3.5-5.1) 2.8 MMOL/L (3.5-5.1) Chloride Level 102 MMOL/L (98-107) 106 MMOL/L (98-107) Carbon Dioxide Level 15 MMOL/L (21-32) 15 MMOL/L (21-32) Anion Gap 18 mmol/L (5-15) 19 mmol/L (5-15) Blood Urea Nitrogen 38 mg/dL (7-18) 40 mg/dL (7-18) Creatinine 5.8 MG/DL (0.55-1.30) 4.4 MG/DL (0.55-1.30) Estimat Glomerular Filtration Rate 10.8 mL/min (>60) 14.9 mL/min (>60) Glucose Level 66 MG/DL (74-106) 80 MG/DL (74-106) Uric Acid 11.0 MG/DL (2.6-7.2) 11.0 MG/DL (2.6-7.2) Calcium Level 7.1 MG/DL (8.5-10.1) 7.8 MG/DL (8.5-10.1) Phosphorus Level 2.9 MG/DL (2.5-4.9) 3.4 MG/DL (2.5-4.9) Magnesium Level 1.7 MG/DL (1.8-2.4) 2.1 MG/DL (1.8-2.4) Total Bilirubin 29.3 MG/DL (0.2-1.0) 30.9 MG/DL (0.2-1.0) Direct Bilirubin 19.7 MG/DL (0.0-0.3) 18.7 MG/DL (0.0-0.3) Gamma Glutamyl Transpeptidase 123 U/L (5-85) Aspartate Amino Transf (AST/SGOT) 204 U/L (15-37) 213 U/L (15-37) Alanine Aminotransferase (ALT/SGPT) 52 U/L (12-78) 52 U/L (12-78) Alkaline Phosphatase 221 U/L (46-116) 168 U/L (46-116) Ammonia 142 umol/L (11-32) 186 umol/L (11-32) C-Reactive Protein, Quantitative 12.6 mg/dL (0.00-0.90) 11.9 mg/dL (0.00-0.90) Pro-B-Type Natriuretic Peptide 9402 pg/mL (0-125) 14120 pg/mL (0-125) Total Protein 4.6 G/DL (6.4-8.2) 5.3 G/DL (6.4-8.2) Albumin 2.4 G/DL (3.4-5.0) 3.5 G/DL (3.4-5.0) Globulin 2.2 g/dL 1.8 g/dL Albumin/Globulin Ratio 1.1 (1.0-2.7) 1.9 (1.0-2.7) Urine Color Brown Urine Appearance Turbid Urine pH 6.5 (4.5-8.0) Urine Specific [place] 1.015 (1.005-1.035) Urine Protein 3+ (NEGATIVE) Urine Glucose (UA) Negative (NEGATIVE) Urine Ketones 1+ (NEGATIVE) Urine Blood 5+ (NEGATIVE) Urine Nitrite Positive (NEGATIVE) Urine Bilirubin 3+ (NEGATIVE) Urine Ictotest Positive (NEGATIVE) Urine Urobilinogen 4 MG/DL (0.0-1.0) Urine Leukocyte Esterase 2+ (NEGATIVE) Urine RBC 0-2 /HPF (0 - 0) Urine WBC 0-2 /HPF (0 - 0) Urine Squamous Epithelial Cells Occasional /LPF Urine Bacteria Many /HPF (NONE) Urine Yeast Moderate /HPF (NONE) Urine Random Sodium 20 mmol/L (20-110) Stool Occult Blood Positive (NEGATIVE) Prothrombin Time 35.4 SEC (9.30-11.50) Prothromb Time International Ratio 3.5 (0.9-1.1) Activated Partial Thromboplast Time 100 SEC (23-33) POC Whole Blood Glucose 64 MG/DL (74-106) Test 12/09/20 22:29 12/10/20 00:09 12/10/20 00:34 12/10/20 05:43 Arterial Blood pH 7.334 (7.350-7.450) Arterial Blood Partial Pressure CO2 29.1 mmHg (35.0-45.0) Arterial Blood Partial Pressure O2 89.8 mmHg (75.0-100.0) Arterial Blood HCO3 15.1 mmol/L (22.0-26.0) Arterial Blood Oxygen Saturation 95.8 % (95-100) Arterial Blood Base Excess -9.8 (-2-2) Vikash Test Positive POC Whole Blood Glucose 110 MG/DL (74-106) White Blood Count 18.3 K/UL (4.8-10.8) 14.3 K/UL (4.8-10.8) Red Blood Count 1.98 M/UL (4.70-6.10) 2.30 M/UL (4.70-6.10) Hemoglobin 6.2 G/DL (14.2-18.0) 7.2 G/DL (14.2-18.0) Hematocrit 18.5 % (42.0-52.0) 21.8 % (42.0-52.0) Mean Corpuscular Volume 94 FL (80-99) 95 FL (80-99) Mean Corpuscular Hemoglobin 31.4 PG (27.0-31.0) 31.1 PG (27.0-31.0) Mean Corpuscular Hemoglobin Concent 33.4 G/DL (32.0-36.0) 32.8 G/DL (32.0-36.0) Red Cell Distribution Width 16.0 % (11.6-14.8) 16.0 % (11.6-14.8) Platelet Count 31 K/UL (150-450) 28 K/UL (150-450) Mean Platelet Volume 6.4 FL (6.5-10.1) 6.7 FL (6.5-10.1) Neutrophils (%) (Auto) % (45.0-75.0) % (45.0-75.0) Lymphocytes (%) (Auto) % (20.0-45.0) % (20.0-45.0) Monocytes (%) (Auto) % (1.0-10.0) % (1.0-10.0) Eosinophils (%) (Auto) % (0.0-3.0) % (0.0-3.0) Basophils (%) (Auto) % (0.0-2.0) % (0.0-2.0) Differential Total Cells Counted 100 Neutrophils % (Manual) 87 % (45-75) Lymphocytes % (Manual) 6 % (20-45) Monocytes % (Manual) 5 % (1-10) Eosinophils % (Manual) 0 % (0-3) Basophils % (Manual) 0 % (0-2) Band Neutrophils 2 % (0-8) Platelet Estimate Decreased Platelet Morphology Normal Prothrombin Time 23.4 SEC (9.30-11.50) Prothromb Time International Ratio 2.3 (0.9-1.1) Sodium Level 146 MMOL/L (136-145) Potassium Level 3.0 MMOL/L (3.5-5.1) Chloride Level 113 MMOL/L (98-107) Carbon Dioxide Level 17 MMOL/L (21-32) Anion Gap 16 mmol/L (5-15) Blood Urea Nitrogen 45 mg/dL (7-18) Creatinine 3.7 MG/DL (0.55-1.30) Estimat Glomerular Filtration Rate 18.2 mL/min (>60) Glucose Level 98 MG/DL (74-106) Uric Acid 10.6 MG/DL (2.6-7.2) Calcium Level 8.2 MG/DL (8.5-10.1) Phosphorus Level 4.9 MG/DL (2.5-4.9) Magnesium Level 2.1 MG/DL (1.8-2.4) Total Bilirubin 29.5 MG/DL (0.2-1.0) Direct Bilirubin 18.1 MG/DL (0.0-0.3) Aspartate Amino Transf (AST/SGOT) 149 U/L (15-37) Alanine Aminotransferase (ALT/SGPT) 43 U/L (12-78) Alkaline Phosphatase 126 U/L (46-116) Ammonia 176 umol/L (11-32) C-Reactive Protein, Quantitative 12.7 mg/dL (0.00-0.90) Pro-B-Type Natriuretic Peptide 48736 pg/mL (0-125) Total Protein 5.5 G/DL (6.4-8.2) Albumin 3.7 G/DL (3.4-5.0) Globulin 1.8 g/dL Albumin/Globulin Ratio 2.1 (1.0-2.7) Height (Feet): 5 Height (Inches): 8.00 Weight (Pounds): 160 Objective Sp02 EP Interpretation: reviewed, normal General Appearance: well appearing, no apparent distress, alert Head: normocephalic, atraumatic Eyes: bilateral eye PERRL, bilateral eye EOMI, bilateral eye scleral icterus++ ENT: hearing grossly normal, normal pharynx Neck: full range of motion, supple, no meningismus Respiratory: chest non-tender, lungs clear, normal breath sounds Cardiovascular: regular rate, rhythm, no murmur Gastrointestinal: normal bowel sounds, non tender, no mass, no organomegaly, no bruit, non-distended, other - ascites Musculoskeletal: back normal, other - Right ankle: He has 4+ pitting edema. He has deformity and tenderness to the ankle and foot. Sensation normal. Jose Douglass MD Dec 10, 2020 07:45
--- NOTE | 2020-12-10 08:15 | NUR ---
NURSE NOTES: Received order from MD Douglass for Vit K 10mg subcut daily. Will put in order.
--- NOTE | 2020-12-10 08:30 | NUR ---
NURSE NOTES: MD Douglass and MD Upton at bedside to assess pt. MD updated regarding pt's status. Safety precautions maintained. Will continue to monitor.
--- NOTE | 2020-12-10 08:47 | General Progress Note ---
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 on two pressors still oozing blood from mouth/penis s/p 3 units FFP --> INR >2 Hg now above 7 Objective Last 24 Hour Vital Signs Date Time Temp Pulse Resp B/P (MAP) Pulse Ox O2 Delivery O2 Flow Rate FiO2 12/10/20 06:15 99 19 99 12/10/20 06:00 105 22 110/55 (73) 97 12/10/20 04:45 114 23 95 12/10/20 04:30 112 21 118/64 (82) 95 12/10/20 04:15 112 23 95 12/10/20 04:00 98.7 112 22 122/66 (84) 94 12/10/20 04:00 Room Air 12/10/20 03:45 114 22 95 12/10/20 03:30 110 20 120/60 (80) 92 12/10/20 03:15 112 22 91 12/10/20 03:00 110 21 112/60 (77) 90 12/10/20 03:00 110 21 112/60 (77) 90 12/10/20 02:50 103 20 103/53 (70) 91 12/10/20 02:45 108 21 93 12/10/20 02:35 112 23 115/65 (82) 95 12/10/20 02:30 112 22 120/102 (108) 96 12/10/20 02:22 114 22 105/59 (74) 96 12/10/20 02:15 112 23 97 12/10/20 02:12 114 23 92/51 (65) 97 12/10/20 02:00 117 23 117/50 (72) 97 12/10/20 01:45 117 23 98 12/10/20 01:30 116 19 116/49 (71) 98 12/10/20 01:15 117 23 98 12/10/20 01:00 117 21 123/46 (71) 98 12/10/20 00:30 119 20 105/59 (74) 98 12/10/20 00:15 120 20 96 12/10/20 00:00 99.4 121 22 110/50 (70) 94 12/10/20 00:00 Room Air 12/09/20 23:55 121 20 110/50 (70) 95 12/09/20 23:30 114/58 (76) 12/09/20 23:19 115 22 98/50 (66) 98 12/09/20 23:15 115 23 99 12/09/20 23:00 115 23 99/49 (66) 98 12/09/20 22:45 117 22 99 12/09/20 22:30 116 23 97/43 (61) 98 12/09/20 22:23 118 22 101/45 (63) 97 12/09/20 22:15 117 23 97 12/09/20 22:09 116 23 95/42 (59) 98 12/09/20 22:00 118 22 92/33 (52) 98 12/09/20 21:45 120 30 99 12/09/20 21:41 120 33 100/52 (68) 99 12/09/20 21:30 120 26 104/51 (68) 99 12/09/20 21:25 121 26 108/47 (67) 99 12/09/20 21:15 122 31 99 12/09/20 21:00 123 27 113/50 (71) 100 12/09/20 21:00 92/33 12/09/20 21:00 92/33 12/09/20 20:45 122 33 100 12/09/20 20:30 121 29 119/76 (90) 100 12/09/20 20:15 121 31 68 12/09/20 20:00 Room Air 12/09/20 20:00 98.8 123 27 130/56 (80) 94 12/09/20 19:45 123 31 99 12/09/20 19:30 125 27 113/49 (70) 100 12/09/20 19:15 129 26 95 12/09/20 19:00 125 27 142/78 (99) 100 12/09/20 19:00 98.6 12/09/20 18:43 97.2 124 27 153/86 (108) 100 12/09/20 18:21 123 24 137/73 (94) 100 12/09/20 18:00 97.5 112 23 120/57 (78) 100 12/09/20 17:00 117 20 138/67 (90) 99 12/09/20 16:00 97.5 101 24 131/72 (91) 100 12/09/20 16:00 Room Air 12/09/20 15:22 118/62 12/09/20 15:00 97.9 109 23 118/62 (80) 100 12/09/20 14:00 111 25 124/61 (82) 95 12/09/20 13:00 111 24 127/64 (85) 97 12/09/20 12:00 Room Air 12/09/20 12:00 110 25 113/55 (74) 95 12/09/20 11:00 111 23 118/59 (78) 95 12/09/20 10:00 103 24 101/47 (65) 95 12/09/20 09:00 113 25 115/54 (74) 98 Intake and Output 12/09/20 12/10/20 19:00 07:00 Intake Total 101.8 ml 2358.98 ml Output Total 857 ml 145 ml Balance -755.2 ml 2213.98 ml IV Total 101.8 ml 1330.98 ml Blood Product 1028 ml Output Urine Total 857 ml 145 ml # Bowel Movements 2 3 Laboratory Tests 12/09/20 13:45: POC Whole Blood Glucose 64L 12/09/20 22:29: Arterial Blood pH 7.334L, Arterial Blood Partial Pressure CO2 29.1L, Arterial Blood Partial Pressure O2 89.8, Arterial Blood HCO3 15.1*L, Arterial Blood Oxygen Saturation 95.8, Arterial Blood Base Excess -9.8*L, Vikash Test Positive 12/10/20 00:09: POC Whole Blood Glucose 110H 12/10/20 00:34: White Blood Count 18.3#H, Red Blood Count 1.98L, Hemoglobin 6.2*L, Hematocrit 18.5L, Mean Corpuscular Volume 94, Mean Corpuscular Hemoglobin 31.4H, Mean Corpuscular Hemoglobin Concent 33.4, Red Cell Distribution Width 16.0H, Platelet Count 31L, Mean Platelet Volume 6.4L, Neutrophils (%) (Auto) , Lymphocytes (%) (Auto) , Monocytes (%) (Auto) , Eosinophils (%) (Auto) , Basophils (%) (Auto) , Differential Total Cells Counted 100, Neutrophils % (Manual) 87H, Lymphocytes % (Manual) 6L, Monocytes % (Manual) 5, Eosinophils % (Manual) 0, Basophils % (Manual) 0, Band Neutrophils 2, Platelet Estimate DecreasedL, Platelet Morphology Normal, Prothrombin Time 23.4H, Prothromb Time International Ratio 2.3H 12/10/20 05:43: White Blood Count 14.3H, Red Blood Count 2.30L, Hemoglobin 7.2L, Hematocrit 21.8L, Mean Corpuscular Volume 95, Mean Corpuscular Hemoglobin 31.1H, Mean Corpuscular Hemoglobin Concent 32.8, Red Cell Distribution Width 16.0H, Platelet Count 28L, Mean Platelet Volume 6.7, Neutrophils (%) (Auto) , Lymphocytes (%) (Auto) , Monocytes (%) (Auto) , Eosinophils (%) (Auto) , Basophils (%) (Auto) , Neutrophils % (Manual) [Pending], Lymphocytes % (Manual) [Pending], Platelet Estimate [Pending], Platelet Morphology [Pending], Prothrombin Time 24.2H, Prothromb Time International Ratio 2.3H, Activated Partial Thromboplast Time 67H , Sodium Level 146H, Potassium Level 3.0L, Chloride Level 113H, Carbon Dioxide L evel 17L, Anion Gap 16H, Blood Urea Nitrogen 45H, Creatinine 3.7H, Estimat Glomerular Filtration Rate 18.2, Glucose Level 98, Uric Acid 10.6H, Calcium Level 8.2L, Phosphorus Level 4.9, Magnesium Level 2.1, Total Bilirubin 29.5H, Direct Bilirubin 18.1H, Aspartate Amino Transf (AST/SGOT) 149H, Alanine Aminotransferase (ALT/SGPT) 43, Alkaline Phosphatase 126H, Ammonia 176H, C- Reactive Protein, Quantitative 12.7H, Pro-B-Type Natriuretic Peptide 95846E, Total Protein 5.5L, Albumin 3.7, Globulin 1.8, Albumin/Globulin Ratio 2.1 Height (Feet): 5 Height (Inches): 8.00 Weight (Pounds): 160 Objective Patient seen in ICU obtunded, minimally communicative agonal breathing pattern NCAT supple Coarse BS RR abd mildly distended, (+) fluid wave (+) b/l LE edema, (R) leg splint Assessment/Plan Status: deteriorating Assessment/Plan: Assessment - Severe alcoholic hepatitis, jaundice - cirrhosis with ascites,varicies, portal HTN - per ultrasound - Decompensated liver disease - Alcoholic hepatitis - underlying cirrhosis - Hepatorenal - Sepsis? SBP? - Renal failure - poor prognostic indicator - Hepatic encephalopathy, high NH3 - needs lactulose - orders for rectal Rx given - Coagulopathy - severe, will Rx more FFP - (+) EtOH level on admission - Fractured Tib/Fib - Drop in H&H - multifactorial : - loss in fractured LE - mouth / loss - possible component of GI bleed - blood draws - sepsis/poor health - Patient moribund. Would discuss terminal care with family Recommendations - Midodrine/Octreotide trial for HRS (only receiving the latter) - s/p albumin challenge for HRS vs ATN - PPI IV - Lactulose ---> convert to MI - orders given - MVI/Thiamine - Trental trial (cannot give steroids given possible sepsis) - broad spectrum abx - paracentesis - r/o SBP - abdominal u/s - r/o biliary obstruction - Vitamin K - given - unable to take oral meds since NPO - too high risk for bleeding/aspiration/respiratory arrest with NGT or OGT placement - not stable for endoscopy (sepsis, shock, coagulopathy, impending resp failure) Murray Upton MD Dec 10, 2020 08:47
--- NOTE | 2020-12-10 09:00 | NUR ---
NURSE NOTES: Pt's mother and brother at bedside to visit patient. Family updated regarding pt's status by CN. Pt's mother signed POLST to change pt's code status to DNR/DNI, signed form in chart, Will notify MD.
[2020-12-10] MEDS: Thiamine 100mg tab ORAL SCH (09:37)
[2020-12-10] MEDS: Midodrine 10mg tab ORAL SCH ×3 (09:38→17:37)
[2020-12-10] MEDS: Pantoprazole Inj IVP SCH ×2 (10:12→21:13)
[2020-12-10] MEDS: Piperacillin/Tazobactam 3.375 GM in NS 110 ML IVPB SCH ×2 (10:15→21:14)
--- NOTE | 2020-12-10 10:15 | NUR ---
NURSE NOTES: Unable to give Zosyn to pt due to medication is not available in the pyxis and medication bin, pharmacist made aware. Instructed by pharmacist to wait for new bag.
[2020-12-10] MEDS: Lactulose 20gm/30ml UDC ORAL SCH ×3 (10:17→17:37)
--- NOTE | 2020-12-10 10:20 | NUR ---
CASE MANAGEMENT:REVIEW 12/10/20 SI: HEPATIC ENCEPHALOPATHY. POD #4...S/P ORIF RT TIBIA. OOZING BLOOD FROM MOUTH AND PENIS..S/P 2 U PRBC AND 3 U FFP 98.7 112 23 105/53 99% ON RA WBC+18.3 H/H-6.2/18.5 PLT-31 INR+2.3 T K-3.0 BUN+45 CR+3.7 BILI/DBILI+29.5/18.1 AMMONIA+176 IS;IV KCL Q2HRS X2 BAGS LEVOPHED GTT IV SOLUCORTEF Q8HRS IV OCTREOTIDE GTT IV ALBUMIN Q6HRS LACTULOSE NG TID IV ZOSYN Q12 IVF@50/HR : ICU STATUS DCP: FROM HOME PLAN: TRANSFUSE 1 UNIT PRBC'S
--- NOTE | 2020-12-10 10:58 | Infectious Diseases Prog Note ---
Assessment/Plan Assessment/Plan A; Sepsis/ Septic shock Acute renal failure Cirrhosis of Liver R Tibia/ fibula fracture Hepatic encephalopathy Alcohol withdrawal P: Continue Zosyn Poor prognosis Will become DNR Subjective ROS Limited/Unobtainable: Yes Cardiovascular: Reports: other - on Vasopressors Allergies: Coded Allergies: No Known Allergies (Unverified , 12/06/20) Objective Last 24 Hour Vital Signs Date Time Temp Pulse Resp B/P (MAP) Pulse Ox O2 Delivery O2 Flow Rate FiO2 12/10/20 09:36 105/53 12/10/20 06:15 99 19 99 12/10/20 06:00 105 22 110/55 (73) 97 12/10/20 04:45 114 23 95 12/10/20 04:30 112 21 118/64 (82) 95 12/10/20 04:15 112 23 95 12/10/20 04:00 98.7 112 22 122/66 (84) 94 12/10/20 04:00 Room Air 12/10/20 03:45 114 22 95 12/10/20 03:30 110 20 120/60 (80) 92 12/10/20 03:15 112 22 91 12/10/20 03:00 110 21 112/60 (77) 90 12/10/20 03:00 110 21 112/60 (77) 90 12/10/20 02:50 103 20 103/53 (70) 91 12/10/20 02:45 108 21 93 12/10/20 02:35 112 23 115/65 (82) 95 12/10/20 02:30 112 22 120/102 (108) 96 12/10/20 02:22 114 22 105/59 (74) 96 12/10/20 02:15 112 23 97 12/10/20 02:12 114 23 92/51 (65) 97 12/10/20 02:00 117 23 117/50 (72) 97 12/10/20 01:45 117 23 98 12/10/20 01:30 116 19 116/49 (71) 98 12/10/20 01:15 117 23 98 12/10/20 01:00 117 21 123/46 (71) 98 12/10/20 00:30 119 20 105/59 (74) 98 12/10/20 00:15 120 20 96 12/10/20 00:00 99.4 121 22 110/50 (70) 94 12/10/20 00:00 Room Air 12/09/20 23:55 121 20 110/50 (70) 95 12/09/20 23:30 114/58 (76) 12/09/20 23:19 115 22 98/50 (66) 98 12/09/20 23:15 115 23 99 12/09/20 23:00 115 23 99/49 (66) 98 12/09/20 22:45 117 22 99 12/09/20 22:30 116 23 97/43 (61) 98 12/09/20 22:23 118 22 101/45 (63) 97 12/09/20 22:15 117 23 97 12/09/20 22:09 116 23 95/42 (59) 98 12/09/20 22:00 118 22 92/33 (52) 98 12/09/20 21:45 120 30 99 12/09/20 21:41 120 33 100/52 (68) 99 12/09/20 21:30 120 26 104/51 (68) 99 12/09/20 21:25 121 26 108/47 (67) 99 12/09/20 21:15 122 31 99 12/09/20 21:00 123 27 113/50 (71) 100 12/09/20 21:00 92/33 12/09/20 21:00 92/33 12/09/20 20:45 122 33 100 12/09/20 20:30 121 29 119/76 (90) 100 12/09/20 20:15 121 31 68 12/09/20 20:00 Room Air 12/09/20 20:00 98.8 123 27 130/56 (80) 94 12/09/20 19:45 123 31 99 12/09/20 19:30 125 27 113/49 (70) 100 12/09/20 19:15 129 26 95 12/09/20 19:00 125 27 142/78 (99) 100 12/09/20 19:00 98.6 12/09/20 18:43 97.2 124 27 153/86 (108) 100 12/09/20 18:21 123 24 137/73 (94) 100 12/09/20 18:00 97.5 112 23 120/57 (78) 100 12/09/20 17:00 117 20 138/67 (90) 99 12/09/20 16:00 97.5 101 24 131/72 (91) 100 12/09/20 16:00 Room Air 12/09/20 15:22 118/62 12/09/20 15:00 97.9 109 23 118/62 (80) 100 12/09/20 14:00 111 25 124/61 (82) 95 12/09/20 13:00 111 24 127/64 (85) 97 12/09/20 12:00 Room Air 12/09/20 12:00 110 25 113/55 (74) 95 12/09/20 11:00 111 23 118/59 (78) 95 Height (Feet): 5 Height (Inches): 8.00 Weight (Pounds): 160 HEENT: mucous membranes moist, other - icterus, foamy mouth Respiratory/Chest: rhonchi - bilaterally, other - on O2 by NRB mask Cardiovascular: tachycardia, other - RIJ central line Abdomen: distended, other - ascites Genitourinary: other - Ramachandran catheter, scrotal edema Extremities: other - Generalized edema, Neurologic/Psychiatric: unresponsiveness, other - comatose Microbiology Date/Time Source Procedure Growth Status 12/08/20 04:00 Urine,Clean Catch Urine Culture - Preliminary NO GROWTH AFTER 24 HOURS Resulted Laboratory Tests Test 12/09/20 13:45 12/09/20 22:29 12/10/20 00:09 12/10/20 00:34 POC Whole Blood Glucose 64 MG/DL (74-106) L 110 MG/DL (74-106) H Arterial Blood pH 7.334 (7.350-7.450) Arterial Blood Partial Pressure CO2 29.1 mmHg (35.0-45.0) L Arterial Blood Partial Pressure O2 89.8 mmHg (75.0-100.0) Arterial Blood HCO3 15.1 mmol/L (22.0-26.0) *L Arterial Blood Oxygen Saturation 95.8 % (95-100) Arterial Blood Base Excess -9.8 (-2-2) *L Vikash Test Positive White Blood Count 18.3 K/UL (4.8-10.8) #H Red Blood Count 1.98 M/UL (4.70-6.10) L Hemoglobin 6.2 G/DL (14.2-18.0) *L Hematocrit 18.5 % (42.0-52.0) L Mean Corpuscular Volume 94 FL (80-99) Mean Corpuscular Hemoglobin 31.4 PG (27.0-31.0) H Mean Corpuscular Hemoglobin Concent 33.4 G/DL (32.0-36.0) Red Cell Distribution Width 16.0 % (11.6-14.8) H Platelet Count 31 K/UL (150-450) L Mean Platelet Volume 6.4 FL (6.5-10.1) L Neutrophils (%) (Auto) % (45.0-75.0) Lymphocytes (%) (Auto) % (20.0-45.0) Monocytes (%) (Auto) % (1.0-10.0) Eosinophils (%) (Auto) % (0.0-3.0) Basophils (%) (Auto) % (0.0-2.0) Differential Total Cells Counted 100 Neutrophils % (Manual) 87 % (45-75) H Lymphocytes % (Manual) 6 % (20-45) L Monocytes % (Manual) 5 % (1-10) Eosinophils % (Manual) 0 % (0-3) Basophils % (Manual) 0 % (0-2) Band Neutrophils 2 % (0-8) Platelet Estimate Decreased L Platelet Morphology Normal Prothrombin Time 23.4 SEC (9.30-11.50) H Prothromb Time International Ratio 2.3 (0.9-1.1) H Test 12/10/20 05:43 White Blood Count 14.3 K/UL (4.8-10.8) H Red Blood Count 2.30 M/UL (4.70-6.10) L Hemoglobin 7.2 G/DL (14.2-18.0) L Hematocrit 21.8 % (42.0-52.0) L Mean Corpuscular Volume 95 FL (80-99) Mean Corpuscular Hemoglobin 31.1 PG (27.0-31.0) H Mean Corpuscular Hemoglobin Concent 32.8 G/DL (32.0-36.0) Red Cell Distribution Width 16.0 % (11.6-14.8) H Platelet Count 28 K/UL (150-450) L Mean Platelet Volume 6.7 FL (6.5-10.1) Neutrophils (%) (Auto) % (45.0-75.0) Lymphocytes (%) (Auto) % (20.0-45.0) Monocytes (%) (Auto) % (1.0-10.0) Eosinophils (%) (Auto) % (0.0-3.0) Basophils (%) (Auto) % (0.0-2.0) Differential Total Cells Counted 100 Neutrophils % (Manual) 87 % (45-75) H Lymphocytes % (Manual) 8 % (20-45) L Monocytes % (Manual) 4 % (1-10) Eosinophils % (Manual) 0 % (0-3) Basophils % (Manual) 0 % (0-2) Band Neutrophils 1 % (0-8) Platelet Estimate Decreased L Platelet Morphology Normal Hypochromasia 1+ Anisocytosis 1+ Prothrombin Time 24.2 SEC (9.30-11.50) H Prothromb Time International Ratio 2.3 (0.9-1.1) H Activated Partial Thromboplast Time 67 SEC (23-33) H Sodium Level 146 MMOL/L (136-145) H Potassium Level 3.0 MMOL/L (3.5-5.1) L Chloride Level 113 MMOL/L (98-107) H Carbon Dioxide Level 17 MMOL/L (21-32) L Anion Gap 16 mmol/L (5-15) H Blood Urea Nitrogen 45 mg/dL (7-18) H Creatinine 3.7 MG/DL (0.55-1.30) H Estimat Glomerular Filtration Rate 18.2 mL/min (>60) Glucose Level 98 MG/DL (74-106) Uric Acid 10.6 MG/DL (2.6-7.2) H Calcium Level 8.2 MG/DL (8.5-10.1) L Phosphorus Level 4.9 MG/DL (2.5-4.9) Magnesium Level 2.1 MG/DL (1.8-2.4) Total Bilirubin 29.5 MG/DL (0.2-1.0) H Direct Bilirubin 18.1 MG/DL (0.0-0.3) H Aspartate Amino Transf (AST/SGOT) 149 U/L (15-37) H Alanine Aminotransferase (ALT/SGPT) 43 U/L (12-78) Alkaline Phosphatase 126 U/L (46-116) H Ammonia 176 umol/L (11-32) H C-Reactive Protein, Quantitative 12.7 mg/dL (0.00-0.90) H Pro-B-Type Natriuretic Peptide 06392 pg/mL (0-125) H Total Protein 5.5 G/DL (6.4-8.2) L Albumin 3.7 G/DL (3.4-5.0) Globulin 1.8 g/dL Albumin/Globulin Ratio 2.1 (1.0-2.7) Current Medications Medications (Trade) Dose Ordered Sig/Armin Route PRN Reason Start Time Stop Time Status Last Admin Dose Admin Albumin Human 100 ml @ 100 mls/hr Q6H IV 12/08/20 20:00 03/06/21 19:59 12/10/20 08:58 Albumin Human 100 ml @ 100 mls/hr QHS IV 12/08/20 21:00 12/11/20 21:59 12/09/20 22:14 Chlorhexidine Gluconate (Mariama-Hex 2%) 1 applic DAILY@2000 TOPIC 12/07/20 20:00 03/07/21 19:59 12/09/20 19:33 Dextrose (Dextrose 50%) 25 ml Q30M PRN IV Hypoglycemia 12/09/20 11:15 03/09/21 11:14 Dextrose (Dextrose 50%) 50 ml Q30M PRN IV Hypoglycemia 12/09/20 11:15 03/09/21 11:14 12/09/20 23:22 Dextrose/Sodium Chloride 1,000 ml @ 50 mls/hr Q20H IV 12/06/20 12:30 01/05/21 12:29 12/09/20 19:34 Epoetin Sd (Epoetin Sd-EPBX(NON ESRD)) 4,000 unit THU-THU-THU SUBQ 12/07/20 21:00 03/07/21 20:59 12/07/20 22:40 Folic Acid (Folate) 2 mg DAILY ORAL 12/08/20 13:45 01/05/21 19:59 Hydrocortisone (Solu-CORTEF) 100 mg EVERY 8 HOURS IV 12/10/20 06:45 03/10/21 06:44 12/10/20 07:44 Lactulose (Cephulac) 45 gm THREE TIMES A DAY ORAL 12/07/20 21:45 01/05/21 19:59 12/10/20 10:17 Midodrine (Pro-Amatine) 10 mg THREE TIMES A DAY ORAL 12/06/20 13:00 03/06/21 12:59 12/08/20 08:50 Multivitamins (Multivitamins) 1 tab DAILY ORAL 12/06/20 20:00 01/05/21 19:59 12/08/20 08:50 Norepinephrine Bitartrate 16 mg/ Dextrose 516 ml @ 7.74 mls/hr Q24H IV 12/09/20 21:00 12/12/20 15:14 12/09/20 21:00 Octreotide Acetate 500 mcg/ Sodium Chloride 500 ml @ 50 mls/hr Q10H IV 12/09/20 08:30 01/08/21 08:29 12/10/20 05:47 Pantoprazole (Protonix) 40 mg EVERY 12 HOURS IVP 12/06/20 21:00 01/05/21 20:59 12/10/20 10:12 Pentoxifylline (TRENtal) 400 mg Q12HR ORAL 12/06/20 21:00 03/06/21 20:59 12/08/20 08:51 Piperacillin Sod/ Tazobactam Sod 3.375 gm/Sodium Chloride 110 ml @ 27.5 mls/hr Q12HR IVPB 12/06/20 20:00 12/13/20 19:59 12/09/20 22:03 Potassium Chloride 100 ml @ 50 mls/hr Q2H IVPB 12/10/20 09:00 12/10/20 12:59 12/10/20 10:13 Thiamine HCl (Vitamin B1) 100 mg DAILY ORAL 12/06/20 20:00 01/05/21 19:59 12/08/20 08:50 Vasopressin 100 units/Sodium Chloride 100 ml @ 0 mls/hr Q24H IV 12/08/20 05:45 12/11/20 05:31 12/09/20 05:40 Deepak Villarreal MD Dec 10, 2020 10:58
[2020-12-10] MEDS: Norepinephrine Bitartrate 16 MG in D5W 500ml 500 ML IV SCH ×2 (11:12→11:15)
--- NOTE | 2020-12-10 12:00 | NUR ---
NURSE NOTES: MD Sneed at bedside to assess pt. Per MD Sneed, pt is not stable to have celio cath inserted at this time. Will continue to monitor pt.
--- NOTE | 2020-12-10 12:36 | Nephrology Progress Note ---
Assessment/Plan Problem List: (1) Renal failure (ARF), acute on chronic (2) Hepatorenal syndrome Assessment: Jaundice (3) Anemia (4) Fracture of right tibia and fibula (5) Alcoholic cirrhosis of liver with ascites (6) Electrolyte imbalance Assessment: Hyponatremia, hypokalemia Assessment Renal failure, likely acute on chronic. Most likely hepatorenal syndrome End-stage liver disease Severe abnormal electrolytes: Hyponatremia, hypokalemia Anemia Tibia/fibula fracture shaft Alcoholic cirrhosis of the liver with ascites Jaundice Plan December 10: Seen in ICU. Discussed with RN. RN states that the mother and family were here and changed the status of the patient to DNR. On oxygen mask. Labs reviewed. Medication list reviewed. Vitamin K 10 mg IV ordered. Continue per consultants. December 09: Remains in ICU. Has a GI bleed. Questionable aspiration. Hem oglobin lower. Renal parameters and urine output improved? Discussed with RN. Will hold on insertion of dialysis catheter for now. Continue to stabilize coagulopathy. Reevaluate when more stable for possible need for dialysis. Discussed with general surgery. Low potassium addressed. Vitamin K 10 mg IV given. 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 Continue per GI. December 08: Seen in ICU. Discussed with RN. Labs reviewed. Hemodynamically more stable. On pressors. Proceed with insertion of a nontunneled catheter and dialysis. Continue to monitor renal parameters. Continue per consultants. December 07: Patient seen in ICU. Discussed with RN. Labs reviewed. Serum sodium improved. Low potassium addressed. Patient hypotensive. Urine studies still pending. On pressors. Continue to monitor electrolytes and renal parameters. Previously: Not clear for surgery until electrolyte abnormality corrects Kidney ultrasound today 2D echocardiogram Stat lab work Ramachandran catheter Urine for tox screen Per orders Ultrasound: Left kidney measures 13.4 cm in length. Right kidney measures 14.1 cm length. Both kidneys demonstrate mildly increased echogenicity. There is no hydronephrosis. Evidence of hepatic cirrhosis, with increased parenchymal echogenicity and surface nodularity Distended gallbladder but no stones. Normal common bile duct Evidence of portal hypertension, with ascites, splenomegaly, splenic hilar varices Chest x-ray: Possible subtle multifocal pneumonitis versus superimposition artifact. Subjective ROS Limited/Unobtainable: Yes Objective Objective Last 24 Hour Vital Signs Date Time Temp Pulse Resp B/P (MAP) Pulse Ox O2 Delivery O2 Flow Rate FiO2 12/10/20 11:15 112/51 12/10/20 09:36 105/53 12/10/20 06:15 99 19 99 12/10/20 06:00 105 22 110/55 (73) 97 12/10/20 04:45 114 23 95 12/10/20 04:30 112 21 118/64 (82) 95 12/10/20 04:15 112 23 95 12/10/20 04:00 98.7 112 22 122/66 (84) 94 12/10/20 04:00 Room Air 12/10/20 03:45 114 22 95 12/10/20 03:30 110 20 120/60 (80) 92 12/10/20 03:15 112 22 91 12/10/20 03:00 110 21 112/60 (77) 90 12/10/20 03:00 110 21 112/60 (77) 90 12/10/20 02:50 103 20 103/53 (70) 91 12/10/20 02:45 108 21 93 12/10/20 02:35 112 23 115/65 (82) 95 12/10/20 02:30 112 22 120/102 (108) 96 12/10/20 02:22 114 22 105/59 (74) 96 12/10/20 02:15 112 23 97 12/10/20 02:12 114 23 92/51 (65) 97 12/10/20 02:00 117 23 117/50 (72) 97 12/10/20 01:45 117 23 98 12/10/20 01:30 116 19 116/49 (71) 98 12/10/20 01:15 117 23 98 12/10/20 01:00 117 21 123/46 (71) 98 12/10/20 00:30 119 20 105/59 (74) 98 12/10/20 00:15 120 20 96 12/10/20 00:00 99.4 121 22 110/50 (70) 94 12/10/20 00:00 Room Air 12/09/20 23:55 121 20 110/50 (70) 95 12/09/20 23:30 114/58 (76) 12/09/20 23:19 115 22 98/50 (66) 98 12/09/20 23:15 115 23 99 12/09/20 23:00 115 23 99/49 (66) 98 12/09/20 22:45 117 22 99 12/09/20 22:30 116 23 97/43 (61) 98 12/09/20 22:23 118 22 101/45 (63) 97 12/09/20 22:15 117 23 97 12/09/20 22:09 116 23 95/42 (59) 98 12/09/20 22:00 118 22 92/33 (52) 98 12/09/20 21:45 120 30 99 12/09/20 21:41 120 33 100/52 (68) 99 12/09/20 21:30 120 26 104/51 (68) 99 12/09/20 21:25 121 26 108/47 (67) 99 12/09/20 21:15 122 31 99 12/09/20 21:00 123 27 113/50 (71) 100 12/09/20 21:00 92/33 12/09/20 21:00 92/33 12/09/20 20:45 122 33 100 12/09/20 20:30 121 29 119/76 (90) 100 12/09/20 20:15 121 31 68 12/09/20 20:00 Room Air 12/09/20 20:00 98.8 123 27 130/56 (80) 94 12/09/20 19:45 123 31 99 12/09/20 19:30 125 27 113/49 (70) 100 12/09/20 19:15 129 26 95 12/09/20 19:00 125 27 142/78 (99) 100 12/09/20 19:00 98.6 12/09/20 18:43 97.2 124 27 153/86 (108) 100 12/09/20 18:21 123 24 137/73 (94) 100 12/09/20 18:00 97.5 112 23 120/57 (78) 100 12/09/20 17:00 117 20 138/67 (90) 99 12/09/20 16:00 97.5 101 24 131/72 (91) 100 12/09/20 16:00 Room Air 12/09/20 15:22 118/62 12/09/20 15:00 97.9 109 23 118/62 (80) 100 12/09/20 14:00 111 25 124/61 (82) 95 12/09/20 13:00 111 24 127/64 (85) 97 Intake and Output 12/09/20 12/10/20 19:00 07:00 Intake Total 101.8 ml 2358.98 ml Output Total 857 ml 145 ml Balance -755.2 ml 2213.98 ml IV Total 101.8 ml 1330.98 ml Blood Product 1028 ml Output Urine Total 857 ml 145 ml # Bowel Movements 2 3 Current Medications Medications (Trade) Dose Ordered Sig/Armin Route PRN Reason Start Time Stop Time Status Last Admin Dose Admin Albumin Human 100 ml @ 100 mls/hr Q6H IV 12/08/20 20:00 03/06/21 19:59 12/10/20 08:58 Albumin Human 100 ml @ 100 mls/hr QHS IV 12/08/20 21:00 12/11/20 21:59 12/09/20 22:14 Chlorhexidine Gluconate (Mariama-Hex 2%) 1 applic DAILY@2000 TOPIC 12/07/20 20:00 03/07/21 19:59 12/09/20 19:33 Dextrose (Dextrose 50%) 25 ml Q30M PRN IV Hypoglycemia 12/09/20 11:15 03/09/21 11:14 Dextrose (Dextrose 50%) 50 ml Q30M PRN IV Hypoglycemia 12/09/20 11:15 03/09/21 11:14 12/09/20 23:22 Dextrose/Sodium Chloride 1,000 ml @ 50 mls/hr Q20H IV 12/06/20 12:30 01/05/21 12:29 12/09/20 19:34 Epoetin Sd (Epoetin Sd-EPBX(NON ESRD)) 4,000 unit THU-THU-THU SUBQ 12/07/20 21:00 03/07/21 20:59 12/07/20 22:40 Folic Acid (Folate) 2 mg DAILY ORAL 12/08/20 13:45 01/05/21 19:59 Hydrocortisone (Solu-CORTEF) 100 mg EVERY 8 HOURS IV 12/10/20 06:45 03/10/21 06:44 12/10/20 07:44 Lactulose (Cephulac) 45 gm THREE TIMES A DAY ORAL 12/07/20 21:45 01/05/21 19:59 12/10/20 10:17 Midodrine (Pro-Amatine) 10 mg THREE TIMES A DAY ORAL 12/06/20 13:00 03/06/21 12:59 12/08/20 08:50 Multivitamins (Multivitamins) 1 tab DAILY ORAL 12/06/20 20:00 01/05/21 19:59 12/08/20 08:50 Norepinephrine Bitartrate 16 mg/ Dextrose 516 ml @ 7.74 mls/hr Q24H IV 12/09/20 21:00 12/12/20 15:14 12/10/20 11:15 Octreotide Acetate 500 mcg/ Sodium Chloride 500 ml @ 50 mls/hr Q10H IV 12/09/20 08:30 01/08/21 08:29 12/10/20 05:47 Pantoprazole (Protonix) 40 mg EVERY 12 HOURS IVP 12/06/20 21:00 01/05/21 20:59 12/10/20 10:12 Pentoxifylline (TRENtal) 400 mg Q12HR ORAL 12/06/20 21:00 03/06/21 20:59 12/08/20 08:51 Piperacillin Sod/ Tazobactam Sod 3.375 gm/Sodium Chloride 110 ml @ 27.5 mls/hr Q12HR IVPB 12/06/20 20:00 12/13/20 19:59 12/09/20 22:03 Potassium Chloride 100 ml @ 50 mls/hr Q2H IVPB 12/10/20 09:00 12/10/20 12:59 12/10/20 10:13 Thiamine HCl (Vitamin B1) 100 mg DAILY ORAL 12/06/20 20:00 01/05/21 19:59 12/08/20 08:50 Vasopressin 100 units/Sodium Chloride 100 ml @ 0 mls/hr Q24H IV 12/08/20 05:45 12/11/20 05:31 12/10/20 11:07 Laboratory Tests 12/09/20 13:45: POC Whole Blood Glucose 64L 12/09/20 22:29: Arterial Blood pH 7.334L, Arterial Blood Partial Pressure CO2 29.1L, Arterial Blood Partial Pressure O2 89.8, Arterial Blood HCO3 15.1*L, Arterial Blood Oxygen Saturation 95.8, Arterial Blood Base Excess -9.8*L, Vikash Test Positive 12/10/20 00:09: POC Whole Blood Glucose 110H 12/10/20 00:34: White Blood Count 18.3#H, Red Blood Count 1.98L, Hemoglobin 6.2*L, Hematocrit 18.5L, Mean Corpuscular Volume 94, Mean Corpuscular Hemoglobin 31.4H, Mean Corpuscular Hemoglobin Concent 33.4, Red Cell Distribution Width 16.0H, Platelet Count 31L, Mean Platelet Volume 6.4L, Neutrophils (%) (Auto) , Lymphocytes (%) (Auto) , Monocytes (%) (Auto) , Eosinophils (%) (Auto) , Basophils (%) (Auto) , Differential Total Cells Counted 100, Neutrophils % (Manual) 87H, Lymphocytes % (Manual) 6L, Monocytes % (Manual) 5, Eosinophils % (Manual) 0, Basophils % (Manual) 0, Band Neutrophils 2, Platelet Estimate DecreasedL, Platelet Morphology Normal, Prothrombin Time 23.4H, Prothromb Time International Ratio 2.3H 12/10/20 05:43: White Blood Count 14.3H, Red Blood Count 2.30L, Hemoglobin 7.2L, Hematocrit 21.8L, Mean Corpuscular Volume 95, Mean Corpuscular Hemoglobin 31.1H, Mean Corpuscular Hemoglobin Concent 32.8, Red Cell Distribution Width 16.0H, Platelet Count 28L, Mean Platelet Volume 6.7, Neutrophils (%) (Auto) , Lymphocytes (%) (Auto) , Monocytes (%) (Auto) , Eosinophils (%) (Auto) , Basophils (%) (Auto) , Differential Total Cells Counted 100, Neutrophils % (Manual) 87H, Lymphocytes % (Manual) 8L, Monocytes % (Manual) 4, Eosinophils % (Manual) 0, Basophils % (Manual) 0, Band Neutrophils 1, Platelet Estimate DecreasedL, Platelet Morphology Normal, Hypochromasia 1+, Anisocytosis 1+, Prothrombin Time 24.2H, Prothromb Time International Ratio 2.3H, Activated Partial Thromboplast Time 67H , Sodium Level 146H, Potassium Level 3.0L, Chloride Level 113H, Carbon Dioxide Level 17L, Anion Gap 16H, Blood Urea Nitrogen 45H, Creatinine 3.7H, Estimat Glomerular Filtration Rate 18.2, Glucose Level 98, Uric Acid 10.6H, Calcium Level 8.2L, Phosphorus Level 4.9, Magnesium Level 2.1, Total Bilirubin 29.5H, Direct Bilirubin 18.1H, Aspartate Amino Transf (AST/SGOT) 149H, Alanine Aminotransferase (ALT/SGPT) 43, Alkaline Phosphatase 126H, Ammonia 176H, C- Reactive Protein, Quantitative 12.7H, Pro-B-Type Natriuretic Peptide 48092I, Total Protein 5.5L, Albumin 3.7, Globulin 1.8, Albumin/Globulin Ratio 2.1 Height (Feet): 5 Height (Inches): 8.00 Weight (Pounds): 160 General Appearance: no apparent distress, lethargic Cardiovascular: tachycardia Respiratory/Chest: decreased breath sounds Abdomen: distended Driss Sneed MD Dec 10, 2020 12:36
--- NOTE | 2020-12-10 13:15 | NUR ---
NURSE NOTES: 1st unit of FFP infusing at this time per MD order. Pt's VSS, safety precautions maintained. Will continue to monitor.
--- NOTE | 2020-12-10 13:55 | Neurology Progress Note ---
Interim History Interim History ROS Limited/Unobtainable: Yes Events: remains in icu Objective Physical Exam Last Vital Signs Date Time Temp Pulse Resp B/P (MAP) Pulse Ox O2 Delivery O2 Flow Rate FiO2 12/10/20 11:15 112/51 12/10/20 06:15 99 19 99 12/10/20 04:00 98.7 12/10/20 04:00 Room Air Laboratory Tests Test 12/09/20 22:29 12/10/20 00:09 12/10/20 00:34 12/10/20 05:43 Arterial Blood pH 7.334 (7.350-7.450) Arterial Blood Partial Pressure CO2 29.1 mmHg (35.0-45.0) L Arterial Blood Partial Pressure O2 89.8 mmHg (75.0-100.0) Arterial Blood HCO3 15.1 mmol/L (22.0-26.0) *L Arterial Blood Oxygen Saturation 95.8 % (95-100) Arterial Blood Base Excess -9.8 (-2-2) *L Vikash Test Positive POC Whole Blood Glucose 110 MG/DL (74-106) H White Blood Count 18.3 K/UL (4.8-10.8) #H 14.3 K/UL (4.8-10.8) H Red Blood Count 1.98 M/UL (4.70-6.10) L 2.30 M/UL (4.70-6.10) L Hemoglobin 6.2 G/DL (14.2-18.0) *L 7.2 G/DL (14.2-18.0) L Hematocrit 18.5 % (42.0-52.0) L 21.8 % (42.0-52.0) L Mean Corpuscular Volume 94 FL (80-99) 95 FL (80-99) Mean Corpuscular Hemoglobin 31.4 PG (27.0-31.0) H 31.1 PG (27.0-31.0) H Mean Corpuscular Hemoglobin Concent 33.4 G/DL (32.0-36.0) 32.8 G/DL (32.0-36.0) Red Cell Distribution Width 16.0 % (11.6-14.8) H 16.0 % (11.6-14.8) H Platelet Count 31 K/UL (150-450) L 28 K/UL (150-450) L Mean Platelet Volume 6.4 FL (6.5-10.1) L 6.7 FL (6.5-10.1) Neutrophils (%) (Auto) % (45.0-75.0) % (45.0-75.0) Lymphocytes (%) (Auto) % (20.0-45.0) % (20.0-45.0) Monocytes (%) (Auto) % (1.0-10.0) % (1.0-10.0) Eosinophils (%) (Auto) % (0.0-3.0) % (0.0-3.0) Basophils (%) (Auto) % (0.0-2.0) % (0.0-2.0) Differential Total Cells Counted 100 100 Neutrophils % (Manual) 87 % (45-75) H 87 % (45-75) H Lymphocytes % (Manual) 6 % (20-45) L 8 % (20-45) L Monocytes % (Manual) 5 % (1-10) 4 % (1-10) Eosinophils % (Manual) 0 % (0-3) 0 % (0-3) Basophils % (Manual) 0 % (0-2) 0 % (0-2) Band Neutrophils 2 % (0-8) 1 % (0-8) Platelet Estimate Decreased L Decreased L Platelet Morphology Normal Normal Prothrombin Time 23.4 SEC (9.30-11.50) H 24.2 SEC (9.30-11.50) H Prothromb Time International Ratio 2.3 (0.9-1.1) H 2.3 (0.9-1.1) H Hypochromasia 1+ Anisocytosis 1+ Activated Partial Thromboplast Time 67 SEC (23-33) H Sodium Level 146 MMOL/L (136-145) H Potassium Level 3.0 MMOL/L (3.5-5.1) L Chloride Level 113 MMOL/L (98-107) H Carbon Dioxide Level 17 MMOL/L (21-32) L Anion Gap 16 mmol/L (5-15) H Blood Urea Nitrogen 45 mg/dL (7-18) H Creatinine 3.7 MG/DL (0.55-1.30) H Estimat Glomerular Filtration Rate 18.2 mL/min (>60) Glucose Level 98 MG/DL (74-106) Uric Acid 10.6 MG/DL (2.6-7.2) H Calcium Level 8.2 MG/DL (8.5-10.1) L Phosphorus Level 4.9 MG/DL (2.5-4.9) Magnesium Level 2.1 MG/DL (1.8-2.4) Total Bilirubin 29.5 MG/DL (0.2-1.0) H Direct Bilirubin 18.1 MG/DL (0.0-0.3) H Aspartate Amino Transf (AST/SGOT) 149 U/L (15-37) H Alanine Aminotransferase (ALT/SGPT) 43 U/L (12-78) Alkaline Phosphatase 126 U/L (46-116) H Ammonia 176 umol/L (11-32) H C-Reactive Protein, Quantitative 12.7 mg/dL (0.00-0.90) H Pro-B-Type Natriuretic Peptide 16608 pg/mL (0-125) H Total Protein 5.5 G/DL (6.4-8.2) L Albumin 3.7 G/DL (3.4-5.0) Globulin 1.8 g/dL Albumin/Globulin Ratio 2.1 (1.0-2.7) Neurologic Exam Objective Sp02 EP Interpretation: reviewed General Appearance: well appearing, no apparent distress, alert Head: normocephalic, atraumatic Eyes: bilateral eye PERRL, bilateral eye EOMI, bilateral eye scleral icterus++ ENT: hearing grossly normal, normal pharynx Neck: full range of motion, supple, no meningismus Respiratory: chest non-tender, lungs clear, normal breath sounds Cardiovascular: regular rate, rhythm, no murmur Gastrointestinal: normal bowel sounds, non tender, no mass, no organomegaly, no bruit, non-distended, other - ascites Musculoskeletal: back normal, other - Right ankle: He has 4+ pitting edema. He has deformity and tenderness to the ankle and foot. Sensation normal. Impression/Recommendations Status: deteriorating Diagnostic Impression Lab Data: Reviewed Alcohol serum 55, Glucose 50, LFT's elevated Meds: Reviewed Assessment and Rec's 1. Hepatic Encephalopathy --> we do not know pateint's baseline will call his mother for further information-left voicemail, awaiting call back will attempt to call again today --> at this time alcohol level serum 55 on admission unknown when his last drink was, Ammonia level 155 elevated --> he is Alert and oriented x4 however is repeating a phrase within every sentence. --> will order MRI Brain for intracranial pathology-still pending he is unstable in ICU for now 2. Liver Cirrhosis --> Ammonia level --> para as needed 3. Alcohol Abuse --> rec cessation 4. Hypoglycemia --> monitor glucose --> D50 prn 5. S/p Ankle surgery Thank you for allowing us to particpate in pateints care, plan of care was reviewed with supervising physician Dr. Dalton Rae who agrees. Marisol Lynn [employer]ICE SALES [employer]SULTANT Dec 10, 2020 13:55
[2020-12-10] MEDS ORDERED: Phytonadione 10 MG in D5W 55 ML IVPB ONE (14:00)
--- NOTE | 2020-12-10 14:03 | Surgery Progress Note ---
Surgery Progress Note Subjective Additional Comments declining discussed with nephrology hold on line not stable for HD Objective Last 24 Hour Vital Signs Date Time Temp Pulse Resp B/P (MAP) Pulse Ox O2 Delivery O2 Flow Rate FiO2 12/10/20 11:15 112/51 12/10/20 09:36 105/53 12/10/20 06:15 99 19 99 12/10/20 06:00 105 22 110/55 (73) 97 12/10/20 04:45 114 23 95 12/10/20 04:30 112 21 118/64 (82) 95 12/10/20 04:15 112 23 95 12/10/20 04:00 98.7 112 22 122/66 (84) 94 12/10/20 04:00 Room Air 12/10/20 03:45 114 22 95 12/10/20 03:30 110 20 120/60 (80) 92 12/10/20 03:15 112 22 91 12/10/20 03:00 110 21 112/60 (77) 90 12/10/20 03:00 110 21 112/60 (77) 90 12/10/20 02:50 103 20 103/53 (70) 91 12/10/20 02:45 108 21 93 12/10/20 02:35 112 23 115/65 (82) 95 12/10/20 02:30 112 22 120/102 (108) 96 12/10/20 02:22 114 22 105/59 (74) 96 12/10/20 02:15 112 23 97 12/10/20 02:12 114 23 92/51 (65) 97 12/10/20 02:00 117 23 117/50 (72) 97 12/10/20 01:45 117 23 98 12/10/20 01:30 116 19 116/49 (71) 98 12/10/20 01:15 117 23 98 12/10/20 01:00 117 21 123/46 (71) 98 12/10/20 00:30 119 20 105/59 (74) 98 12/10/20 00:15 120 20 96 12/10/20 00:00 99.4 121 22 110/50 (70) 94 12/10/20 00:00 Room Air 12/09/20 23:55 121 20 110/50 (70) 95 12/09/20 23:30 114/58 (76) 12/09/20 23:19 115 22 98/50 (66) 98 12/09/20 23:15 115 23 99 12/09/20 23:00 115 23 99/49 (66) 98 12/09/20 22:45 117 22 99 12/09/20 22:30 116 23 97/43 (61) 98 12/09/20 22:23 118 22 101/45 (63) 97 12/09/20 22:15 117 23 97 12/09/20 22:09 116 23 95/42 (59) 98 12/09/20 22:00 118 22 92/33 (52) 98 12/09/20 21:45 120 30 99 12/09/20 21:41 120 33 100/52 (68) 99 12/09/20 21:30 120 26 104/51 (68) 99 12/09/20 21:25 121 26 108/47 (67) 99 12/09/20 21:15 122 31 99 12/09/20 21:00 123 27 113/50 (71) 100 12/09/20 21:00 92/33 12/09/20 21:00 92/33 12/09/20 20:45 122 33 100 12/09/20 20:30 121 29 119/76 (90) 100 12/09/20 20:15 121 31 68 12/09/20 20:00 Room Air 12/09/20 20:00 98.8 123 27 130/56 (80) 94 12/09/20 19:45 123 31 99 12/09/20 19:30 125 27 113/49 (70) 100 12/09/20 19:15 129 26 95 12/09/20 19:00 125 27 142/78 (99) 100 12/09/20 19:00 98.6 12/09/20 18:43 97.2 124 27 153/86 (108) 100 12/09/20 18:21 123 24 137/73 (94) 100 12/09/20 18:00 97.5 112 23 120/57 (78) 100 12/09/20 17:00 117 20 138/67 (90) 99 12/09/20 16:00 97.5 101 24 131/72 (91) 100 12/09/20 16:00 Room Air 12/09/20 15:22 118/62 12/09/20 15:00 97.9 109 23 118/62 (80) 100 I&O Intake and Output 12/09/20 12/10/20 19:00 07:00 Intake Total 101.8 ml 2358.98 ml Output Total 857 ml 145 ml Balance -755.2 ml 2213.98 ml IV Total 101.8 ml 1330.98 ml Blood Product 1028 ml Output Urine Total 857 ml 145 ml # Bowel Movements 2 3 Dressing: saturated Cardiovascular: RSR Respiratory: decreased breath sounds Abdomen: other, decreased bowel sounds Extremities: no edema, no tenderness, no cyanosis Laboratory Tests Test 12/09/20 22:29 12/10/20 00:09 12/10/20 00:34 12/10/20 05:43 Arterial Blood pH 7.334 (7.350-7.450) Arterial Blood Partial Pressure CO2 29.1 mmHg (35.0-45.0) L Arterial Blood Partial Pressure O2 89.8 mmHg (75.0-100.0) Arterial Blood HCO3 15.1 mmol/L (22.0-26.0) *L Arterial Blood Oxygen Saturation 95.8 % (95-100) Arterial Blood Base Excess -9.8 (-2-2) *L Vikash Test Positive POC Whole Blood Glucose 110 MG/DL (74-106) H White Blood Count 18.3 K/UL (4.8-10.8) #H 14.3 K/UL (4.8-10.8) H Red Blood Count 1.98 M/UL (4.70-6.10) L 2.30 M/UL (4.70-6.10) L Hemoglobin 6.2 G/DL (14.2-18.0) *L 7.2 G/DL (14.2-18.0) L Hematocrit 18.5 % (42.0-52.0) L 21.8 % (42.0-52.0) L Mean Corpuscular Volume 94 FL (80-99) 95 FL (80-99) Mean Corpuscular Hemoglobin 31.4 PG (27.0-31.0) H 31.1 PG (27.0-31.0) H Mean Corpuscular Hemoglobin Concent 33.4 G/DL (32.0-36.0) 32.8 G/DL (32.0-36.0) Red Cell Distribution Width 16.0 % (11.6-14.8) H 16.0 % (11.6-14.8) H Platelet Count 31 K/UL (150-450) L 28 K/UL (150-450) L Mean Platelet Volume 6.4 FL (6.5-10.1) L 6.7 FL (6.5-10.1) Neutrophils (%) (Auto) % (45.0-75.0) % (45.0-75.0) Lymphocytes (%) (Auto) % (20.0-45.0) % (20.0-45.0) Monocytes (%) (Auto) % (1.0-10.0) % (1.0-10.0) Eosinophils (%) (Auto) % (0.0-3.0) % (0.0-3.0) Basophils (%) (Auto) % (0.0-2.0) % (0.0-2.0) Differential Total Cells Counted 100 100 Neutrophils % (Manual) 87 % (45-75) H 87 % (45-75) H Lymphocytes % (Manual) 6 % (20-45) L 8 % (20-45) L Monocytes % (Manual) 5 % (1-10) 4 % (1-10) Eosinophils % (Manual) 0 % (0-3) 0 % (0-3) Basophils % (Manual) 0 % (0-2) 0 % (0-2) Band Neutrophils 2 % (0-8) 1 % (0-8) Platelet Estimate Decreased L Decreased L Platelet Morphology Normal Normal Prothrombin Time 23.4 SEC (9.30-11.50) H 24.2 SEC (9.30-11.50) H Prothromb Time International Ratio 2.3 (0.9-1.1) H 2.3 (0.9-1.1) H Hypochromasia 1+ Anisocytosis 1+ Activated Partial Thromboplast Time 67 SEC (23-33) H Sodium Level 146 MMOL/L (136-145) H Potassium Level 3.0 MMOL/L (3.5-5.1) L Chloride Level 113 MMOL/L (98-107) H Carbon Dioxide Level 17 MMOL/L (21-32) L Anion Gap 16 mmol/L (5-15) H Blood Urea Nitrogen 45 mg/dL (7-18) H Creatinine 3.7 MG/DL (0.55-1.30) H Estimat Glomerular Filtration Rate 18.2 mL/min (>60) Glucose Level 98 MG/DL (74-106) Uric Acid 10.6 MG/DL (2.6-7.2) H Calcium Level 8.2 MG/DL (8.5-10.1) L Phosphorus Level 4.9 MG/DL (2.5-4.9) Magnesium Level 2.1 MG/DL (1.8-2.4) Total Bilirubin 29.5 MG/DL (0.2-1.0) H Direct Bilirubin 18.1 MG/DL (0.0-0.3) H Aspartate Amino Transf (AST/SGOT) 149 U/L (15-37) H Alanine Aminotransferase (ALT/SGPT) 43 U/L (12-78) Alkaline Phosphatase 126 U/L (46-116) H Ammonia 176 umol/L (11-32) H C-Reactive Protein, Quantitative 12.7 mg/dL (0.00-0.90) H Pro-B-Type Natriuretic Peptide 84901 pg/mL (0-125) H Total Protein 5.5 G/DL (6.4-8.2) L Albumin 3.7 G/DL (3.4-5.0) Globulin 1.8 g/dL Albumin/Globulin Ratio 2.1 (1.0-2.7) Plan Problems: (1) Hepatorenal syndrome Assessment & Plan: 40-year-old male with hepatorenal syndrome declining. Currently active bleeding history of cirrhosis. Renal insufficiency worsening. There is considerations for temporary hemodialysis catheter as patient is on dialysis recently and does not have access. Unfortunately given his current condition active bleeding and significant coagulopathy is a should be resuscitated first prior to considerations of hemodialysis he may not tolerate it. I spoke with the hotel front office manager personally and we have decided to hold off on temporary hemodialysis catheter insertion at this time until patient improves. If he improves will place catheter for patient to receive dialysis if stabilized. Thank you for my participation's care will follow with recommendations Unremarkable inferior vena cava. Gallbladder is distended, without stones, wall thickening, nor pericholecystic fluid. Sonographic Lozano's sign is negative. Common bile duct measures for mm in diameter. No intrahepatic biliary ductal dilatation. Liver demonstrates increased echogenicity. It demonstrates surface nodularity. No definite focal abnormality There is some free intraperitoneal fluid. Portal vein and hepatic veins are patent. Pancreas is obscured by bowel gas. Spleen is enlarged, measuring 15.6 cm long axis dimension. There are splenic hilar varices. Left kidney measures 13.4 cm in length. Right kidney measures 14.1 cm length. Both kidneys demonstrate mildly increased echogenicity. There is no hydronephrosis. No focal abnormality . Abdominal aorta is partially obscured by bowel gas, visualized portions are non-aneurysmal . Impression: Evidence of hepatic cirrhosis, with increased parenchymal echogenicity and surface nodularity Distended gallbladder but no stones. Normal common bile duct Evidence of portal hypertension, with ascites, splenomegaly, splenic hilar v arices Note nonvisualization of the pancreas and portions of the abdominal aorta (2) Hypokalemia (3) Alcohol abuse (4) Anemia (5) Tibia/fibula fracture, shaft (6) Alcoholic cirrhosis of liver with ascites (7) Fracture of right tibia and fibula (8) Electrolyte imbalance (9) Renal failure (ARF), acute on chronic (10) Urine retention Julio Cesar Rodrigues Dec 10, 2020 14:03
[2020-12-10] MEDS: D5NS 1,000 ML IV SCH (14:42)
--- NOTE | 2020-12-10 15:27 | Cardiac Electrophysiology PN ---
Assessment/Plan Assessment/Plan 1. Septic shock on Levophed 30 mcg and Vasopressin and Abx. Echo Nl EF 65%. No pericardial effusion reported. 2. Cirrhosis with encephalopathy and Bilirubin of 29 and Ammonia 176 3. Acute renal failure Cr 4.9 4. Hyponatremia Na 126 5. Leg Fx. Awaiting stabilization before surgery 6. DNR and DNI DW RN and Dr Sneed Subjective Subjective In ICU on Levophed 30 mcg and Vasopressin and D5w 1/2 NS 50 cc hr. Bleeding from his mouth Got albumin and FFP. On RA In sinus tach 100s off restraints DNR and DNI now. Objective Last 24 Hour Vital Signs Date Time Temp Pulse Resp B/P (MAP) Pulse Ox O2 Delivery O2 Flow Rate FiO2 12/10/20 12:00 Room Air 12/10/20 11:15 112/51 12/10/20 09:36 105/53 12/10/20 08:00 Room Air 12/10/20 06:15 99 19 99 12/10/20 06:00 105 22 110/55 (73) 97 12/10/20 04:45 114 23 95 12/10/20 04:30 112 21 118/64 (82) 95 12/10/20 04:15 112 23 95 12/10/20 04:00 98.7 112 22 122/66 (84) 94 12/10/20 04:00 Room Air 12/10/20 03:45 114 22 95 12/10/20 03:30 110 20 120/60 (80) 92 12/10/20 03:15 112 22 91 12/10/20 03:00 110 21 112/60 (77) 90 12/10/20 03:00 110 21 112/60 (77) 90 12/10/20 02:50 103 20 103/53 (70) 91 12/10/20 02:45 108 21 93 12/10/20 02:35 112 23 115/65 (82) 95 12/10/20 02:30 112 22 120/102 (108) 96 12/10/20 02:22 114 22 105/59 (74) 96 12/10/20 02:15 112 23 97 12/10/20 02:12 114 23 92/51 (65) 97 12/10/20 02:00 117 23 117/50 (72) 97 12/10/20 01:45 117 23 98 12/10/20 01:30 116 19 116/49 (71) 98 12/10/20 01:15 117 23 98 12/10/20 01:00 117 21 123/46 (71) 98 12/10/20 00:30 119 20 105/59 (74) 98 12/10/20 00:15 120 20 96 12/10/20 00:00 99.4 121 22 110/50 (70) 94 12/10/20 00:00 Room Air 12/09/20 23:55 121 20 110/50 (70) 95 12/09/20 23:30 114/58 (76) 12/09/20 23:19 115 22 98/50 (66) 98 12/09/20 23:15 115 23 99 12/09/20 23:00 115 23 99/49 (66) 98 12/09/20 22:45 117 22 99 12/09/20 22:30 116 23 97/43 (61) 98 12/09/20 22:23 118 22 101/45 (63) 97 12/09/20 22:15 117 23 97 12/09/20 22:09 116 23 95/42 (59) 98 12/09/20 22:00 118 22 92/33 (52) 98 12/09/20 21:45 120 30 99 12/09/20 21:41 120 33 100/52 (68) 99 12/09/20 21:30 120 26 104/51 (68) 99 12/09/20 21:25 121 26 108/47 (67) 99 12/09/20 21:15 122 31 99 12/09/20 21:00 123 27 113/50 (71) 100 12/09/20 21:00 92/33 12/09/20 21:00 92/33 12/09/20 20:45 122 33 100 12/09/20 20:30 121 29 119/76 (90) 100 12/09/20 20:15 121 31 68 12/09/20 20:00 Room Air 12/09/20 20:00 98.8 123 27 130/56 (80) 94 12/09/20 19:45 123 31 99 12/09/20 19:30 125 27 113/49 (70) 100 12/09/20 19:15 129 26 95 12/09/20 19:00 125 27 142/78 (99) 100 12/09/20 19:00 98.6 12/09/20 18:43 97.2 124 27 153/86 (108) 100 12/09/20 18:21 123 24 137/73 (94) 100 12/09/20 18:00 97.5 112 23 120/57 (78) 100 12/09/20 17:00 117 20 138/67 (90) 99 12/09/20 16:00 97.5 101 24 131/72 (91) 100 12/09/20 16:00 Room Air Intake and Output 12/09/20 12/10/20 19:00 07:00 Intake Total 101.8 ml 2358.98 ml Output Total 857 ml 145 ml Balance -755.2 ml 2213.98 ml IV Total 101.8 ml 1330.98 ml Blood Product 1028 ml Output Urine Total 857 ml 145 ml # Bowel Movements 2 3 Laboratory Tests Test 12/09/20 22:29 12/10/20 00:09 12/10/20 00:34 12/10/20 05:43 Arterial Blood pH 7.334 (7.350-7.450) Arterial Blood Partial Pressure CO2 29.1 mmHg (35.0-45.0) L Arterial Blood Partial Pressure O2 89.8 mmHg (75.0-100.0) Arterial Blood HCO3 15.1 mmol/L (22.0-26.0) *L Arterial Blood Oxygen Saturation 95.8 % (95-100) Arterial Blood Base Excess -9.8 (-2-2) *L Vikash Test Positive POC Whole Blood Glucose 110 MG/DL (74-106) H White Blood Count 18.3 K/UL (4.8-10.8) #H 14.3 K/UL (4.8-10.8) H Red Blood Count 1.98 M/UL (4.70-6.10) L 2.30 M/UL (4.70-6.10) L Hemoglobin 6.2 G/DL (14.2-18.0) *L 7.2 G/DL (14.2-18.0) L Hematocrit 18.5 % (42.0-52.0) L 21.8 % (42.0-52.0) L Mean Corpuscular Volume 94 FL (80-99) 95 FL (80-99) Mean Corpuscular Hemoglobin 31.4 PG (27.0-31.0) H 31.1 PG (27.0-31.0) H Mean Corpuscular Hemoglobin Concent 33.4 G/DL (32.0-36.0) 32.8 G/DL (32.0-36.0) Red Cell Distribution Width 16.0 % (11.6-14.8) H 16.0 % (11.6-14.8) H Platelet Count 31 K/UL (150-450) L 28 K/UL (150-450) L Mean Platelet Volume 6.4 FL (6.5-10.1) L 6.7 FL (6.5-10.1) Neutrophils (%) (Auto) % (45.0-75.0) % (45.0-75.0) Lymphocytes (%) (Auto) % (20.0-45.0) % (20.0-45.0) Monocytes (%) (Auto) % (1.0-10.0) % (1.0-10.0) Eosinophils (%) (Auto) % (0.0-3.0) % (0.0-3.0) Basophils (%) (Auto) % (0.0-2.0) % (0.0-2.0) Differential Total Cells Counted 100 100 Neutrophils % (Manual) 87 % (45-75) H 87 % (45-75) H Lymphocytes % (Manual) 6 % (20-45) L 8 % (20-45) L Monocytes % (Manual) 5 % (1-10) 4 % (1-10) Eosinophils % (Manual) 0 % (0-3) 0 % (0-3) Basophils % (Manual) 0 % (0-2) 0 % (0-2) Band Neutrophils 2 % (0-8) 1 % (0-8) Platelet Estimate Decreased L Decreased L Platelet Morphology Normal Normal Prothrombin Time 23.4 SEC (9.30-11.50) H 24.2 SEC (9.30-11.50) H Prothromb Time International Ratio 2.3 (0.9-1.1) H 2.3 (0.9-1.1) H Hypochromasia 1+ Anisocytosis 1+ Activated Partial Thromboplast Time 67 SEC (23-33) H Sodium Level 146 MMOL/L (136-145) H Potassium Level 3.0 MMOL/L (3.5-5.1) L Chloride Level 113 MMOL/L (98-107) H Carbon Dioxide Level 17 MMOL/L (21-32) L Anion Gap 16 mmol/L (5-15) H Blood Urea Nitrogen 45 mg/dL (7-18) H Creatinine 3.7 MG/DL (0.55-1.30) H Estimat Glomerular Filtration Rate 18.2 mL/min (>60) Glucose Level 98 MG/DL (74-106) Uric Acid 10.6 MG/DL (2.6-7.2) H Calcium Level 8.2 MG/DL (8.5-10.1) L Phosphorus Level 4.9 MG/DL (2.5-4.9) Magnesium Level 2.1 MG/DL (1.8-2.4) Total Bilirubin 29.5 MG/DL (0.2-1.0) H Direct Bilirubin 18.1 MG/DL (0.0-0.3) H Aspartate Amino Transf (AST/SGOT) 149 U/L (15-37) H Alanine Aminotransferase (ALT/SGPT) 43 U/L (12-78) Alkaline Phosphatase 126 U/L (46-116) H Ammonia 176 umol/L (11-32) H C-Reactive Protein, Quantitative 12.7 mg/dL (0.00-0.90) H Pro-B-Type Natriuretic Peptide 55348 pg/mL (0-125) H Total Protein 5.5 G/DL (6.4-8.2) L Albumin 3.7 G/DL (3.4-5.0) Globulin 1.8 g/dL Albumin/Globulin Ratio 2.1 (1.0-2.7) Microbiology Date/Time Source Procedure Growth Status 12/08/20 04:00 Urine,Clean Catch Urine Culture - Final NO GROWTH AFTER 48 HOURS Complete Objective General Appearance: Weak HEENT: Jaundiced sclera. No JVD Respiratory: chest non-tender, lungs clear, normal breath sounds Cardiovascular: regular rate, rhythm, no murmur Gastrointestinal: Soft ascites Musculoskeletal: He has 4+ pitting edema. He has deformity and tenderness to the ankle and foot. . Selvin Fonseca MD Dec 10, 2020 15:27
--- NOTE | 2020-12-10 15:45 | NUR ---
NURSE NOTES: 2nd unit of FFP infusing at this time per MD order. Pt's VSS, safety precautions maintained. Will continue to monitor.
--- NOTE | 2020-12-10 15:50 | Pulmonology Progress Note ---
Subjective ROS Limited/Unobtainable: Yes Interval Events: Doing very poorly Constitutional: Reports: no symptoms, fever, other - low grade, Tmax=99.3 HEENT: Repors: no symptoms Respiratory: Reports: no symptoms Cardiovascular: Reports: no symptoms Gastrointestinal/Abdominal: Reports: no symptoms Allergies: Coded Allergies: No Known Allergies (Unverified , 12/06/20) All Systems: reviewed and negative except above Objective Last 24 Hour Vital Signs Date Time Temp Pulse Resp B/P (MAP) Pulse Ox O2 Delivery O2 Flow Rate FiO2 12/10/20 12:00 Room Air 12/10/20 11:15 112/51 12/10/20 09:36 105/53 12/10/20 08:00 Room Air 12/10/20 06:15 99 19 99 12/10/20 06:00 105 22 110/55 (73) 97 12/10/20 04:45 114 23 95 12/10/20 04:30 112 21 118/64 (82) 95 12/10/20 04:15 112 23 95 12/10/20 04:00 98.7 112 22 122/66 (84) 94 12/10/20 04:00 Room Air 12/10/20 03:45 114 22 95 12/10/20 03:30 110 20 120/60 (80) 92 12/10/20 03:15 112 22 91 12/10/20 03:00 110 21 112/60 (77) 90 12/10/20 03:00 110 21 112/60 (77) 90 12/10/20 02:50 103 20 103/53 (70) 91 12/10/20 02:45 108 21 93 12/10/20 02:35 112 23 115/65 (82) 95 12/10/20 02:30 112 22 120/102 (108) 96 12/10/20 02:22 114 22 105/59 (74) 96 12/10/20 02:15 112 23 97 12/10/20 02:12 114 23 92/51 (65) 97 12/10/20 02:00 117 23 117/50 (72) 97 12/10/20 01:45 117 23 98 12/10/20 01:30 116 19 116/49 (71) 98 12/10/20 01:15 117 23 98 12/10/20 01:00 117 21 123/46 (71) 98 12/10/20 00:30 119 20 105/59 (74) 98 12/10/20 00:15 120 20 96 12/10/20 00:00 99.4 121 22 110/50 (70) 94 12/10/20 00:00 Room Air 12/09/20 23:55 121 20 110/50 (70) 95 12/09/20 23:30 114/58 (76) 12/09/20 23:19 115 22 98/50 (66) 98 12/09/20 23:15 115 23 99 12/09/20 23:00 115 23 99/49 (66) 98 12/09/20 22:45 117 22 99 12/09/20 22:30 116 23 97/43 (61) 98 12/09/20 22:23 118 22 101/45 (63) 97 12/09/20 22:15 117 23 97 12/09/20 22:09 116 23 95/42 (59) 98 12/09/20 22:00 118 22 92/33 (52) 98 12/09/20 21:45 120 30 99 12/09/20 21:41 120 33 100/52 (68) 99 12/09/20 21:30 120 26 104/51 (68) 99 12/09/20 21:25 121 26 108/47 (67) 99 12/09/20 21:15 122 31 99 12/09/20 21:00 123 27 113/50 (71) 100 12/09/20 21:00 92/33 12/09/20 21:00 92/33 12/09/20 20:45 122 33 100 12/09/20 20:30 121 29 119/76 (90) 100 12/09/20 20:15 121 31 68 12/09/20 20:00 Room Air 12/09/20 20:00 98.8 123 27 130/56 (80) 94 12/09/20 19:45 123 31 99 12/09/20 19:30 125 27 113/49 (70) 100 12/09/20 19:15 129 26 95 12/09/20 19:00 125 27 142/78 (99) 100 12/09/20 19:00 98.6 12/09/20 18:43 97.2 124 27 153/86 (108) 100 12/09/20 18:21 123 24 137/73 (94) 100 12/09/20 18:00 97.5 112 23 120/57 (78) 100 12/09/20 17:00 117 20 138/67 (90) 99 12/09/20 16:00 97.5 101 24 131/72 (91) 100 12/09/20 16:00 Room Air Intake and Output 12/09/20 12/10/20 19:00 07:00 Intake Total 101.8 ml 2358.98 ml Output Total 857 ml 145 ml Balance -755.2 ml 2213.98 ml IV Total 101.8 ml 1330.98 ml Blood Product 1028 ml Output Urine Total 857 ml 145 ml # Bowel Movements 2 3 HEENT: normocephalic Respiratory: chest wall non-tender, lungs clear Cardiovascular: normal peripheral pulses, normal rate Abdomen: normal bowel sounds Neurologic: unresponsiveness Microbiology Date/Time Source Procedure Growth Status 12/08/20 04:00 Urine,Clean Catch Urine Culture - Final NO GROWTH AFTER 48 HOURS Complete Laboratory Tests 12/09/20 22:29: Arterial Blood pH 7.334L, Arterial Blood Partial Pressure CO2 29.1L, Arterial Blood Partial Pressure O2 89.8, Arterial Blood HCO3 15.1*L, Arterial Blood Oxygen Saturation 95.8, Arterial Blood Base Excess -9.8*L, Vikash Test Positive 12/10/20 00:09: POC Whole Blood Glucose 110H 12/10/20 00:34: White Blood Count 18.3#H, Red Blood Count 1.98L, Hemoglobin 6.2*L, Hematocrit 18.5L, Mean Corpuscular Volume 94, Mean Corpuscular Hemoglobin 31.4H, Mean Corpuscular Hemoglobin Concent 33.4, Red Cell Distribution Width 16.0H, Platelet Count 31L, Mean Platelet Volume 6.4L, Neutrophils (%) (Auto) , Lymphocytes (%) (Auto) , Monocytes (%) (Auto) , Eosinophils (%) (Auto) , Basophils (%) (Auto) , Differential Total Cells Counted 100, Neutrophils % (Manual) 87H, Lymphocytes % (Manual) 6L, Monocytes % (Manual) 5, Eosinophils % (Manual) 0, Basophils % (Manual) 0, Band Neutrophils 2, Platelet Estimate DecreasedL, Platelet Morphology Normal, Prothrombin Time 23.4H, Prothromb Time International Ratio 2.3H 12/10/20 05:43: White Blood Count 14.3H, Red Blood Count 2.30L, Hemoglobin 7.2L, Hematocrit 21.8L, Mean Corpuscular Volume 95, Mean Corpuscular Hemoglobin 31.1H, Mean Corpuscular Hemoglobin Concent 32.8, Red Cell Distribution Width 16.0H, Platelet Count 28L, Mean Platelet Volume 6.7, Neutrophils (%) (Auto) , Lymphocytes (%) (Auto) , Monocytes (%) (Auto) , Eosinophils (%) (Auto) , Basophils (%) (Auto) , Differential Total Cells Counted 100, Neutrophils % (Manual) 87H, Lymphocytes % (Manual) 8L, Monocytes % (Manual) 4, Eosinophils % (Manual) 0, Basophils % (Manual) 0, Band Neutrophils 1, Platelet Estimate DecreasedL, Platelet Morphology Normal, Prothrombin Time 24.2H, Prothromb Time International Ratio 2.3H, Hypochromasia 1+, Anisocytosis 1+, Activated Partial Thromboplast Time 67H , Sodium Level 146H, Potassium Level 3.0L, Chloride Level 113H, Carbon Dioxide Level 17L, Anion Gap 16H, Blood Urea Nitrogen 45H, Creatinine 3.7H, Estimat Glomerular Filtration Rate 18.2, Glucose Level 98, Uric Acid 10.6H, Calcium Level 8.2L, Phosphorus Level 4.9, Magnesium Level 2.1, Total Bilirubin 29.5H, Direct Bilirubin 18.1H, Aspartate Amino Transf (AST/SGOT) 149H, Alanine Aminotransferase (ALT/SGPT) 43, Alkaline Phosphatase 126H, Ammonia 176H, C- Reactive Protein, Quantitative 12.7H, Pro-B-Type Natriuretic Peptide 69648J, Total Protein 5.5L, Albumin 3.7, Globulin 1.8, Albumin/Globulin Ratio 2.1 Current Medications Medications (Trade) Dose Ordered Sig/Armin Route PRN Reason Start Time Stop Time Status Last Admin Dose Admin Albumin Human 100 ml @ 100 mls/hr Q6H IV 12/08/20 20:00 03/06/21 19:59 12/10/20 14:41 Albumin Human 100 ml @ 100 mls/hr QHS IV 12/08/20 21:00 12/11/20 21:59 12/09/20 22:14 Chlorhexidine Gluconate (Mariama-Hex 2%) 1 applic DAILY@2000 TOPIC 12/07/20 20:00 03/07/21 19:59 12/09/20 19:33 Dextrose (Dextrose 50%) 25 ml Q30M PRN IV Hypoglycemia 12/09/20 11:15 03/09/21 11:14 Dextrose (Dextrose 50%) 50 ml Q30M PRN IV Hypoglycemia 12/09/20 11:15 03/09/21 11:14 12/09/20 23:22 Dextrose/Sodium Chloride 1,000 ml @ 50 mls/hr Q20H IV 12/06/20 12:30 01/05/21 12:29 12/10/20 14:42 Epoetin Sd (Epoetin Sd-EPBX(NON ESRD)) 4,000 unit THU-THU-THU SUBQ 12/07/20 21:00 03/07/21 20:59 12/07/20 22:40 Folic Acid (Folate) 2 mg DAILY ORAL 12/08/20 13:45 01/05/21 19:59 Hydrocortisone (Solu-CORTEF) 100 mg EVERY 8 HOURS IV 12/10/20 06:45 03/10/21 06:44 12/10/20 14:42 Lactulose (Cephulac) 45 gm THREE TIMES A DAY ORAL 12/07/20 21:45 01/05/21 19:59 12/10/20 12:44 Midodrine (Pro-Amatine) 10 mg THREE TIMES A DAY ORAL 12/06/20 13:00 03/06/21 12:59 12/08/20 08:50 Multivitamins (Multivitamins) 1 tab DAILY ORAL 12/06/20 20:00 01/05/21 19:59 12/08/20 08:50 Norepinephrine Bitartrate 16 mg/ Dextrose 516 ml @ 7.74 mls/hr Q24H IV 12/09/20 21:00 12/12/20 15:14 12/10/20 11:15 Octreotide Acetate 500 mcg/ Sodium Chloride 500 ml @ 50 mls/hr Q10H IV 12/09/20 08:30 01/08/21 08:29 12/10/20 14:41 Pantoprazole (Protonix) 40 mg EVERY 12 HOURS IVP 12/06/20 21:00 01/05/21 20:59 12/10/20 10:12 Pentoxifylline (TRENtal) 400 mg Q12HR ORAL 12/06/20 21:00 03/06/21 20:59 12/08/20 08:51 Piperacillin Sod/ Tazobactam Sod 3.375 gm/Sodium Chloride 110 ml @ 27.5 mls/hr Q12HR IVPB 12/06/20 20:00 12/13/20 19:59 12/09/20 22:03 Thiamine HCl (Vitamin B1) 100 mg DAILY ORAL 12/06/20 20:00 01/05/21 19:59 12/08/20 08:50 Vasopressin 100 units/Sodium Chloride 100 ml @ 0 mls/hr Q24H IV 12/08/20 05:45 12/11/20 05:31 12/10/20 11:07 Assessment/Plan Assessment/Plan Assessment and Plan # Anemia # 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
--- NOTE | 2020-12-10 17:50 | NUR ---
NURSE NOTES: Bed bath provided, oral care given. Pt's gown and bed linens changed. Pt's VSS, no signs of distress noted. Will continue to monitor.
--- NOTE | 2020-12-10 18:54 | General Progress Note ---
Subjective ROS Limited/Unobtainable: Yes Allergies: Coded Allergies: No Known Allergies (Unverified , 12/06/20) Objective Last 24 Hour Vital Signs Date Time Temp Pulse Resp B/P (MAP) Pulse Ox O2 Delivery O2 Flow Rate FiO2 12/10/20 18:00 96 23 110/51 (70) 96 12/10/20 17:00 99 22 110/59 (76) 96 12/10/20 16:00 Room Air 12/10/20 16:00 99.5 95 22 108/59 (75) 96 12/10/20 15:09 97 12/10/20 15:00 95 21 109/53 (71) 97 12/10/20 14:00 106 21 100/56 (71) 96 12/10/20 13:00 110 21 113/58 (76) 98 12/10/20 12:00 99.3 109 21 110/52 (71) 95 12/10/20 12:00 Room Air 12/10/20 11:43 98 12/10/20 11:15 112/51 12/10/20 11:00 109 22 112/51 (71) 97 12/10/20 10:00 110 20 110/47 (68) 97 12/10/20 09:36 105/53 12/10/20 09:00 110 21 110/53 (72) 97 12/10/20 08:00 Room Air 12/10/20 08:00 98.9 110 21 110/44 (66) 98 12/10/20 07:55 110 12/10/20 07:00 108 18 105/52 (69) 99 12/10/20 06:15 99 19 99 12/10/20 06:00 105 22 110/55 (73) 97 12/10/20 04:45 114 23 95 12/10/20 04:30 112 21 118/64 (82) 95 12/10/20 04:15 112 23 95 12/10/20 04:00 98.7 112 22 122/66 (84) 94 12/10/20 04:00 Room Air 12/10/20 03:45 114 22 95 12/10/20 03:30 110 20 120/60 (80) 92 12/10/20 03:15 112 22 91 12/10/20 03:00 110 21 112/60 (77) 90 12/10/20 03:00 110 21 112/60 (77) 90 12/10/20 02:50 103 20 103/53 (70) 91 12/10/20 02:45 108 21 93 12/10/20 02:35 112 23 115/65 (82) 95 12/10/20 02:30 112 22 120/102 (108) 96 12/10/20 02:22 114 22 105/59 (74) 96 12/10/20 02:15 112 23 97 12/10/20 02:12 114 23 92/51 (65) 97 12/10/20 02:00 117 23 117/50 (72) 97 12/10/20 01:45 117 23 98 12/10/20 01:30 116 19 116/49 (71) 98 12/10/20 01:15 117 23 98 12/10/20 01:00 117 21 123/46 (71) 98 12/10/20 00:30 119 20 105/59 (74) 98 12/10/20 00:15 120 20 96 12/10/20 00:00 99.4 121 22 110/50 (70) 94 12/10/20 00:00 Room Air 12/09/20 23:55 121 20 110/50 (70) 95 12/09/20 23:30 114/58 (76) 12/09/20 23:19 115 22 98/50 (66) 98 12/09/20 23:15 115 23 99 12/09/20 23:00 115 23 99/49 (66) 98 12/09/20 22:45 117 22 99 12/09/20 22:30 116 23 97/43 (61) 98 12/09/20 22:23 118 22 101/45 (63) 97 12/09/20 22:15 117 23 97 12/09/20 22:09 116 23 95/42 (59) 98 12/09/20 22:00 118 22 92/33 (52) 98 12/09/20 21:45 120 30 99 12/09/20 21:41 120 33 100/52 (68) 99 12/09/20 21:30 120 26 104/51 (68) 99 12/09/20 21:25 121 26 108/47 (67) 99 12/09/20 21:15 122 31 99 12/09/20 21:00 123 27 113/50 (71) 100 12/09/20 21:00 92/33 12/09/20 21:00 92/33 12/09/20 20:45 122 33 100 12/09/20 20:30 121 29 119/76 (90) 100 12/09/20 20:15 121 31 68 12/09/20 20:00 Room Air 12/09/20 20:00 98.8 123 27 130/56 (80) 94 12/09/20 19:45 123 31 99 12/09/20 19:30 125 27 113/49 (70) 100 12/09/20 19:15 129 26 95 12/09/20 19:00 125 27 142/78 (99) 100 12/09/20 19:00 98.6 Intake and Output 12/09/20 12/10/20 19:00 07:00 Intake Total 101.8 ml 2358.98 ml Output Total 857 ml 155 ml Balance -755.2 ml 2203.98 ml IV Total 101.8 ml 1330.98 ml Blood Product 1028 ml Output Urine Total 857 ml 155 ml # Bowel Movements 2 3 Laboratory Tests 12/09/20 22:29: Arterial Blood pH 7.334L, Arterial Blood Partial Pressure CO2 29.1L, Arterial Blood Partial Pressure O2 89.8, Arterial Blood HCO3 15.1*L, Arterial Blood Oxygen Saturation 95.8, Arterial Blood Base Excess -9.8*L, Vikash Test Positive 12/10/20 00:09: POC Whole Blood Glucose 110H 12/10/20 00:34: White Blood Count 18.3#H, Red Blood Count 1.98L, Hemoglobin 6.2*L, Hematocrit 18.5L, Mean Corpuscular Volume 94, Mean Corpuscular Hemoglobin 31.4H, Mean Corpuscular Hemoglobin Concent 33.4, Red Cell Distribution Width 16.0H, Platelet Count 31L, Mean Platelet Volume 6.4L, Neutrophils (%) (Auto) , Lymphocytes (%) (Auto) , Monocytes (%) (Auto) , Eosinophils (%) (Auto) , Basophils (%) (Auto) , Differential Total Cells Counted 100, Neutrophils % (Manual) 87H, Lymphocytes % (Manual) 6L, Monocytes % (Manual) 5, Eosinophils % (Manual) 0, Basophils % (Manual) 0, Band Neutrophils 2, Platelet Estimate DecreasedL, Platelet Morphology Normal, Prothrombin Time 23.4H, Prothromb Time International Ratio 2.3H 12/10/20 05:43: White Blood Count 14.3H, Red Blood Count 2.30L, Hemoglobin 7.2L, Hematocrit 21.8L, Mean Corpuscular Volume 95, Mean Corpuscular Hemoglobin 31.1H, Mean Corpuscular Hemoglobin Concent 32.8, Red Cell Distribution Width 16.0H, Platelet Count 28L, Mean Platelet Volume 6.7, Neutrophils (%) (Auto) , Lymphocytes (%) (Auto) , Monocytes (%) (Auto) , Eosinophils (%) (Auto) , Basophils (%) (Auto) , Differential Total Cells Counted 100, Neutrophils % (Manual) 87H, Lymphocytes % (Manual) 8L, Monocytes % (Manual) 4, Eosinophils % (Manual) 0, Basophils % (Manual) 0, Band Neutrophils 1, Platelet Estimate DecreasedL, Platelet Morphology Normal, Prothrombin Time 24.2H, Prothromb Time International Ratio 2.3H, Hypochromasia 1+, Anisocytosis 1+, Activated Partial Thromboplast Time 67H , Sodium Level 146H, Potassium Level 3.0L, Chloride Level 113H, Carbon Dioxide Level 17L, Anion Gap 16H, Blood Urea Nitrogen 45H, Creatinine 3.7H, Estimat Glomerular Filtration Rate 18.2, Glucose Level 98, Uric Acid 10.6H, Calcium Level 8.2L, Phosphorus Level 4.9, Magnesium Level 2.1, Total Bilirubin 29.5H, Direct Bilirubin 18.1H, Aspartate Amino Transf (AST/SGOT) 149H, Alanine Aminotransferase (ALT/SGPT) 43, Alkaline Phosphatase 126H, Ammonia 176H, C- Reactive Protein, Quantitative 12.7H, Pro-B-Type Natriuretic Peptide 91911Y, Total Protein 5.5L, Albumin 3.7, Globulin 1.8, Albumin/Globulin Ratio 2.1 Height (Feet): 5 Height (Inches): 8.00 Weight (Pounds): 160 General Appearance: lethargic Assessment/Plan Problem List: (1) Urine retention ICD Codes: R33.9 - Retention of urine, unspecified SNOMED: 517070647 (2) Hypokalemia ICD Codes: E87.6 - Hypokalemia; S82.409A - Unspecified fracture of shaft of unspecified fibula, initial encounter for closed fracture SNOMED: 74692764, 268940910 (3) Alcohol abuse ICD Codes: F10.10 - Alcohol abuse, uncomplicated SNOMED: 17805723, 851737201 (4) Anemia ICD Codes: D64.9 - Anemia, unspecified SNOMED: 833518585, 535611146 Qualifiers: Qualified Codes: D64.9 - Anemia, unspecified (5) Tibia/fibula fracture, shaft ICD Codes: S82.209A - Unspecified fracture of shaft of unspecified tibia, initial encounter for closed fracture; S82.409A - Unspecified fracture of shaft of unspecified fibula, initial encounter for closed fracture SNOMED: 337272112, 753404058 Qualifiers: Qualified Codes: S82.201A - Unspecified fracture of shaft of right tibia, initial encounter for closed fracture; S82.401A - Unspecified fracture of shaft of right fibula, initial encounter for closed fracture (6) Alcoholic cirrhosis of liver with ascites ICD Codes: K70.31 - Alcoholic cirrhosis of liver with ascites SNOMED: 364611684, 063161304 (7) Fracture of right tibia and fibula ICD Codes: S82.201A - Unspecified fracture of shaft of right tibia, initial encounter for closed fracture; S82.401A - Unspecified fracture of shaft of right fibula, initial encounter for closed fracture SNOMED: 268689670, 05190299305429997 (8) Electrolyte imbalance ICD Codes: E87.8 - Other disorders of electrolyte and fluid balance, not elsewhere classified SNOMED: 155360058 (9) Renal failure (ARF), acute on chronic ICD Codes: N17.9 - Acute kidney failure, unspecified; N18.9 - Chronic kidney disease, unspecified SNOMED: 590247101 Status: deteriorating Assessment/Plan: etoh cirrhosis coagulapathy not improving on somatastatin drip for bleeding on pressors liver end stage/failure very critical and poor prognosis dpoa wants to do everything monitor for bleeding confused tib /fib fracture and not stable for repair Divya Nevarez MD Dec 10, 2020 18:54
--- NOTE | 2020-12-10 19:21 | NUR ---
NURSE HAND-OFF REPORT: Latest Vital Signs: Temperature 99.7 , Pulse 95 , B/P 110 /52 , Respiratory Rate 22 , O2 SAT 99 , Room Air. Vital Sign Comment: EKG Rhythm: Sinus Rhythm Rhythm change?: N MD Notified?: - MD Response: Latest Green Fall Score: 80 Fall Risk: High Risk Safety Measures: Call light Within Reach, Bed Alarm Zone 1, Side Rails Side Rails x2, Bed position Low and Locked. Fall Precautions: Yellow Socks Door Sign Patient Fall Education Report given to ALEENA Weaver for continuity of care. Pt stable..
--- NOTE | 2020-12-10 19:22 | NUR ---
received report from day rn. Pt remains on pressor support. Bleeding from multiple sites. All ordered blood products administered, no pending infusions. Pt obtunded, on NRB. Oral Airway protection in place. Bed in lowest position, call light within reach, side rails x3, will continue to monitor.
--- NOTE | 2020-12-10 19:48 | NUR ---
Called primary Hadadz to notify DNR/DNI status. Left voicemail. Waiting for phone call to be returned.
--- NOTE | 2020-12-10 20:06 | NUR ---
returned call back. Pt now fully DNR/DNI. Will continue to monito
[2020-12-10] MEDS: Dyna-Hex 2% Top Sol 2oz TOPIC SCH (21:13)
[2020-12-10] MEDS: Epoetin Alfa-EPBX (NON ESRD)4000 units/ml vial SUBQ SCH (21:15)
--- NOTE | 2020-12-10 22:00 | NUR ---
PM medications given. Hemodynamically stable, on pressor support. Will continue to monitor.
--- NOTE | 2020-12-10 22:59 | General Progress Note ---
Subjective Allergies: Coded Allergies: No Known Allergies (Unverified , 12/06/20) Subjective Seen in ICU d/w RNs doing poorly on two pressors still oozing blood from mouth/penis More FFP ordered Objective Last 24 Hour Vital Signs Date Time Temp Pulse Resp B/P (MAP) Pulse Ox O2 Delivery O2 Flow Rate FiO2 12/10/20 22:00 96 21 108/51 (70) 98 12/10/20 21:00 95 22 105/53 (70) 99 12/10/20 21:00 105/53 12/10/20 20:00 99.7 95 22 110/52 (71) 99 12/10/20 20:00 Non-Rebreather 15.0 12/10/20 19:45 94 20 99 12/10/20 19:30 97 21 112/55 (74) 99 12/10/20 19:15 93 21 99 12/10/20 19:00 94 22 108/56 (73) 99 12/10/20 19:00 108/56 12/10/20 19:00 94 22 108/56 (73) 99 12/10/20 18:00 96 23 110/51 (70) 96 12/10/20 18:00 110/51 12/10/20 17:00 110/59 12/10/20 17:00 99 22 110/59 (76) 96 12/10/20 16:00 Room Air 12/10/20 16:00 108/59 12/10/20 16:00 99.5 95 22 108/59 (75) 96 12/10/20 15:09 97 12/10/20 15:00 109/53 12/10/20 15:00 95 21 109/53 (71) 97 12/10/20 14:00 106 21 100/56 (71) 96 12/10/20 14:00 100/56 12/10/20 13:00 113/58 12/10/20 13:00 110 21 113/58 (76) 98 12/10/20 12:00 99.3 109 21 110/52 (71) 95 12/10/20 12:00 110/58 12/10/20 12:00 Room Air 12/10/20 11:43 98 12/10/20 11:15 112/51 12/10/20 11:00 112/51 12/10/20 11:00 109 22 112/51 (71) 97 12/10/20 10:00 110/47 12/10/20 10:00 110 20 110/47 (68) 97 12/10/20 09:36 105/53 12/10/20 09:00 110 21 110/53 (72) 97 12/10/20 09:00 110/53 12/10/20 08:00 110/44 12/10/20 08:00 Room Air 12/10/20 08:00 98.9 110 21 110/44 (66) 98 12/10/20 07:55 110 12/10/20 07:00 103/52 12/10/20 07:00 108 18 105/52 (69) 99 12/10/20 06:15 99 19 99 12/10/20 06:00 105 22 110/55 (73) 97 12/10/20 04:45 114 23 95 12/10/20 04:30 112 21 118/64 (82) 95 12/10/20 04:15 112 23 95 12/10/20 04:00 98.7 112 22 122/66 (84) 94 12/10/20 04:00 Room Air 12/10/20 03:45 114 22 95 12/10/20 03:30 110 20 120/60 (80) 92 12/10/20 03:15 112 22 91 12/10/20 03:00 110 21 112/60 (77) 90 12/10/20 03:00 110 21 112/60 (77) 90 12/10/20 02:50 103 20 103/53 (70) 91 12/10/20 02:45 108 21 93 12/10/20 02:35 112 23 115/65 (82) 95 12/10/20 02:30 112 22 120/102 (108) 96 12/10/20 02:22 114 22 105/59 (74) 96 12/10/20 02:15 112 23 97 12/10/20 02:12 114 23 92/51 (65) 97 12/10/20 02:00 117 23 117/50 (72) 97 12/10/20 01:45 117 23 98 12/10/20 01:30 116 19 116/49 (71) 98 12/10/20 01:15 117 23 98 12/10/20 01:00 117 21 123/46 (71) 98 12/10/20 00:30 119 20 105/59 (74) 98 12/10/20 00:15 120 20 96 12/10/20 00:00 99.4 121 22 110/50 (70) 94 12/10/20 00:00 Room Air 12/09/20 23:55 121 20 110/50 (70) 95 12/09/20 23:30 114/58 (76) 12/09/20 23:19 115 22 98/50 (66) 98 12/09/20 23:15 115 23 99 12/09/20 23:00 115 23 99/49 (66) 98 Intake and Output 12/09/20 12/10/20 19:00 07:00 Intake Total 101.8 ml 2488.00 ml Output Total 857 ml 155 ml Balance -755.2 ml 2333.00 ml IV Total 101.8 ml 1460.00 ml Blood Product 1028 ml Output Urine Total 857 ml 155 ml # Bowel Movements 2 3 Laboratory Tests 12/10/20 00:09: POC Whole Blood Glucose 110H 12/10/20 00:34: White Blood Count 18.3#H, Red Blood Count 1.98L, Hemoglobin 6.2*L, Hematocrit 18.5L, Mean Corpuscular Volume 94, Mean Corpuscular Hemoglobin 31.4H, Mean Corpuscular Hemoglobin Concent 33.4, Red Cell Distribution Width 16.0H, Platelet Count 31L, Mean Platelet Volume 6.4L, Neutrophils (%) (Auto) , Lymphocytes (%) (Auto) , Monocytes (%) (Auto) , Eosinophils (%) (Auto) , Basophils (%) (Auto) , Differential Total Cells Counted 100, Neutrophils % (Manual) 87H, Lymphocytes % (Manual) 6L, Monocytes % (Manual) 5, Eosinophils % (Manual) 0, Basophils % (Manual) 0, Band Neutrophils 2, Platelet Estimate DecreasedL, Platelet Morphology Normal, Prothrombin Time 23.4H, Prothromb Time International Ratio 2.3H 12/10/20 05:43: White Blood Count 14.3H, Red Blood Count 2.30L, Hemoglobin 7.2L, Hematocrit 21 .8L, Mean Corpuscular Volume 95, Mean Corpuscular Hemoglobin 31.1H, Mean Corpuscular Hemoglobin Concent 32.8, Red Cell Distribution Width 16.0H, Platelet Count 28L, Mean Platelet Volume 6.7, Neutrophils (%) (Auto) , Lymphocytes (%) (Auto) , Monocytes (%) (Auto) , Eosinophils (%) (Auto) , Basophils (%) (Auto) , Differential Total Cells Counted 100, Neutrophils % (Manual) 87H, Lymphocytes % (Manual) 8L, Monocytes % (Manual) 4, Eosinophils % (Manual) 0, Basophils % (Manual) 0, Band Neutrophils 1, Platelet Estimate DecreasedL, Platelet Morphology Normal, Prothrombin Time 24.2H, Prothromb Time International Ratio 2.3H, Hypochromasia 1+, Anisocytosis 1+, Activated Partial Thromboplast Time 67H , Sodium Level 146H, Potassium Level 3.0L, Chloride Level 113H, Carbon Dioxide Level 17L, Anion Gap 16H, Blood Urea Nitrogen 45H, Creatinine 3.7H, Estimat Glomerular Filtration Rate 18.2, Glucose Level 98, Uric Acid 10.6H, Calcium Level 8.2L, Phosphorus Level 4.9, Magnesium Level 2.1, Total Bilirubin 29.5H, Direct Bilirubin 18.1H, Aspartate Amino Transf (AST/SGOT) 149H, Alanine Aminotra nsferase (ALT/SGPT) 43, Alkaline Phosphatase 126H, Ammonia 176H, C-Reactive Protein, Quantitative 12.7H, Pro-B-Type Natriuretic Peptide 83644Q, Total Protein 5.5L, Albumin 3.7, Globulin 1.8, Albumin/Globulin Ratio 2.1 Height (Feet): 5 Height (Inches): 8.00 Weight (Pounds): 160 Objective Patient seen in ICU obtunded, minimally communicative agonal breathing pattern NCAT supple Coarse BS RR abd mildly distended, (+) fluid wave (+) b/l LE edema, (R) leg splint Assessment/Plan Status: deteriorating Assessment/Plan: Assessment - Severe alcoholic hepatitis, jaundice - cirrhosis with ascites,varicies, portal HTN - per ultrasound - Decompensated liver disease - Alcoholic hepatitis - underlying cirrhosis - Hepatorenal - Sepsis? SBP? - Renal failure - poor prognostic indicator - Hepatic encephalopathy, high NH3 - needs lactulose - orders for rectal Rx given - Coagulopathy - severe, will Rx more FFP - (+) EtOH level on admission - Fractured Tib/Fib - Drop in H&H - multifactorial : - loss in fractured LE - mouth / loss - possible component of GI bleed - blood draws - sepsis/poor health - Patient moribund. Would discuss terminal care with family Recommendations - Agree wtih DNR - Midodrine/Octreotide trial for HRS (only receiving the latter) - s/p albumin challenge for HRS vs ATN - PPI IV - Lactulose ---> AR - orders given - MVI/Thiamine - Trental trial (cannot give steroids given possible sepsis) - broad spectrum abx - paracentesis - r/o SBP - abdominal u/s - r/o biliary obstruction - Vitamin K - given - unable to take oral meds since NPO - too high risk for bleeding/aspiration/respiratory arrest with NGT or OGT placement - not stable for endoscopy (sepsis, shock, coagulopathy, impending resp failure) Murray Upton MD Dec 10, 2020 22:59
[2020-12-11] VITALS (7 sets, daily range): BP systolic 96–113; BP diastolic 45–57
--- NOTE | 2020-12-11 | NUR ---
Pt is having agonal breathing. Remains on NRB. Requires frequent suctioning.
[2020-12-11] MEDS: Octreotide Acetate 500 MCG in Sodium Chloride 499 ML IV SCH (01:03)
--- NOTE | 2020-12-11 02:01 | NUR ---
attempted to give bed bath. Pt starting desaturating. Provided oral suction. O2 sat slightly improved.
[2020-12-11] MEDS ORDERED: Tubing IV Secondary IV ONE (03:22)
--- NOTE | 2020-12-11 03:23 | NUR ---
pt elena to asystole. Family called. called, left voicemail. Pt belongings at bedside, placed in bag with pt, educated family to pick pulling machine tender. Pt is not a candidate for organ donation. Spoke with Ludmila Delacruz ref # [id number].
--- NOTE | 2020-12-11 03:23 | NUR ---
PRONOUNCEMENT: No Code. Called to pronounce patient. Absence of spontaneous respirations, no cardiac or breath sounds on auscultation. Pupils fixed and dilated. No carotid pulse or chest movement. Patient at 0323.Message left for Dr Nevarez by Boaz Driver. Mother was called by Boaz Driver and he left a message, awaiting callback.
[2020-12-11] MEDS ORDERED: Phytonadione 10 mg/mL 1ml amp SUBQ SCH (09:00)
--- NOTE | 2020-12-13 16:03 | Discharge Summary ---
Discharge Summary Discharge Summary _ SUMMARY DATE OF ADMISSION: 12/06/2020 DATE OF EXPIRATION: 12/10/2020 REASON FOR ADMISSION: [] 40 years old male with past medical history of alcoholic cirrhosis presented with complaint of acute onset of. Patient reported he tripped over a chair fell and twisted his right ankle. Pain reported as 9 out of 10. Patient was unable to bear weight. Patient had visible deformity and swelling of the right lower extremity. He denied any head injury. No fever or chills. No radiation of pain x-ray of the right ankle rev ealed comminuted fracture of the distal tibia and fibular shafts. X-ray of the right foot revealed fracture in the distal tibia and fibula. No discrete fracture in the foot. X-ray of the right knee reveal no fracture. Patient subsequently admitted for further management patient had unstable tibial fibular shaft fracture alcohol level was 55. Physical exam revealed ascites and severe jaundice with poor kidney function. Patient received short leg posterior splint along with a sugar tong patient tolerated procedure well orthopedic surgeon consulted patient subsequently admitted to for further management right ankle pain central line was placed Laboratory work-up revealed leukocytosis WBC 14.5, hemoglobin 10.5 hematocrit 31 platelet count 68. Potassium 2.3. Sodium 126. BUN 30, creatinine 4.7. Glucose 50. Total bilirubin 26.9 direct bilirubin 22.8 AST 139 ALT 43. Ammonia level 277. CRP 11.6 troponin negative proBNP 1054. Serum alcohol level 55. Patient was hemodynamically unstable and required initiation of pressors and admitted to ICU for further management. CONSULTANTS: seedling sorter Dr. Gold billposting supervisor Dr. Brar orthopedic surgeon Dr. Montez neurologist Dr. Tolentino pulmonary Dr. Dos Santos ID specialist Dr. Deepak Villarreal GI specialist Dr. Upton english and reading instructor Dr. Sneed plant changer/oncologist Dr. Douglass general surgery Dr. Rodrigues [facility] COURSE: Patient admitted to ICU. Hemodynamic status was closely monitored. Pressors titrated to keep mean arterial blood pressure above 65. Echocardiogram revealed preserved ejection fraction. No evidence of pericardial effusion. Urine culture revealed no evidence of growth. COVID-19 was negative. Chest x-ray revealed right basilar hazy atelectasis versus early infiltrate. Patient received empiric Zosyn for possible aspiration. Supplemental oxygen provided and titrated to keep pulse oximetry above 92% Pulmonary toilet provided. Patient required nonrebreather mask. Renal ultrasound revealed echogenic kidneys reflecting medical renal disease no obstructive uropathy. Renal parameters and electrolytes were closely monitored, electrolytes corrected as needed , nephrotoxins were avoided Creatinine initially worsened up to 5.8, then started to trend down to 3.7. LFT and bilirubin were closely monitored. Abdominal ultrasound demonstrated evidence of hepatic cirrhosis with increased parenchymal echogenicity and surface nodularity. Distended gallbladder, but no stones. Normal common bile duct. Evidence of portal hypertension with ascites, splenomegaly and splenic hilar varices. Patient started on lactulose. Ammonia trended down, but still remained elevated. Neurologist followed. MRI of the brain was planned. Per billposting supervisor hypoglycemia was due to cirrhosis, causing depletion of glycogen store. Patient had no history of diabetes. Serum cortisol was done , and patient was treated with stress dose of hydrocortisone. Dextrose provided. Hypoglycemia protocol was in place. Blood glucose stabilized. Orthopedic surgeon seen and evaluated patient. Patient was not stable for procedure at this time. Patient was oozing blood from the mouth and penis. Patient received 2 units of packed red blood cells, 5 units of fresh frozen plasma and 1 unit of platele- pheresis , while in the hospital. Hepatitis panel was negative. HIV test was nonreactive. Stool for occult blood was positive. Patient condition continued to deteriorate. He was on multiply pressors along with hepatic and liver failure, coagulopathy, altered mental status and anemia. CODE STATUS was changed to DNR/DNI as per family wishes., Given multiply organ failure. Patient subsequently pronounced at 3:23 AM on 12/11/20. Cause of : cardiopulmonary arrest FINAL DIAGNOSES: Septic shock Alcoholic cirrhosis of liver with ascites Hepatic encephalopathy Hepatorenal syndrome Severe alcoholic hepatitis Right tibia-fibula fracture Renal failure ,acute on chronic Electrolytes abnormalities Alcohol abuse Anemia Severe coagulopathy Thrombocytopenia Coagulopathy Hypoglycemia due to cirrhosis I have been assigned to dictate discharge summary for this account. I was not involved in the patient's management. Mable Ohara NP Dec 13, 2020 16:03
--- NOTE | 2020-12-19 02:15 | Cardiology Report ---
APPROVED REPORT EKG Measurement Heart [id number] <Conclusion> Normal sinus rhythm Prolonged QT Abnormal ECG
--- NOTE | 2020-12-19 09:26 | Cardiology Report ---
APPROVED REPORT EXAM: Two-dimensional and M-mode echocardiogram with Doppler and color Doppler. INDICATION Preop M-Mode DIMENSIONS IVSd0.8 (0.7-1.1cm)Left Atrium (MM)3.4 (1.6-4.0cm) LVDd4.9 (3.5-5.6cm)Aortic Root3.3 (2.0-3.7cm) PWd0.7 (0.7-1.1cm)Aortic Cusp Exc.2.2 (1.5-2.0cm) IVSs1.4 cmEPSS0.9 (>1.0cm) LVDs3.3 (2.5-4.0cm) PWs0.8 cm <Conclusion> Technically difficult study due to poor acoustical windows. Normal left ventricular chamber size, systolic function and wall motion to extent visualized. Left ventricular ejection fraction estimated to be 60-65 %. Study quality precludes accurate assessment of regional wall motion. No evidence of left ventricular hypertrophy. All other cardiac chamber sizes are within normal limits. Focal aortic valve sclerosis with adequate cusp excursion. Mildly thickened mitral valve leaflets with normal excursion. Mild mitral annulus and aortic root calcification. Pulmonic valve not well visualized. Normal tricuspid valve structure. IVC at normal size with physiologic collapse. A color flow and spectral Doppler study was performed and revealed: No aortic regurgitation. Trace mitral regurgitation. Mitral inflow indicates normal left ventricular diastolic function. Mild tricuspid regurgitation. Tricuspid systolic velocities suggests peak right ventricular systolic pressure of 28 mmHg. consistent with mild, moderate, severe pulmonary hypertension. Trace pulmonic regurgitation present.
== END 2020-12-11 03:23 | disposition still patient (30) | DRG 720 ==
LOC: EDBD 00:29 → EMR 00:44 → 4E 02:49 → EDBEDREQ 03:07 → 2E 15:07 → ICU 16:09
PROC: 2W3QX1Z Immobilization of Right Lower Leg using Splint (ICD-10-PCS; principal; 2020-12-06)
PROC: 05HM33Z Insertion of Infusion Device into Right Internal Jugular Vein, Percutaneous Approach (ICD-10-PCS; 2020-12-06)
DX: A41.9 Sepsis, unspecified organism (principal); R65.21 Severe sepsis with septic shock; S82.201A Unspecified fracture of shaft of right tibia, initial encounter for closed fracture; S82.401A Unspecified fracture of shaft of right fibula, initial encounter for closed fracture; K70.31 Alcoholic cirrhosis of liver with ascites; K76.7 Hepatorenal syndrome; E87.1 Hypo-osmolality and hyponatremia; N17.9 Acute kidney failure, unspecified; K72.90 Hepatic failure, unspecified without coma; D68.4 Acquired coagulation factor deficiency; E87.6 Hypokalemia; W01.0XXA Fall on same level from slipping, tripping and stumbling without subsequent striking against object, initial encounter; Y92.129 Unspecified place in nursing home as the place of occurrence of the external cause; F10.139 Alcohol abuse with withdrawal, unspecified; Y90.2 Blood alcohol level of 40-59 mg/100 ml; N18.9 Chronic kidney disease, unspecified; D63.1 Anemia in chronic kidney disease; R73.9 Hyperglycemia, unspecified; Z20.822 Contact with and (suspected) exposure to COVID-19; D69.6 Thrombocytopenia, unspecified; R33.9 Retention of urine, unspecified; Z66 Do not resuscitate; J18.9 Pneumonia, unspecified organism
CPT/HCPCS: 29515; 36415; 71045; 76700; 76770; 80053; 80061; 81001; 82140; 82248; 82270; 82533; 82607; 82728; 82746; 82803; 82962; 82977; 83540; 83550; 83735; 83880; 84100; 84300; 84443; 84484; 84550; 85007; 85025; 85610; 85730; 86140; 86703; 86705; 86709; 86803; 86850; 86900; 86901; 86920; 86927; 87086; 87340; 93005; 93306; 96365; 96375; 99285; G0480; J8499